=== PATIENT | female | born 1985 | race Caucasian/White ===

== ENCOUNTER 2016-12-09 14:26 | Emergency (ER) | payer MEDICARE, MEDICAID ==
[2016-12-09 15:40] VITALS: BP 129/82
--- NOTE | 2016-12-09 15:49 | UC ---
Throat Pain/Nasal Minesh HPI - HPI Summary HPI Summary: FOUR WEEKS OF SINUS CONGESTION COUGH. TOOK Z PACK ONE MONTH AGO, NO IMPROVEMENT. LAST FOUR DAYS HAS DEVELOPED SORE THROAT. NO FEVER. NO RASHES. NO SHORTNESS OF BREATH. - History of Current Complaint Chief Complaint: UCGeneralIllness Stated Complaint: SORE THROAT Time Seen by Provider: 12/09/16 15:27 Hx Obtained From: Patient Hx Last Menstrual Period: 12/04/16 Onset/Duration: Gradual Onset, Lasting Weeks, Still Present Severity: Moderate Cough: Nonproductive Associated Signs & Symptoms: Positive: Dysphagia, Hoarseness, Sinus Discomfort, Nasal Discharge. Negative: Fever - Epiglottits Risk Factors Epiglottis Risk Factors: Negative - Allergies/Home Medications Allergies/Adverse Reactions: Allergies Allergy/AdvReac Type Severity Reaction Status Date / Time Penicillins AdvReac Intermediate GI Upset Verified 12/09/16 15:21 Amoxicillin AdvReac Vomiting Verified 12/09/16 15:21 mushrooms Allergy Hives Uncoded 12/09/16 15:21 Home Medications: Home Medications Albuterol HFA INHALER* [Ventolin HFA Inhaler*] 2 puff INH Q6H PRN 12/09/16 [ History Confirmed 12/09/16] PMH/Surg Hx/FS Hx/Imm Hx Previously Healthy: Yes Endocrine History Of: Denies: Diabetes, Thyroid Disease, Hyperthyroidism, Hypothyroidism, Dyslipidemia Cardiovascular History Of: Reports: Cardiac Disorders - Hx of rapid heart rate Denies: Hypertension, Pacemaker/ICD, Myocardial Infarction, Congestive Heart Failure, Atrial Fibrillation, Deep Vein Thrombosis, Bleeding Disorders Respiratory History Of: Reports: Asthma, Bronchitis Denies: COPD - RAPID HEART RATE, Pneumonia, Pulmonary Embolism GI/ History Of: Denies: Gastroesophageal Reflux, Ulcer, Gastrointestinal Bleed, Gall Bladder Disease, Kidney Stones, Diverticulitis, Renal Disease, Urosepsis Neurological History Of: Denies: TIA, CVA, Dementia, Seizures, Migraine Psychological History Of: Denies: Anxiety, Depression, Bipolar Disorder, Schizophrenia, Post Traumatic Stress Disorder Cancer History Of: Denies: Lung Cancer, Colorectal Cancer, Breast Cancer, Prostate Cancer, Cervical Cancer Other History Of: Negative For: HIV, Hepatitis B, Hepatitis C - Surgical History Surgical History: Yes Surgery Procedure, Year, and Place: Sinus Surgery, 2013, [facility], esure. Cholecystectomy - Family History Known Family History: Positive: Cardiac Disease, Hypertension - Social History Occupation: Unemployed Lives: With Family Alcohol Use: Occasionally Substance Use Type: None Smoking Status (MU): Never Smoked Tobacco When Did the Patient Quit Smoking/Using Tobacco: 5 years ago Household Exposure Type: Cigarettes - Immunization History Most Recent Influenza Vaccination: Current for Season Review of Systems Constitutional: Negative Skin: Negative Eyes: Negative ENT: Sore Throat, Ear Ache, Nasal Discharge Respiratory: Cough Cardiovascular: Negative Gastrointestinal: Negative Genitourinary: Negative Motor: Negative Neurovascular: Negative Musculoskeletal: Negative Neurological: Negative Psychological: Negative All Other Systems Reviewed And Are Negative: Yes Physical Exam Triage Information Reviewed: Yes Appearance: Well-Appearing, No Pain Distress, Well-Nourished Vital Signs: Initial Vital Signs Temp 98.6 F 12/09/16 15:13 Pulse 112 12/09/16 15:13 Resp 16 12/09/16 15:13 BP 129/82 12/09/16 15:13 Pulse Ox 100 12/09/16 15:13 Vital Signs Reviewed: Yes Eye Exam: Normal Eyes: Positive: Conjunctiva Clear ENT: Positive: Pharynx normal, Nasal congestion, TM bulging, TM dull Dental: Positive: Gross Decay/Caries @ Neck: Positive: Supple, Tenderness @ - RIGHT ANTERIOR CERVICAL LN. Negative: Nuchal Rigidity Respiratory Exam: Normal Respiratory: Positive: Chest non-tender, Lungs clear, Normal breath sounds, No respiratory distress, No accessory muscle use, Respiratory distress Cardiovascular Exam: Normal Cardiovascular: Positive: RRR, No Murmur, Pulses Normal, Brisk Capillary Refill Abdominal Exam: Normal Abdomen Description: Positive: Nontender, No Organomegaly Musculoskeletal Exam: Normal Musculoskeletal: Positive: Strength Intact, ROM Intact Neurological Exam: Normal Neurological: Positive: Alert, Muscle Tone Normal Psychological Exam: Normal Skin Exam: Normal Throat Pain/Nasal Course/Dx - Differential Dx/Diagnosis Differential Diagnosis/HQI/PQRI: Peritonsillar Abscess, Pharyngitis, Sinusitis, Tonsillitis, URI Provider Diagnoses: SINUSITIS. PHARYNGITIS Discharge - Discharge Plan Condition: Stable Disposition: HOME Prescriptions: DOXYcycline CAP(*) [DOXYcycline 100MG CAP(*)] 100 mg PO BID #20 cap Patient Education Materials: Sinusitis (ED) Referrals: Nikki Ross PA [Primary Care Provider] -
== END 2016-12-09 15:48 | disposition home or self-care (01) ==
LOC: UCCORT 14:26
DX: J32.9 Chronic sinusitis, unspecified (principal); J02.9 Acute pharyngitis, unspecified; Z87.891 Personal history of nicotine dependence; Z88.0 Allergy status to penicillin; Z88.1 Allergy status to other antibiotic agents; Z91.018 Allergy to other foods
CPT/HCPCS: 99212; G0463

== ENCOUNTER 2017-02-04 18:20 | Emergency (ER) | payer MEDICARE, MEDICAID ==
[2017-02-04 18:34] VITALS: BP 132/91
--- NOTE | 2017-02-04 19:57 | UC ---
Throat Pain/Nasal Minesh HPI - HPI Summary HPI Summary: ONE DAY OF SINUS CONGESTION AND PRESSURE. NO FEVER. NO N/V. NO COUGH NO SORE THROAT - History of Current Complaint Chief Complaint: UCRespiratory Stated Complaint: SINUS Time Seen by Provider: 02/04/17 18:30 Hx Obtained From: Patient Hx Last Menstrual Period: last week Onset/Duration: Sudden Onset, Lasting Hours, Still Present Severity: Moderate Pain Intensity: 9 Pain Scale Used: 0-10 Numeric Cough: None Associated Signs & Symptoms: Positive: Sinus Discomfort, Nasal Discharge - Epiglottits Risk Factors Epiglottis Risk Factors: Negative - Allergies/Home Medications Allergies/Adverse Reactions: Allergies Allergy/AdvReac Type Severity Reaction Status Date / Time Penicillins AdvReac Intermediate GI Upset Verified 02/04/17 18:30 Amoxicillin AdvReac Vomiting Verified 02/04/17 18:30 mushrooms Allergy Hives Uncoded 02/04/17 18:30 PMH/Surg Hx/FS Hx/Imm Hx Previously Healthy: Yes Endocrine History Of: Denies: Diabetes, Thyroid Disease, Hyperthyroidism, Hypothyroidism, Dyslipidemia Cardiovascular History Of: Reports: Cardiac Disorders - Hx of rapid heart rate Denies: Hypertension, Pacemaker/ICD, Myocardial Infarction, Congestive Heart Failure, Atrial Fibrillation, Deep Vein Thrombosis, Bleeding Disorders Respiratory History Of: Reports: Asthma, Bronchitis Denies: COPD, Pneumonia, Pulmonary Embolism GI/ History Of: Denies: Gastroesophageal Reflux, Ulcer, Gastrointestinal Bleed, Gall Bladder Disease, Kidney Stones, Diverticulitis, Renal Disease, Urosepsis Neurological History Of: Denies: TIA, CVA, Dementia, Seizures, Migraine Psychological History Of: Denies: Anxiety, Depression, Bipolar Disorder, Schizophrenia, Post Traumatic Stress Disorder Cancer History Of: Denies: Lung Cancer, Colorectal Cancer, Breast Cancer, Prostate Cancer, Cervical Cancer Other History Of: Negative For: HIV, Hepatitis B, Hepatitis C - Surgical History Surgical History: Yes Surgery Procedure, Year, and Place: Sinus Surgery, 2013, [facility],. [place]. Cholecystectomy. Removal of lymph node right neck Dr Mcrae - Family History Known Family History: Positive: Cardiac Disease, Hypertension - Social History Occupation: Unemployed Lives: With Family Alcohol Use: Occasionally Substance Use Type: None Smoking Status (MU): Never Smoked Tobacco When Did the Patient Quit Smoking/Using Tobacco: 5 years ago Household Exposure Type: Cigarettes - Immunization History Most Recent Influenza Vaccination: Current for Season Review of Systems Constitutional: Negative Skin: Negative Eyes: Negative ENT: Nasal Discharge Respiratory: Negative Cardiovascular: Negative Gastrointestinal: Negative Genitourinary: Negative Motor: Negative Neurovascular: Negative Musculoskeletal: Negative Neurological: Negative Psychological: Negative All Other Systems Reviewed And Are Negative: Yes Physical Exam Triage Information Reviewed: Yes Appearance: Well-Appearing, No Pain Distress, Well-Nourished Vital Signs: Initial Vital Signs Temp 98.4 F 02/04/17 18:25 Pulse 96 02/04/17 18:25 Resp 14 02/04/17 18:25 BP 132/91 02/04/17 18:25 Pulse Ox 100 02/04/17 18:25 Vital Signs Reviewed: Yes Eye Exam: Normal ENT: Positive: Normal ENT inspection, Hearing grossly normal, Pharynx normal, Nasal congestion, TMs normal Dental Exam: Normal Neck exam: Normal Neck: Positive: Supple, Nontender, No Lymphadenopathy Respiratory Exam: Normal Respiratory: Positive: Chest non-tender, Lungs clear, Normal breath sounds, No respiratory distress, No accessory muscle use Cardiovascular Exam: Normal Cardiovascular: Positive: RRR, No Murmur, Pulses Normal Abdominal Exam: Normal Abdomen Description: Positive: Nontender, No Organomegaly Musculoskeletal Exam: Normal Neurological Exam: Normal Psychological Exam: Normal Psychological: Positive: Normal Response To Family Skin Exam: Normal Throat Pain/Nasal Course/Dx - Differential Dx/Diagnosis Differential Diagnosis/HQI/PQRI: Influenza, Otitis Media, Pharyngitis, Sinusitis , URI Provider Diagnoses: UPPER RESPIRATORY INFECTION Discharge - Discharge Plan Condition: Stable Disposition: HOME Patient Education Materials: Upper Respiratory Infection (ED), Viral Syndrome ( ED) Referrals: Gifty Herron PA [Primary Care Provider] -
== END 2017-02-04 19:19 | disposition home or self-care (01) ==
LOC: UCCORT 18:20
DX: J06.9 Acute upper respiratory infection, unspecified (principal); R03.0 Elevated blood-pressure reading, without diagnosis of hypertension; Z88.1 Allergy status to other antibiotic agents; Z88.0 Allergy status to penicillin; Z90.49 Acquired absence of other specified parts of digestive tract; Z77.22 Contact with and (suspected) exposure to environmental tobacco smoke (acute) (chronic)
CPT/HCPCS: 87502; 99211; G0463

== ENCOUNTER 2017-03-07 11:40 | Emergency (ER) | payer MEDICARE, MEDICAID ==
[2017-03-07 11:49] VITALS: BP 117/80
--- NOTE | 2017-03-07 12:15 | UC ---
Throat Pain/Nasal Minesh HPI - HPI Summary HPI Summary: nasal congestion , cough x 2 days + runny nose, sore throat, no fever, no chills - History of Current Complaint Chief Complaint: UCRespiratory Stated Complaint: UPPER RESPIRATORY Time Seen by Provider: 03/07/17 12:09 Hx Obtained From: Patient Hx Last Menstrual Period: 02/21/17 ?: Yes Onset/Duration: Sudden Onset, Lasting Days - 2, Still Present Severity: Moderate Cough: Nonproductive Associated Signs & Symptoms: Positive: Wheezing, Nasal Discharge. Negative: Sinus Discomfort, Fever, Vomiting - Allergies/Home Medications Allergies/Adverse Reactions: Allergies Allergy/AdvReac Type Severity Reaction Status Date / Time Penicillins AdvReac Intermediate GI Upset Verified 03/07/17 11:49 Amoxicillin AdvReac Vomiting Verified 03/07/17 11:49 mushrooms Allergy Hives Uncoded 03/07/17 11:49 Home Medications: Home Medications Cholecalciferol TAB* [Vitamin D TAB*] 1,000 unit PO DAILY 03/07/17 [History Confirmed 03/07/17] PMH/Surg Hx/FS Hx/Imm Hx Endocrine History Of: Denies: Diabetes, Thyroid Disease, Hyperthyroidism, Hypothyroidism, Dyslipidemia Cardiovascular History Of: Reports: Cardiac Disorders - Hx of rapid heart rate Denies: Hypertension, Pacemaker/ICD, Myocardial Infarction, Congestive Heart Failure, Atrial Fibrillation, Deep Vein Thrombosis, Bleeding Disorders Respiratory History Of: Reports: Asthma, Bronchitis Denies: COPD, Pneumonia, Pulmonary Embolism GI/ History Of: Denies: Gastroesophageal Reflux, Ulcer, Gastrointestinal Bleed, Gall Bladder Disease, Kidney Stones, Diverticulitis, Renal Disease, Urosepsis Neurological History Of: Denies: TIA, CVA, Dementia, Seizures, Migraine Psychological History Of: Denies: Anxiety, Depression, Bipolar Disorder, Schizophrenia, Post Traumatic Stress Disorder Cancer History Of: Denies: Lung Cancer, Colorectal Cancer, Breast Cancer, Prostate Cancer, Cervical Cancer Other History Of: Negative For: HIV, Hepatitis B, Hepatitis C - Surgical History Surgical History: Yes Surgery Procedure, Year, and Place: Sinus Surgery, 2013, [facility], [facility]. Cholecystectomy - Family History Known Family History: Positive: Cardiac Disease, Hypertension - Social History Alcohol Use: Occasionally Substance Use Type: None Smoking Status (MU): Never Smoked Tobacco When Did the Patient Quit Smoking/Using Tobacco: 5 years ago Household Exposure Type: Cigarettes - Immunization History Most Recent Influenza Vaccination: Current for Season Review of Systems Constitutional: Fatigue Skin: Negative Eyes: Negative ENT: Sore Throat, Nasal Discharge Respiratory: Cough Cardiovascular: Negative Gastrointestinal: Negative All Other Systems Reviewed And Are Negative: Yes Physical Exam Triage Information Reviewed: Yes Appearance: Well-Appearing, No Pain Distress, Well-Nourished Vital Signs: Initial Vital Signs Temp 97.4 F 03/07/17 11:43 Pulse 100 03/07/17 11:43 Resp 16 03/07/17 11:43 BP 117/80 03/07/17 11:43 Pulse Ox 100 03/07/17 11:43 Vital Signs Reviewed: Yes Eye Exam: Normal Eyes: Positive: Conjunctiva Clear ENT: Positive: Pharyngeal erythema, Nasal congestion, Nasal drainage, TMs normal Neck exam: Normal Neck: Positive: Supple, Nontender, No Lymphadenopathy Respiratory: Positive: Chest non-tender, Lungs clear, Normal breath sounds, No respiratory distress Cardiovascular: Positive: RRR, No Murmur, Pulses Normal Skin Exam: Normal Throat Pain/Nasal Course/Dx - Differential Dx/Diagnosis Provider Diagnoses: uri Discharge - Discharge Plan Condition: Stable Disposition: HOME Prescriptions: Albuterol HFA INHALER* [Ventolin HFA Inhaler*] 1 - 2 puff INH Q6H PRN #1 mdi PRN Reason: Wheezing Patient Education Materials: Upper Respiratory Infection (ED) Referrals: Gifty Herron PA [Primary Care Provider] - If Needed
== END 2017-03-07 12:24 | disposition home or self-care (01) ==
LOC: UCCORT 11:40
DX: J06.9 Acute upper respiratory infection, unspecified (principal); Z88.0 Allergy status to penicillin; J45.909 Unspecified asthma, uncomplicated; Z90.49 Acquired absence of other specified parts of digestive tract
CPT/HCPCS: 99212; G0463

== ENCOUNTER 2017-05-15 18:39 | Emergency (ER) | payer MEDICARE, MEDICAID ==
[2017-05-15 18:59] VITALS: BP 121/78
[2017-05-15] MEDS ORDERED: Nitrofurantoin Macrocrystals* 50 MG CAP PO ONE (19:25)
[2017-05-15] MEDS ORDERED: Phenazopyridine TAB* 100 MG PO ONE (19:26)
--- NOTE | 2017-05-15 19:32 | UC ---
Complaint Female HPI - HPI Summary HPI Summary: 31 yo female with dysuria/urgency and frequency since this am no f/c no n/v/d no abd or flank pain - History Of Current Complaint Chief Complaint: UCGU Stated Complaint: UTI SYMPTOMS Time Seen by Provider: 05/15/17 19:15 Hx Obtained From: Patient Hx Last Menstrual Period: 04/26/17 Onset/Duration: Gradual Onset, Lasting Hours Timing: Intermittent, Lasting Minutes Severity Initially: Moderate Severity Currently: None Pain Intensity: 0 - 7-8 whne voiding Pain Scale Used: 0-10 Numeric Character: Burning Aggravating Factor(s): Urination Associated Signs And Symptoms: Positive: Negative Related Hx: Similar Episode/Dx as: - uti - Allergies/Home Medications Allergies/Adverse Reactions: Allergies Allergy/AdvReac Type Severity Reaction Status Date / Time Penicillins AdvReac Intermediate GI Upset Verified 05/15/17 18:59 Amoxicillin AdvReac Vomiting Verified 05/15/17 18:59 adhesive Allergy Rash Uncoded 05/15/17 18:59 mushrooms Allergy Hives Uncoded 05/15/17 18:59 PMH/Surg Hx/FS Hx/Imm Hx Previously Healthy: Yes Other History Of: Negative For: HIV, Hepatitis B, Hepatitis C - Surgical History Surgical History: Yes Surgery Procedure, Year, and Place: Sinus Surgery, 2012, [facility], [place]. Cholecystectomy; right sided neck node 12/2016 - Family History Known Family History: Positive: Cardiac Disease, Hypertension - Social History Alcohol Use: Occasionally Substance Use Type: None Smoking Status (MU): Never Smoked Tobacco When Did the Patient Quit Smoking/Using Tobacco: 5 years ago Household Exposure Type: Cigarettes - Immunization History Most Recent Influenza Vaccination: Current for Season Review of Systems Constitutional: Negative Skin: Negative Eyes: Negative ENT: Negative Respiratory: Negative Cardiovascular: Negative Gastrointestinal: Negative Genitourinary: Dysuria, Frequency, Urgency Motor: Negative Neurovascular: Negative Musculoskeletal: Negative Neurological: Negative Psychological: Negative All Other Systems Reviewed And Are Negative: Yes Physical Exam Triage Information Reviewed: Yes Appearance: Well-Appearing, No Pain Distress, Well-Nourished Vital Signs: Initial Vital Signs Temp 98.3 F 05/15/17 18:50 Pulse 78 05/15/17 18:50 Resp 16 05/15/17 18:50 BP 121/78 05/15/17 18:50 Pulse Ox 100 05/15/17 18:50 Vital Signs Reviewed: Yes Eyes: Positive: Conjunctiva Clear ENT: Negative: Hearing grossly normal, Nasal congestion, Nasal drainage, Tonsillar exudate, Trismus, Muffled/hoarse voice Neck: Positive: Supple, Nontender, No Lymphadenopathy Respiratory: Positive: Lungs clear, Normal breath sounds, No respiratory distress Cardiovascular: Positive: RRR, No Murmur Abdomen Description: Positive: Nontender, No Organomegaly, Soft. Negative: CVA Tenderness (R), CVA Tenderness (L) Musculoskeletal: Positive: ROM Intact, No Edema Neurological Exam: Normal Neurological: Positive: Alert Psychological Exam: Normal Skin Exam: Normal Complaint Female Dx - Differential Dx/Diagnosis Provider Diagnoses: cystitis Discharge - Discharge Plan Condition: Stable Disposition: HOME Prescriptions: Nitrofurantoin Monohyd Macro [Macrobid] 100 mg PO BID #14 cap Phenazopyridine TAB* [Pyridium 100 mg TAB*] 100 mg PO TID #6 tab Patient Education Materials: Urinary Tract Infection in Women (ED) Referrals: Gifty Herron PA [Primary Care Provider] - 3 Days (if not better) Additional Instructions: urine culture pending
== END 2017-05-15 19:35 | disposition home or self-care (01) ==
LOC: UCCORT 18:39
DX: N30.90 Cystitis, unspecified without hematuria (principal); Z87.891 Personal history of nicotine dependence
CPT/HCPCS: 81003; 87086; 99212; A9270-GY; G0463

== ENCOUNTER 2017-07-01 19:22 | Emergency (ER) | payer MEDICARE, MEDICAID ==
[2017-07-01 19:38] VITALS: BP 124/79
--- NOTE | 2017-07-01 19:55 | UC ---
Complaint Female HPI - History Of Current Complaint Chief Complaint: UCGU Stated Complaint: PERSONAL Time Seen by Provider: 07/01/17 19:47 Hx Obtained From: Patient Hx Last Menstrual Period: 06/26/17 ?: No Onset/Duration: Sudden Onset - noticed swollen tender area light a white pimple on the right labia., Worse Since - during the day. Timing: Constant Severity Initially: Mild Severity Currently: Moderate Character: Sharp Aggravating Factor(s): Movement Alleviating Factor(s): Position Associated Signs And Symptoms: Positive: Genital Swelling. Negative: Fever, Vaginal Bleeding/Discharge, Genital Blisters Related Hx: - 1, Para - 1 - Risk Factors Ectopic Risk Factor: Maternal Age ^ 30 Ovarian Torsion Risk Factor: Reproductive Age - Allergies/Home Medications Allergies/Adverse Reactions: Allergies Allergy/AdvReac Type Severity Reaction Status Date / Time Penicillins AdvReac Intermediate GI Upset Verified 07/01/17 19:33 Amoxicillin AdvReac Vomiting Verified 07/01/17 19:33 adhesive Allergy Rash Uncoded 07/01/17 19:33 mushrooms Allergy Hives Uncoded 07/01/17 19:33 PMH/Surg Hx/FS Hx/Imm Hx Respiratory History: Asthma Other History Of: Negative For: HIV, Hepatitis B, Hepatitis C - Surgical History Surgical History: Yes Surgery Procedure, Year, and Place: Sinus Surgery, 2012, [facility], [place]. Cholecystectomy; right sided neck node 12/2016. LEFT CARPAL TUNNEL--05/2017 - Family History Known Family History: Positive: Cardiac Disease, Hypertension, Diabetes - Social History Occupation: Unemployed Lives: With Family Alcohol Use: Occasionally Substance Use Type: None Smoking Status (MU): Never Smoked Tobacco When Did the Patient Quit Smoking/Using Tobacco: 5 years ago Household Exposure Type: Cigarettes - Immunization History Most Recent Influenza Vaccination: Current for Season Review of Systems Skin: Other - swelling on vagina. All Other Systems Reviewed And Are Negative: Yes Physical Exam Triage Information Reviewed: Yes Appearance: Well-Appearing, No Pain Distress, Well-Nourished Vital Signs: Initial Vital Signs Temp 98.2 F 07/01/17 19:28 Pulse 85 07/01/17 19:28 Resp 14 07/01/17 19:28 BP 124/79 07/01/17 19:28 Pulse Ox 100 07/01/17 19:28 Vital Signs Reviewed: Yes Eyes: Positive: Conjunctiva Clear ENT: Positive: Pharynx normal, TMs normal Neck exam: Normal Respiratory Exam: Normal Cardiovascular Exam: Normal Abdominal Exam: Normal Bowel Sounds: Positive: Present Musculoskeletal Exam: Normal Neurological Exam: Normal Psychological Exam: Normal Skin: Positive: Other - Erythema on right labia majora with tenderness and small pimple Complaint Female Dx - Differential Dx/Diagnosis Differential Diagnosis/HQI/PQRI: Ovarian Cyst, Tubo-ovarian Abscess, Urinary Tract Infection Provider Diagnoses: Abscess/ cellulitis vulva Discharge - Discharge Plan Condition: Stable Disposition: HOME Prescriptions: Sulfamethox/Trimethoprim DS* [Bactrim DS 800/160 TAB*] 1 tab PO BID #14 tab Patient Education Materials: Cellulitis (ED), Abscess (ED), Sulfamethoxazole/ Trimethoprim (By mouth) Additional Instructions: Do warm packs every 2-3 hours
[2017-07-01] MEDS ORDERED: Sulfamethox/Trimethoprim DS 800/160* TAB PO ONE (20:06)
== END 2017-07-01 20:12 | disposition home or self-care (01) ==
LOC: UCCORT 19:22
DX: N76.4 Abscess of vulva (principal); N76.2 Acute vulvitis; J45.909 Unspecified asthma, uncomplicated; Z90.49 Acquired absence of other specified parts of digestive tract; Z88.0 Allergy status to penicillin; Z87.891 Personal history of nicotine dependence
CPT/HCPCS: 99212; A9270-GY; G0463

== ENCOUNTER 2017-08-08 15:04 | Emergency (ER) | payer MEDICARE, MEDICAID ==
[2017-08-08 15:20] VITALS: BP 129/82
--- NOTE | 2017-08-08 15:29 | UC ---
Lower Extremity/Ankle HPI - HPI Summary HPI Summary: left foot pain x 1 week twisted her left foot one week ago + pain with walking on her left heel had xray done yesterday at [facility] - History of Current Complaint Chief Complaint: UCLowerExtremity Stated Complaint: LEFT FOOT INJURY Time Seen by Provider: 08/08/17 15:11 Hx Obtained From: Patient Hx Last Menstrual Period: 07/22/17 Onset/Duration: Sudden Onset, Lasting Days - 5, Still Present Severity Initially: Moderate Severity Currently: Moderate Aggravating Factor(s): Standing, Ambulation Alleviating Factor(s): Rest, Elevation Able to Bear Weight: Yes - Allergies/Home Medications Allergies/Adverse Reactions: Allergies Allergy/AdvReac Type Severity Reaction Status Date / Time Penicillins AdvReac Intermediate GI Upset Verified 08/08/17 15:11 Amoxicillin AdvReac Vomiting Verified 08/08/17 15:11 adhesive Allergy Rash Uncoded 08/08/17 15:11 mushrooms Allergy Hives Uncoded 08/08/17 15:11 PMH/Surg Hx/FS Hx/Imm Hx Previously Healthy: Yes Other History Of: Negative For: HIV, Hepatitis B, Hepatitis C - Surgical History Surgical History: Yes Surgery Procedure, Year, and Place: Sinus Surgery, 2012, [facility], [place]ure. Cholecystectomy; right sided neck node 12/2016. LEFT CARPAL TUNNEL--05/2017. RIGHT CARPAL AYE 07/13/17 - Family History Known Family History: Positive: Cardiac Disease, Hypertension, Diabetes - Social History Alcohol Use: Occasionally Substance Use Type: None Smoking Status (MU): Never Smoked Tobacco When Did the Patient Quit Smoking/Using Tobacco: 5 years ago Household Exposure Type: Cigarettes - Immunization History Most Recent Influenza Vaccination: 2016 Review of Systems Constitutional: Negative Skin: Negative Eyes: Negative ENT: Negative Respiratory: Negative Is Patient Immunocompromised?: No All Other Systems Reviewed And Are Negative: Yes Physical Exam Triage Information Reviewed: Yes Appearance: Well-Appearing, No Pain Distress, Well-Nourished Vital Signs: Initial Vital Signs Temp 97.7 F 08/08/17 15:12 Pulse 89 08/08/17 15:12 Resp 16 08/08/17 15:12 BP 129/82 08/08/17 15:12 Pulse Ox 100 08/08/17 15:12 Eyes: Positive: Conjunctiva Clear ENT: Positive: Normal ENT inspection, Hearing grossly normal, Pharynx normal Neck: Positive: Supple Respiratory: Positive: Chest non-tender, Lungs clear, Normal breath sounds Cardiovascular: Positive: RRR, No Murmur, Pulses Normal Musculoskeletal: Positive: Other: - left foot : no swelling, no erythema, + tenerness of the heel good ROM , normal ankle exam Lower Extremity Course/Dx - Differential Dx/Diagnosis Provider Diagnoses: contusion left foot Discharge - Discharge Plan Condition: Stable Disposition: HOME Patient Education Materials: Foot Contusion (ED) Referrals: Gifty Herron PA [Primary Care Provider] - If Needed
== END 2017-08-08 15:36 | disposition home or self-care (01) ==
LOC: UCCORT 15:04
DX: S90.32XA Contusion of left foot, initial encounter (principal); X50.1XXA Overexertion from prolonged static or awkward postures, initial encounter; Y93.9 Activity, unspecified; Y92.9 Unspecified place or not applicable; Z90.49 Acquired absence of other specified parts of digestive tract; Z88.0 Allergy status to penicillin; Z91.048 Other nonmedicinal substance allergy status; Z77.22 Contact with and (suspected) exposure to environmental tobacco smoke (acute) (chronic)
CPT/HCPCS: 99213; G0463

== ENCOUNTER 2017-08-15 08:56 | Emergency (ER) | payer MEDICARE, MEDICAID ==
[2017-08-15 09:18] VITALS: BP 120/84
--- NOTE | 2017-08-15 09:28 | UC ---
Respiratory Complaint HPI - HPI Summary HPI Summary: COUGH X 1 WEEK + CHEST CONGESTION , NASAL CONGESTION, SORE THROAT, NO FEVER , + CHILLS NO WHEEZING , NO SOB - History of Current Complaint Chief Complaint: UCRespiratory Stated Complaint: SORE THROAT Time Seen by Provider: 08/15/17 09:06 Hx Obtained From: Patient Hx Last Menstrual Period: 07/23/17 ?: No Onset/Duration: Gradual Onset, Lasting Weeks - 1, Still Present Timing: Constant Severity Initially: Moderate Severity Currently: Moderate Character: Cough: Nonproductive Aggravating Factors: Exertion, Deep Breaths Alleviating Factors: Nothing Associated Signs And Symptoms: Positive: Chills, URI, Nasal Congestion. Negative: Dyspnea, Fever, Pleuritic Chest Pain, Wheezing, Hemoptysis, Dizziness , Calf Pain, Calf Swelling, Edema, Hoarseness, Sinus Discomfort - Allergies/Home Medications Allergies/Adverse Reactions: Allergies Allergy/AdvReac Type Severity Reaction Status Date / Time Penicillins AdvReac Intermediate GI Upset Verified 08/15/17 09:11 Amoxicillin AdvReac Vomiting Verified 08/15/17 09:11 adhesive Allergy Rash Uncoded 08/15/17 09:11 mushrooms Allergy Hives Uncoded 08/15/17 09:11 PMH/Surg Hx/FS Hx/Imm Hx Cardiovascular History: Other - RAPID HEART RATE Other Cardiovascular History: RAPID HEART RAT Respiratory History: Asthma Other History Of: Negative For: HIV, Hepatitis B, Hepatitis C - Surgical History Surgical History: Yes Surgery Procedure, Year, and Place: Sinus Surgery, 2012, [facility], esure. Cholecystectomy; right sided neck node 12/2016. LEFT CARPAL TUNNEL--05/2017. RIGHT CARPAL AYE 07/13/17 - Family History Known Family History: Positive: Cardiac Disease, Hypertension, Diabetes - Social History Alcohol Use: Occasionally Substance Use Type: None Smoking Status (MU): Never Smoked Tobacco When Did the Patient Quit Smoking/Using Tobacco: 5 years ago Household Exposure Type: Cigarettes - Immunization History Most Recent Influenza Vaccination: 2016 Review of Systems Constitutional: Negative Skin: Negative Eyes: Negative ENT: Sore Throat, Nasal Discharge Respiratory: Cough Cardiovascular: Negative Is Patient Immunocompromised?: No All Other Systems Reviewed And Are Negative: Yes Physical Exam Triage Information Reviewed: Yes Appearance: Well-Appearing, No Pain Distress, Well-Nourished Vital Signs: Initial Vital Signs Temp 98.4 F 08/15/17 09:12 Pulse 116 08/15/17 09:12 Resp 16 08/15/17 09:12 BP 120/84 08/15/17 09:12 Pulse Ox 100 08/15/17 09:12 Vital Signs Reviewed: Yes Eyes: Positive: Conjunctiva Clear ENT: Positive: Normal ENT inspection, Hearing grossly normal, Pharynx normal, Nasal congestion, TMs normal. Negative: Pharyngeal erythema Neck exam: Normal Neck: Positive: Supple, Nontender, No Lymphadenopathy Respiratory: Positive: Chest non-tender, Lungs clear, Normal breath sounds Cardiovascular: Positive: RRR, No Murmur, Pulses Normal Skin Exam: Normal UC Diagnostic Evaluation - Laboratory O2 Sat by Pulse Oximetry: 100 Respiratory Course/Dx - Differential Dx/Diagnosis Provider Diagnoses: URI Discharge - Discharge Plan Condition: Stable Disposition: HOME Prescriptions: Benzonatate [TESSALON 200 MG CAP] 200 mg PO Q8H PRN #21 cap PRN Reason: Cough Patient Education Materials: Upper Respiratory Infection (ED) Referrals: Gifty Herron PA [Primary Care Provider] - If Needed
== END 2017-08-15 09:37 | disposition home or self-care (01) ==
LOC: UCCORT 08:56
DX: J06.9 Acute upper respiratory infection, unspecified (principal); R00.0 Tachycardia, unspecified; J45.909 Unspecified asthma, uncomplicated; Z88.0 Allergy status to penicillin; Z91.048 Other nonmedicinal substance allergy status; Z90.49 Acquired absence of other specified parts of digestive tract; Z77.22 Contact with and (suspected) exposure to environmental tobacco smoke (acute) (chronic)
CPT/HCPCS: 99212; G0463

== ENCOUNTER 2017-09-21 11:40 | Emergency (ER) | payer MEDICARE, MEDICAID ==
[2017-09-21 12:01] VITALS: BP 126/81
--- NOTE | 2017-09-21 12:42 | RAD ---
INDICATION: Left heel injury. Pain. COMPARISON: None TECHNIQUE: AP, lateral, and oblique views were obtained. FINDINGS: The bony structures, joint spaces, and soft tissues are normal for age. IMPRESSION: NEGATIVE EXAMINATION.
--- NOTE | 2017-09-21 13:04 | UC ---
Lower Extremity/Ankle HPI - HPI Summary HPI Summary: FALL DOWN STEPS TWO DAYS AGO, LEFT FOOT/HEEL PAIN SINCE TIME OF INJURY. RECENT HISTORY OF INJURY TO THE SAME FOOT IN 08/06/17, DIAGNOSED FOOT CONTUSION. - History of Current Complaint Chief Complaint: UCLowerExtremity Stated Complaint: LEFT FOOT INJ Time Seen by Provider: 09/21/17 11:56 Hx Obtained From: Patient Hx Last Menstrual Period: 07/23/17 Onset/Duration: Sudden Onset, Lasting Days, Still Present Severity Initially: Moderate Severity Currently: Moderate Aggravating Factor(s): Standing, Ambulation Alleviating Factor(s): Rest, Elevation Able to Bear Weight: Yes - Risk Factors Gout Risk Factors: Negative DVT Risk Factors: Negative Septic Arthritis Risk Factor: Negative - Allergies/Home Medications Allergies/Adverse Reactions: Allergies Allergy/AdvReac Type Severity Reaction Status Date / Time Penicillins AdvReac Intermediate GI Upset Verified 09/21/17 12:01 Amoxicillin AdvReac Vomiting Verified 09/21/17 12:01 adhesive Allergy Rash Uncoded 09/21/17 12:01 mushrooms Allergy Hives Uncoded 09/21/17 12:01 PMH/Surg Hx/FS Hx/Imm Hx Previously Healthy: Yes Other History Of: Negative For: HIV, Hepatitis B, Hepatitis C - Surgical History Surgical History: Yes Surgery Procedure, Year, and Place: Sinus Surgery, 2012, [facility], esure. Cholecystectomy; right sided neck node 12/2016. LEFT CARPAL TUNNEL--05/2017. RIGHT CARPAL AYE 07/13/17 - Family History Known Family History: Positive: Cardiac Disease, Hypertension, Diabetes - Social History Occupation: Unemployed Lives: With Family Alcohol Use: Occasionally Substance Use Type: None Smoking Status (MU): Never Smoked Tobacco When Did the Patient Quit Smoking/Using Tobacco: 5 years ago Household Exposure Type: Cigarettes - Immunization History Most Recent Influenza Vaccination: 2016 Review of Systems Constitutional: Negative Skin: Negative Eyes: Negative ENT: Negative Respiratory: Negative Cardiovascular: Negative Gastrointestinal: Negative Genitourinary: Negative Motor: Negative Neurovascular: Negative Musculoskeletal: Arthralgia, Myalgia Neurological: Negative Psychological: Negative Is Patient Immunocompromised?: No All Other Systems Reviewed And Are Negative: Yes Physical Exam Triage Information Reviewed: Yes Appearance: Well-Appearing, No Pain Distress, Well-Nourished Vital Signs: Initial Vital Signs Temp 98.6 F 09/21/17 11:58 Pulse 96 09/21/17 11:58 Resp 14 09/21/17 11:58 BP 126/81 09/21/17 11:58 Vital Signs Reviewed: Yes Eye Exam: Normal ENT Exam: Normal ENT: Positive: Normal ENT inspection Dental Exam: Normal Neck exam: Normal Neck: Positive: Supple, Nontender Respiratory Exam: Normal Respiratory: Positive: Chest non-tender, Lungs clear, Normal breath sounds, No respiratory distress, No accessory muscle use Cardiovascular Exam: Normal Cardiovascular: Positive: RRR, No Murmur, Pulses Normal Abdominal Exam: Normal Musculoskeletal: Positive: Strength Intact, ROM Intact, No Edema, Other: - TENDER LEFT HEEL AND MIDFOOT, TO PALPATION Neurological Exam: Normal Psychological Exam: Normal Skin Exam: Normal Lower Extremity Course/Dx - Differential Dx/Diagnosis Differential Diagnosis/HQI/PQRI: Fracture (Closed), Sprain, Strain Provider Diagnoses: LEFT FOOT SPRAIN/CONTUSION Discharge - Discharge Plan Condition: Stable Disposition: HOME Patient Education Materials: Foot Contusion (ED), Foot Sprain (ED) Referrals: Sourav Ocampo MD [Medical Doctor] - If Needed Gifty Herron PA [Primary Care Provider] -
== END 2017-09-21 13:11 | disposition home or self-care (01) ==
LOC: UCCORT 11:40
DX: S90.32XA Contusion of left foot, initial encounter (principal); S93.602A Unspecified sprain of left foot, initial encounter; W19.XXXA Unspecified fall, initial encounter; Y92.9 Unspecified place or not applicable; Z88.0 Allergy status to penicillin; Z88.1 Allergy status to other antibiotic agents; Z91.018 Allergy to other foods; Z91.048 Other nonmedicinal substance allergy status
CPT/HCPCS: 99213; G0463

== ENCOUNTER 2017-11-27 13:36 | Emergency (ER) | payer MEDICARE, MEDICAID ==
[2017-11-27 14:42] VITALS: BP 138/78
--- NOTE | 2017-11-27 15:07 | UC ---
Throat Pain/Nasal Minesh HPI - HPI Summary HPI Summary: Pt c/o cough, nasal congestion, sinus pressure, ST and generalized malaise X 2- 3 days. Pt was treated last week for sinusitis wit hZ-pc. No imporvement in symptoms. - History of Current Complaint Chief Complaint: UCGeneralIllness Stated Complaint: COUGH,ST Time Seen by Provider: 11/27/17 14:47 Hx Obtained From: Patient Hx Last Menstrual Period: 11/11/17 ?: No Onset/Duration: Gradual Onset, Lasting Days, Still Present Severity: Mild Cough: Nonproductive Associated Signs & Symptoms: Positive: Sinus Discomfort, Other - ST, cough Related History: Other (Noted In Comments) - asthma - Epiglottits Risk Factors Epiglottis Risk Factors: Negative - Allergies/Home Medications Allergies/Adverse Reactions: Allergies Allergy/AdvReac Type Severity Reaction Status Date / Time Penicillins AdvReac Intermediate GI Upset Verified 11/27/17 14:42 Amoxicillin AdvReac Vomiting Verified 11/27/17 14:42 adhesive Allergy Rash Uncoded 11/27/17 14:42 mushrooms Allergy Hives Uncoded 11/27/17 14:42 Home Medications: Home Medications Trazodone HCl 150 mg PO BEDTIME 11/27/17 [History Confirmed 11/27/17] PMH/Surg Hx/FS Hx/Imm Hx Previously Healthy: Yes Other History Of: Negative For: HIV, Hepatitis B, Hepatitis C - Surgical History Surgical History: Yes Surgery Procedure, Year, and Place: Sinus Surgery, 2012, [facility], esure. Cholecystectomy; right sided neck node 12/2016. LEFT CARPAL TUNNEL--05/2017. RIGHT CARPAL AYE 07/13/17 - Family History Known Family History: Positive: Cardiac Disease, Hypertension, Diabetes - Social History Occupation: Employed Full-time Lives: With Family Alcohol Use: Rare Substance Use Type: None Smoking Status (MU): Never Smoked Tobacco When Did the Patient Quit Smoking/Using Tobacco: 5 years ago Household Exposure Type: Cigarettes - Immunization History Most Recent Influenza Vaccination: 2016 Review of Systems Constitutional: Chills, Fatigue Skin: Negative Eyes: Negative ENT: Sore Throat, Sinus Congestion, Sinus Pain/Tenderness Respiratory: Cough Cardiovascular: Negative Gastrointestinal: Nausea Genitourinary: Negative Motor: Negative Neurovascular: Negative Musculoskeletal: Negative Neurological: Negative Psychological: Negative Is Patient Immunocompromised?: No All Other Systems Reviewed And Are Negative: Yes Physical Exam Triage Information Reviewed: Yes Appearance: Well-Appearing Vital Signs: Initial Vital Signs Temp 98.6 F 11/27/17 14:36 Pulse 104 11/27/17 14:36 Resp 14 11/27/17 14:36 BP 138/78 11/27/17 14:36 Pulse Ox 100 11/27/17 14:36 Vital Signs Reviewed: Yes Eye Exam: Normal ENT Exam: Other ENT: Positive: Nasal congestion, Sinus tenderness Dental Exam: Normal Neck exam: Normal Respiratory Exam: Normal Cardiovascular Exam: Normal Musculoskeletal Exam: Normal Neurological Exam: Normal Psychological Exam: Normal Skin Exam: Normal Throat Pain/Nasal Course/Dx - Course Assessment/Plan: negative rapid strep - Differential Dx/Diagnosis Differential Diagnosis/HQI/PQRI: Influenza, Otitis Media, Pharyngitis, URI Provider Diagnoses: viral syndrome. cough Discharge - Discharge Plan Condition: Stable Disposition: HOME Prescriptions: Benzonatate CAP* [Tessalon 100 MG CAP*] 100 mg PO Q8H PRN #15 cap PRN Reason: Cough Pseudoephedrine-Guaifenesin [Mucinex D 60-600 mg] 1 tab PO DAILY #7 tab Patient Education Materials: Viral Syndrome (ED) Referrals: KEON King [Primary Care Provider] -
== END 2017-11-27 15:28 | disposition home or self-care (01) ==
LOC: UCCORT 13:36
DX: B34.9 Viral infection, unspecified (principal); R05 Cough; Z88.0 Allergy status to penicillin; Z90.49 Acquired absence of other specified parts of digestive tract; Z87.891 Personal history of nicotine dependence; Z77.22 Contact with and (suspected) exposure to environmental tobacco smoke (acute) (chronic)
CPT/HCPCS: 87651; 99212; G0463

== ENCOUNTER 2018-01-07 09:51 | Emergency (ER) | payer MEDICARE, MEDICAID ==
[2018-01-07 11:53] VITALS: BP 127/86
--- NOTE | 2018-01-07 12:33 | UC ---
Lower Extremity/Ankle HPI - HPI Summary HPI Summary: 32 YO FEMALE HAS HAD ON AND OFF HEEL PAIN X MOS HAS BEEN CONSTANT X 1 MONTH XR 10/06 WAS NORMAL NO INJURY - History of Current Complaint Chief Complaint: UCLowerExtremity Stated Complaint: LEFT FOOT PAIN Time Seen by Provider: 01/07/18 12:26 Hx Obtained From: Patient Hx Last Menstrual Period: 12/09/17 Onset/Duration: Gradual Onset, Lasting Weeks Severity Initially: Moderate Severity Currently: Moderate Pain Intensity: 7 Pain Scale Used: 0-10 Numeric Alleviating Factor(s): Rest Able to Bear Weight: Yes - Allergies/Home Medications Allergies/Adverse Reactions: Allergies Allergy/AdvReac Type Severity Reaction Status Date / Time Penicillins Allergy Intermediate GI Upset Verified 01/07/18 11:54 amoxicillin Allergy Mild Vomiting Verified 01/07/18 11:54 prednisone Allergy Mild Rash Verified 01/07/18 11:54 adhesive Allergy Rash Uncoded 01/07/18 11:54 mushrooms Allergy Hives Uncoded 01/07/18 11:54 Home Medications: Home Medications traZODone TAB* [Desyrel TAB*] 150 mg PO BEDTIME 01/07/18 [History Confirmed ] PMH/Surg Hx/FS Hx/Imm Hx Previously Healthy: Yes Other History Of: Negative For: HIV, Hepatitis B, Hepatitis C - Surgical History Surgical History: Yes Surgery Procedure, Year, and Place: Sinus Surgery, 2012, [facility], esure. Cholecystectomy; right sided neck node 12/2016. LEFT CARPAL TUNNEL--05/2017. RIGHT CARPAL AYE 07/13/17 - Family History Known Family History: Positive: Cardiac Disease, Hypertension, Diabetes - Social History Alcohol Use: Occasionally Substance Use Type: None Smoking Status (MU): Never Smoked Tobacco When Did the Patient Quit Smoking/Using Tobacco: 5 years ago Household Exposure Type: Cigarettes - Immunization History Most Recent Influenza Vaccination: 2016 Review of Systems Constitutional: Negative Skin: Negative Eyes: Negative ENT: Negative Respiratory: Negative Cardiovascular: Negative Gastrointestinal: Negative Genitourinary: Negative Motor: Negative Neurovascular: Negative Musculoskeletal: Arthralgia Neurological: Negative Psychological: Negative Is Patient Immunocompromised?: No All Other Systems Reviewed And Are Negative: Yes Physical Exam Triage Information Reviewed: Yes Appearance: Well-Appearing, No Pain Distress, Well-Nourished Vital Signs: Initial Vital Signs Temp 97.9 F 01/07/18 11:46 Pulse 103 01/07/18 11:46 BP 127/86 01/07/18 11:46 Pulse Ox 100 01/07/18 11:46 Vital Signs Reviewed: Yes Eyes: Positive: Conjunctiva Clear ENT: Positive: Hearing grossly normal, Uvula midline. Negative: Nasal congestion, Nasal drainage, Tonsillar swelling, Tonsillar exudate, Trismus, Muffled voice, Hoarse voice, Sinus tenderness Respiratory: Positive: Lungs clear, Normal breath sounds, No respiratory distress, No accessory muscle use Cardiovascular: Positive: RRR, No Murmur Musculoskeletal: Positive: ROM Intact, No Edema Neurological: Positive: Alert Psychological Exam: Normal Skin Exam: Normal Diagnostics - Radiology No standard instances Xray Interpretation: Positive (See Comments) - SMALL CALCANEAL SPUR Radiology Interpretation Completed By: Radiologist Lower Extremity Course/Dx - Differential Dx/Diagnosis Provider Diagnoses: PLANTAR FASCIITIS Discharge - Discharge Plan Condition: Stable Disposition: HOME Prescriptions: Naproxen TAB* [Naprosyn 375 mg TAB*] 375 mg PO Q8H PRN #45 tab PRN Reason: Pain Patient Education Materials: Plantar Fasciitis Exercises (GEN), Plantar Fasciitis (ED) Referrals: Sourav Ocampo MD [Medical Doctor] - 5 Days Images Feet (Multiple View): 1 - TENDER
--- NOTE | 2018-01-07 12:58 | RAD ---
INDICATION: Worsening pain left heel. TECHNIQUE: 4 views of the left calcaneus were obtained. FINDINGS: The bones are in normal alignment. No fracture is seen. There is a small spur arising from the inferior calcaneus. IMPRESSION: SMALL CALCANEAL SPUR, NO FRACTURE IS SEEN.
== END 2018-01-07 13:10 | disposition home or self-care (01) ==
LOC: UCCORT 09:51
DX: M72.2 Plantar fascial fibromatosis (principal); Z88.0 Allergy status to penicillin; Z88.8 Allergy status to other drugs, medicaments and biological substances; Z91.048 Other nonmedicinal substance allergy status; Z87.891 Personal history of nicotine dependence
CPT/HCPCS: 99212; G0463

== ENCOUNTER 2018-07-01 14:17 | Emergency (ER) | payer MEDICARE, MEDICAID ==
--- OUTSIDE RECORDS SUMMARY | 2018-07-01 14:30 | XMS REPORT ---
:1985 External Reference #:[id number] Author Organization [employer] Address [address] [place] [address] [place] [address] Phone [phone] Care Team Providers Name Role Phone Darnell Ellington MD Primary Care Physician Unavailable Payers Type Date Identification Numbers Payment Provider Subscriber Medicare Primary Policy Number: [id number] Medicare Sharita Dixon PayID: [id number] [address] [place] [address] [facility] Policy Number: [id number] Medicaid Sharita Dixon Group Name: 1 1 [address] PayID: [id number] [place] [address] Problems Description No Information Family History Date Family Member(s) Problem(s) Comments General Diabetes Social History Type Date Description Comments Marital Status Single Lives With Uncle and brother Occupation Not Currently Working ETOH Use Occasionally consumes alcohol Recreational Drug Use Denies Drug Use Smoking Patient has never smoked Exercise Type/Frequency Exercises regularly walks alot Allergies, Adverse Reactions, Alerts Date Description Reaction Status Severity Comments 01/08/2018 Penicillin active 01/08/2018 Escitalopram active 01/08/2018 Tape active 01/08/2018 Amoxicillin active 01/08/2018 Prednisone active 04/04/2018 Seasonal active Medications Medication Date Status Form Strength Qnty SIG Indications Ordering Provider Ondansetron HCL / Active Tablets 4mg 30tabs 1 by [facility] 0000 mouth o, twice a Gifty, day as M.D. needed Atomoxetine HCL / Active Capsules 60mg 2 po q [facility] 0000 am Gifty caro, Elsa Ventolin HFA / Active Aerosol 108(90Base 2 puffs Unknown 0000 ) mcg/Act as needed Trazodone HCL / Active Tablets 150mg 1 po at [facility] 0000 Gifty mejias M.D. Loratadine / Active Tablets 10mg 1 by Unknown 0000 mouth every day Naproxen / Hx Tablets 375mg Rosa Persaud MD 2017 Dexamethasone / Hx Tablets 4mg Unknown - 2017 Acetaminophen-Co / Hx Tablets 300-60mg Unknown deine #4 - 2017 Vandazole / Hx Gel 0.75% Unknown 2017 Fluticasone / Hx Suspension 50mcg/Act Unknown Propionate - 2017 Nitrofurantoin / Hx Capsules 100mg Unknown Monohydrate/Macr - ocrystals 2017 Vital Signs Date Vital Result Comment 06/20/2018 Height 66 inches 5'6" Weight 155.00 lb Heart Rate 90 /min BP Systolic Sitting 104 mmHg BP Diastolic Sitting 56 mmHg Respiratory Rate 16 /min Pain Level 6 BMI (Body Mass Index) 25.0 kg/m2 04/04/2018 Height 56 inches 4'8" Weight 165.00 lb Heart Rate 92 /min BP Systolic 112 mmHg BP Diastolic 88 mmHg Respiratory Rate 16 /min Pain Level 7 BMI (Body Mass Index) 37.0 kg/m2 01/08/2018 Height 66 inches 5'6" Weight 153.00 lb Heart Rate 96 /min Ra BP Systolic Sitting 106 mmHg BP Diastolic Sitting 64 mmHg Respiratory Rate 16 /min Pain Level 8 BMI (Body Mass Index) 24.7 kg/m2 Results Description No Information Procedures Description No Information Encounters Type Date Location Provider CPT E/M Dx Office Visit 04/04/2018 [facility] M.D[facility] [id number] M72.2 1:00p [facility] Office Visit 01/08/2018 [facility] [place] [id number] M72.2 1:30p [facility] [place] Plan of Care Future Appointment(s):07/25/2018 9:30 am - Huang May M.D. at [facility]17/01/2018 - Huang May M.D.M72.2 Plantar fascial fibromatosisNew Therapy:Physical TherapyFollow up:4-5 weeeks
--- OUTSIDE RECORDS SUMMARY | 2018-07-01 14:31 | XMS REPORT ---
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 Gifty Herron Primary Care Physician Unavailable Payers Type Date Identification Numbers Payment Provider Subscriber Medicare Primary Policy Number: [id number] Medicare Zacarias Julio PayID: [id number] [address] [place] [address] Medicaid Policy Number: [id number] Medicaid Zacarias Julio Group Name: 2 1 [address] PayID: [id number] [place] [address] Problems Date Description Provider Status Onset: 05/25/2012 Dysfunction of eustachian tube Adriana Abel PA Active Family History Date Family Member(s) Problem(s) Comments General Diabetes Social History Type Date Description Comments Marital Status Single ETOH Use Denies alcohol use Recreational Drug Use Never Used Drugs Allergies, Adverse Reactions, Alerts Date Description Reaction Status Severity Comments 05/25/2012 Mushrooms active 02/27/2013 Amoxicillin vomiting active 01/19/2009 NKDA inactive Medications Medication Date Status Form Strength Qnty SIG Indications Ordering Provider Cetirizine HCL 01/31/ Active Tablets 10mg 30tab 1 by mouth Thor, 2017 s every day . Prashanth, take at M.D. night if makes you drowsy. Fexofenadine 10/18/ Active Tablets 180mg 30tab 1 by mouth Thor, HCL 2016 s every day Prashanth d/c MChrisDChris claritin, loratadine Claritin 05/02/ Active Tablets 10mg 60tab 1 by mouth Thor, 2017 s every day Elsa Alford Concerta / Active Tablets ER 54mg 30tab 1 po qd Unknown 0000 s OTC Sleep Aide / Active Benadryl Unknown 0000 OTC Strattera / Active Capsules 120mg once a day Unknown 0000 Azithromycin 04/04/ Hx Tablets 250mg 6tabs 2 by mouth Thor, 2017 - every day Prashanth, , 1 by M.D. 2018 mouth every day 2-5 Dexamethasone 01/01/ Hx Tablets 4mg 3tabs 1 by mouth Thor, 2017 - Prashanth, 01/31/ M.D. 2017 Azithromycin 11/16/ Hx Tablets 250mg 6tabs 2 by mouth Thor, 2016 - every day Prashanth, , 1 by M.D. 2018 mouth every day 2-5 Dermotic 07/10/ Hx Oil 0.01% 1unit apply 5 Thor, 2016 - s drops twice Prashanth, 12/04/ a day to M.D. 2018 affected ear canal(s)for 7-14 days Azithromycin 07/03/ Hx Tablets 250mg 6tabs 2 by mouth Thor, 2016 - every day Prashanth, , 1 by M.DChris 2016 mouth every day 2-5 Fluticasone 05/02/ Hx Suspension 50mcg/Act 32gm 2 sprays Thor, Propionate 2016 - both Prashanth, 01/31/ nostrils M.D. 2017 every day Prednisone 04/03/ Hx Tablets 10mg 5tabs 1 by mouth Thor, 2016 - every Prashanth, 05/01/ morning M.D. 2016 Ipratropium 02/21/ Hx Solution 0.03% QS 2 sprays Thor, [place] 2016 - each side Prashanth, 05/02/ nostril M.D. 2016 everyday 2 months Dexamethasone 12/20/ Hx Tablets 4mg 3tabs one tab Thor, 2016 - daily for 3 Prashanth, 01/08/ days M.D. 2016 Dexamethasone 12/02/ Hx Tablets 4mg 3tabs one tab Thor, 2016 - daily for 3 Prashanth, 12/16/ days M.D. 2016 Cephalexin 11/30/ Hx Capsules 500mg 20cap 1 by mouth Thor, 2016 - s twice a day Prashanth, 12/07/ for 10 days M.D. 2016 Azithromycin 09/30/ Hx Tablets 250mg 6tabs 2 by mouth Thor, 2016 - every day Prashanth, , 1 by MEbenezer 2016 mouth every day 2-5 Azithromycin 02/01/ Hx Tablets 250mg 6tabs 2 by mouth Thor, 2015 - every day Prashanth, , 1 by MChrisDChris 2015 mouth every day 2-5 Montelukast 08/25/ Hx Tablets 10mg 30tab 1 by mouth Sonny Mcrae 2014 - s every day Prashanth, 05/02/ M.DChris 2016 Azithromycin 01/26/ Hx Tablets 250mg 6tabs 2 by mouth Thor, 2014 - every day Prashanth, , 1 by MEbenezer 2015 mouth every day 2-5 Azithromycin 12/04/ Hx Tablets 250mg 7tabs 2 by mouth Thor, 2014 - every day Prashanth, , 1 by MEbenezer 2014 mouth every day 2-5 Percocet 11/06/ Hx Tablets 5-325mg 30tab 2 by mouth Thor, 2013 - s four times [facility], 11/11/ a day as M.Jose Antonio 2013 needed for pain Azithromycin 10/24/ Hx Tablets 250mg 7tabs 2 by mouth Thor, 2013 - every day [facility], , 1 by Elsa 2013 mouth every day 2-5 Dexamethasone 08/29/ Hx Tablets 2mg 7tabs 1 by mouth Thor, 2013 - every day [facility], 09/30/ M.D. 2013 Cephalexin 08/13/ Hx Capsules 500mg 20cap 1 by mouth Thor, 2013 - s twice a day [facility], 09/30/ for 10 days M.D. 2013 Fluticasone 03/24/ Hx Suspension 50mcg/Act 3unit 2 sprays Thor Propionate 2013 - s both [facility], 04/02/ nostrils M.D. 2016 every day Patanase 12/25/ Hx Solution 0.6% 3unit 2 sprays Thor, 2013 - s both [facility], 04/02/ nostrils M.D. 2016 bid rebate rx bin# [id number] manager contact ([phone]) rx pcn: [facility] rx [facility] [id number] id: [id number] Mupirocin 12/04/ Hx Ointment 2% 1unit apply Thor, 2013 - s around the [facility], 12/25/ nose twice M.D. 2013 daily 2 weeks Azithromycin 12/04/ Hx Tablets 500mg 5tabs 1 po qd Thor, 2013 - Prashanth, 12/25/ M.D. 2013 Prednisone 10/22/ Hx Tablets 20mg 5tabs 1 po qd x 5 Thor, 2012 - days Prashanth, 12/25/ M.D. 2013 Cephalexin 10/22/ Hx Tablets 500mg 14tab 1 po bid x Thor, 2012 - s 7 days Prashanth, 12/25/ M.D. 2013 Cetirizine HCL 07/17/ Hx Tablets 10mg 30tab 1 PO qd Thor, 2012 - s prn. Take [facility], 10/22/ at night if M.D. 2012 makes you drowsy. Prednisone 02/27/ Hx Tablets 10mg 5tabs 1 po qam Thor, 2012 - Prashanth, 04/02/ M.D. 2013 Amoxicillin 12/28/ Hx Tablets 500mg 15tab 1 po tid 5 Thor, 2012 - s days Prashanth, 02/14/ M.D. 2013 Cetirizine HCL 07/29/ Hx Tablets 10mg 30tab 1 po qd Thor, 2008 - s Prashanth, 05/25/ M.D. 2011 Fluticasone 07/29/ Hx Suspension 50mcg/Act 1unit 2 sprays Thor, Propionate 2008 - s both [facility], 05/25/ nostrils qd M.D. 2011 Tessalon Perles 01/19/ Hx Capsules 100mg 45cap 1 po q6h Thor, 2008 - s prn cough Prashanth, 07/29/ M.D. 2008 Astelin 01/19/ Hx Solution 137mcg/Sp 1unit 2 sprays Thor, 2008 - ray s both [facility], 07/29/ nostrils M.D. 2008 twice a day. Claritin 01/19/ Hx Tablets 10mg 30tab 1 po qd Thor, 2008 - s Prashanth, 07/29/ M.D. 2008 Concerta / Hx Tablets ER 54mg 1 po qd Unknown 0000 - 2008 Sleeping Pill / Hx Unknown 0000 - 2012 Keflex / Hx Capsules 500mg 21cap 1 po tid Unknown - s 2012 Benadryl / Hx 25mg q4-6h, prn Unknown - 2012 Cymbalta / Hx Unknown - 2012 Naproxen 00/ Hx Tablets 500mg 1 by mouth Unknown 0000 - twice a day with food 2015 Atenolol / Hx Tablets 25mg 1 by mouth Unknown 0000 - every day 2015 Xanax / Hx 0.25mg 1 by mouth Unknown 0000 - twice daily 2015 Percocet / Hx Tablets 5-325mg 1-2 by Unknown 0000 - mouth four 08/01/ times a day 2015 as needed for pain Azithromycin / Hx Tablets 250mg 2 pills x 1 Unknown - day then 1 every day 2016 for 4 days given in ER Vital Signs Date Vital Result Comment 06/07/2018 Weight 163.00 lb Height 66 inches 5'6" BMI (Body Mass Index) 26.3 kg/m2 BP Systolic 122 mmHg BP Diastolic 84 mmHg Heart Rate 117 /min O2 % BldC Oximetry 100 % Body Temperature 98.6 F Pain Level 6 both ears 04/12/2018 Weight 164.00 lb Height 66 inches 5'6" BMI (Body Mass Index) 26.5 kg/m2 BP Systolic 133 mmHg BP Diastolic 100 mmHg Heart Rate 110 /min O2 % BldC Oximetry 100 % Body Temperature 98.2 F Pain Level 0 04/04/2018 Weight 166.00 lb Height 66 inches 5'6" BMI (Body Mass Index) 26.8 kg/m2 BP Systolic 127 mmHg BP Diastolic 90 mmHg Heart Rate 81 /min O2 % BldC Oximetry 100 % Body Temperature 97.8 F Pain Level 7 left ear 01/31/2018 Weight 156.38 lb Height 66 inches 5'6" BMI (Body Mass Index) 25.2 kg/m2 BP Systolic 116 mmHg BP Diastolic 77 mmHg Heart Rate 82 /min O2 % BldC Oximetry 98 % room air Body Temperature 97.6 F Pain Level 0 01/01/2018 Weight 156.38 lb Height 66 inches 5'6" BMI (Body Mass Index) 25.2 kg/m2 BP Systolic 136 mmHg BP Diastolic 83 mmHg Heart Rate 98 /min O2 % BldC Oximetry 100 % Body Temperature 97.6 F Pain Level 0 12/05/2017 Weight 162.00 lb Height 66 inches 5'6" BMI (Body Mass Index) 26.1 kg/m2 BP Systolic 132 mmHg BP Diastolic 95 mmHg Heart Rate 103 /min O2 % BldC Oximetry 99 % Body Temperature 96.5 F Pain Level 0 10/18/2017 Weight 161.50 lb Height 66 inches 5'6" BMI (Body Mass Index) 26.1 kg/m2 BP Systolic 117 mmHg BP Diastolic 83 mmHg Heart Rate 92 /min O2 % BldC Oximetry 99 % Body Temperature 98.1 F Pain Level 8 both ears 07/03/2017 Weight 155.00 lb Height 66 inches 5'6" BMI (Body Mass Index) 25.0 kg/m2 BP Systolic 117 mmHg BP Diastolic 87 mmHg Heart Rate 98 /min O2 % BldC Oximetry 99 % Body Temperature 97.4 F 05/02/2017 Weight 152.00 lb Height 66 inches 5'6" BMI (Body Mass Index) 24.5 kg/m2 Body Temperature 97.3 F 04/03/2017 Weight 150.00 lb Height 66 inches 5'6" BMI (Body Mass Index) 24.2 kg/m2 BP Systolic 141 mmHg BP Diastolic 92 mmHg Heart Rate 93 /min O2 % BldC Oximetry 96 % Body Temperature 97.4 F 02/21/2017 Weight 140.00 lb Height 66 inches 5'6" BMI (Body Mass Index) 22.6 kg/m2 BP Systolic 125 mmHg BP Diastolic 86 mmHg Heart Rate 100 /min O2 % BldC Oximetry 98 % Body Temperature 95.8 F 01/09/2017 Weight 140.50 lb Height 66 inches 5'6" BMI (Body Mass Index) 22.7 kg/m2 BP Systolic 118 mmHg BP Diastolic 64 mmHg Heart Rate 82 /min O2 % BldC Oximetry 99 % Body Temperature 98.6 F 12/15/2016 Weight 139.00 lb Height 66 inches 5'6" BMI (Body Mass Index) 22.4 kg/m2 BP Systolic 118 mmHg BP Diastolic 78 mmHg Heart Rate 90 /min O2 % BldC Oximetry 100 % Body Temperature 97.8 F Pain Level 0 11/30/2016 Weight 141.00 lb Height 66 inches 5'6" BMI (Body Mass Index) 22.8 kg/m2 BP Systolic 126 mmHg BP Diastolic 62 mmHg Heart Rate 133 /min O2 % BldC Oximetry 99 % Body Temperature 99.3 F Pain Level 6 09/30/2016 Weight 140.00 lb Height 66 inches 5'6" BMI (Body Mass Index) 22.6 kg/m2 BP Systolic 112 mmHg BP Diastolic 74 mmHg Heart Rate 73 /min O2 % BldC Oximetry 98 % Body Temperature 98.2 F 08/23/2016 BP Systolic 114 mmHg BP Diastolic 70 mmHg Heart Rate 83 /min O2 % BldC Oximetry 100 % Body Temperature 97.9 F 08/02/2016 Weight 131.00 lb Height 66 inches 5'6" BMI (Body Mass Index) 21.1 kg/m2 BP Systolic 116 mmHg BP Diastolic 76 mmHg Heart Rate 70 /min O2 % BldC Oximetry 98 % Body Temperature 97.7 F 06/30/2016 Weight 133.00 lb Height 66 inches 5'6" BMI (Body Mass Index) 21.5 kg/m2 BP Systolic 112 mmHg BP Diastolic 74 mmHg Heart Rate 101 /min O2 % BldC Oximetry 98 % Body Temperature 97.9 F 02/02/2016 Weight 128.38 lb Height 66 inches 5'6" BMI (Body Mass Index) 20.7 kg/m2 BP Systolic 112 mmHg BP Diastolic 76 mmHg Heart Rate 73 /min O2 % BldC Oximetry 95 % Body Temperature 98.3 F 09/14/2015 Weight 130.00 lb Height 66 inches 5'6" BMI (Body Mass Index) 21.0 kg/m2 Body Temperature 97.9 F 08/25/2015 Weight 134.38 lb Height 66 inches 5'6" BMI (Body Mass Index) 21.7 kg/m2 BP Systolic 120 mmHg BP Diastolic 78 mmHg Heart Rate 74 /min O2 % BldC Oximetry 97 % Body Temperature 99.0 F 01/26/2015 Weight 136.00 lb boots Height 66 inches 5'6" BMI (Body Mass Index) 21.9 kg/m2 BP Systolic 102 mmHg BP Diastolic 60 mmHg Body Temperature 98.7 F Pain Level 3 12/18/2014 Weight 128.00 lb Height 66 inches 5'6" BMI (Body Mass Index) 20.7 kg/m2 BP Systolic 120 mmHg BP Diastolic 76 mmHg Heart Rate 75 /min O2 % BldC Oximetry 97 % Body Temperature 98.0 F 11/12/2014 Weight 130.00 lb Height 66 inches 5'6" BMI (Body Mass Index) 21.0 kg/m2 BP Systolic 108 mmHg BP Diastolic 70 mmHg Heart Rate 72 /min O2 % BldC Oximetry 98 % Body Temperature 99.0 F 10/15/2014 Weight 129.00 lb Body Temperature 97.4 F 08/27/2014 Weight 129.38 lb Height 66 inches 5'6" BMI (Body Mass Index) 20.9 kg/m2 BP Systolic 120 mmHg BP Diastolic 74 mmHg Heart Rate 64 /min O2 % BldC Oximetry 98 % Body Temperature 98.4 F 08/13/2014 Weight 134.38 lb Height 66 inches 5'6" BMI (Body Mass Index) 21.7 kg/m2 BP Systolic 118 mmHg BP Diastolic 80 mmHg Heart Rate 65 /min O2 % BldC Oximetry 96 % Body Temperature 99.0 F 03/24/2014 Pain Level 0 03/24/2014 Weight 132.12 lb Height 66 inches 5'6" BMI (Body Mass Index) 21.3 kg/m2 Body Temperature 98.2 F 12/25/2013 Weight 137.00 lb Height 66 inches 5'6" BMI (Body Mass Index) 22.1 kg/m2 BP Systolic 104 mmHg BP Diastolic 70 mmHg Heart Rate 78 /min O2 % BldC Oximetry 99 % Body Temperature 97.7 F 11/22/2013 Weight 137.38 lb Height 66 inches 5'6" BMI (Body Mass Index) 22.2 kg/m2 Body Temperature 98.7 F 10/22/2013 Weight 134.00 lb Height 66 inches 5'6" BMI (Body Mass Index) 21.6 kg/m2 BP Systolic 116 mmHg BP Diastolic 74 mmHg Heart Rate 76 /min O2 % BldC Oximetry 100 % Body Temperature 97.3 F 07/03/2013 Weight 137.00 lb Height 66 inches 5'6" BMI (Body Mass Index) 22.1 kg/m2 BP Systolic 122 mmHg BP Diastolic 76 mmHg Heart Rate 77 /min O2 % BldC Oximetry 97 % Body Temperature 97.8 F 04/02/2013 Weight 147.00 lb Height 66 inches 5'6" BMI (Body Mass Index) 23.7 kg/m2 BP Systolic 104 mmHg BP Diastolic 80 mmHg Heart Rate 99 /min O2 % BldC Oximetry 98 % Body Temperature 98.7 F 02/27/2013 Weight 143.00 lb Height 66 inches 5'6" BMI (Body Mass Index) 23.1 kg/m2 BP Systolic 110 mmHg BP Diastolic 80 mmHg Body Temperature 98.2 F 12/24/2012 Weight 148.12 lb Height 66 inches 5'6" BMI (Body Mass Index) 23.9 kg/m2 BP Systolic 110 mmHg BP Diastolic 84 mmHg Heart Rate 58 /min O2 % BldC Oximetry 99 % Body Temperature 98.1 F 05/25/2012 Weight 157.00 lb Height 66 inches 5'6" BMI (Body Mass Index) 25.3 kg/m2 BP Systolic 120 mmHg BP Diastolic 80 mmHg Heart Rate 85 /min O2 % BldC Oximetry 99 % Body Temperature 97.9 F 07/29/2009 Weight 124.00 lb Height 65 inches 5'5" BMI (Body Mass Index) 20.6 kg/m2 Body Temperature 98.1 F 01/19/2009 Weight 120.00 lb Height 65 inches 5'5" BMI (Body Mass Index) 20.0 kg/m2 Body Temperature 98.9 F Results Test Date Test Result H/L Range Note Laboratory test 01/02/2017 Surgical Pathology SEE RESULT 1, 2 finding BELOW Leukemia/Lymphoma 01/02/2017 Path Interpretation 2-8 TNP 1 Phenot Marker Path Interpret > 16 Marker TNP 1 Path Interpret 9-15 Marker (SEE NOTE) 1, 3 Allergens,Zone 1 04/04/2016 mRast Class (Text Only) See Note 4 D Pteronyssinus <0.10 Vnpjg6vQ/L D Farinae Mite <0.10 Hxtiq5wV/L Cat Hair/Dander <0.10 Btfyq4mX/L Dog Hair/Dander <0.10 Mfhxe0tD/L Bluegrass,[facility] <0.10 Zsumv5bM/L Berm[place] Grass <0.10 Abuai6eN/L Bahia Grass <0.10 Bmhhh5fJ/L Cockroach,Afghan <0.10 Rtlbn2fN/L Penicillium Not <0.10 Pyfqg1uE/L Cladosporium Herbarum <0.10 Ehwzj0qS/L Apergillis Fumigatus Ige <0.10 Yzatl2wZ/L Mucor Racemosus <0.10 Ctqyi2vX/L Alternaria Tenuis <0.10 Ityvn7uM/L Stemphylium Bot <0.10 Zcnup4qX/L Birch,White <0.10 Khbez9dF/L Carpio,White <0.10 Fykyp5hF/L Elm,Afghan (White) <0.10 Ahwsa2dT/L Lizandro,White <0.10 Rfmba0uA/L Hazelnut Tree <0.10 Hsvkp3sQ/L [place],White <0.10 Apnld7oA/L [place],White <0.10 Wagnz9sX/L [place] <0.10 Yhbbs5vW/L Ragweed,Short/ <0.10 Gbpve2zN/L Mugwort <0.10 Kqlha7lY/L Plantain,Greek <0.10 Jurcw4dB/L Pigweed,Rough <0.10 Pvfis2nI/L Sheep Atalissa (DO <0.10 Jfgwd9xA/L Nettle <0.10 Eyeue5fD/L Maple/[place] Ige T001 <0.10 Tcmld5wM/L 5 Laboratory test 04/04/2016 Immunoglobulin E,Total <1 IU/mL 0-100 6 finding Fna With Cell Block 02/28/2015 Nature of Specimen Right Parotid Ly 7 And DQ Stain <SEE NOTE> Text Diagnosis Blood (non-diagn <SEE NOTE> 8 Gross Pathology Received in [facility] <SEE NOTE> 9 Micro Pathology The Diff Quik an <SEE NOTE> 10 Cytology Report SEE IMAGE Clinical History 1-FNA, Parotid, <SEE NOTE> 11 Comments Comment Laboratory test finding 02/15/2013 HCG Serum, Qualitative NEGATIVE CBC 02/15/2013 White Blood Count 6.9 K/uL 3.1-10.7 Red Blood Count 4.64 M/uL 3.90-5.40 Hemoglobin 13.6 gm/dL 11.6-15.8 Hematocrit 41.3 % 36.0-46.1 Mean Cell Volume 89.0 fl 80.9-99.0 Mean Corpuscular HGB 29.3 pg 25.9-32.7 Mean Corpuscular HGB Conc 32.9 g/dL 30.8-34.3 Platelet Count 367 K/uL High 155-360 Red Cell Distri Width %CV 13.3 % 11.7-14.4 Mean Platelet Volume 11.5 fL 8.9-12.4 Urinalysis With Microscopic 02/15/2013 Urine Color YELLOW Yellow Urine Clarity CLEAR Clear Urine Glucose - Dipstick NEGATIVE mg/dL Negative Urine Bilirubin - Dipstick NEGATIVE Negative Urine Ketone NEGATIVE mg/dL Negative Urine Specific Traver 1.025 1.010-1.030 Urine Blood TRACE Negative Urine PH 5.5 Low 6.5-7.5 Urine Protein - Dipstick NEGATIVE mg/dL Negative Urine Urobilinogen - Dipstick 0.2 E.U./dL 0.2-1.0 Urine Nitrite - Dipstick NEGATIVE Negative Urine Leuk Esterase TRACE High Negative Urine RBC 0-2 rbc/hpf 0-7 Urine WBC 2-5 wbc/hpf 0-7 Urine Epithelial Cells MANY NONESEEN/lpf 12 Urine Bacteria FEW NONESEEN Urine Mucus SMALL NONESEEN Laboratory test finding 02/15/2013 Urine Screen See Note 13 1 [id number] 2 SEE RESULT BELOW Name: NORIZACARIAS Magali : [address]: Prashanth Mcrae MD Acct: [id number] Unit: [id number] AGE: 31 Location: [facility] Re01/02/17 SEX: F Status: REG REF SPEC: [id number] [place]: 01/02/[address] [facility] [address]: Prashanth Mcrae MD REQ: [id number] RECD: 01/02/170 STATUS: SOUT _ ORDERED: LEVEL V COMMENTS: [id number] Flow cytometry has been performed at [facility], [place], [place]. The testing reveals: FINAL DIAGNOSIS: Specimen Source: Lymph node, right parotid ([id number]) Flow cytometry immunophenotypic analysis: No evidence of an immunophenotypically abnormal cell population. Interpretative data: Lymphocytes: 99% of gated events B-cells: 25% of lymphs; kappa:lambda within normal limits T-cells/NK cells: No aberrant population detected. Markers tested: CD3, CD5, CD7, CD10, CD20, CD19, CD23, CD45, kappa surface light chains, lambda surface light chains, 7-AAD. Quality Assessment: Acceptable Viability: Acceptable Viable lymphocytes (7-AAD): 99% Specimen received within validated guidelines. A Jackson-Giemsa stained slide prepared from the flow cytometry specimen was examined for quality purposes. Electronically signed by: Hillary Soto MD 01/04/17 1046 Technical component performed by: [place] [address] Network Security Consultant: Vivek Pérez II, MD, PhD. CONTINUED ON NEXT PAGE * ML=Testing performed at Main Lab DEPARTMENT OF PATHOLOGY, [address] [place] [address] David Christian M.D. Director CLIA # [id number] RUN DATE: 01/05/17 [facility] LAB LIVE PAGE 2 Patient: ZACARIAS JULIO [id number] (Continued) ADDENDUM (Continued) Addendum Signed (signature on file) Hillary Soto MD 1416 FINAL DIAGNOSIS Right parotid lymph node, excisional biopsy: -- Benign reactive lymph node. COMMENT: Flow cytometry is negative for an immunophenotypically abnormal cell population. CLINICAL HISTORY No history given GROSS DESCRIPTION The specimen is received fresh labeled, Right Parotid Lymph Node, and consists of a 1.1 x 0.5 x 0.4 cm crook-pink lymph node. The cut surface is glistening crook-pink. The specimen is trisected and a premium representative section is submitted for flow cytometry. The remaining specimen is entirely submitted in one cassette. Signed (signature on file) Hillary Soto MD 1049 END OF REPORT * ML=Testing performed at Main Lab DEPARTMENT OF PATHOLOGY, [address] [place] [address] David Christian M.D. Director [facility] # [id number] FINAL DIAGNOSIS: Specimen Source: Lymph node, right parotid ([id number]) Flow cytometry immunophenotypic analysis: No evidence of an immunophenotypically abnormal cell population. Interpretative data: Lymphocytes: 99% of gated events B-cells: 25% of lymphs; kappa:lambda within normal limits T-cells/NK cells: No aberrant population detected. Markers tested: CD3, CD5, CD7, CD10, CD20, CD19, CD23, CD45, kappa surface light chains, lambda surface light chains, 7-AAD. Quality Assessment: Acceptable Viability: Acceptable Viable lymphocytes (7-AAD): 99% Specimen received within validated guidelines. A Jackson-Giemsa stained slide prepared from the flow cytometry specimen was examined for quality purposes. Electronically signed by: Hillary Soto MD 01/04/17 1046 Technical component performed by: [address] [address] Network Security Consultant: Vivek Pérez II, MD, PhD. 4 Levels of Specific IgE Class Description of Class ----- < 0.10 0 Negative 0.10 - 0.31 0/I Equivocal/Low 0.32 - 0.55 I Low 0.56 - 1.40 II Moderate 1.41 - 3.90 III High 3.91 - 19.00 IV Very High 19.01 - 100.00 V Very High >100.00 Very High 5 Performed at: [address] [id number] Mobile Lounge Driver: Vivek Medina MD, Phone: [phone] Performed at: [address] [id number] Mobile Lounge Driver: Yoon Madden MD, Phone: [phone] Test(s) [id number] Cockroach, Afghan; [id number]- [id number] Elaine Ferrari were developed and had performance characteristics determined by [facility]. These tests have not been cleared or approved by the U.S. Food and Drug Administration. The FDA has determined that such clearance or approval is not necessary. These tests are used for clinical purposes. These should not be regarded as investigational or for research. 7 Right Parotid Lymph Node 8 Blood (non-diagnostic). 9 Received in ethanol is 1 direct smear for PAP staining. Received Diff-Quik stained are 4 direct smears. Received in ethanol are 12 cc of clear fluid for cell block preparation, designated 1A. maritza 10 The Diff Quik and Papanicolaou-stained direct smears show blood. The histopathologic section of the aspirated material (cell block) is non- contributory. 11 1-FNA, Parotid, right lymph node 12 POSSIBLE UROGENITAL CONTAMINATION. 13 02/15/13 LAB.RAP [facility] Procedures Date CPT Code Description Status 04/12/2018 45098 Ultrasound Head/Neck Completed 12/05/2017 54653 Tympanometry Completed 12/05/2017 92688 Audiometry, Comprehensive Completed 10/18/2017 16388 Tympanometry Completed 05/02/2017 54648 Nasal Endoscopy, Diag. Completed 02/21/2017 40621 Remove Impacted Cerumen Completed 01/02/2017 92020 Exc Of Parotid Gland/Tumor/Lateral Lobe W/O Nerve Completed Dissection 01/02/2017 42583 Anesthesia Salivary Glands Biopsy Completed 11/30/2016 38912 Ultrasound Head/Neck Completed 09/30/2016 95667 Nasal Endoscopy, Diag. Completed 04/04/2016 20592 Nasal Endoscopy, Diag. Completed 09/20/2015 81147 Sleep Staging 4Or More Para Completed 09/14/2015 32315 Ultrasound Head/Neck Completed 08/25/2015 12432 Nasal Endoscopy, Diag. Completed 02/28/2015 66714 Ultrasonic Guide Needle Biopsy Completed 02/28/2015 80383 Fna W/Image Completed 02/11/2015 73926 Ultrasound Head/Neck Completed 01/26/2015 14674 Ultrasound Head/Neck Completed 11/06/2014 53567 Nasal/Sinus Endosc.Surg.W.Ethmoid Completed 11/06/2014 40789 Nasal/Sinus Endosc.W.Max.Antrost. Completed 11/06/2014 14233 Nasal/Sinus Endosc.W.Explor. Completed 11/06/2014 64002 Nasal/Sinus Endoscopy Surg/Sphen. Completed 11/06/2014 77424 Stereotactic Computer-Assisted, Cranial, Extradural Completed 03/24/2014 17111 Nasal Endoscopy, Diag. Completed 12/25/2013 95326 Nasal Endoscopy, Diag. Completed 12/04/2013 87982 Nasal Endoscopy, Diag. Completed 11/22/2013 75136 Nasal Endoscopy, Diag. Completed 02/21/2013 21774 Exc.Turbinate/Partial Or Complete Completed 02/21/2013 73111 Septoplasty Completed 02/21/2013 24981 Nasal/Sinus Endosc.Surg.W.Ethmoid Completed 02/21/2013 28045 Nasal/Sinus Endosc.W.Max.Antrost. Completed 02/21/2013 86255 Nasal/Sinus Endosc.W.Explor. Completed 02/21/2013 24248 Nasal/Sinus Endoscopy Surg/Sphen. Completed 02/21/2013 22409 Stereotactic Computer-Assisted, Cranial, Extradural Completed 12/24/2012 41603 Tympanometry Completed 12/24/2012 47213 Audiometry, Comprehensive Completed 12/24/2012 13043 Nasal Endoscopy, Diag. Completed 08/02/2012 61270 Audiometry, Comprehensive Completed 01/19/2009 24666 Acoustic Reflex Testing Completed 01/19/2009 93774 Tympanometry Completed 01/19/2009 46929 Audiometry, Comprehensive Completed 08/21/2008 71760 Acoustic Reflex Testing Completed 08/21/2008 66587 Tympanometry Completed 08/21/2008 76387 Audiometry, Comprehensive Completed 01/10/2007 27115 Tonsillectomy;Age 12 Or Over Completed Encounters Type Date Location Provider CPT E/M Dx Office Visit 04/12/2018 8:30a Main Office Prashanth Mcrae M.D. 47938 J31.0 H69.93 R59.0 Office Visit 04/04/2018 11:00a Main Office Prashanth Mcrae M.D. 07423 H65.22 J31.0 Office Visit 01/31/2018 1:30p [place] [address] H69.93 J30.9 Office Visit 01/01/2018 9:45a [place] [address] J30.9 Office Visit 12/05/2017 9:15a [place] [address] H69.93 Office Visit 10/18/2017 1:00p [place] [address] H69.93 Office Visit 07/03/2017 8:00a Main Office Prashanth Mcrae M.D. 83219 J01.90 J31.0 Office Visit 05/02/2017 8:00a Main Office Prashanth Mcrae M.D. 02393 J30.9 H61.23 Office Visit 04/03/2017 8:15a Main Office Prashanth Mcrae M.D. 98484 K21.9 R05 J31.0 Office Visit 12/15/2016 9:00a Main Office Prashanth Mcrae M.D. 19913 R59.0 J31.0 Office Visit 11/30/2016 8:30a Main Office Prashanth Mcrae M.D. 92783 R59.0 J01.90 Office Visit 09/30/2016 10:00a Main Office Prashanth Mcrae M.D. 38475 J01.90 J31.0 J34.89 Office Visit 08/23/2016 8:15a [place] [address] J06.9 Office Visit 08/02/2016 3:15p Main Office Prashanth Mcrae M.D. 49277 J31.0 R06.83 Office Visit 06/30/2016 9:15a Main Office Prashanth Mcrae M.D. 33793 J31.0 T78.40xD Office Visit 04/04/2016 8:00a Main Office Prashanth Mcrae M.D. 20994 T78.40xD J31.0 R06.83 Office Visit 02/02/2016 5:15p Main Office Prashanth Mcrae M.D. 67662 J01.80 T78.40xD Office Visit 09/14/2015 9:15a Main Office Prashanth Mcrae M.D. 79133 G47.9 R06.83 R59.0 Office Visit 08/25/2015 3:45p Main Office Prashanth Mcrae M.D. 70787 J31.0 T78.40xD R59.0 Office Visit 02/11/2015 6:00p Main Office Prashanth Mcrae M.D. 32657 785.6 784.2 473.8 Office Visit 01/26/2015 4:45p Main Office Prashanth Mcrae M.D. 62813 785.6 784.2 Office Visit 12/18/2014 3:15p [place] [address] 473.8 Office Visit 11/12/2014 10:15a [place] [address] 473.9 Office Visit 10/15/2014 8:45a Main Office Prashanth Mcrae M.D. 15892 473.9 472.0 Office Visit 09/10/2014 5:00p Main Office Prashanth Mcrae M.D. 23285 473.9 472.0 Office Visit 08/27/2014 5:45p Main Office Prashanth Mcrae M.D. 63765 461.8 472.0 Office Visit 08/13/2014 3:15p [place] [address] 461.8 Office Visit 03/24/2014 3:45p Main Office Prashanth Mcrae M.D. 95462 478.0 477.2 473.9 478.19 Office Visit 12/25/2013 4:30p Main Office Prashanth Mcrae M.D. 71741 478.0 477.2 478.19 Office Visit 12/04/2013 3:45p Main Office Prashanth Mcrae M.D. 34659 470 478.11 462 465.8 784.7 478.19 Office Visit 11/22/2013 2:45p [place] [address] 470 738.0 Office Visit 10/22/2013 3:00p [place] [address] 465.8 Office Visit 07/17/2013 1:45p [place] [address] 462 477.2 477.9 Office Visit 07/03/2013 4:00p [place] [address] 462 Office Visit 04/02/2013 10:00a [place] [address] 462 Office Visit 12/28/2012 3:15p Main Office Prashanth Mcrae M.D. 35810 473.9 461.8 995.3 470 478.0 Office Visit 12/24/2012 8:15a Main Office Prashanth Mcrae M.D. 50203 473.9 381.81 995.3 Office Visit 05/25/2012 3:30p [place] [address] 381.81 Office Visit 07/29/2009 9:30a [place] [address] 381.81 995.3 Office Visit 01/19/2009 1:30p [place] [address] 381.81 786.2 Office Visit 12/15/2006 11:00a Main Office Prashanth Mcrae M.D. 50633 474.00 Plan of Care No Information Available
[2018-07-01 15:04] VITALS: BP 125/76
--- NOTE | 2018-07-01 15:19 | UC ---
Lower Extremity/Ankle HPI - HPI Summary HPI Summary: The patient is a 32-year-old female with a history of left heel pain. The pain has been present for months. She denies any history of injury. Last x-ray showed a tiny calcaneal heel spur. She states it feels like there is a lump in her heel. She has not been taking anything for pain. The pain is not at its worse in the morning when she wakes up. He worsens during the course of the day. - History of Current Complaint Chief Complaint: UCLowerExtremity Stated Complaint: LEFT FOOT PAIN Time Seen by Provider: 07/01/18 15:04 Hx Obtained From: Patient Hx Last Menstrual Period: 12/09/17 Onset/Duration: Gradual Onset, Lasting Weeks Severity Initially: Moderate Pain Intensity: 6 Pain Scale Used: 0-10 Numeric Aggravating Factor(s): Standing, Ambulation Alleviating Factor(s): Rest Able to Bear Weight: Yes Feet (Multiple View): 1 - tender - Allergies/Home Medications Allergies/Adverse Reactions: Allergies Allergy/AdvReac Type Severity Reaction Status Date / Time Penicillins Allergy Intermediate GI Upset Verified 07/01/18 15:04 amoxicillin Allergy Mild Vomiting Verified 07/01/18 15:04 prednisone Allergy Mild Rash Verified 07/01/18 15:04 adhesive Allergy Rash Uncoded 07/01/18 15:04 mushrooms Allergy Hives Uncoded 07/01/18 15:04 PMH/Surg Hx/FS Hx/Imm Hx Previously Healthy: Yes Psychological History: Anxiety Other History Of: Negative For: HIV, Hepatitis B, Hepatitis C - Surgical History Surgical History: Yes Surgery Procedure, Year, and Place: Sinus Surgery, 2012, [facility], esure. Cholecystectomy; right sided neck node 12/2016. LEFT CARPAL TUNNEL--05/2017. RIGHT CARPAL AEY 07/13/17 - Family History Known Family History: Positive: Cardiac Disease, Hypertension, Diabetes - Social History Alcohol Use: Occasionally Substance Use Type: None Smoking Status (MU): Never Smoked Tobacco When Did the Patient Quit Smoking/Using Tobacco: 5 years ago Household Exposure Type: Cigarettes - Immunization History Most Recent Influenza Vaccination: 2016 Review of Systems Constitutional: Negative Skin: Negative Eyes: Negative ENT: Negative Respiratory: Negative Cardiovascular: Negative Gastrointestinal: Negative Genitourinary: Negative Motor: Negative Neurovascular: Negative Musculoskeletal: Negative Neurological: Negative Psychological: Negative Is Patient Immunocompromised?: No All Other Systems Reviewed And Are Negative: Yes Physical Exam Triage Information Reviewed: Yes Appearance: Well-Appearing, No Pain Distress, Well-Nourished Vital Signs: Initial Vital Signs Temp 98.1 F 07/01/18 15:00 Pulse 90 07/01/18 15:00 Resp 18 07/01/18 15:00 BP 125/76 07/01/18 15:00 Pulse Ox 100 07/01/18 15:00 Vital Signs Reviewed: Yes Eyes: Positive: Conjunctiva Clear ENT: Positive: Hearing grossly normal. Negative: Nasal congestion, Nasal drainage, Trismus, Muffled voice, Hoarse voice Neck: Positive: Supple, Nontender, No Lymphadenopathy Respiratory: Positive: Lungs clear, Normal breath sounds, No respiratory distress Cardiovascular: Positive: RRR, No Murmur Musculoskeletal: Positive: ROM Intact, No Edema, Other: - normal gait Neurological: Positive: Alert Psychological Exam: Normal Skin Exam: Normal Lower Extremity Course/Dx - Differential Dx/Diagnosis Provider Diagnoses: left heel pain of uncertain cause Discharge - Sign-Out/Discharge Documenting (check all that apply): Patient Departure - Discharge Plan Condition: Stable Disposition: HOME Prescriptions: Meloxicam [Mobic] 15 mg PO DAILY #14 tablet Patient Education Materials: Plantar Fasciitis (ED) Referrals: No Primary Care Phys,NOPCP [Primary Care Provider] - Additional Instructions: Post op shoe I suggest you follow up with [facility] first available appt your last xr showed a small spur You may have plantar fasciitis but your history and exam are not completely consistent with that You may need further imaging - Billing Disposition and Condition Condition: STABLE Disposition: Home
== END 2018-07-01 15:33 | disposition home or self-care (01) ==
LOC: UCCORT 14:17
DX: M79.672 Pain in left foot (principal); Z88.0 Allergy status to penicillin; Z88.8 Allergy status to other drugs, medicaments and biological substances; Z87.891 Personal history of nicotine dependence
CPT/HCPCS: 99213; G0463

== ENCOUNTER 2019-02-26 15:58 | Emergency (ER) | payer MEDICARE, MEDICAID ==
[2019-02-26 16:10] VITALS: BP 139/97
--- NOTE | 2019-02-26 16:23 | UC ---
UC General HPI - HPI Summary HPI Summary: PT C/O HAVING PAIN IN HER R LOWER ABDOMEN X 1 WEEK. SHE REPORTS HAVING BEEN TO HERE PCP. SHE WAS SEEN BY GI FOR N/V YESTERDAY AND REPORTS THEY DON'T WHY SHE HAS RLQ PAIN. SHE HAS NO F/C OR DIARRHEA AND NO HX IBD. GI HAS SCHEDULED AN ENDOSCOPY FOR THE RECURRENT N/V'ING. SHE HAD APARTIAL HYSTERECTOMY 04/2018 AND HER GB HAS BEEN REMOVED. SHE DENIES ANY URINARY S/S'S. - History of Current Complaint Chief Complaint: UCAbdominalPain Stated Complaint: RIGHT LOWER ABDOMEN PAIN Time Seen by Provider: 02/26/19 16:13 Hx Obtained From: Patient Hx Last Menstrual Period: 12/09/17 Timing: Constant Pain Intensity: 9 Aggravating: NOTHING Alleviating: NOTHING Associated Signs & Symptoms: Positive: Abdominal Pain - Allergy/Home Medications Allergies/Adverse Reactions: Allergies Allergy/AdvReac Type Severity Reaction Status Date / Time Penicillins Allergy Intermediate GI Upset Verified 02/26/19 16:05 amoxicillin Allergy Mild Vomiting Verified 02/26/19 16:05 prednisone Allergy Mild Rash Verified 02/26/19 16:05 adhesive Allergy Rash Uncoded 02/26/19 16:05 mushrooms Allergy Hives Uncoded 02/26/19 16:05 PMH/Surg Hx/FS Hx/Imm Hx - Additional Past Medical History Additional PMH: ADHD Other History Of: Negative For: HIV, Hepatitis B, Hepatitis C - Surgical History Surgical History: Yes Surgery Procedure, Year, and Place: Sinus Surgery, 2012, [facility], esure. Cholecystectomy; right sided neck node 12/2016. LEFT CARPAL TUNNEL--05/2017. RIGHT CARPAL AYE 07/13/17. Hysterectomy April 2018 - Family History Known Family History: Positive: Cardiac Disease, Hypertension, Diabetes - Social History Alcohol Use: Occasionally Substance Use Type: None Smoking Status (MU): Never Smoked Tobacco When Did the Patient Quit Smoking/Using Tobacco: 5 years ago Household Exposure Type: Cigarettes - Immunization History Most Recent Influenza Vaccination: 2016 Review of Systems All Other Systems Reviewed And Are Negative: Yes Gastrointestinal: Positive: Abdominal Pain Physical Exam Triage Information Reviewed: Yes Appearance: Well-Appearing Vital Signs: Initial Vital Signs Temp 98.2 F 02/26/19 16:06 Pulse 106 02/26/19 16:06 Resp 14 02/26/19 16:06 BP 139/97 04/09/19 16:06 Pulse Ox 100 02/26/19 16:06 Vital Signs Reviewed: Yes Eyes: Positive: Conjunctiva Clear ENT: Positive: Normal ENT inspection Neck: Positive: Supple Respiratory: Positive: Lungs clear, Normal breath sounds Cardiovascular: Positive: RRR, No Murmur Abdomen Description: Positive: Other: - SCARS C/W CHOLEYCYSTECTOMY. + BS. SOFT. TENDER RLQ BUT NO GUARDING OR REBOUND TENDERNSS. AREA FEELS FIRM BUT NO HERNIA OR MASS APPRECIATED. NO HSM OR CVA TENDERNESS. Bowel Sounds: Positive: Present Musculoskeletal: Positive: ROM Intact Neurological: Positive: Alert Psychological: Positive: Age Appropriate Behavior Skin Exam: Normal Course/Dx - Course Course Of Treatment: PT AGREES TO ER TRANSFER. [facility] CALLED. REPORT GIVEN TO PITO VELEZ NP. ADVISED OF NON RESOLVING RLQ PAIN X 1 WEEK. - Differential Dx - Multi-Symptom Differential Diagnoses: Other - HYSTERECTOMY THUS ECTOPIC EXCLUDED. NO URINARY S /S'S. PT STATES STILL HAS AN OVARY THUS OVARIAN PATHOLOGY POSSIBLE IS APPENDICITIS BUT IT WOULD BE VERY ATYPICAL. LESS LIKELY IBD AND MECKLES DIVERTICULAR DISEASE. NO HERNIA APPRECIATED. - Diagnoses Provider Diagnosis: RLQ abdominal pain Discharge - Sign-Out/Discharge Documenting (check all that apply): Patient Departure All imaging exams completed and their final reports reviewed: No - Discharge Plan Condition: Stable Disposition: TRANS HIGHER LVL OF CARE FAC Referrals: Sade Oh [Primary Care Provider] - Additional Instructions: LEAVE HERE AND GO DIRECTLY TO THE ER DISCUSSED. - Billing Disposition and Condition Condition: STABLE Disposition: Trans Higher Lvl of Care Fac - Attestation Statements Provider Attestation: Per institutional requirements, I have reviewed the chart, however, I was not consulted specifically or made aware of this patient by the midlevel provider. I did not personally evaluate, interact with , or disposition this patient.
== END 2019-02-26 16:31 | disposition short-term general hospital (02) ==
LOC: UCCORT 15:58
DX: R10.31 Right lower quadrant pain (principal); Z90.711 Acquired absence of uterus with remaining cervical stump; Z90.49 Acquired absence of other specified parts of digestive tract; Z88.0 Allergy status to penicillin; Z88.8 Allergy status to other drugs, medicaments and biological substances; Z91.018 Allergy to other foods; Z91.048 Other nonmedicinal substance allergy status; Z87.891 Personal history of nicotine dependence
CPT/HCPCS: 99212; G0463

== ENCOUNTER 2019-05-24 14:04 | Emergency (ER) | payer MEDICARE, MEDICAID ==
--- OUTSIDE RECORDS SUMMARY | 2019-05-24 14:18 | XMS REPORT | Continuity of Care Document ---
:1985 External Reference #:[id number] Author Name Hector Ramon M.D. 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 Onset: 02/21/2019 Allergic rhinitis due to animals AlisIAN Pham Onset: 04/06/2017 Mild persistent asthma Alis ZOFIA HodgesP-C Onset: 04/06/2017 Body mass index (BMI) 22.0-22.9, adult ALEXEI Jaime Onset: 2015 Ingestion dermatitis due to food ALEXEI Jaime Onset: 06/16/2016 Urticaria ALEXEI Jaime Onset: 06/16/2016 Acute upper respiratory infection of ALEXEI Jaime Onset: 07/01/2014 multiple sites Allergic rhinitis ALEXEI Jaime Onset: 04/10/2014 Allergic rhinitis due to pollen ALEXEI Jaime Onset: 10/29/2013 Allergic asthma without status asthmaticus So Lopez [employer] Onset: 08/2013 Family History Date Family Member(s) Observation Comments General Diabetes grandmother paternal General Food Intolerance multiple with mushroom allergy per patient Social History Type Date Description Comments Sex Unknown Marital Status Legal Status: Never Lives With Grandmother Lives With Brother twin Lives With Uncle 3 Home Environment Does not use 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 Home Environment Has central air Home Environment The basement is dry Home Environment Mattress is 2 years old Home Environment The floors are wood area rug Home Environment Does not use a dehumidifier Tobacco Use Start: Unknown Home is not smoke-free uncle - outside Smoke-Free Work is smoke-free Pets 1 cat Occupation [employer] ETOH Use Rarely consumes alcohol Tobacco Use Start: Unknown Patient has never smoked Recreational Drug Use Denies Drug Use Allergies, Adverse Reactions, Alerts Active Allergies Reaction Severity Comments Date Prednisone Hives 12/25/2018 Inactive Allergies NKDA 12/16/2008 Medications Active Medications SIG Qnty Indications Ordering Date Provider Qvar Redihaler 2 puff every 12 3units J45.998 Hector Ramon, 02/21/2019 80mcg/Act hour M.D. Aerosol Ipratropium [place] use with nebulizer 75ml J45.31 Sobeida 12/25/2018 0.02% am&pm BEATRICE Cerna-Wing Solution Cetirizine HCL 10 milliliters by 120ml J45.30 Alis 04/06/2017 1mg/ml mouth once daily IAN Hodges Syrup Strattera Take One Capsule Unknown 80mg Capsules By Mouth Every Day Ondansetron Unknown 4mg Tablets Dispers Cyclobenzaprine HCL Take One Tablet By Unknown 10mg Mouth Three Times Tablets A Day as Needed Venlafaxine HCL ER Take One Capsule Unknown 37.5mg By Mouth Every Day Caps ER 24HR Ibuprofen Take One Tablet By Unknown 600mg Tablets Mouth Three Times A Day as Needed For Pain Ventolin HFA 2 every 4 hours as Unknown 108(90Base) needed mcg/Act Aerosol Medications Administered in Office Medication SIG Qnty Indications Ordering Provider Date Injection Doron Noel M.D. 09/04/2014 Injection Injection Allergy Injection 09/04/2014 Injection Injection Doron Noel M.D. 07/31/2014 Injection Injection Allergy Injection 07/31/2014 Injection Injection Doron Noel M.D. 07/15/2014 Injection Injection Allergy Injection 07/15/2014 Injection Injection So Lopez [facility] 07/08/2014 Injection Injection Allergy Injection 07/08/2014 Injection Injection Doron Noel M.D. 06/24/2014 Injection Injection Allergy Injection 06/24/2014 Injection Injection Doron Noel M.D. 06/19/2014 Injection Injection Allergy Injection 06/19/2014 Injection Injection Doron Noel M.D. 06/12/2014 Injection Injection Allergy Injection 06/12/2014 Injection Injection Doron Noel M.D. 06/05/2014 Injection Injection Allergy Injection 06/05/2014 Injection Injection Doron Noel M.D. 05/29/2014 Injection Injection Allergy Injection 05/29/2014 Injection Injection Doron Noel M.D. 05/22/2014 Injection Injection Allergy Injection 05/22/2014 Injection Injection Doron Noel M.D. 05/15/2014 Injection Injection Allergy Injection 05/15/2014 Injection Injection Doron Noel M.D. 05/08/2014 Injection Injection Allergy Injection 05/08/2014 Injection Injection Allergy Injection 05/01/2014 Injection Injection Doron Noel M.D. 04/24/2014 Injection Injection Allergy Injection 04/24/2014 Injection Injection Doron Noel M.D. 04/17/2014 Injection Injection Allergy Injection 04/17/2014 Injection Injection Doron Noel M.D. 04/10/2014 Injection Injection Allergy Injection 04/10/2014 Injection Injection Doron Noel M.D. 11/14/2013 Injection Injection Allergy Injection 11/14/2013 Injection Injection Doron Noel M.D. 11/07/2013 Injection Injection Allergy Injection 11/07/2013 Injection Immunizations CPT Code Status Date Vaccine Lot # 47940 Given 11/20/2012 Influenza Vaccine 59222 Given Unknown Influenza Vaccine 78109 Given Unknown Influenza Vaccine 95531 Given Unknown Influenza Vaccine Vital Signs Date Vital Result Comment 04/25/2019 11:21am Height 65.5 inches 5'5.50" Weight 178.00 lb Weight 80.741 kg Respiratory Rate 12 /min Heart Rate 92 /min O2 % BldC Oximetry 98 % BP Systolic 125 mmHg BP Diastolic 86 mmHg Asthma Control Test 22 Fractional Exhaled Nitric Oxide 11 BMI (Body Mass Index) 29.2 kg/m2 02/21/2019 3:19pm Height 65.5 inches 5'5.50" Weight 179.00 lb Weight 81.194 kg Respiratory Rate 20 /min Heart Rate 88 /min O2 % BldC Oximetry 98 % BP Systolic 124 mmHg BP Diastolic 82 mmHg Asthma Control Test 16 Fractional Exhaled Nitric Oxide 12 BMI (Body Mass Index) 29.3 kg/m2 12/25/2018 11:37am Height 65.5 inches 5'5.50" Weight 150.00 lb Weight 68.040 kg Respiratory Rate 16 /min Heart Rate 97 /min O2 % BldC Oximetry 98 % BP Systolic 138 mmHg BP Diastolic 92 mmHg Fractional Exhaled Nitric Oxide 5 BMI (Body Mass Index) 24.6 kg/m2 04/06/2017 1:53pm Height 65.5 inches 5'5.50" Weight 150.00 lb Weight 68.040 kg Respiratory Rate 20 /min Heart Rate 94 /min O2 % BldC Oximetry 97 % BP Systolic 105 mmHg BP Diastolic 72 mmHg Asthma Control Test 10 BMI (Body Mass Index) 24.6 kg/m2 06/16/2016 11:10am Height 65.5 inches 5'5.50" Weight 135.00 lb Weight 61.236 kg Respiratory Rate 16 /min Heart Rate 87 /min O2 % BldC Oximetry 99 % BP Systolic 113 mmHg BP Diastolic 74 mmHg Asthma Control Test 25 BMI (Body Mass Index) 22.1 kg/m2 08/26/2014 1:52pm Height 65.5 inches 5'5.50" Weight 132.00 lb Weight 59.875 kg Respiratory Rate 16 /min Heart Rate 92 /min O2 % BldC Oximetry 98 % BP Systolic 120 mmHg BP Diastolic 80 mmHg Asthma Control Test 25 BMI (Body Mass Index) 21.6 kg/m2 08/19/2014 2:39pm Height 64 inches 5'4" Weight 131.00 lb Weight 59.422 kg Respiratory Rate 16 /min Heart Rate 80 /min O2 % BldC Oximetry 98 % BP Systolic 100 mmHg BP Diastolic 78 mmHg Asthma Control Test 17 BMI (Body Mass Index) 22.5 kg/m2 07/08/2014 3:32pm Height 66 inches 139 Weight 139.00 lb Weight 63.050 kg Respiratory Rate 18 /min Heart Rate 83 /min O2 % BldC Oximetry 98 % BP Systolic 110 mmHg BP Diastolic 70 mmHg BMI (Body Mass Index) 22.4 kg/m2 07/01/2014 1:17pm Height 66 inches 5'6" Weight 139.00 lb Weight 63.050 kg Respiratory Rate 17 /min Heart Rate 72 /min Body Temperature 98.6 F O2 % BldC Oximetry 98 % BP Systolic 110 mmHg BP Diastolic 70 mmHg Asthma Control Test 24 BMI (Body Mass Index) 22.4 kg/m2 05/22/2014 2:20pm Height 66 inches 5'6" Weight 129.00 lb Weight 58.514 kg Respiratory Rate 18 /min Heart Rate 69 /min O2 % BldC Oximetry 98 % BP Systolic 116 mmHg BP Diastolic 74 mmHg BMI (Body Mass Index) 20.8 kg/m2 04/10/2014 1:26pm Height 66 inches 5'6" Weight 129.00 lb Weight 58.514 kg Heart Rate 98 /min O2 % BldC Oximetry 98 % BP Systolic 104 mmHg BP Diastolic 80 mmHg Asthma Control Test 11 BMI (Body Mass Index) 20.8 kg/m2 10/29/2013 4:49pm Height 65 inches 5'5" Weight 135.00 lb Stated per patient Weight 61.236 kg Respiratory Rate 16 /min Heart Rate 76 /min O2 % BldC Oximetry 98 % BP Systolic 102 mmHg BP Diastolic 62 mmHg Asthma Control Test 8 BMI (Body Mass Index) 22.5 kg/m2 07/04/2013 10:51am Height 65 inches 5'5" Weight 135.00 lb Weight 61.236 kg Respiratory Rate 18 /min Heart Rate 103 /min O2 % BldC Oximetry 97 % BP Systolic 118 mmHg BP Diastolic 60 mmHg BMI (Body Mass Index) 22.5 kg/m2 04/25/2013 2:34pm Height 66 inches 5'6" Weight 140.00 lb Weight 63.504 kg Heart Rate 77 /min O2 % BldC Oximetry 98 % BMI (Body Mass Index) 22.6 kg/m2 03/05/2013 12:45pm Height 65 inches 5'5" Weight 143.00 lb Weight 64.865 kg Respiratory Rate 18 /min Heart Rate 87 /min O2 % BldC Oximetry 97 % BMI (Body Mass Index) 23.8 kg/m2 Results Test Date Facility Test Result H/L Range Note Laboratory test 06/16/2016 [facility] Milk (Cow) < 0.[address] Ovqct0dM/[place] [address] [phone] Tryptase 3.9 ug/L 2.2-13.2 Immunoglobulin E,Total <1 IU/mL 0-100 Beef <0.10 Ytqdp4yX/L Wheat <0.10 Yyhlr7aD/L F087 Melon,Honeydew <0.10 Thqip5oT/L Grapes <0.10 Jctod8oJ/L Green Beans <0.10 Pudlm3fQ/L T891-AtJ Broccoli <0.10 Zncxf4mJ/L 1 mRast Class (Text Only) See Note 2 1 Test(s) 923572-G228-RfG Green Rosario were developed and had performance characteristics determined by [facility]. These tests have not been cleared or approved by the U.S. Food and Drug Administration. The FDA has determined that such clearance or approval is not necessary. These tests are used for clinical purposes. These should not be regarded as investigational or for research. Performed at: - [address] [id number] Artillery Meteorological Man: Yoon Madden MD, Phone: [phone] Performed at: - [facility] [id number] Artillery Meteorological Man: Vivek Medina MD, Phone: [phone] 2 Levels of Specific IgE Class Description of Class ----- < 0.10 0 Negative 0.10 - 0.31 0/I Equivocal/Low 0.32 - 0.55 I Low 0.56 - 1.40 II Moderate 1.41 - 3.90 III High 3.91 - 19.00 IV Very High 19.01 - 100.00 V Very High >100.00 Very High Procedures Date Code Description Status 04/25/2019 07254 Nitric Oxide Gas Determination Completed 04/25/2019 16356 Pre PFT Completed 02/21/2019 33384 Nitric Oxide Gas Determination Completed 02/21/2019 66946 Pre PFT Completed 12/25/2018 72258 Nitric Oxide Gas Determination Completed 12/25/2018 89552 Ippb Completed 12/25/2018 62642 Pre PFT Completed 04/06/2017 15423 Ippb Completed 04/06/2017 60094 Pre PFT Completed 09/04/2014 97552 Injection Completed 09/04/2014 09431 Injection Completed 08/19/2014 28691 Pre PFT Completed 08/19/2014 95819 Pre PFT Completed 07/31/2014 32044 Injection Completed 07/31/2014 48861 Injection Completed 07/15/2014 55605 Injection Completed 07/15/2014 43492 Injection Completed 07/08/2014 64462 Injection Completed 07/08/2014 02278 Injection Completed 06/24/2014 32533 Injection Completed 06/24/2014 31999 Injection Completed 06/19/2014 78002 Injection Completed 06/19/2014 50784 Injection Completed 06/12/2014 35397 Injection Completed 06/12/2014 27575 Injection Completed 06/05/2014 21426 Injection Completed 06/05/2014 34537 Injection Completed 05/29/2014 60285 Injection Completed 05/29/2014 30444 Injection Completed 05/22/2014 76555 Injection Completed 05/22/2014 19631 Injection Completed 05/22/2014 32475 Pre PFT Completed 05/15/2014 09796 Injection Completed 05/15/2014 84065 Injection Completed 05/08/2014 23256 Injection Completed 05/08/2014 99327 Injection Completed 05/01/2014 52777 Injection Completed 04/24/2014 26356 Injection Completed 04/24/2014 40638 Injection Completed 04/17/2014 73211 Injection Completed 04/17/2014 94862 Injection Completed 04/10/2014 47033 Pre PFT Completed 04/10/2014 64691 Injection Completed 04/10/2014 40887 Injection Completed 11/14/2013 36498 Injection Completed 11/14/2013 88659 Injection Completed 11/07/2013 72058 Injection Completed 11/07/2013 09687 Injection Completed 11/04/2013 15451 Extract 1-10 Completed 10/29/2013 99406 Oxygen Level - Pulse Oximiter Completed 03/12/2013 20969 Skin Test Scratch # Of Units ____ Completed 03/05/2013 68534 Pulmonary Function Test Completed 12/23/2008 98485 Skin Tests Id Completed 12/23/2008 79999 Pre PFT Completed 12/16/2008 89834 Skin Test Scratch # Of Units ____ Completed Encounters Type Date Location Provider Dx Diagnosis Office Visit 04/25/2019 [facility] Lynsey Parry J45.30 Mild persistent 11:20a [employer]NA[employer] asthma, uncomplicated J30.81 Allergic rhinitis due to animal (cat) (dog) hair and dander J30.1 Allergic rhinitis due to pollen Office Visit 02/21/2019 3:40p [facility] Hector Ramon M.D. J45.998 Other asthma J45.998 Other asthma Office Visit 12/25/2018 11:40a [facility] Sobeida J45.31 Mild persistent Uldrich, [employer] asthma with (acute) exacerbation J30.81 Allergic rhinitis due to animal (cat) (dog) hair and dander J30.1 Allergic rhinitis due to pollen J30.89 Other allergic rhinitis J30.2 Other seasonal allergic rhinitis Office Visit 04/06/2017 2:00p [place] [facility] Alis J45.31 Mild persistent Carroll, [employer] asthma with (acute) exacerbation J30.81 Allergic rhinitis due to animal (cat) (dog) hair and dander J30.1 Allergic rhinitis due to pollen J30.89 Other allergic rhinitis J30.2 Other seasonal allergic rhinitis L50.9 Urticaria, unspecified Z68.24 Body mass index (BMI) 24.0-24.9, adult Office Visit 06/16/2016 11:40a [place] [facility] So L50.9 Urticaria, Jessica, [employer] unspecified L27.2 Dermatitis due to ingested food Z68.22 Body mass index (BMI) 22.0-22.9, adult Office Visit 08/26/2014 2:00p [place] [facility] So 493.00 Asthma Extrinsic Jessica, [employer] Unspecified Office Visit 08/19/2014 3:00p [place] [facility] So 477.0 Rhinitis Allergic Jessica, [employer] Due To Pollen 477.8 Rhinitis Allergic Due To Other Allergen 493.00 Asthma Extrinsic Unspecified Office Visit 07/08/2014 3:40p [place] [facility] So Lopez, 477.8 Rhinitis [employer] Allergic Due To Other Allergen 477.0 Rhinitis Allergic Due To Pollen 477.0 Rhinitis Allergic Due To Pollen 477.8 Rhinitis Allergic Due To Other Allergen 493.00 Asthma Extrinsic Unspecified Office Visit 07/01/2014 1:20p [place] [facility] So Lopez, 477.0 Rhinitis [employer] Allergic Due To Pollen 477.8 Rhinitis Allergic Due To Other Allergen 493.00 Asthma Extrinsic Unspecified 465.8 Upper Respiratory Infections Acute Other Multiple Sites Office Visit 05/22/2014 3:00p [facility] So Lopez, 477.8 Rhinitis [employer] Allergic Due To Other Allergen 477.0 Rhinitis Allergic Due To Pollen 493.00 Asthma Extrinsic Unspecified Office Visit 04/10/2014 2:40p [place] [facility] So Lopez, 477.0 Rhinitis [employer] Allergic Due To Pollen 477.8 Rhinitis Allergic Due To Other Allergen 493.00 Asthma Extrinsic Unspecified Office Visit 10/29/2013 5:20p [place] [facility] So 493.00 Asthma Extrinsic Jessica, [employer] Unspecified 477.0 Rhinitis Allergic Due To Pollen Office Visit 07/04/2013 11:00a [facility] Sharita L. 493.00 Asthma Extrinsic Stefan, [employer]NAGER [employer] Unspecified 477.0 Rhinitis Allergic Due To Pollen Office Visit 04/25/2013 2:20p [facility] Sharita L. 493.00 Asthma Extrinsic Stefan, [employer] Unspecified [address] 477.0 Rhinitis Allergic Due To Pollen Office Visit 03/12/2013 2:20p [facility] Sharita L. 493.00 Asthma Extrinsic Stefan, [employer] Unspecified 472.0 Rhinitis Chronic 477.0 Rhinitis Allergic Due To Pollen Office Visit 03/05/2013 1:20p [facility] Florecita Oswald 472.0 Rhinitis Elsa Vitale Chronic 493.00 Asthma Extrinsic Unspecified Office Visit 01/06/2009 3:15p [facility] Maikel 477.0 Rhinitis Elsa Nicholas Allergic Due To Pollen 493.90 Asthma Unspec W/O Status Asthmaticus Office Visit 12/16/2008 9:15a [place] [facility] Maikel 477.0 Rhinitis Elsa Nicholas Allergic Due To Pollen 493.90 Asthma Unspec W/O Status Asthmaticus Plan of Treatment Future Appointment(s):10/31/2019 11:40 am - IAN Merino at [facility]
--- OUTSIDE RECORDS SUMMARY | 2019-05-24 14:18 | XMS REPORT | Continuity of Care Document ---
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 Gifty Herron Primary Care Physician Unavailable Payers Date Identification Numbers Payment Provider Subscriber Policy Number: [id number] Medicare Zacarias Dixon PayID: [id number] [address] [place] [address] Policy Number: [id number] Medicaid Zacarias Dixon Group Name: 2 1 [address] PayID: [id number] [place] [address] Problems Active Problems Provider Date Dysfunction of eustachian tube Adriana Abel PA Onset: 05/25/2012 Family History Date Family Member(s) Observation Comments General Diabetes Social History Type Date Description Comments Sex Female Marital Status Single ETOH Use Denies alcohol use Recreational Drug Use Never Used Drugs Allergies, Adverse Reactions, Alerts Active Allergies Reaction Severity Comments Date Mushrooms 05/25/2012 Amoxicillin vomiting 02/27/2013 Inactive Allergies NKDA 01/19/2009 Medications Active Medications SIG Qnty Indications Ordering Provider Date Dermotic apply 5 drops 1units Prashanth Mcrae, 07/10/2017 0.01% Oil twice a day to M.D. affected ear canal(s)for 7-14 days OTC Sleep Aide Benadryl OTC Unknown Strattera once a day Unknown 120mg Capsules History Medications Azithromycin 2 by mouth every 6tabs Prashanth Mcrae, 04/04/2019 - 250mg day 1, 1 by mouth M.D. 05/09/2019 Tablets every day 2-5 Prednisone 1 by mouth every 5tabs Prashanth Mcrae, 12/24/2018 - 10mg Tablets morning M.D. 05/09/2019 Azithromycin 2 by mouth every 6tabs Prashanth Mcrae, 10/14/2018 - 250mg day 1, 1 by mouth M.D. 10/22/2018 Tablets every day 2-5 Azithromycin 2 by mouth every 6tabs Prashanth Mcrae, 04/04/2018 - 250mg day 1, 1 by mouth M.D. 04/11/2018 Tablets every day 2-5 Cetirizine HCL 1 by mouth every 30tabs Prashanth Mcrae, 01/31/2018 - 10mg day . take at night M.D. 07/18/2018 Tablets if makes you drowsy. Dexamethasone 1 by mouth 3tabs Prashanth Mcrae, 01/01/2018 - 4mg Tablets M.D. 01/31/2018 Azithromycin 2 by mouth every 6tabs Prashanth Mcrae, 11/16/2017 - 250mg day 1, 1 by mouth M.D. 12/04/2017 Tablets every day 2-5 Fexofenadine HCL 1 by mouth every 30tabs Prashanth Mcrae, 10/18/2017 - 180mg day d/c claritin, M.D. 07/18/2018 Tablets loratadine Azithromycin 2 by mouth every 6tabs Prashanth Mcrae, 07/03/2017 - 250mg day 1, 1 by mouth M.D. 10/18/2017 Tablets every day 2-5 Fluticasone Propionate 2 sprays both 32gm Prashanth Mcrae, 05/02/2017 - nostrils every day M.D. 01/31/2018 50mcg/Act Suspension Claritin 1 by mouth every 60tabs Prashanth Mcrae, 05/02/2017 - 10mg Tablets day M.D. 07/26/2018 Prednisone 1 by mouth every 5tabs Prashanth Mcrae, 04/03/2017 - 10mg Tablets morning M.D. 05/01/2017 Ipratropium Ferney 2 sprays each side QS Prashanth Mcrae, 02/21/2017 - 0.03% nostril everyday 2 M.D. 05/02/2017 Solution months Dexamethasone one tab daily for 3 3tabs Prashanth Mcrae, 12/20/2016 - 4mg Tablets days M.D. 01/08/2017 Dexamethasone one tab daily for 3 3tabs Prashanth Mcrae, 12/02/2016 - 4mg Tablets days M.D. 12/16/2016 Cephalexin 1 by mouth twice a 20caps Prashanth Mcrae, 11/30/2016 - 500mg Capsules day for 10 days M.D. 12/07/2016 Azithromycin 2 by mouth every 6tabs Prashanth Mcrae, 09/30/2016 - 250mg day 1, 1 by mouth M.D. 07/03/2017 Tablets every day 2-5 Azithromycin 2 by mouth every 6tabs Prashanth Mcrae, 02/02/2016 - 250mg day 1, 1 by mouth M.D. 06/29/2016 Tablets every day 2-5 Montelukast Sodium 1 by mouth every 30tabs Prashanth Mcrae, 08/25/2015 - 10mg day M.D. 05/02/2017 Tablets Azithromycin 2 by mouth every 6tabs Prashanth Mcrae, 01/26/2015 - 250mg day 1, 1 by mouth M.D. 01/19/2016 Tablets every day 2-5 Azithromycin 2 by mouth every 7tabs Prashanth Mcrae, 12/04/2014 - 250mg day 1, 1 by mouth M.D. 12/18/2014 Tablets every day 2-5 Percocet 2 by mouth four 30tabs Parshanth Mcrae, 11/06/2014 - 5-325mg Tablets times a day as M.D. 11/11/2014 needed for pain Azithromycin 2 by mouth every 7tabs Prashanth Mcrae, 10/24/2014 - 250mg day 1, 1 by mouth M.D. 11/11/2014 Tablets every day 2-5 Dexamethasone 1 by mouth every 7tabs Prashanth Mcrae, 08/29/2014 - 2mg Tablets day M.D. 09/30/2014 Cephalexin 1 by mouth twice a 20caps Prashanth Mcrae, 08/13/2014 - 500mg Capsules day for 10 days M.D. 09/30/2014 Fluticasone Propionate 2 sprays both 3Prashanth Epps, 03/24/2014 - nostrils every day M.D. 04/02/2017 50mcg/Act Suspension Patanase 2 sprays both 3Prashanth Epps, 12/25/2013 - 0.6% Solution nostrils bid rebate M.D. 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 12/25/2013 weeks Azithromycin 1 po qd 5tabs Prashanth Mcrae, 12/04/2013 - 500mg M.D. 12/25/2013 Tablets Prednisone 1 po qd x 5 days 5tabs Prashanth Mcrae, 10/22/2013 - 20mg Tablets M.D. 12/25/2013 Cephalexin 1 po bid x 7 days 14tabs Prashanth Mcrae, 10/22/2013 - 500mg Tablets M.D. 12/25/2013 Cetirizine HCL 1 PO qd prn. Take 30tabs Prashanth Mcrae, 07/17/2013 - 10mg at night if makes M.D. 10/22/2013 Tablets you drowsy. Prednisone 1 po qam 5tabs Prashanth Mcrae, 02/27/2013 - 10mg Tablets M.D. 04/02/2013 Amoxicillin 1 po tid 5 days 15tabs Prashanth Mcrae, 12/28/2012 - 500mg Tablets M.D. 02/14/2013 Cetirizine HCL 1 po qd 30tabs Prashanth Mcrae, 07/29/2009 - 10mg M.D. 05/25/2012 Tablets Fluticasone Propionate 2 sprays both Prashanth Armas, 07/29/2009 - nostrils qd M.D. 05/25/2012 50mcg/Act Suspension Claritin 1 po qd 30tabs Prashanth Mcrae, 01/19/2009 - 10mg Tablets M.D. 07/29/2009 Astelin 2 sprays both Prashanth Armas, 01/19/2009 - 137mcg/[place] nostrils twice a M.D. 07/29/2009 Solution day. Tessalon Perles 1 po q6h prn cough 45caps Prashanth Mcrae, 01/19/2009 - 100mg M.D. 07/29/2009 Capsules Concerta 1 po qd Unknown - 54mg Tablets ER 07/29/2009 Concerta 1 po qd 30tabs Unknown - 54mg Tablets ER 07/18/2018 Sleeping Pill Unknown - 10/22/2013 Keflex 1 po tid 21caps Unknown - 500mg Capsules 07/03/2013 Benadryl q4-6h, prn Unknown - 25mg 07/03/2013 Cymbalta Unknown - 10/22/2013 Naproxen 1 by mouth twice a Unknown - 500mg Tablets day with food 01/19/2016 Atenolol 1 by mouth every Unknown - 25mg Tablets day 01/19/2016 Xanax 1 by mouth twice Unknown - 0.25mg daily 01/19/2016 Percocet 1-2 by mouth four Unknown - 5-325mg Tablets times a day as 08/01/2016 needed for pain Azithromycin 2 pills x 1 day Unknown - 250mg then 1 every day 01/08/2017 Tablets for 4 days given in ER Vital Signs Date Vital Result Comment 05/09/2019 8:59am Weight 183.00 lb Height 66 inches 5'6" BMI (Body Mass Index) 29.5 kg/m2 BP Systolic 137 mmHg BP Diastolic 91 mmHg Heart Rate 89 /min O2 % BldC Oximetry 99 % Body Temperature 97.5 F Pain Level 8 12/24/2018 1:46pm Weight 177.00 lb Height 66 inches 5'6" BMI (Body Mass Index) 28.6 kg/m2 BP Systolic 151 mmHg BP Diastolic 112 mmHg Heart Rate 98 /min O2 % BldC Oximetry 98 % Body Temperature 97.5 F Pain Level 6 10/22/2018 1:24pm Weight 174.00 lb Height 66 inches 5'6" BMI (Body Mass Index) 28.1 kg/m2 BP Systolic 132 mmHg BP Diastolic 88 mmHg Heart Rate 100 /min O2 % BldC Oximetry 100 % Body Temperature 97.2 F Pain Level 6 09/06/2018 10:19am Weight 171.00 lb Height 66 inches 5'6" BMI (Body Mass Index) 27.6 kg/m2 BP Systolic 131 mmHg BP Diastolic 90 mmHg Heart Rate 91 /min O2 % BldC Oximetry 100 % Body Temperature 97.1 F Pain Level 0 06/07/2018 2:48pm Weight 163.00 lb Height 66 inches 5'6" BMI (Body Mass Index) 26.3 kg/m2 BP Systolic 122 mmHg BP Diastolic 84 mmHg Heart Rate 117 /min O2 % BldC Oximetry 100 % Body Temperature 98.6 F Pain Level 6 both ears 04/12/2018 7:49am Weight 164.00 lb Height 66 inches 5'6" BMI (Body Mass Index) 26.5 kg/m2 BP Systolic 133 mmHg BP Diastolic 100 mmHg Heart Rate 110 /min O2 % BldC Oximetry 100 % Body Temperature 98.2 F Pain Level 0 04/04/2018 10:32am Weight 166.00 lb Height 66 inches 5'6" BMI (Body Mass Index) 26.8 kg/m2 BP Systolic 127 mmHg BP Diastolic 90 mmHg Heart Rate 81 /min O2 % BldC Oximetry 100 % Body Temperature 97.8 F Pain Level 7 left ear 01/31/2018 1:13pm Weight 156.38 lb Height 66 inches 5'6" BMI (Body Mass Index) 25.2 kg/m2 BP Systolic 116 mmHg BP Diastolic 77 mmHg Heart Rate 82 /min O2 % BldC Oximetry 98 % room air Body Temperature 97.6 F Pain Level 0 01/01/2018 10:01am Weight 156.38 lb Height 66 inches 5'6" BMI (Body Mass Index) 25.2 kg/m2 BP Systolic 136 mmHg BP Diastolic 83 mmHg Heart Rate 98 /min O2 % BldC Oximetry 100 % Body Temperature 97.6 F Pain Level 0 12/05/2017 8:51am Weight 162.00 lb Height 66 inches 5'6" BMI (Body Mass Index) 26.1 kg/m2 BP Systolic 132 mmHg BP Diastolic 95 mmHg Heart Rate 103 /min O2 % BldC Oximetry 99 % Body Temperature 96.5 F Pain Level 0 10/18/2017 1:08pm Weight 161.50 lb Height 66 inches 5'6" BMI (Body Mass Index) 26.1 kg/m2 BP Systolic 117 mmHg BP Diastolic 83 mmHg Heart Rate 92 /min O2 % BldC Oximetry 99 % Body Temperature 98.1 F Pain Level 8 both ears 07/03/2017 8:02am Weight 155.00 lb Height 66 inches 5'6" BMI (Body Mass Index) 25.0 kg/m2 BP Systolic 117 mmHg BP Diastolic 87 mmHg Heart Rate 98 /min O2 % BldC Oximetry 99 % Body Temperature 97.4 F 05/02/2017 7:52am Weight 152.00 lb Height 66 inches 5'6" BMI (Body Mass Index) 24.5 kg/m2 Body Temperature 97.3 F 04/03/2017 7:56am Weight 150.00 lb Height 66 inches 5'6" BMI (Body Mass Index) 24.2 kg/m2 BP Systolic 141 mmHg BP Diastolic 92 mmHg Heart Rate 93 /min O2 % BldC Oximetry 96 % Body Temperature 97.4 F 02/21/2017 8:54am Weight 140.00 lb Height 66 inches 5'6" BMI (Body Mass Index) 22.6 kg/m2 BP Systolic 125 mmHg BP Diastolic 86 mmHg Heart Rate 100 /min O2 % BldC Oximetry 98 % Body Temperature 95.8 F 01/09/2017 8:21am Weight 140.50 lb Height 66 inches 5'6" BMI (Body Mass Index) 22.7 kg/m2 BP Systolic 118 mmHg BP Diastolic 64 mmHg Heart Rate 82 /min O2 % BldC Oximetry 99 % Body Temperature 98.6 F 12/15/2016 9:01am Weight 139.00 lb Height 66 inches 5'6" BMI (Body Mass Index) 22.4 kg/m2 BP Systolic 118 mmHg BP Diastolic 78 mmHg Heart Rate 90 /min O2 % BldC Oximetry 100 % Body Temperature 97.8 F Pain Level 0 11/30/2016 8:48am Weight 141.00 lb Height 66 inches 5'6" BMI (Body Mass Index) 22.8 kg/m2 BP Systolic 126 mmHg BP Diastolic 62 mmHg Heart Rate 133 /min O2 % BldC Oximetry 99 % Body Temperature 99.3 F Pain Level 6 09/30/2016 8:40am Weight 140.00 lb Height 66 inches 5'6" BMI (Body Mass Index) 22.6 kg/m2 BP Systolic 112 mmHg BP Diastolic 74 mmHg Heart Rate 73 /min O2 % BldC Oximetry 98 % Body Temperature 98.2 F 08/23/2016 7:35am BP Systolic 114 mmHg BP Diastolic 70 mmHg Heart Rate 83 /min O2 % BldC Oximetry 100 % Body Temperature 97.9 F 08/02/2016 3:06pm Weight 131.00 lb Height 66 inches 5'6" BMI (Body Mass Index) 21.1 kg/m2 BP Systolic 116 mmHg BP Diastolic 76 mmHg Heart Rate 70 /min O2 % BldC Oximetry 98 % Body Temperature 97.7 F 06/30/2016 9:19am Weight 133.00 lb Height 66 inches 5'6" BMI (Body Mass Index) 21.5 kg/m2 BP Systolic 112 mmHg BP Diastolic 74 mmHg Heart Rate 101 /min O2 % BldC Oximetry 98 % Body Temperature 97.9 F 02/02/2016 4:58pm Weight 128.38 lb Height 66 inches 5'6" BMI (Body Mass Index) 20.7 kg/m2 BP Systolic 112 mmHg BP Diastolic 76 mmHg Heart Rate 73 /min O2 % BldC Oximetry 95 % Body Temperature 98.3 F 09/14/2015 8:38am Weight 130.00 lb Height 66 inches 5'6" BMI (Body Mass Index) 21.0 kg/m2 Body Temperature 97.9 F 08/25/2015 3:54pm Weight 134.38 lb Height 66 inches 5'6" BMI (Body Mass Index) 21.7 kg/m2 BP Systolic 120 mmHg BP Diastolic 78 mmHg Heart Rate 74 /min O2 % BldC Oximetry 97 % Body Temperature 99.0 F 01/26/2015 4:31pm Weight 136.00 lb boots Height 66 inches 5'6" BMI (Body Mass Index) 21.9 kg/m2 BP Systolic 102 mmHg BP Diastolic 60 mmHg Body Temperature 98.7 F Pain Level 3 12/18/2014 3:01pm Weight 128.00 lb Height 66 inches 5'6" BMI (Body Mass Index) 20.7 kg/m2 BP Systolic 120 mmHg BP Diastolic 76 mmHg Heart Rate 75 /min O2 % BldC Oximetry 97 % Body Temperature 98.0 F 11/12/2014 9:36am Weight 130.00 lb Height 66 inches 5'6" BMI (Body Mass Index) 21.0 kg/m2 BP Systolic 108 mmHg BP Diastolic 70 mmHg Heart Rate 72 /min O2 % BldC Oximetry 98 % Body Temperature 99.0 F 10/15/2014 8:20am Weight 129.00 lb Body Temperature 97.4 F 08/27/2014 5:33pm Weight 129.38 lb Height 66 inches 5'6" BMI (Body Mass Index) 20.9 kg/m2 BP Systolic 120 mmHg BP Diastolic 74 mmHg Heart Rate 64 /min O2 % BldC Oximetry 98 % Body Temperature 98.4 F 08/13/2014 2:57pm Weight 134.38 lb Height 66 inches 5'6" BMI (Body Mass Index) 21.7 kg/m2 BP Systolic 118 mmHg BP Diastolic 80 mmHg Heart Rate 65 /min O2 % BldC Oximetry 96 % Body Temperature 99.0 F 03/24/2014 8:02am Pain Level 0 03/24/2014 3:41pm Weight 132.12 lb Height 66 inches 5'6" BMI (Body Mass Index) 21.3 kg/m2 Body Temperature 98.2 F 12/25/2013 4:08pm Weight 137.00 lb Height 66 inches 5'6" BMI (Body Mass Index) 22.1 kg/m2 BP Systolic 104 mmHg BP Diastolic 70 mmHg Heart Rate 78 /min O2 % BldC Oximetry 99 % Body Temperature 97.7 F 11/22/2013 2:35pm Weight 137.38 lb Height 66 inches 5'6" BMI (Body Mass Index) 22.2 kg/m2 Body Temperature 98.7 F 10/22/2013 2:48pm Weight 134.00 lb Height 66 inches 5'6" BMI (Body Mass Index) 21.6 kg/m2 BP Systolic 116 mmHg BP Diastolic 74 mmHg Heart Rate 76 /min O2 % BldC Oximetry 100 % Body Temperature 97.3 F 07/03/2013 3:25pm Weight 137.00 lb Height 66 inches 5'6" BMI (Body Mass Index) 22.1 kg/m2 BP Systolic 122 mmHg BP Diastolic 76 mmHg Heart Rate 77 /min O2 % BldC Oximetry 97 % Body Temperature 97.8 F 04/02/2013 9:03am Weight 147.00 lb Height 66 inches 5'6" BMI (Body Mass Index) 23.7 kg/m2 BP Systolic 104 mmHg BP Diastolic 80 mmHg Heart Rate 99 /min O2 % BldC Oximetry 98 % Body Temperature 98.7 F 02/27/2013 9:57am Weight 143.00 lb Height 66 inches 5'6" BMI (Body Mass Index) 23.1 kg/m2 BP Systolic 110 mmHg BP Diastolic 80 mmHg Body Temperature 98.2 F 12/24/2012 8:05am Weight 148.12 lb Height 66 inches 5'6" BMI (Body Mass Index) 23.9 kg/m2 BP Systolic 110 mmHg BP Diastolic 84 mmHg Heart Rate 58 /min O2 % BldC Oximetry 99 % Body Temperature 98.1 F 05/25/2012 3:09pm Weight 157.00 lb Height 66 inches 5'6" BMI (Body Mass Index) 25.3 kg/m2 BP Systolic 120 mmHg BP Diastolic 80 mmHg Heart Rate 85 /min O2 % BldC Oximetry 99 % Body Temperature 97.9 F 07/29/2009 9:21am Weight 124.00 lb Height 65 inches 5'5" BMI (Body Mass Index) 20.6 kg/m2 Body Temperature 98.1 F 01/19/2009 1:28pm Weight 120.00 lb Height 65 inches 5'5" BMI (Body Mass Index) 20.0 kg/m2 Body Temperature 98.9 F Results Test Date Facility Test Result H/L Range Note Laboratory test 01/02/2017 [facility] Surgical Pathology SEE RESULT 1, [address] [place] [address] [phone] Leukemia/Lymphom 01/02/2017 [facility] Path Interpretation TNP N a Phenot [address] 2-8 [place] [address] [phone] Path Interpret > 16 Marker TNP N Path Interpret 9-15 Marker (SEE NOTE) N 3 Allergens,Zone 1 04/04/2016 [facility] mRast Class (Text See Note [address] Only) [place] [address] [phone] D Pteronyssinus <0.10 Behjf5nU/L D Farinae Mite <0.10 Tuekg7zH/L Cat Hair/Dander <0.10 Hrvzf5gV/L Dog Hair/Dander <0.10 Yrctl7fO/L [place] <0.10 Kyxes0iW/L Berm[place] Grass <0.10 Rqfbt5nW/L Bahia Grass <0.10 Culko4xX/L Cockroach,Romanian <0.10 Mvlck5cN/L Penicillium Not <0.10 Ttqmp4sI/L Cladosporium Herbarum <0.10 Qfrnl9zX/L Apergillis Fumigatus Ige <0.10 Wfbgt4oI/L Mucor Racemosus <0.10 Cephk0nB/L Alternaria Tenuis <0.10 Taqva7wA/L Stemphylium Bot <0.10 Fwpuc8jT/L Birch,White <0.10 Rhuwt7zC/L [place],White <0.10 Rrnol3jZ/L Elm,Romanian (White) <0.10 Sbokq6eM/L Lizandro,White <0.10 Uofrr0gO/L Hazelnut Tree <0.10 Rvydq0vL/L Gilmer,White <0.10 Wdorh1eT/L Willis,White <0.10 Znrxz6dP/L [place] <0.10 Yhgyr6qE/L Ragweed,Short/ <0.10 Vhxqi7hJ/L Mugwort <0.10 Prfgz2iT/L Plantain,Tunisian <0.10 Xiini0sD/L Pigweed,Rough <0.10 Wcqzr4yO/L Sheep [place] (DO <0.10 Idwiv6tB/L Nettle <0.10 Hwcsj6dY/L Maple/Radnor Ige T001 <0.10 Whzgl7zR/L 5 Laboratory 04/04/2016 [facility] Immunoglobulin <1 IU/mL 0- 100 6 test finding [address],[place] [address] [phone] Fna With Cell 02/28/2015 [facility] Nature of Right Abnormal 7 Block And DQ (207)- - Specimen Parotid Ly Stain <SEE NOTE> Text Diagnosis Blood (non-diagn <SEE NOTE> Abnormal 8 Gross Pathology Received in [facility] <SEE NOTE> Abnormal 9 Micro Pathology The Diff Quik an <SEE NOTE> Abnormal 10 Cytology Report SEE IMAGE Clinical History 1-FNA, Parotid, <SEE NOTE> Abnormal 11 Comments Comment Abnormal Laboratory test 02/15/2013 [facility] HCG Serum, NEGATIVE finding [address] Qualitative [place], [place] [id number] [phone] CBC 02/15/2013 [facility] White Blood Count 6.9 K/uL 3.1-[address] [place] [address] [phone] Red Blood Count 4.64 M/uL 3.90-5.40 Hemoglobin 13.6 gm/dL 11.6-15.8 Hematocrit 41.3 % 36.0-46.1 Mean Cell Volume 89.0 fl 80.9-99.0 Mean Corpuscular HGB 29.3 pg 25.9-32.7 Mean Corpuscular HGB Conc 32.9 g/dL 30.8-34.3 Platelet Count 367 K/uL High 155-360 Red Cell Distri Width %CV 13.3 % 11.7-14.4 Mean Platelet Volume 11.5 fL 8.9-12.4 Urinalysis With 02/15/2013 [facility] Urine Color YELLOW Yellow Microscopic [address] [place] [address] [phone] Urine Clarity CLEAR Clear Urine Glucose - Dipstick NEGATIVE mg/dL Negative Urine Bilirubin - Dipstick NEGATIVE Negative Urine Ketone NEGATIVE mg/dL Negative Urine Specific [place] 1.025 1.010-1.030 Urine Blood TRACE Negative Urine PH 5.5 Low 6.5-7.5 Urine Protein - Dipstick NEGATIVE mg/dL Negative Urine Urobilinogen - Dipstick 0.2 E.U./dL 0.2-1.0 Urine Nitrite - Dipstick NEGATIVE Negative Urine Leuk Esterase TRACE High Negative Urine RBC 0-2 rbc/hpf 0-7 Urine WBC 2-5 wbc/hpf 0-7 Urine Epithelial Cells MANY NONESEEN/lpf 12 Urine Bacteria FEW NONESEEN Urine Mucus SMALL NONESEEN Laboratory test 02/15/2013 [facility] Urine Screen See Note 13 finding [address] [place] [address] [phone] 1 [id number] 2 SEE RESULT BELOW Name: ZACARIAS DIXON : [address]: Prashanth Mcrae MD Acct: [id number] Unit: [id number] AGE: 31 Location: [facility] Re01/02/17 SEX: F Status: REG REF SPEC: [id number] [place]: 01/02/17-0830 [facility] DR: Prashanth Mcrae MD REQ: [id number] RECD: 01/02/17 STATUS: SOUT _ ORDERED: LEVEL V COMMENTS: [id number] Flow cytometry has been performed at [place], [place]. The testing reveals: FINAL DIAGNOSIS: Specimen Source: Lymph node, right parotid ([id number]) Flow cytometry immunophenotypic analysis: No evidence of [...] MD 01/04/17 1046 Technical component performed by: [place] [address] Director Of Web Marketing: Vivek Pérez II, MD, PhD. CONTINUED ON NEXT PAGE * ML=Testing performed at Main Lab DEPARTMENT OF PATHOLOGY, [address] [place] [address] David Christian M.D. Director [facility] # [id number] RUN DATE: 01/05/17 [facility] LAB LIVE PAGE 2 Patient: ZACARIAS DIXON [id number] (Continued) ADDENDUM (Continued) Addendum Signed (signature on [...] crook-pink. The specimen is trisected and a guest experience representative section is submitted for flow cytometry. The remaining specimen is entirely submitted in one cassette. Signed (signature on file) Estrada_ Hillary Soto MD 1049 END OF REPORT * ML=Testing performed at Main Lab DEPARTMENT OF PATHOLOGY, [address] [place] [address] David Christian M.D. Director [facility] # [id number] 3 FINAL DIAGNOSIS: Specimen Source: Lymph node, right parotid ([id number]) Flow cytometry immunophenotypic analysis: No evidence of [...] MD 01/04/17 1046 Technical component performed by: [place] [address] Director Of Web Marketing: Vivek Pérez II, MD, PhD. 4 Levels of Specific IgE Class Description of Class ----- < 0.10 0 Negative 0.10 - 0.31 0/I Equivocal/Low 0.32 - 0.55 I Low 0.56 - 1.40 II Moderate 1.41 - 3.90 III High 3.91 - 19.00 IV Very High 19.01 - 100.00 V Very High >100.00 Very High 5 Performed at: [facility] [id number] [employer] Consultant: Vivek Medina MD, Phone: [phone] Performed at: RN - [facility] [id number] [employer] Consultant: Yoon Madden MD, Phone: [phone] 6 Test(s) 342368-Q113-WgY Cockroach, Romanian; 984046- M913-WqN Elaine Ferrari were developed and had performance characteristics determined by [facility]. These tests have not been cleared or [...] 13 02/15/13 LAB.RAP Deleted by Reflex Group [facility] Procedures Date Code Description Status 12/24/2018 56867 Ultrasound Head/Neck Completed 09/06/2018 39125 Tympanometry Completed 09/06/2018 28589 Audiometry, Comprehensive Completed 07/26/2018 21326 Tympanostomy, Gen. Anesth. Completed 07/26/2018 25996 Anesthesia, Tympanotomy Completed 06/07/2018 14324 Tympanometry Completed 06/07/2018 73436 Audiometry, Comprehensive Completed 04/12/2018 19359 Ultrasound Head/Neck Completed 12/05/2017 24336 Tympanometry Completed 12/05/2017 07449 Audiometry, Comprehensive Completed 10/18/2017 63101 Tympanometry Completed 05/02/2017 05049 Nasal Endoscopy, Diag. Completed 02/21/2017 80719 Remove Impacted Cerumen Completed 01/02/2017 62199 Anesthesia Salivary Glands Biopsy Completed 01/02/2017 93710 Exc Of Parotid Gland/Tumor/Lateral Lobe W/O Nerve Completed Dissection 11/30/2016 21124 Ultrasound Head/Neck Completed 09/30/2016 40180 Nasal Endoscopy, Diag. Completed 04/04/2016 44424 Nasal Endoscopy, Diag. Completed 09/20/2015 19000 Sleep Staging 4Or More Para Completed 09/14/2015 21913 Ultrasound Head/Neck Completed 08/25/2015 26204 Nasal Endoscopy, Diag. Completed 02/28/2015 13800 Ultrasonic Guide Needle Biopsy Completed 02/28/2015 68878 Fna W/Image Completed 02/11/2015 48948 Ultrasound Head/Neck Completed 01/26/2015 54355 Ultrasound Head/Neck Completed 11/06/2014 83944 Nasal/Sinus Endosc.Surg.W.Ethmoid Completed 11/06/2014 13122 Nasal/Sinus Endosc.W.Max.Antrost. Completed 11/06/2014 39497 Nasal/Sinus Endosc.W.Explor. Completed 11/06/2014 07838 Nasal/Sinus Endoscopy Surg/Sphen. Completed 11/06/2014 98632 Stereotactic Computer-Assisted, Cranial, Extradural Completed 03/24/2014 15562 Nasal Endoscopy, Diag. Completed 12/25/2013 88697 Nasal Endoscopy, Diag. Completed 12/04/2013 56832 Nasal Endoscopy, Diag. Completed 11/22/2013 76044 Nasal Endoscopy, Diag. Completed 02/21/2013 11859 Exc.Turbinate/Partial Or Complete Completed 02/21/2013 01228 Septoplasty Completed 02/21/2013 17932 Nasal/Sinus Endosc.Surg.W.Ethmoid Completed 02/21/2013 68924 Nasal/Sinus Endosc.W.Max.Antrost. Completed 02/21/2013 07764 Nasal/Sinus Endosc.W.Explor. Completed 02/21/2013 56321 Nasal/Sinus Endoscopy Surg/Sphen. Completed 02/21/2013 10453 Stereotactic Computer-Assisted, Cranial, Extradural Completed 12/24/2012 58284 Tympanometry Completed 12/24/2012 47342 Audiometry, Comprehensive Completed 12/24/2012 27937 Nasal Endoscopy, Diag. Completed 08/02/2012 72497 Audiometry, Comprehensive Completed 01/19/2009 99471 Acoustic Reflex Testing Completed 01/19/2009 14395 Tympanometry Completed 01/19/2009 02038 Audiometry, Comprehensive Completed 08/21/2008 39864 Acoustic Reflex Testing Completed 08/21/2008 24180 Tympanometry Completed 08/21/2008 22247 Audiometry, Comprehensive Completed 01/10/2007 73285 Tonsillectomy;Age 12 Or Over Completed Encounters Type Date Location Provider Dx Diagnosis Office Visit 12/24/2018 Main Office Prashanth Mcrae M.D. R59.0 Localized enlarged 1:45p lymph nodes Office Visit 10/22/2018 Main Office Prashanth Mcrae M.D. 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 J31.0 Chronic rhinitis H69.93 Unspecified Eustachian tube disorder, bilateral R59.0 Localized enlarged lymph nodes Office Visit 04/04/2018 11:00a Main Office Prashanth Mcrae H65.22 Chronic serous M.D. 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 unspecified J31.0 Chronic rhinitis Office Visit 05/02/2017 8:00a Main Office Prashanth Mcrae J30.9 Allergic rhinitis, M.D. unspecified H61.23 Impacted cerumen, bilateral Office Visit 04/03/2017 8:15a Main Office Prashanth Mcrae, K21.9 Gastro- esophageal reflux M.D. disease without esophagitis R05 Cough J31.0 Chronic rhinitis Office Visit 12/15/2016 9:00a Main Office Prashanth Mcrae, R59.0 Localized enlarged M.D. lymph nodes J31.0 Chronic rhinitis Office Visit 11/30/2016 8:30a Main Office Prashanth Mcrae, R59.0 Localized enlarged M.D. lymph nodes J01.90 Acute sinusitis, unspecified Office Visit 09/30/2016 10:00a Main Office Prashanth Mcrae, J01.90 Acute sinusitis, M.D. unspecified J31.0 Chronic rhinitis J34.89 Other specified disorders of nose and nasal sinuses Office Visit 08/23/2016 8:15a Main Office Neha A J06.9 Acute upper Vines, STREET OPENINGS INSPECTOR respiratory infection, unspecified Office Visit 08/02/2016 3:15p Main Office Prashanth Mcrae, J31.0 Chronic rhinitis M.D. R06.83 Snoring Office Visit 06/30/2016 9:15a Main Office Prashanth Mcrae M.D. J31.0 Chronic rhinitis T78.40xD Allergy, unspecified, subsequent encounter Office Visit 04/04/2016 8:00a Main Office Prashanth Mcrae, T78.40xD Allergy, M.D. unspecified, subsequent encounter J31.0 Chronic rhinitis R06.83 Snoring Office Visit 02/02/2016 5:15p Main Office Prashanth Mcrae, J01.80 Other acute M.D. sinusitis T78.40xD Allergy, unspecified, subsequent encounter Office Visit 09/14/2015 9:15a Main Office Prashanth Mcrae, G47.9 Sleep disorder, M.D. unspecified R06.83 Snoring R59.0 Localized enlarged lymph nodes Office Visit 08/25/2015 3:45p Main Office Prashanth Mcrae M.D. J31.0 Chronic rhinitis T78.40xD Allergy, unspecified, subsequent encounter R59.0 Localized enlarged lymph nodes Office Visit 02/11/2015 6:00p Main Office Prashanth Mcrae, 785.6 Lymph Nodes M.D. Enlargement 784.2 Mass/Swelling, Neck Or Head 473.8 Sinusitis Chronic Other Office Visit 01/26/2015 4:45p Main Office Prashanth Mcrae, 785.6 Lymph Nodes M.D. Enlargement 784.2 Mass/Swelling, Neck Or Head Office Visit 12/18/2014 3:15p Main Office Neha Vines, 473.[address]RE[address] OPENINGS INSPECTOR Other Office Visit 11/12/2014 10:15a Main Office Neha Vines, 473.[address] OPENINGS INSPECTOR Unspec Office Visit 10/15/2014 8:45a Main Office Prashanth Mcrae, 473.9 Sinusitis Chronic M.D. Unspec 472.0 Rhinitis Chronic Office Visit 09/10/2014 5:00p Main Office Prashanth Mcrae, 473.9 Sinusitis Chronic M.D. Unspec 472.0 Rhinitis Chronic Office Visit 08/27/2014 5:45p Main Office Prashanth Mcrae, 461.8 Sinusitis Acute M.D. Other 472.0 Rhinitis Chronic Office Visit 08/13/2014 3:15p Main Office Neha De Los Santos 461.8 Sinusitis Acute Vines, STREET OPENINGS INSPECTOR Other Office Visit 03/24/2014 3:45p Main Office Prashanth Mcrae, 478.0 Hypertrophy Nasal M.D. Turbinates 477.2 Allergic Rhinitis Cat/Dog 473.9 Sinusitis Chronic Unspec 478.19 Other Diseases Of Nasal Cavity And Sinuses Office Visit 12/25/2013 4:30p Main Office Prashanth Mcrae, 478.0 Hypertrophy Nasal M.D. Turbinates 477.2 Allergic Rhinitis Cat/Dog 478.19 Other Diseases Of Nasal Cavity And Sinuses Office Visit 12/04/2013 3:45p Main Office Prashanth Mcrae M.D. 470 Deviated Nasal Septum 478.11 Nasal Mucositis (Ulcerative) 462 Pharyngitis Acute 465.8 Upper Respiratory Infections Acute Other Multiple Sites 784.7 Epistaxis 478.19 Other Diseases Of Nasal Cavity And Sinuses Office Visit 11/22/2013 2:45p Main Office Adriana Abel, 470 Deviated Nasal PA Septum 738.0 Deformity Nose Acquired Office Visit 10/22/2013 3:00p Main Office Page 465.8 Upper Respiratory Adriana, PA Infections Acute Other Multiple Sites Office Visit 07/17/2013 1:45p Main Office Neha A Vines, [address] OPENINGS INSPECTOR 477.2 Allergic Rhinitis Cat/Dog 477.9 Rhinitis Allergic Cause Unspec Office Visit 07/03/2013 4:00p Main Office Neha A 462 Pharyngitis Acute Vines, STREET OPENINGS INSPECTOR Office Visit 04/02/2013 10:00a Main Office Neha A 462 Pharyngitis Acute Vines, STREET OPENINGS INSPECTOR Office Visit 12/28/2012 3:15p Main Office Prashanth Mcrae, 473.9 Sinusitis Chronic M.D. Unspec 461.8 Sinusitis Acute Other 995.3 Allergy Unspec 470 Deviated Nasal Septum 478.0 Hypertrophy Nasal Turbinates Office Visit 12/24/2012 8:15a Main Office Prashanth Mcrae, 473.9 Sinusitis Chronic M.D. Unspec 381.81 Eustachian Tube Dysfunction 995.3 Allergy Unspec Office Visit 05/25/2012 3:30p Main Office Page 381.81 Eustachian Tube CESAR Wright Dysfunction Office Visit 07/29/2009 9:30a Main Office Olga Ibarra PA 381.81 Eustachian Tube Dysfunction 995.3 Allergy Unspec Office Visit 01/19/2009 1:30p Main Office Olga Ibarra 381.81 Eustachian Tube PA Dysfunction 786.2 Cough Office Visit 12/15/2006 11:00a Main Office Prashanth Mcrae, 474.00 Tonsillitis Chronic M.D.
--- OUTSIDE RECORDS SUMMARY | 2019-05-24 14:18 | XMS REPORT | Continuity of Care Document ---
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 0.3% twice a day for 1 Solution weeks Dermotic apply 5 drops 1units Prashanth Mcrae, [...] - 10mg Tablets morning M.D. 05/01/2017 Ipratropium [place] 2 sprays each side QS Prashanth Mcrae, [...] 2-5 Percocet 2 by mouth four 30tabs Prashanth Mcrae, 11/06/2014 - 5-325mg Tablets times a [...] M.D. 09/30/2014 Fluticasone Propionate 2 sprays both 3units Prashanth Mcrae, 03/24/2014 - nostrils every day M.D. 04/02/2017 50mcg/Act Suspension Patanase 2 sprays both 3 Mcrae Prashanth, 12/25/2013 - 0.6% Solution nostrils bid rebate M.D. 04/02/2017 rx bin# [id number] blemish remover ([id number]) rx pcn: eligio rx grp [id number] id: [id number] Mupirocin apply around the Mcrae Prashanth, 12/04/2013 - 2% Ointment nose [...] 2 sprays both Prashanth Armas, 01/19/2009 - 137mcg/Jelm nostrils twice a M.D. 07/29/2009 Solution day. [...] Result H/L Range Note Laboratory test 01/02/2017 [facility] Surgical Pathology SEE RESULT 1, [address] [place] [address] [phone] Leukemia/Lymphom 01/02/2017 [facility] Path Interpretation TNP N a Phenot [address] 2-[address] [place] [address] [phone] Path Interpret > 16 Marker TNP N Path Interpret 9-15 Marker (SEE NOTE) N 3 Allergens,Zone 1 04/04/2016 [facility] mRast Class (Text See Note [address] Only) [place] [address] [phone] D Pteronyssinus <0.10 Igohg4kM/L D Farinae Mite <0.10 Lvwgv6dU/L Cat Hair/Dander <0.10 Yynwp9kR/L Dog Hair/Dander <0.10 Zuhhk3mK/L Blue[place] <0.10 Biqht6dD/L Bermuda Grass <0.10 Wfqgb9xJ/L Bahia Grass <0.10 Oywmw0fK/L Cockroach,Thai <0.10 Fpszo2kC/L Penicillium Not <0.10 Bxadb6zH/L Cladosporium Herbarum <0.10 Nebsc9aF/L Apergillis Fumigatus Ige <0.10 Tkdmx1yQ/L Mucor Racemosus <0.10 Gbsan4sZ/L Alternaria Tenuis <0.10 Lnxkf6iT/L Stemphylium Bot <0.10 Pvdnz1fK/L Birch,White <0.10 Jrvot5sA/L [place],White <0.10 Rcffx9nN/L Elm,Thai (White) <0.10 Pddlt8yO/L Lizandro,White <0.10 Etfqu6wC/L Hazelnut Tree <0.10 Oijhc4yQ/L Rusk,White <0.10 Esaqc4wT/L Pratt,White <0.10 Vkgka3vP/L [place] <0.10 Mauay9rM/L Ragweed,Short/ <0.10 Lzwoc7sJ/L Mugwort <0.10 Okkfr1cN/L Plantain,Mozambican <0.10 Gmvha4hN/L Pigweed,Rough <0.10 Kvulc2qA/L Sheep [place] (DO <0.10 Glrgj4gD/L Nettle <0.10 Eifdp7jB/L Maple/Bland Ige T001 <0.10 Aqihk5vK/L 5 Laboratory 04/04/2016 [facility] Immunoglobulin <1 IU/mL 0- 100 6 test finding [address],[place] [address] [phone] Fna With Cell 02/28/2015 [facility] Nature of Right Abnormal 7 Block And DQ (7)- - Specimen Parotid Ly Stain <SEE NOTE> Text Diagnosis Blood (non-diagn <SEE NOTE> Abnormal 8 Gross Pathology Received in etha <SEE NOTE> Abnormal 9 Micro Pathology The Diff Quik an <SEE NOTE> Abnormal 10 Cytology Report SEE IMAGE Clinical History 1-FNA, Parotid, <SEE NOTE> Abnormal 11 Comments Comment Abnormal Laboratory test 02/15/2013 [facility] HCG Serum, NEGATIVE finding [address] Qualitative [place], [place] [id number] [phone] CBC 02/15/2013 [facility] White Blood Count 6.9 K/uL 3.1-[address] [place] [address] [phone] Red Blood Count 4.64 M/uL 3.90-5.40 Hemoglobin 13.6 gm/dL 11.6-15.8 Hematocrit 41.3 % 36.0-46.1 Mean Cell Volume 89.0 fl 80.9-99.0 Mean Corpuscular HGB 29.3 pg 25.9-32.7 Mean Corpuscular HGB Conc 32.9 g/dL 30.8-34.3 Platelet Count 367 K/uL High 155-360 Red Cell Distri Width %CV 13.3 % 11.7-14.4 Mean Platelet Volume 11.5 fL 8.9-12.4 Urinalysis With 02/15/2013 [facility] Urine Color YELLOW Yellow Microscopic [address] [place] [address] [phone] Urine Clarity CLEAR Clear Urine Glucose - Dipstick NEGATIVE mg/dL Negative Urine Bilirubin - Dipstick NEGATIVE Negative Urine Ketone NEGATIVE mg/dL Negative Urine Specific Peterman 1.025 1.010-1.030 Urine Blood TRACE Negative Urine [...] Urine Mucus SMALL NONESEEN Laboratory test 02/15/2013 [facility] Urine Screen See Note 13 finding [address] [place] [address] [phone] 1 [id number] 2 SEE RESULT BELOW Name: ZACARIAS DIXON : [address]: Prashanth Mcrae MD Acct: [id number] Unit: [id number] AGE: 31 Location: [facility] Re01/02/17 SEX: F Status: REG REF SPEC: [id number] [place]: 01/02/17-30 [facility] DR: Prashanth Mcrae MD REQ: [id number] RECD: 01/02/17 STATUS: SOUT _ ORDERED: LEVEL V COMMENTS: [id number] Flow cytometry has been performed at [facility], [place], [place]. The testing reveals: FINAL DIAGNOSIS: Specimen Source: Lymph node, right parotid ([id number]) Flow cytometry immunophenotypic analysis: No evidence of [...] MD 01/04/17 1046 Technical component performed by: [place] [address] Landscaper Helper: Vivek Pérez II, MD, PhD. CONTINUED ON NEXT PAGE * ML=Testing performed at Main Lab DEPARTMENT OF PATHOLOGY, [address] [place] [address] David Christian M.D. Director [facility] # [id number] RUN DATE: 01/05/17 [facility] LAB LIVE PAGE 2 Patient: ZACARIAS DIXON [id number] (Continued) ADDENDUM (Continued) Addendum Signed (signature on [...] crook-pink. The specimen is trisected and a apparel trimmings sales representative section is submitted for flow cytometry. The remaining specimen is entirely submitted in one cassette. Signed (signature on file) Hillary Soto MD 1049 END OF REPORT * ML=Testing performed at Main Lab DEPARTMENT OF PATHOLOGY, [address] [place] [address] David Christian M.D. Director [facility] # [id number] 3 FINAL DIAGNOSIS: Specimen Source: Lymph node, right parotid ([id number]) Flow cytometry immunophenotypic analysis: No evidence of [...] MD 01/04/17 1046 Technical component performed by: [place] [address] Landscaper Helper: Vivek Pérez II, MD, PhD. 4 Levels of Specific IgE Class Description of Class ----- < 0.10 0 Negative 0.10 - 0.31 0/I Equivocal/Low 0.32 - 0.55 I Low 0.56 - 1.40 II Moderate 1.41 - 3.90 III High 3.91 - 19.00 IV Very High 19.01 - 100.00 V Very High >100.00 Very High 5 Performed at: - [facility] [id number] Hod Carrier: Vivek Medina MD, Phone: [phone] Performed at: [facility] [id number] Hod Carrier: Yoon Madden MD, Phone: [phone] Test(s) 663076-[id number]-FvF Cockroach, Thai; 640285- S942-UuS Rusk White were developed and had performance characteristics determined [...] 13 02/15/13 LAB.RAP Deleted by Reflex Group [facility] Procedures Date Code Description Status 12/24/2018 92023 Ultrasound Head/Neck Completed 09/06/2018 87082 Tympanometry Completed 09/06/2018 80492 Audiometry, Comprehensive Completed 07/26/2018 15853 Tympanostomy, Gen. Anesth. Completed 07/26/2018 63134 Anesthesia, Tympanotomy Completed 06/07/2018 25170 Tympanometry Completed 06/07/2018 44550 Audiometry, Comprehensive Completed 04/12/2018 38021 Ultrasound Head/Neck Completed 12/05/2017 71273 Tympanometry Completed 12/05/2017 28418 Audiometry, Comprehensive Completed 10/18/2017 87705 Tympanometry Completed 05/02/2017 15333 Nasal Endoscopy, Diag. Completed 02/21/2017 23927 Remove Impacted Cerumen Completed 01/02/2017 75492 Anesthesia Salivary Glands Biopsy Completed 01/02/2017 50603 Exc Of Parotid Gland/Tumor/Lateral Lobe W/O Nerve Completed Dissection 11/30/2016 25538 Ultrasound Head/Neck Completed 09/30/2016 23481 Nasal Endoscopy, Diag. Completed 04/04/2016 94631 Nasal Endoscopy, Diag. Completed 09/20/2015 07694 Sleep Staging 4Or More Para Completed 09/14/2015 44821 Ultrasound Head/Neck Completed 08/25/2015 89905 Nasal Endoscopy, Diag. Completed 02/28/2015 57891 Ultrasonic Guide Needle Biopsy Completed 02/28/2015 51105 Fna W/Image Completed 02/11/2015 23535 Ultrasound Head/Neck Completed 01/26/2015 11825 Ultrasound Head/Neck Completed 11/06/2014 97664 Nasal/Sinus Endosc.Surg.W.Ethmoid Completed 11/06/2014 84993 Nasal/Sinus Endosc.W.Max.Antrost. Completed 11/06/2014 20252 Nasal/Sinus Endosc.W.Explor. Completed 11/06/2014 03640 Nasal/Sinus Endoscopy Surg/Sphen. Completed 11/06/2014 16007 Stereotactic Computer-Assisted, Cranial, Extradural Completed 03/24/2014 57168 Nasal Endoscopy, Diag. Completed 12/25/2013 84621 Nasal Endoscopy, Diag. Completed 12/04/2013 34618 Nasal Endoscopy, Diag. Completed 11/22/2013 50891 Nasal Endoscopy, Diag. Completed 02/21/2013 36389 Exc.Turbinate/Partial Or Complete Completed 02/21/2013 77698 Septoplasty Completed 02/21/2013 20097 Nasal/Sinus Endosc.Surg.W.Ethmoid Completed 02/21/2013 73240 Nasal/Sinus Endosc.W.Max.Antrost. Completed 02/21/2013 11193 Nasal/Sinus Endosc.W.Explor. Completed 02/21/2013 57495 Nasal/Sinus Endoscopy Surg/Sphen. Completed 02/21/2013 75793 Stereotactic Computer-Assisted, Cranial, Extradural Completed 12/24/2012 53301 Tympanometry Completed 12/24/2012 10822 Audiometry, Comprehensive Completed 12/24/2012 82552 Nasal Endoscopy, Diag. Completed 08/02/2012 50734 Audiometry, Comprehensive Completed 01/19/2009 33777 Acoustic Reflex Testing Completed 01/19/2009 73487 Tympanometry Completed 01/19/2009 43149 Audiometry, Comprehensive Completed 08/21/2008 93790 Acoustic Reflex Testing Completed 08/21/2008 55051 Tympanometry Completed 08/21/2008 84362 Audiometry, Comprehensive Completed 01/10/2007 78558 Tonsillectomy;Age 12 Or Over Completed Encounters Type Date Location Provider Dx Diagnosis Office Visit 05/09/2019 Main Office Neha Vines, H92.02 Otalgia, left ear 9:00a PAY PER CLICK STRATEGIST Office Visit 12/24/2018 Main Office Prashanth Mcrae M.D. R59.0 Localized enlarged 1:45p lymph nodes Office Visit 10/22/2018 Main Office Prashanth Mcrae M.D. 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, PAY PER CLICK STRATEGIST uni, right ear, w unrestr hear cntra [...] Neha De Los Santos H69.93 Unspecified Vines, PAY PER CLICK STRATEGIST Eustachian tube disorder, bilateral J30.9 Allergic rhinitis, unspecified Office Visit 01/01/2018 9:45a Main Office Neha De Los Santos J30.9 Allergic rhinitis, Vines, PAY PER CLICK STRATEGIST unspecified Office Visit 12/05/2017 9:15a Main Office Neha De Los Santos H69.93 Unspecified Vines, PAY PER CLICK STRATEGIST Eustachian tube disorder, bilateral Office Visit 10/18/2017 1:00p Main Office Neha De Los Santos H69.93 Unspecified Vines, PAY PER CLICK STRATEGIST Eustachian tube disorder, bilateral Office Visit 07/03/2017 8:00a Main Office Prashanth Mcrae, J01.90 Acute sinusitis, M.D. unspecified J31.0 Chronic rhinitis Office Visit 05/02/2017 8:00a Main Office Prashanth Mcrae, J30.9 Allergic rhinitis, M.D. unspecified H61.23 Impacted [...] Visit 09/30/2016 10:00a Main Office Prashanth Mcrae J01.90 Acute sinusitis, M.D. unspecified J31.0 Chronic rhinitis J34.89 Other specified disorders of nose and nasal sinuses Office Visit 08/23/2016 8:15a Main Office Neha A J06.9 Acute upper Vines, PAY PER CLICK STRATEGIST respiratory infection, unspecified Office Visit 08/02/2016 3:15p [...] Main Office Neha Vines, 473.8 Sinusitis Chronic PAY PER CLICK STRATEGIST Other Office Visit 11/12/2014 10:15a Main Office Neha Vines, 473.9 Sinusitis Chronic PAY PER CLICK STRATEGIST Unspec Office Visit 10/15/2014 8:45a Main Office Prashanth Mcrae, 473.9 Sinusitis Chronic M.D. Unspec 472.0 Rhinitis Chronic Office Visit 09/10/2014 5:00p Main Office Prashanth Mcrae, 473.9 Sinusitis Chronic M.D. Unspec 472.0 Rhinitis Chronic Office Visit 08/27/2014 5:45p Main Office Prashanth Mcrae, 461.8 Sinusitis Acute M.D. Other 472.0 Rhinitis Chronic Office Visit 08/13/2014 3:15p Main Office Neha De Los Santos 461.8 Sinusitis Acute Vines, PAY PER CLICK STRATEGIST Other Office Visit 03/24/2014 3:45p Main Office [...] Sinuses Office Visit 11/22/2013 2:45p Main Office Celestino Abelca, 470 Deviated Nasal PA Septum 738.0 Deformity Nose Acquired Office Visit 10/22/2013 3:00p Main Office Page, 465.8 Upper Respiratory Adriana, PA Infections Acute Other Multiple Sites Office Visit 07/17/2013 1:45p Main Office Neha A Vines, 462 Pharyngitis Acute PAY PER CLICK STRATEGIST 477.2 Allergic Rhinitis Cat/Dog 477.9 Rhinitis Allergic Cause Unspec Office Visit 07/03/2013 4:00p Main Office Neha A 462 Pharyngitis Acute Vines, PAY PER CLICK STRATEGIST Office Visit 04/02/2013 10:00a Main Office Neha A 462 Pharyngitis Acute Vines, PAY PER CLICK STRATEGIST Office Visit 12/28/2012 3:15p Main Office Prashanth Mcrae, 473.9 Sinusitis Chronic M.D. Unspec 461.8 Sinusitis Acute Other 995.3 Allergy Unspec 470 Deviated Nasal Septum 478.0 Hypertrophy Nasal Turbinates Office Visit 12/24/2012 8:15a Main Office Prashanth Mcrae, 473.9 Sinusitis Chronic M.D. Unspec 381.81 Eustachian Tube Dysfunction 995.3 Allergy Unspec Office Visit 05/25/2012 3:30p Main Office Page, 381.81 Eustachian Tube Adriana, PA Dysfunction Office Visit 07/29/2009 9:30a Main Office Olga Ibarra PA 381.81 Eustachian Tube Dysfunction 995.3 Allergy Unspec Office Visit 01/19/2009 1:30p Main Office Olga Ibarra, 381.81 Eustachian Tube PA Dysfunction 786.2 Cough Office Visit 12/15/2006 11:00a Main Office Prashanth Mcrae, 474.00 Tonsillitis Chronic M.D.
[2019-05-24 14:57] VITALS: BP 126/89
--- NOTE | 2019-05-24 15:49 | UC ---
Hand/Wrist HPI - HPI Summary HPI Summary: 33-year-old woman comes in with a chief complaint of right hand pain. Patient woke up this morning with pain in the right hand at the distal third and fourth metacarpals and the proximal third and fourth fingers. Pain is worse with palpation and movement. There is swelling in the area. Denies any numbness. No known injuries. Denies any wrist pain. - History Of Current Complaint Chief Complaint: UCUpperExtremity Stated Complaint: RIGHT HAND CONCERN Time Seen by Provider: 05/24/19 15:34 Hx Last Menstrual Period: 12/09/17 Pain Intensity: 8 - Allergies/Home Medications Allergies/Adverse Reactions: Allergies Allergy/AdvReac Type Severity Reaction Status Date / Time Penicillins Allergy Intermediate GI Upset Verified 05/24/19 14:53 amoxicillin Allergy Mild Vomiting Verified 05/24/19 14:53 prednisone Allergy Mild Rash Verified 05/24/19 14:53 adhesive Allergy Rash Uncoded 05/24/19 14:53 mushrooms Allergy Hives Uncoded 05/24/19 14:53 PMH/Surg Hx/FS Hx/Imm Hx Previously Healthy: Yes Other History Of: Negative For: HIV, Hepatitis B, Hepatitis C - Surgical History Surgical History: Yes Surgery Procedure, Year, and Place: Sinus Surgery, 2012, [facility], esure. Cholecystectomy; right sided neck node 12/2016. LEFT CARPAL TUNNEL--05/2017. RIGHT CARPAL AYE 07/13/17. Hysterectomy April 2018 - Family History Known Family History: Positive: Cardiac Disease, Hypertension, Diabetes - Social History Alcohol Use: Occasionally Substance Use Type: None Smoking Status (MU): Former Smoker When Did the Patient Quit Smoking/Using Tobacco: 5 years ago Household Exposure Type: Cigarettes - Immunization History Most Recent Influenza Vaccination: 2016 Review of Systems All Other Systems Reviewed And Are Negative: Yes Constitutional: Positive: Negative Skin: Positive: Negative Eyes: Positive: Negative ENT: Positive: Negative Respiratory: Positive: Negative Cardiovascular: Positive: Negative Gastrointestinal: Positive: Negative Motor: Positive: Other - SEE HPI Neurovascular: Positive: Negative Musculoskeletal: Positive: Other: - SEE HPI Neurological: Positive: Negative Psychological: Positive: Negative Is Patient Immunocompromised?: No Physical Exam Triage Information Reviewed: Yes Appearance: Well-Appearing, No Pain Distress, Well-Nourished Vital Signs: Initial Vital Signs Temp 97.7 F 05/24/19 14:54 Pulse 88 05/24/19 14:54 Resp 16 05/24/19 14:54 BP 126/89 05/24/19 14:54 Pulse Ox 100 05/24/19 14:54 Vital Signs Reviewed: Yes Eye Exam: Normal Eyes: Positive: Conjunctiva Clear Neck: Positive: Supple Respiratory: Positive: No respiratory distress Musculoskeletal: Positive: Other: - Right hand is swollen and tender to palpation at the distal right third and fourth metacarpals and into the proximal third fourth fingers. It is not hot to palpation there is no skin break. This is full range of motion full-strength. Normal capillary refill no sensation deficit. Neurological: Positive: Alert Psychological Exam: Normal Psychological: Positive: Age Appropriate Behavior Skin Exam: Normal Hand/Wrist Course/Dx - Course Course Of Treatment: Patient Name: ZACARIAS JULIO Medical Record#: [id number] Ordering Physician: Vivek Oliveira MD Acct.#: [id number] : 1985 Age: 33 Sex: F [facility] Exam Date: 05/24/191523 ADM Status: REG ER Order Information: HAND - RIGHT MINIMUM 3 VIEWS Accession Number: [id number] CPT: 83142 Indication: Third and fourth digits swelling. 4 views of the right hand demonstrates no fracture. No other bone or joint abnormality is identified. IMPRESSION: No fracture of the right hand <Electronically signed by Vidhi Haney MD in OV> 05/24/19 1600 I discussed the x-ray results with the patient. I suspect tendinitis. In clinic patient was splinted by nursing and patient neurovascular intact after splinting. Overall the plan is ice immobilization anti-inflammatories and the follow-up with sports medicine or orthopedics if not completely improved. - Differential Dx/Diagnosis Provider Diagnosis: Sprain of right hand Discharge - Sign-Out/Discharge Documenting (check all that apply): Patient Departure All imaging exams completed and their final reports reviewed: Yes - Discharge Plan Condition: Stable Disposition: HOME Prescriptions: Ibuprofen TAB* [Motrin TAB* 600 MG] 600 mg PO Q6H PRN #30 tab PRN Reason: Pain Patient Education Materials: Hand Sprain (ED) Referrals: Sade Oh [Primary Care Provider] - [facility] [Provider Group] Sourav Ocampo MD [Medical Doctor] - Additional Instructions: FOLLOW UP WITH ORTHOPEDICS OR SPORTS MEDICINE IF NOT COMPLETELY IMPROVED. GET REEVALUATED SOONER IF WORSE OR ANY QUESTIONS OR CONCERNS. - Billing Disposition and Condition Condition: STABLE Disposition: Home
== END 2019-05-24 16:02 | disposition home or self-care (01) ==
LOC: UCCORT 14:04
DX: S63.91XA Sprain of unspecified part of right wrist and hand, initial encounter (principal); X58.XXXA Exposure to other specified factors, initial encounter; Y92.003 Bedroom of unspecified non-institutional (private) residence as the place of occurrence of the external cause; Z87.891 Personal history of nicotine dependence
CPT/HCPCS: 99213; G0463

== ENCOUNTER 2019-06-29 11:32 | Emergency (ER) | payer MEDICARE, MEDICAID ==
[2019-06-29 12:14] VITALS: BP 124/78
--- NOTE | 2019-06-29 13:01 | UC ---
Abdominal Pain Female HPI - HPI Summary HPI Summary: c/o hiatal hernia that was diagnosed by [facility] in February. Pt states still having abd pain since diagnosis. States vomits when she eats. Denies any radiation. Skin warm and dry. - History of Current Complaint Chief Complaint: UCGeneralIllness Stated Complaint: STOMACH PAIN FROM A HERNIA Time Seen by Provider: 06/29/19 12:32 Hx Obtained From: Patient Hx Last Menstrual Period: 12/09/17 ?: No Onset/Duration: Sudden Onset, Lasting Weeks Severity Initially: Moderate Severity Currently: Moderate Pain Intensity: 5 Location: Epigastric Aggravating Factor(s): Food Associated Signs and Symptoms: Positive: Vomiting Allergies/Adverse Reactions: Allergies Allergy/AdvReac Type Severity Reaction Status Date / Time Penicillins Allergy Intermediate GI Upset Verified 06/29/19 12:08 amoxicillin Allergy Mild Vomiting Verified 06/29/19 12:08 prednisone Allergy Mild Rash Verified 06/29/19 12:08 adhesive Allergy Rash Uncoded 06/29/19 12:08 mushrooms Allergy Hives Uncoded 06/29/19 12:08 PMH/Surg Hx/FS Hx/Imm Hx Previously Healthy: Yes Other History Of: Negative For: HIV, Hepatitis B, Hepatitis C - Surgical History Surgical History: Yes Surgery Procedure, Year, and Place: Sinus Surgery, 2012, [facility], esure. Cholecystectomy; right sided neck node 12/2016. LEFT CARPAL TUNNEL--05/2017. RIGHT CARPAL AYE 07/13/17. Hysterectomy April 2018 - Family History Known Family History: Positive: Cardiac Disease, Hypertension, Diabetes - Social History Alcohol Use: Occasionally Substance Use Type: None Smoking Status (MU): Never Smoked Tobacco When Did the Patient Quit Smoking/Using Tobacco: 5 years ago- denies use Household Exposure Type: Cigarettes - Immunization History Most Recent Influenza Vaccination: 2016 Review of Systems All Other Systems Reviewed And Are Negative: Yes Gastrointestinal: Positive: Abdominal Pain, Vomiting Physical Exam Triage Information Reviewed: Yes Appearance: Well-Appearing, Well-Nourished, Pain Distress Vital Signs: Initial Vital Signs Temp 98.6 F 06/29/19 12:09 Pulse 93 06/29/19 12:09 Resp 16 06/29/19 12:09 BP 124/78 06/29/19 12:09 Pulse Ox 100 06/29/19 12:09 Vital Signs Reviewed: Yes Eye Exam: Normal ENT Exam: Normal Dental Exam: Normal Neck exam: Normal Respiratory Exam: Normal Cardiovascular Exam: Normal Abdomen Description: Positive: No Organomegaly, Soft, Other: - epigastric tenderness on palpation, no masses or guarding noted Bowel Sounds: Positive: Present Musculoskeletal Exam: Normal Neurological Exam: Normal Psychological Exam: Normal Skin Exam: Normal Abd Pain Female Course/Dx - Course Course Of Treatment: hx obtained, exam performed ,meds reviewed, patient is not in distress, she was able to eat breakfast of scrambled eggs this morning,. normal BM's, states she has had vomiting with occasional meals. has appointment with the general surgeon on 07/19/19. she states motrin does not help with pain, does not complain of pain with movement, only eating. - Differential Dx/Diagnosis Differential Diagnosis: Bowel Obstruction, Constipation, Irritable Bowel Syndrome, Other Provider Diagnosis: Hiatal hernia Discharge - Sign-Out/Discharge Documenting (check all that apply): Patient Departure All imaging exams completed and their final reports reviewed: No Studies - Discharge Plan Condition: Stable Disposition: HOME Patient Education Materials: Hiatal Hernia (ED) Referrals: Sade Oh [Primary Care Provider] - Additional Instructions: 1. I recommend small frequent meals to get your food to stay down. 2. Ibuprofen or tylenol for pain. 3. Follow up with the surgeon at your upcoming appointment. call sooner if the pain increases or you have more trouble eating. - Billing Disposition and Condition Condition: STABLE Disposition: Home
--- OUTSIDE RECORDS SUMMARY | 2019-06-29 15:01 | XMS REPORT | Continuity of Care Document ---
:1985 External Reference #:[id number] Author Name Wilbert Garcia, Address [address] [place] [id number] Care Team Providers Name Role Phone Sade Oh FNP Care Team Information Agronomy Research Manager [phone] Problems Active Problems Provider Date Migraine Shivam Frederick MD Onset: 12/01/2009 Note: takes diclofenac - hard to determine Adult attention deficit hyperactivity disorder Shivam Frederick MD Onset: Tachyarrhythmia Shivam Frederick MD Onset: 11/08/2014 Note: says started after her Bday; put on atenolol by Enma Mendez cardiology at [facility] Abdominal pain Shivam Frederick MD Onset: 09/23/2013 Note: Atypical CP; told me that had been on omeprazole 20 mg all of 2013 with dose raised prgressively after Dec 2014; had extensive w/u 11/17/14 as inpt at [facility] for CP and palpitations after her Bday; Insomnia Shivam Frederick MD Onset: 03/23/2013 Note: Trazodone fall 2013 Social History Type Date Description Comments Sex Unknown Tobacco Use Start: Unknown Patient has never smoked Smoking Status Reviewed: 06/03/19 Patient has never smoked Allergies, Adverse Reactions, Alerts Active Allergies Reaction Severity Comments Date Amoxicillin 01/29/2015 Penicillin 01/29/2015 Prednisone 02/25/2019 Medications Active Medications SIG Qnty Indications Ordering Provider Date Ranitidine HCL 1 tablet after Wilbert Garcia, DO 05/01/2019 150mg dinner Capsules Dexilant 1 by mouth every 30caps Wilbert Garcia, DO 03/13/[address] Hydroxyzine HCL 1 Tablet tid 180tabs Wilbert Garcia DO 02/25/2019 10mg Tablets Diclofenac Sodium Unknown 10/01/2015 75mg Tablets Ondansetron HCL Lindsey Plascencia,CLOTH LAYER 8mg Tablets Qvar Redihaler 2 puff twice a Unknown day 80mcg/Act Aerosol Atomoxetine HCL 2 Daily Unknown 60mg Capsules Ventolin HFA Unknown 108(90Base) mcg/Act Aerosol Venlafaxine HCL ER 1 tabLET bid Unknown 37.5mg Caps ER 24HR Colace 1 by mouth bid Unknown 100mg Capsules History Medications Ranitidine HCL 1 tablet bid 30caps Wilbert Garcia DO 02/25/2019 - 2018 150mg Capsules Immunizations Description No Information Available Vital Signs Date Vital Result Comment 06/03/2019 12:58pm Height 66 inches 5'6" Weight 183.00 lb BMI (Body Mass Index) 29.5 kg/m2 02/25/2019 10:42am Height 66 inches 5'6" Weight 178.00 lb BP Systolic 129 mmHg BP Diastolic 93 mmHg Heart Rate 109 /min BMI (Body Mass Index) 28.7 kg/m2 Results Test Date Facility Test Result H/L Range Note Laboratory test 03/13/2019 [facility] SEE RESULT 1, 2 finding Interface Order BELOW [place]/13/2019 [facility] [place] RESULT 3, 4 finding BELOW 1 [id number] SEE RESULT BELOW Name: SHARITA DIXON : [address]: Wilbert Garcia DO Acct: [id number] Unit: [id number] AGE: 33 Location: [facility] Re03/13/19 SEX: F Status: DEP REF SPEC: [id number] LISSETTE: 03/13/19- SUBM DR: Wilbert Garcia DO REQ: [id number] RECD: 03/13/19 STATUS: GENNY PECK DR: Sade Oh CLOTH LAYER _ ORDERED: LEVEL 4/2 COMMENTS: [id number] FINAL DIAGNOSIS 1. Small bowel, duodenum, biopsy: -- Small bowel mucosa with normal villous architecture and no significant pathologic abnormality. 2. Gastroesophageal Junction, biopsies: -- Gastroesophageal junction zone mucosa with no significant pathologic abnormalities. -- No goblet cell/intestinal metaplasia or dysplasia identified. -- No specific features of reflux esophagitis identified. 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 Director [facility] # [id number] RUN DATE: 03/14/19 [facility] LAB LIVE PAGE 2 Patient: SHARITA DIXON [id number] (Continued) GROSS DESCRIPTION (Continued) GROSS DESCRIPTION 1. The specimen is received in formalin labeled, Biopsy Duodenum, and consists of a 0.7 x 0.4 x 0.2 cm aggregate of crook-pink irregular soft tissue fragments which is submitted entirely in one cassette. 2. The specimen is received in formalin labeled, Biopsy EG Junction, and consists of two crook-pink irregular soft tissue fragments aggregating 0.4 x 0.3 x 0.1 cm which are submitted entirely in one cassette. Signed by and Reported on: David Christian MD [id number] END OF REPORT DEPARTMENT OF PATHOLOGY, [address] [place] [address] David Christian M.D. Director [facility] # [id number] 3 [id number] 4 SEE RESULT BELOW Name: SHARITA DIXON : [address]: Wilbert Garcia DO Acct: [id number] Unit: [id number] AGE: 33 Location: [facility] Re03/13/19 SEX: F Status: DEP REF SPEC: [id number] LISSETTE: 03/13/19-[address] [facility] [address]: Wilbert Garcia DO REQ: [id number] RECD: 03/13/19 STATUS: COMP CARLOSHR DR: Sade Oh CLOTH LAYER _ SOURCE: GAS ANTRUM SPDESC: ORDERED: Clotest COMMENTS: [id number] Procedure Result Reported Site Clotest Final 03/14/19- 733 ML Clotest Negative * ML - Main Lab . END OF REPORT DEPARTMENT OF PATHOLOGY, [address] [place] [address] David Christian M.D. Director [facility] # [id number] Procedures Date Code Description Status 03/13/2019 04595 EGD+Biopsy Single Or Multiple Completed Medical Devices Description No Information Available Encounters Type Date Location Provider Dx Diagnosis Office Visit 02/25/2019 Gastroenterology Wilbert Garcia, R10.13 Epigastric pain 11:15a [facility] DO R10.11 Right upper quadrant pain R11.2 Nausea with vomiting, unspecified R13.10 Dysphagia, unspecified R13.14 Dysphagia, pharyngoesophageal phase Assessments Date Code Description Provider 06/03/2019 R14.2 Eructation Wilbert Radha, DO 06/03/2019 R10.13 Epigastric pain Wilbert Radha, DO 06/03/2019 K58.1 Irritable bowel syndrome with constipation Wilbert Radha, DO 03/13/2019 K21.9 Gastro-esophageal reflux disease without Wilbert Radha, DO esophagitis 03/13/2019 K44.9 Diaphragmatic hernia without obstruction or Wilbert Radha, DO gangrene 02/25/2019 R10.13 Epigastric pain Wilbert Radha, DO 02/25/2019 R10.11 Right upper quadrant pain Wilbert Radha, DO 02/25/2019 R11.2 Nausea with vomiting, unspecified Wilbert Radha, DO 02/25/2019 R13.10 Dysphagia, unspecified Wilbert Radha, DO 02/25/2019 R13.14 Dysphagia, pharyngoesophageal phase Wilbert Radha, DO Plan of Treatment No Information Available Functional Status Description No Information Available Mental Status Description No Information Available Referrals Description No Information Available
--- OUTSIDE RECORDS SUMMARY | 2019-06-29 15:01 | XMS REPORT | Continuity of Care Document ---
:1985 External Reference #:[id number] Author Name Theodora Odonnell PA Address [address] [facility] [address] Care Team Providers Name Role Phone Sade Oh, JANICE Care Team Information Business Operations Director Unavailable Sade Oh, STEWARD/STEWARDESS BATH Primary Care Physician Unavailable Payers Date Identification Numbers Payment Provider Subscriber Policy Number: [id number] Medicare Zacarias Dixon PayID: [id number] [address] [place] [address] Effective: 2005 Policy Number: [id number] Medicare Zacarias Dixon Expires: 2018 PayID: [id number] [address] [place] [address] Policy Number: [id number] Medicaid Zacarias Dixon Group Name: [address] PayID: [id number] [place] [address] Problems Active Problems Provider Date Attention deficit hyperactivity disorder Timothy Gerard MD Onset: 05/27/2016 Kidney stone Timothy Gerard MD Onset: 05/27/2016 Adult health examination Timothy Gerard MD Onset: 06/17/2016 Note: upper to D3 2016 Pain in limb Huang Dias M.D. Onset: 11/30/2016 Bilateral carpal tunnel syndrome Huang Dias M.D. Onset: 11/30/2016 Carpal tunnel syndrome of left wrist Huang Dias M.D. Onset: 05/10/2017 Carpal tunnel syndrome of right wrist Theodora Odonnell PA Onset: 07/06/2017 Plantar fascial fibromatosis Rolly Turcios M.D. Onset: 08/08/2017 Skin sensation disturbance Huang Dias M.D. Onset: 10/25/2017 Dysfunctional uterine bleeding Martine Key CNM Onset: 04/09/2018 Cyst of right ovary Martine Key CNM Onset: 04/26/2018 Female climacteric state Martine Key CNM Onset: 05/17/2018 Contusion of finger Theodora Odonnell PA Onset: 08/20/2018 Strain of finger tendon Theodora Odonnell PA Onset: 06/19/2019 Epigastric pain Lenard Saucedo MD,FACS Onset: 06/12/2019 Family History Date Family Member(s) Observation Comments General Non Contributory Father Unknown Mother Unknown Children 1 healthy Siblings 3 First Brother Twin Brother Had Epilepsy And Cerebral Palsy Grandmother Diabetes Grandmother CAD Grandmother Hypertension Uncle Gallstones had surgery Social History Type Date Description Comments Sex Unknown Marital Status Single Lives With Uncle Lives With Brother Home Environment Lives With grandmother Diet Patient follows no dietary restrictions Work Status Disabled Hand Dominance Right-handed ADL's/IADL's Independent with all ADL's Tobacco Use Start: Unknown Never Smoked Cigarettes ETOH Use Currently consumes alcohol socially Tobacco Use Start: Unknown Patient has never smoked Recreational Drug Use Denies Drug Use Smoking Status Reviewed: 06/19/19 Patient has never smoked Age [address] 23 Years Old # Partners in a Lifetime 1 STD's No STD History Allergies, Adverse Reactions, Alerts Active Allergies Reaction Severity Comments Date Penicillins vomit 11/26/2014 Amoxicillin vomit 09/01/2016 Prednisone Urticaria Moderate 02/14/2018 Medications Active Medications SIG Qnty Indications Ordering Provider Date Ondansetron 1 tablet twice Sade Oh, 4mg Tablets daily STEWARD/STEWARDESS BATH Dispers Atomoxetine HCL 2 tablet by mouth Nurys George 60mg daily STEWARD/STEWARDESS BATH Capsules History Medications Medroxyprogesterone Take 1 tablet by 14tabs N92.1 Martine Key, 04/09/2018 - Acetate mouth daily for CNM 08/17/2018 5mg Tablets 10 days with food for abnormal bleeding from the uterus Medrol 6 tablets day 21tabs Huang Dias, 09/06/2017 - 4mg Tablets one, 5 tablets M.D. Unknown day 2, 4 tablets day 3, 3 tablets day 4, 2 tablets day 5, 1 tablet day 6 Hydrocodone-Acetaminophe 1 by mouth every 30tabs Huang Dias, 2016 - n 6 hours as needed M.D. 08/14/2017 5-325mg Tablets pain Percocet 1 by mouth every 40tabs LarissaHuang kelley, 07/18/2017 - 5-325mg Tablets 4-6 hour as M.D. 07/31/2017 needed pain Oxycodone HCL 1 every 4-6 hour 20tabs G56.01 LarissaHuang kelley, 07/06/2017 - 5mg Tablets as needed pain M.D. 07/31/2017 Oxycodone HCL 1 every 4-6 hour 30tabs Huang Dias, 05/18/2017 - 5mg Tablets as needed pain M.D. 07/06/2017 Diclofenac Sodium ER 1 by mouth every 30tabs Sincere Mendes, 02/16/2017 - 100mg day with food M.D. 05/10/2017 Tablets ER 24HR Citroma drink 1 bottle at 296ml Z80.0 Katie, 12/20/2016 - 1.745GM/30ML Solution 12pm (noon)the MD Wilbert 02/16/2017 day before the procedure Dulcolax 4 tablets taken a 4tabs Z80.0 Katie, 12/20/2016 - 5mg Tablets DR 8pm the day MD Wilbert 02/15/2017 before the procedure Nulytely With Flavor 1 dose mixed with 4000ml Z80.0 Katie, 12/20/2016 - Packs water MD Wilbert 02/15/2017 420gm Solution Rec Nulytely With Flavor 1 dose mixed with 4000ml Z80.0 Katie, 11/10/2016 - Packs water MD Wilbert 11/30/2016 420gm Solution Rec Dulcolax 4 tablets taken a 4tabs Z80.0 Katie, 11/10/2016 - 5mg Tablets DR 8pm the day MD Wilbert 11/30/2016 before the procedure Citroma drink 1 bottle at 296ml Z80.0 Katie, 11/10/2016 - 1.745GM/30ML Solution 12pm (noon)the MD Wilbert 11/30/2016 day before the procedure Lactulose one tablespoon 30units K59.00 Katie, 09/01/2016 - 20GM/30ML Solution bid ; titrate as MD Wilbert 11/30/2016 needed Nystatin-Triamcinolone 1 application 30gm B37.2 Katie, 09/01/2016 - apply to affected MD Wilbert Unknown 861467-0.1Unit/GM-% area twice a day Cream Ondansetron by mouth every 8 90tabs Timothy Gerard, 05/27/2016 - 8mg Tablets h s.l. as needed 11/30/2016 Dispers nausea Ondansetron Take every 4 to 6 30tabs Margarito, 04/28/2016 - 4mg Tablets hours as needed Tye Patino, 05/27/2016 Dispers for nausea M.D. No Active Medications Unknown 03/31/2016 - 03/31/2016 Diclofenac Sodium ER 1 by mouth every 30tabs Sincere Mendes, 03/31/2016 - 100mg day with food M.D. Unknown Tablets ER 24HR Diclofenac Sodium take 1 tablet by 60tabs Sincere Mendes, 01/13/2015 - 75mg mouth twice daily M.D. Unknown Tablets DR with food Albuterol Sulfate 786.05 Wade Mendez MD 11/26/2014 - 11/26/2014 Proventil 1-2 puffs as 1units 786.05 Wade Mendez MD 11/26/2014 - 0.083% Mdi needed up to q6 11/26/2014 hrs for dyspnea/wheezing Ventolin HFA 1-2 puffs up to 1units 786.05 Wade Mendez MD 11/26/2014 - 108(90Base) q6 hrs as needed 03/31/2016 mcg/Act Aerosol for dyspnea / wheezing Vitamin D Take 1 Capsule By Unknown - (Ergocalciferol) Mouth Once Weekly 05/16/2017 [id number] Capsules Doxycycline Hyclate Gopal Gifty, - 100mg PA 05/16/2017 Capsules Methylprednisolone Gopal, Gifty, - 4mg TBPK PA 05/16/2017 Ventolin HFA Gifty Herron, - 108(90Base) PA 05/16/2017 mcg/Act Aerosol Benzonatate Take One Capsule Unknown - 100mg Capsules By Mouth Every 6 05/16/2017 Hours as Needed For Cough Ondansetron HCL Take One Tablet Unknown - 4mg Tablets By Mouth Every 8 05/16/2017 Hours as Needed For Nausea Mapap Take 1 2 Tablets Unknown - 325mg Tablets By Mouth Every 4 05/16/2017 To 6 Hours Ibuprofen Take One Tablet Unknown - 600mg Tablets By Mouth Three 05/16/2017 Times A Day as Needed For Pain Low-Ogestrel Daniella, - 0.3-30mg-mcg JANICE Jones, 05/16/2017 Tablets CNM Vitamin D3 Take One Capsule Unknown - 26584Thtk Capsules By Mouth Every 08/17/2018 Week Diclofenac Sodium ER Take One Tablet Unknown - 100mg By Mouth Every 05/16/2017 Tablets ER 24HR Day With Food Hydroxyzine HCL GopalErrol goveale, - 10mg Tablets PA 05/16/2017 Pseudoephedrine HCL Take One Tablet Unknown - 30mg By Mouth Every 6 05/16/2017 Tablets Hours as Needed For Congestion Zolpidem Tartrate Kyrie Morley, - 5mg Tablets 05/16/2017 Nitrofurantoin Andrez John, - Macrocrystal 05/16/2017 100mg Capsules Bisacodyl Ec Take 4 Tablets By Unknown - 5mg Tablets DR Mouth AT 8PM The 05/16/2017 Day Before The Procedure Dexamethasone Take One Tablet Unknown - 4mg Tablets By Mouth Every 05/16/2017 Day For 3 Days Gavilyte-N With Flavor Mix With Water Unknown - Pack And Use as 05/16/2017 420gm Solution Rec Directed Naproxen John Chaudhry PA - 500mg Tablets 05/10/2017 Prochlorperazine Maleate Take One Tablet Unknown - 10mg By Mouth Three 05/10/2017 Tablets Times A Day as Needed For Vomiting Or H Nitrofurantoin Mumtaz Persaud - Monohydrate/Macrocrystal MD Alf 05/16/2017 s 100mg Capsules Ibuprofen Unknown - 400mg Tablets 05/16/2017 Metoclopramide HCL Unknown - 10mg 05/16/2017 Tablets Trazodone HCL Gifty Herron, - 50mg Tablets MA 05/16/2017 Loratadine Take One Tablet Unknown - 10mg Tablets By Mouth Every 05/16/2017 Day Fluticasone Propionate [place] 2 Sprays In Unknown - Each Nostril Once 05/16/2017 50mcg/Act Suspension Daily Banophen Take One Capsule Unknown - 25mg Capsules By Mouth Every 4 05/16/2017 Hours Cefuroxime Axetil Take One Tablet Unknown - 500mg By Mouth Twice A 05/16/2017 Tablets Day Ranitidine HCL Gifty Herron, - 150mg Tablets MA 05/16/2017 Clindamycin HCL Gilberto, - 300mg MD Cecilio 05/16/2017 Capsules Ibuprofen Gilberto, - 800mg Tablets MD Cecilio 05/16/2017 Prednisone Take 8 Tablets By Unknown - 5mg Tablets Mouth For 5 Days 05/16/2017 Advair Diskus Inhale One puff Unknown - 250-50mcg/Dose By Mouth Twice A 05/16/2017 Aerosol Day Albuterol Sulfate Use 1 Vial Via Unknown - (2.5mg/3ML) Nebulizer Every 4 05/16/2017 0.083% Nebulizer To 6 Hours as Needed Azithromycin Take Two Tablets Unknown - 250mg Tablets By Mouth AT Once 05/16/2017 On The First Day Then Take One Daily Prednisone Take One Tablet Unknown - 10mg Tablets By Mouth Every 05/16/2017 Morning Sumatriptan Succinate Shantelleradonnie, - 100mg CESAR Jordan 05/16/2017 Tablets Acetaminophen-Codeine #3 Take One Tablet Unknown - By Mouth Every 6 05/16/2017 300-30mg Tablets Hours as Needed F Levocetirizine So Lopez - Dihydrochloride BEATRICE Morelos 05/16/2017 5mg Tablets Naproxen John Chaudhry PA - 500mg Tablets 05/16/2017 Ibuprofen 1-2 tab by mouth Unknown - 200mg Tablets as needed Unknown Nitrofurantoin Take One Capsule Unknown - Monohydrate/Macrocrystal By Mouth Twice A 06/05/2017 s Day For 7 Days 100mg Capsules Loratadine Take One Tablet Unknown - 10mg Tablets By Mouth Every 08/17/2018 Day Ranitidine HCL 1 tab bid Gifty Herron, - 150mg Tablets CESAR Unknown Albuterol Sulfate as needed Unknown - (2.5mg/3ML) 06/12/2019 0.083% Nebulizer Azithromycin Take Two Tablets Unknown - 250mg Tablets By Mouth AT Once Unknown On The First Day Then Take One Daily Atomoxetine HCL Take Two Capsules Unknown - 60mg Capsules By Mouth Every 06/12/2019 Day Sulfamethoxazole/Trimeth Adolph Cline MD - oprim DS 07/06/2017 800-160mg Tablets Ondansetron 1 tab by mouth 90tabs Gagen, - 4mg Tablets every day JANICE Jones, 08/17/2018 Dispers CNM Sucralfate Vickie Macias, - 1gm Tablets CESAR-C Unknown Dicyclomine HCL Take One Tablet Unknown - 20mg Tablets By Mouth Four Unknown Times A Day Hydroxyzine HCL Sade Oh - 10mg Tablets JANICE Ford 06/12/2019 Venlafaxine HCL ER Take Two Capsules Unknown - 37.5mg By Mouth Every 06/12/2019 Caps ER 24HR Day Dexilant 1 tab PO daily Unknown - 60mg Capsules DR 06/12/2019 SM Magnesium Citrate Drink 1 Bottle AT Unknown - Noon The Day 05/16/2017 1.745GM/30ML Solution Before Procedure Cyclobenzaprine HCL Take One Tablet Unknown - 10mg By Mouth AT 05/16/2017 Tablets Bedtime as Needed Cephalexin Take One Capsule Unknown - 500mg Capsules By Mouth Twice A 05/16/2017 Day For 10 Days Guaifenesin-Codeine Take 5 To 10 ML Unknown - By Mouth Every 4 05/16/2017 100-10mg/5ML Solution Hours Maximum Daily Dose 50ML as NE Benzonatate Take One Capsule Unknown - 200mg Capsules By Mouth Every 8 05/16/2017 Hours as Needed For Cough Emoquette Gagen, - 0.15-30mg-mcg Karen, STEWARD/STEWARDESS BATH, 05/16/2017 Tablets CNM Ciprofloxacin HCL GilbertoSawyer garcesika, - 250mg PA-Wing 05/16/2017 Tablets Nystatin Apply On Affected Unknown - 265063Nweq/GM Cream Area Two Times A 05/16/2017 Day Lactulose Take 1 Unknown - 10GM/15ML Solution Tablespoonful 05/16/2017 15MLS By Mouth Two Times A Day Titrate as Need Tramadol HCL Take One Tablet Unknown - 50mg Tablets By Mouth Every 4 05/16/2017 To 6 Hours Maximum Daily Dose 4 Famotidine Lucian, - 40mg Tablets MD Jessika 05/16/2017 Prednisone Lucian, - 20mg Tablets MD Jessika 05/16/2017 Propranolol HCL ER Take 1 Capsule By Unknown - 80mg Caps Mouth Nightly AT 05/16/2017 ER 24HR Bedtime Polyethylene Glycol 3350 Mix With 1 Glass Unknown - Of Fluid And 05/16/2017 3350NF Packet Drink Once Daily as Needed Ondansetron Place One Tablet Unknown - 8mg Tablets Under The Tongue 05/16/2017 Dispers Every 8 Hours as Needed For Nausea Hydrocortisone-Aloe Apply Three Times Unknown - 1% Cream A Day 05/16/2017 Flulaval Quadrivalent Use as Directed Unknown - 2037-1063 05/16/2017 2016-17 Suspension Ciprodex Gallerani, - 0.3-0.1% Suspension CESAR Jordan 05/16/2017 Ibuprofen Unknown - 400mg Tablets 05/10/2017 Metoclopramide HCL Unknown - 10mg 05/10/2017 Tablets Trazodone HCL Gifty Herron, - 50mg Tablets CESAR 05/10/2017 Banophen Take One Capsule Unknown - 25mg Capsules By Mouth Every 4 05/10/2017 Hours Fluticasone Propionate [place] 2 Sprays In Unknown - Each Nostril Once 05/10/2017 50mcg/Act Suspension Daily Loratadine Take One Tablet Unknown - 10mg Tablets By Mouth Every 05/10/2017 Day Ranitidine HCL Take One Tablet Unknown - 150mg Tablets By Mouth Twice A 05/16/2017 Day Cefuroxime Axetil Take One Tablet Unknown - 500mg By Mouth Twice A 05/10/2017 Tablets Day Clindamycin HCL Gilberto, - 300mg MD Cecilio 05/10/2017 Capsules Ibuprofen Gilberto, - 800mg Tablets MD Cecilio 05/10/2017 Cetirizine HCL Childrens Take 2 Unknown - Allergy Teaspoonfuls 05/10/2017 1mg/ml Syrup 10MLS By Mouth Once Daily Prednisone Unknown - 5mg Tablets 05/10/2017 Prednisone Take One Tablet Unknown - 10mg Tablets By Mouth Every 05/10/2017 Morning Azithromycin Olivia Spivey NP - 250mg Tablets 05/10/2017 Albuterol Sulfate Use 1 Vial Via Unknown - (2.5mg/3ML) Nebulizer Every 4 05/10/2017 0.083% Nebulizer To 6 Hours as Needed Advair Diskus Olivia Spivey STEWARD/STEWARDESS BATH - 250-50mcg/Dose 05/10/2017 Aerosol Vitamin D Take 1 Capsule By Unknown - (Ergocalciferol) Mouth Once Weekly 05/10/2017 42660Tsjx Capsules Methylprednisolone Take as Directed Unknown - 4mg TBPK 05/10/2017 Adderall 1 po qd Unknown - 15mg Tablets 06/14/2012 Depo-Provera 1 dose im x once 1units Unknown - Contraceptive q 3 month Unknown 150mg/ml Suspension Fluoxetine 1 po qd Unknown - 20mg Capsules Unknown Vitamin D 1 po a week Unknown - 1.25mg Capsules Unknown Buspirone HCL po qd Unknown - 10mg Tablets Unknown Methylphenidate HCL ER 1 po in am and 1 Unknown - 36mg po in pm Unknown Tablets ER Methylphenidate HCL 1 po bid Unknown - 20mg 03/31/2016 Tablets Omeprazole 1 po qd 30caps Unknown - 20mg Capsules DR 07/03/2014 Loratadine 1 po qd Unknown - Tablets 07/03/2014 Tylenol prn Unknown - 500mg Tablets 07/03/2014 Ibuprofen prn Unknown - Tablets 07/03/2014 Oxycodone-Acetaminophen 1-2 by mouth 56tabs Unknown - every 4 hours as Unknown 5-325mg Tablets needed for pain Atenolol 1 tab by mouth 30tabs Wade Mendez MD - 25mg Tablets daily at bedtime 03/31/2016 Esomeprazole Sodium 2 Atbs Am 2 PM Unknown - Tab Unknown Strattera 1 by mouth every Unknown - 120mg Capsules day 07/31/2017 Tylenol With Codeine #3 1 by mouth q6hr Unknown - as needed severe 08/24/2016 300-30mg Tablets pain, us if ibuprofen not effective Keflex by mouth four Unknown - 250mg Capsules times a day 08/24/2016 Tylenol 2 by mouth every Unknown - 325mg Tablets 4 hours as needed 05/10/2017 Guaifenesin-Codeine Take 5 To 10 ML Unknown - By Mouth Every 4 05/10/2017 100-10mg/5ML Solution Hours Maximum Daily Dose 50ML as NE Benzonatate Take One Capsule Unknown - 200mg Capsules By Mouth Every 8 05/10/2017 Hours as Needed For Cough Emoquette Gagen, - 0.15-30mg-mcg JANICE Jones, 05/10/2017 Tablets CNM Ciprofloxacin HCL Take One Tablet Unknown - 250mg By Mouth Every 12 05/10/2017 Tablets Hours Lactulose Take 1 Unknown - 10GM/15ML Solution Tablespoonful 05/10/2017 15MLS By Mouth Two Times A Day Titrate as Need Nystatin Apply On Affected Unknown - [id number]/GM Cream Area Two Times A 05/10/2017 Day Tramadol HCL Take One Tablet Unknown - 50mg Tablets By Mouth Every 4 05/10/2017 To 6 Hours Maximum Daily Dose 4 Prednisone Take Two Tablets Unknown - 20mg Tablets By Mouth Every 05/10/2017 Day For 4 Days Famotidine Take One Tablet Unknown - 40mg Tablets By Mouth Every 05/10/2017 Day Polyethylene Glycol 3350 Gagen, - JANICE Jones, 05/10/2017 3350NF Packet CNM Propranolol HCL ER Galleradonnie, - 80mg Caps CESAR Jordan 05/10/[address] One Tablet Unknown - 8mg Tablets Under The Tongue 05/10/2017 Dispers Every 8 Hours as Needed For Nausea Hydrocortisone-Aloe Apply Three Times Unknown - 1% Cream A Day 05/10/2017 Flulaval Quadrivalent Use as Directed Unknown - [id number] 05/10/20172015-17 Suspension Ciprodex Gallerani, - 0.3-0.1% Suspension CESAR Jordan 05/10/2017 Sumatriptan Succinate Shantelleradonnie, - 100mg CESAR Jordan 05/10/2017 Tablets Acetaminophen-Codeine #3 Take One Tablet Unknown - By Mouth Every 6 05/10/2017 300-30mg Tablets Hours as Needed F Levocetirizine So Lopez - Dihydrochloride BEATRICE Morelos 05/10/2017 5mg Tablets Doxycycline Hyclate Take One Capsule Unknown - 100mg By Mouth Twice A 05/10/2017 Capsules Day Ventolin Gifty [place], - 108(90Base) PA 05/10/2017 mcg/Act Aerosol Benzonatate Take One Capsule Unknown - 100mg Capsules By Mouth Every 6 05/10/2017 Hours as Needed For Cough Ondansetron HCL Unknown - 4mg Tablets 05/10/2017 Ibuprofen Take One Tablet Unknown - 600mg Tablets By Mouth Three 05/10/2017 Times A Day as Needed For Pain Low-Ogestrel Gagen, - 0.3-30mg-mcg JANICE Jones, 05/10/2017 Tablets CNM Vitamin D3 Take One Capsule Unknown - 36702Uudn Capsules By Mouth Every 05/10/2017 Week Hydroxyzine HCL Gifty Herron, - 10mg Tablets PA 05/10/2017 Pseudoephedrine HCL Take One Tablet Unknown - 30mg By Mouth Every 6 05/16/2017 Tablets Hours as Needed For Congestion Zolpidem Tartrate Take One Tablet Unknown - 5mg Tablets By Mouth Every 05/10/2017 Day as Needed Maximum Daily Dose 1 Nitrofurantoin Andrez John, - Macrocrystal 05/10/2017 100mg Capsules SM Magnesium Citrate Drink 1 Bottle AT Unknown - Noon The Day 05/10/2017 1.745GM/30ML Solution Before Procedure Gavilyte-N With Flavor Mix With Water Unknown - Pack And Use as 05/10/2017 420gm Solution Rec Directed Dexamethasone Take One Tablet Unknown - 4mg Tablets By Mouth Every 05/10/2017 Day For 3 Days Bisacodyl Ec Take 4 Tablets By Unknown - 5mg Tablets DR Mouth AT 8PM The 05/10/2017 Day Before The Procedure Cyclobenzaprine HCL Gifty Herron, - 10mg PA 05/10/2017 Tablets Cetirizine HCL Take One Tablet Unknown - 10mg Tablets By Mouth Every 05/16/2017 Day Cephalexin Take One Capsule Unknown - 500mg Capsules By Mouth Twice A 05/10/2017 Day For 10 Days Vital Signs Date Vital Result Comment 06/19/2019 9:14am BP Systolic Sitting Left Arm 121 mmHg BP Diastolic Sitting Left Arm 88 mmHg Body Temperature 97.3 F Heart Rate 105 /min Height 66 inches 5'6" Weight 180.00 lb BMI (Body Mass Index) 29.0 kg/m2 BSA (Body Surface Area) 1.91 m2 [place] body weight in kilograms 59 kg O2 % BldC Oximetry 100 % 06/18/2019 9:01am BP Systolic Sitting Left Arm 118 mmHg BP Diastolic Sitting Left Arm 58 mmHg Heart Rate 88 /min Respiratory Rate 18 /min Height 66 inches 5'6" Weight 179.00 lb BMI (Body Mass Index) 28.9 kg/m2 BSA (Body Surface Area) 1.91 m2 [place] body weight in kilograms 59 kg O2 % BldC Oximetry 99 % Ejection Fraction 60% 06/12/2019 10:10am BP Systolic 129 mmHg BP Diastolic 93 mmHg Heart Rate 91 /min Height 66 inches 5'6" Weight 182.00 lb BMI (Body Mass Index) 29.4 kg/m2 BSA (Body Surface Area) 1.92 m2 [place] body weight in kilograms 59 kg O2 % BldC Oximetry 100 % 03/22/2019 8:59am BP Systolic Sitting Left Arm 124 mmHg BP Diastolic Sitting Left Arm 82 mmHg Heart Rate 89 /min Respiratory Rate 18 /min Height 66 inches 5'6" Weight 183.00 lb BMI (Body Mass Index) 29.5 kg/m2 BSA (Body Surface Area) 1.93 m2 [place] body weight in kilograms 59 kg O2 % BldC Oximetry 98 % Ora 08/20/2018 10:18am BP Systolic Sitting Left Arm 139 mmHg BP Diastolic Sitting Left Arm 94 mmHg Body Temperature 96.6 F Heart Rate 118 /min Respiratory Rate 18 /min Height 66 inches 5'6" Weight 166.38 lb BMI (Body Mass Index) 26.9 kg/m2 BSA (Body Surface Area) 1.85 m2 [place] body weight in kilograms 59 kg O2 % BldC Oximetry 100 % 08/17/2018 1:43pm BP Systolic Sitting Left Arm 127 mmHg Pt walked here BP Diastolic Sitting Left Arm 92 mmHg Pt walked here Body Temperature 97.8 F Heart Rate 109 /min Respiratory Rate 17 /min Height 66 inches 5'6" Weight 165.00 lb BMI (Body Mass Index) 26.6 kg/m2 BSA (Body Surface Area) 1.84 m2 [place] body weight in kilograms 59 kg O2 % BldC Oximetry 100 % 05/17/2018 11:15am BP Systolic 122 mmHg BP Diastolic 80 mmHg Body Temperature 96.9 F Heart Rate 99 /min Respiratory Rate 16 /min Height 66 inches 5'6" Weight 164.00 lb BMI (Body Mass Index) 26.5 kg/m2 BSA (Body Surface Area) 1.84 m2 [place] body weight in kilograms 59 kg O2 % BldC Oximetry 99 % 04/26/2018 10:15am BP Systolic 127 mmHg BP Diastolic 90 mmHg Heart Rate 110 /min Respiratory Rate 18 /min Height 66 inches 5'6" Weight 166.00 lb BMI (Body Mass Index) 26.8 kg/m2 BSA (Body Surface Area) 1.85 m2 [place] body weight in kilograms 59 kg O2 % BldC Oximetry 97 % 04/09/2018 10:14am BP Systolic 132 mmHg BP Diastolic 86 mmHg Body Temperature 96.3 F Heart Rate 69 /min Respiratory Rate 16 /min Height 66 inches 5'6" Weight 164.00 lb BMI (Body Mass Index) 26.5 kg/m2 BSA (Body Surface Area) 1.84 m2 [place] body weight in kilograms 59 kg 03/30/2018 1:58pm BP Systolic 125 mmHg BP Diastolic 80 mmHg Heart Rate 103 /min Height 66 inches 5'6" Weight 165.00 lb BMI (Body Mass Index) 26.6 kg/m2 BSA (Body Surface Area) 1.84 m2 [place] body weight in kilograms 59 kg 03/19/2018 11:13am BP Systolic 131 mmHg BP Diastolic 90 mmHg Body Temperature 98.1 F Height 66 inches 5'6" Weight 161.00 lb BMI (Body Mass Index) 26.0 kg/m2 BSA (Body Surface Area) 1.82 m2 [place] body weight in kilograms 59 kg 02/14/2018 9:07am BP Systolic Sitting Right Arm 125 mmHg BP Diastolic Sitting Right Arm 89 mmHg Body Temperature 97.1 F Heart Rate 98 /min Respiratory Rate 18 /min Height 66 inches 5'6" Weight 156.00 lb BMI (Body Mass Index) 25.2 kg/m2 BSA (Body Surface Area) 1.80 m2 [place] body weight in kilograms 59 kg 01/22/2018 10:55am BP Systolic Sitting Left Arm 125 mmHg BP Diastolic Sitting Left Arm 86 mmHg Body Temperature 97.6 F Heart Rate 96 /min Respiratory Rate 19 /min Height 66 inches 5'6" Weight 154.00 lb BMI (Body Mass Index) 24.9 kg/m2 BSA (Body Surface Area) 1.79 m2 [place] body weight in kilograms 59 kg 11/27/2017 1:05pm BP Systolic 126 mmHg BP Diastolic 88 mmHg Body Temperature 96.0 F Heart Rate 94 /min Respiratory Rate 15 /min Height 66 inches 5'6" Weight 150.00 lb BMI (Body Mass Index) 24.2 kg/m2 BSA (Body Surface Area) 1.77 m2 [place] body weight in kilograms 59 kg 10/25/2017 2:27pm BP Systolic 134 mmHg BP Diastolic 94 mmHg Body Temperature 96.6 F Heart Rate 89 /min Respiratory Rate 15 /min Height 66 inches 5'6" Weight 159.00 lb BMI (Body Mass Index) 25.7 kg/m2 BSA (Body Surface Area) 1.81 m2 [place] body weight in kilograms 59 kg 07/25/2017 2:05pm BP Systolic Sitting Left Arm 118 mmHg BP Diastolic Sitting Left Arm 81 mmHg Body Temperature 97.7 F Heart Rate 76 /min Height 65 inches 5'5" Weight 154.00 lb BMI (Body Mass Index) 25.6 kg/m2 BSA (Body Surface Area) 1.77 m2 [place] body weight in kilograms 57 kg 07/13/2017 11:24am BP Systolic 119 mmHg BP Diastolic 83 mmHg Body Temperature 97.0 F Heart Rate 94 /min Height 65 inches 5'5" Weight 154.12 lb BMI (Body Mass Index) 25.6 kg/m2 BSA (Body Surface Area) 1.77 m2 [place] body weight in kilograms 57 kg 07/06/2017 1:28pm BP Systolic Sitting Right Arm 119 mmHg BP Diastolic Sitting Right Arm 80 mmHg Body Temperature 97.2 F Heart Rate 91 /min Height 65 inches 5'5" Weight 150.00 lb BMI (Body Mass Index) 25.0 kg/m2 BSA (Body Surface Area) 1.75 m2 [place] body weight in kilograms 57 kg 06/14/2017 11:54am BP Systolic Sitting Right Arm 115 mmHg BP Diastolic Sitting Right Arm 81 mmHg Heart Rate 103 /min Height 65 inches 5'5" Weight 145.00 lb BMI (Body Mass Index) 24.1 kg/m2 BSA (Body Surface Area) 1.73 m2 [place] body weight in kilograms 57 kg 06/05/2017 10:35am BP Systolic 134 mmHg BP Diastolic 94 mmHg Heart Rate 99 /min Height 65 inches 5'5" Weight 149.25 lb BMI (Body Mass Index) 24.8 kg/m2 BSA (Body Surface Area) 1.75 m2 [place] body weight in kilograms 57 kg 05/18/2017 1:18pm BP Systolic Sitting Left Arm 131 mmHg BP Diastolic Sitting Left Arm 85 mmHg Body Temperature 97.8 F Heart Rate 92 /min Height 65 inches 5'5" Weight 152.00 lb BMI (Body Mass Index) 25.3 kg/m2 BSA (Body Surface Area) 1.76 m2 [place] body weight in kilograms 57 kg 03/14/2017 1:22pm BP Systolic 127 mmHg BP Diastolic 92 mmHg Heart Rate 123 /min Height 65 inches 5'5" Weight 145.00 lb BMI (Body Mass Index) 24.1 kg/m2 BSA (Body Surface Area) 1.73 m2 02/16/2017 8:20am BP Systolic Sitting Left Arm 120 mmHg BP Diastolic Sitting Left Arm 85 mmHg Heart Rate 88 /min Height 65 inches 5'5" Weight 145.25 lb BMI (Body Mass Index) 24.2 kg/m2 BSA (Body Surface Area) 1.73 m2 [place] body weight in kilograms 57 kg 12/20/2016 3:35pm BP Systolic Sitting Left Arm 122 mmHg BP Diastolic Sitting Left Arm 88 mmHg Heart Rate 113 /min Respiratory Rate 16 /min Height 65.5 inches 5'5.50" Weight 144.00 lb BMI (Body Mass Index) 23.6 kg/m2 BSA (Body Surface Area) 1.73 m2 11/10/2016 11:16am BP Systolic Sitting Left Arm 104 mmHg BP Diastolic Sitting Left Arm 80 mmHg Heart Rate 98 /min Respiratory Rate 16 /min Height 65.5 inches 5'5.50" Weight 144.00 lb BMI (Body Mass Index) 23.6 kg/m2 BSA (Body Surface Area) 1.73 m2 09/01/2016 1:29pm BP Systolic Sitting Left Arm 116 mmHg BP Diastolic Sitting Left Arm 76 mmHg Heart Rate 84 /min Respiratory Rate 16 /min Height 65.5 inches 5'5.50" Weight 144.00 lb BMI (Body Mass Index) 23.6 kg/m2 BSA (Body Surface Area) 1.73 m2 06/24/2016 3:17pm BP Systolic 128 mmHg BP Diastolic 85 mmHg Heart Rate 101 /min Height 65.5 inches 5'5.50" Weight 136.00 lb BMI (Body Mass Index) 22.3 kg/m2 BSA (Body Surface Area) 1.69 m2 05/27/2016 3:03pm BP Systolic 116 mmHg BP Diastolic 68 mmHg Heart Rate 101 /min Respiratory Rate 18 /min Height 65.5 inches 5'5.50" Weight 133.00 lb BMI (Body Mass Index) 21.8 kg/m2 BSA (Body Surface Area) 1.67 m2 O2 % BldC Oximetry 98 % 05/13/2016 1:12pm BP Systolic 116 mmHg BP Diastolic 68 mmHg Heart Rate 79 /min Respiratory Rate 18 /min Height 65.5 inches 5'5.50" Weight 133.00 lb BMI (Body Mass Index) 21.8 kg/m2 BSA (Body Surface Area) 1.67 m2 O2 % BldC Oximetry 98 % Ra 03/31/2016 9:35am BP Systolic 120 mmHg BP Diastolic 79 mmHg Heart Rate 71 /min Height 65.5 inches 5'5.50" Weight 130.00 lb BMI (Body Mass Index) 21.3 kg/m2 BSA (Body Surface Area) 1.66 m2 05/13/2015 9:51am BP Systolic Sitting Left Arm 111 mmHg BP Diastolic Sitting Left Arm 76 mmHg Heart Rate 68 /min Respiratory Rate 18 /min Height 65 inches 5'5" Weight 137.00 lb BMI (Body Mass Index) 22.8 kg/m2 BSA (Body Surface Area) 1.68 m2 01/13/2015 9:43am BP Systolic Sitting Right Arm 108 mmHg BP Diastolic Sitting Right Arm 70 mmHg Heart Rate 108 /min Respiratory Rate 18 /min Height 65.5 inches 5'5.50" Weight 133.00 lb BMI (Body Mass Index) 21.8 kg/m2 BSA (Body Surface Area) 1.67 m2 11/26/2014 2:09pm BP Systolic Sitting Right Arm 110 mmHg BP Diastolic Sitting Right Arm 84 mmHg Heart Rate 64 /min Respiratory Rate 16 /min Height 65.5 inches 5'5.50" Weight 132.00 lb BMI (Body Mass Index) 21.6 kg/m2 BSA (Body Surface Area) 1.67 m2 07/03/2014 9:28am BP Systolic Sitting Left Arm 122 mmHg BP Diastolic Sitting Left Arm 84 mmHg Height 65.5 inches 5'5.50" Weight 136.00 lb BMI (Body Mass Index) 22.3 kg/m2 BSA (Body Surface Area) 1.69 m2 04/04/2013 1:31pm BP Systolic Sitting Right Arm 128 mmHg BP Diastolic Sitting Right Arm 64 mmHg Height 66 inches 5'6" Weight 147.00 lb BMI (Body Mass Index) 23.7 kg/m2 BSA (Body Surface Area) 1.75 m2 06/20/2012 2:23pm BP Systolic Sitting Left Arm 118 mmHg BP Diastolic Sitting Left Arm 78 mmHg Heart Rate 80 /min Height 66.25 inches 5'6.25" Weight 160.00 lb BMI (Body Mass Index) 25.6 kg/m2 07/19/2010 8:40am Heart Rate 92 /min Respiratory Rate 18 /min Height 65 inches 5'5" Weight 135.00 lb BMI (Body Mass Index) 22.5 kg/m2 Last Menstrual Period [id number] Results Test Date Facility Test Result H/L Range Note Laboratory test finding 05/17/2018 [facility] FSH 6.2 mIU/mL 1, [address] [place] [address] [phone] Thyroid Stim Hormone 0.43 uIU/mL Normal 0.30-4.20 CBS W/Automated 04/09/2018 [facility] White Blood 7.5 K/uL Normal 3.1-10.[address] [place] [address] [phone] Red Blood Count 4.84 M/uL Normal 3.90-5.40 Hemoglobin 13.8 gm/dL Normal 11.6-15.8 Hematocrit 43.1 % Normal 36.0-46.1 Mean Cell Volume 89.0 fl Normal 80.9-99.0 Mean Corpuscular HGB 28.5 pg Normal 25.9-32.7 Mean Corpuscular HGB Conc 32.0 g/dL Normal 30.8-34.3 Platelet Count 394 K/uL High 155-360 Red Cell Distri Width SD 44.2 fl Normal 3-47 Red Cell Distri Width %CV 13.7 % Normal 11.7-14.4 Mean Platelet Volume 11.5 fL Normal 8.9-12.4 Neut% 51.2 % Normal 40.4-72.8 Lymph % 41.5 % Normal 20.0-42.0 [place] % 4.9 % Normal 4.3-13.2 Eo% 2.3 % Normal 0.0-6.6 Bas% 0.1 % Normal 0.0-1.1 Neut# 3.83 K/uL Normal 1.8-7.0 Lymph # 3.11 K/uL Normal 1.0-4.0 [place] # 0.37 K/uL Normal 0.3-0.9 Eos # 0.17 K/uL Normal 0.0-0.5 Baso # 0.01 K/uL Normal 0.0-0.1 Laboratory test 04/09/2018 [facility] Thyroid Stim 1.01 uIU/mL Normal 0.30- 4.[address] [place] [address] [phone] Laboratory test 07/13/2017 [facility] Urine HCG NEGATIVE Negative 4, finding [address] (Qualitative) [address] [place] [address] [phone] Neutrophils/leuk 06/16/2017 N2N/CCD Import Neutrophils/l 70.7 40.4-72.8 NFr Bld Auto euk NFr Bld Auto PMV Bld Auto 06/16/2017 N2N/CCD Import PMV Bld Auto 11.7 8.9-12.4 Platelets 06/16/2017 N2N/CCD Import Platelets 314 150-400 [#/volume] in [#/volume] in Blood by Blood by Automated count Automated count Potassium 06/16/2017 N2N/CCD Import Potassium 3.9 3.5-5.1 SerPl-sCnc SerPl-sCnc Prot SerPl-mCnc 06/16/2017 N2N/CCD Import Prot 7.5 6.4-8.2 SerPl-mCnc RDW RBC Auto 06/16/2017 N2N/CCD Import RDW RBC Auto 41.4 3-47 RDW RBC Auto-Rto 06/16/2017 N2N/CCD Import RDW RBC 13.2 11.7-14.4 Auto-Rto Serum or plasma 06/16/2017 N2N/CCD Import Serum or 0.4 0.2-1.0 total bilirubin plasma total measurement bilirubin (mass/ measurement (mass/volume) Sodium 06/16/2017 N2N/CCD Import Sodium 143 136-145 SerPl-sCnc SerPl-sCnc WBC # Bld Auto 06/16/2017 N2N/CCD Import WBC # Bld 9.6 3.1-10.7 Auto Automated 06/16/2017 N2N/CCD Import Automated 29.0 25.9-32.7 erythrocyte mean erythrocyte corpuscular mean hemoglobin corpuscular hemoglobin (mass per erythrocyte) Aspartate 06/16/2017 N2N/CCD Import Aspartate 11 Low 15-37 aminotransferase aminotransfer [Enzymatic ase activity/vol [Enzymatic activity/volu me] in Serum or Plasma Anion Gap 06/16/2017 N2N/CCD Import Anion Gap 8 8-16 SerPl-sCnc SerPl-sCnc Albumin/Glob 06/16/2017 N2N/CCD Import Albumin/Glob 1.2 SerPl SerPl Albumin 06/16/2017 N2N/CCD Import Albumin 4.1 3.4-5.0 SerPl-mCnc SerPl-mCnc Alt SerPl-cCnc 06/16/2017 N2N/CCD Import Alt 22 12-78 SerPl-cCnc Alp SerPl-cCnc 06/16/2017 N2N/CCD Import Alp 91 45-117 SerPl-cCnc Automated 06/16/2017 N2N/CCD Import Automated 33.0 30.8-34.3 erythrocyte mean erythrocyte corpuscular mean hemoglobin corpuscular hemoglobin concentration measurement (mass/volume) BUN SerPl-mCnc 06/16/2017 N2N/CCD Import BUN 7 7-18 SerPl-mCnc BUN/Creat SerPl 06/16/2017 N2N/CCD Import BUN/Creat 10.0 SerPl Basophils 06/16/2017 N2N/CCD Import Basophils 0.01 0.0-0.1 [#/volume] in [#/volume] in Blood by Blood by Automated count Automated count Basophils/leuk 06/16/2017 N2N/CCD Import Basophils/alberto 0.1 0.0-1.1 NFr Bld Auto k NFr Bld Auto Blood 06/16/2017 N2N/CCD Import Blood 4.69 3.90-5.40 erythrocytes erythrocytes automated count automated (number/volume) count (number/volum e) Blood hemoglobin 06/16/2017 N2N/CCD Import Blood 13.6 11.6-15.8 measurement hemoglobin (mass/volume) measurement (mass/volume) Blood monocytes 06/16/2017 N2N/CCD Import Blood 0.43 0.3-0.9 automated count monocytes (number/volume) automated count (number/volum e) Co2 SerPl-sCnc 06/16/2017 N2N/CCD Import Co2 25 21-32 SerPl-sCnc Calcium 06/16/2017 N2N/CCD Import Calcium 9.0 8.5-10.1 SerPl-mCnc SerPl-mCnc Chloride 06/16/2017 N2N/CCD Import Chloride 110 High 98-107 SerPl-sCnc SerPl-sCnc Creat SerPl-mCnc 06/16/2017 N2N/CCD Import Creat 0.7 0.6-1.3 SerPl-mCnc Neutrophils # 06/16/2017 N2N/CCD Import Neutrophils # 6.80 1.8-7.0 Bld Auto Bld Auto Monocytes/leuk 06/16/2017 N2N/CCD Import Monocytes/alberto 4.5 4.3-13.2 NFr Bld Auto k NFr Bld Auto MCV RBC Auto 06/16/2017 N2N/CCD Import MCV RBC Auto 87.8 80.9-99.0 Lymphocytes/leuk 06/16/2017 N2N/CCD Import Lymphocytes/l 23.9 20.0-42.0 NFr Bld Auto euk NFr Bld Auto Lymphocytes 06/16/2017 N2N/CCD Import Lymphocytes 2.30 1.0-4.0 [#/volume] in [#/volume] in Blood by Blood by Automated count Automated count Hct VFr Bld Auto 06/16/2017 N2N/CCD Import Hct VFr Bld 41.2 36.0-46.1 Auto Glucose 06/16/2017 N2N/CCD Import Glucose 98 74-106 [Mass/volume] in [Mass/volume] Serum or Plasma in Serum or Plasma Globulin Ser 06/16/2017 N2N/CCD Import Globulin Ser 3.4 1.9-4.3 Calc-mCnc Calc-mCnc Eosinophil # Bld 06/16/2017 N2N/CCD Import Eosinophil # 0.08 0.0-0.5 Auto Bld Auto Eosinophil/leuk 06/16/2017 N2N/CCD Import Eosinophil/le 0.8 0.0-6.6 NFr Bld Auto uk NFr Bld Auto Serum or plasma 02/22/2017 N2N/CCD Import Serum or 16.6 Low 30.0-100.0 25-hydroxyvitami plasma n D measurement 25-hydroxyvit (m grimes D measurement (mass/volume) Glucose 02/06/2017 N2N/CCD Import Glucose 94 74-106 [Mass/volume] in [Mass/volume] Serum or Plasma in Serum or Plasma WBC # Bld Auto 02/06/2017 N2N/CCD Import WBC # Bld 5.8 3.1-10.7 Auto TSH SerPl-aCnc 02/06/2017 N2N/CCD Import TSH 0.76 0.30-4.20 SerPl-aCnc Serum or plasma 02/06/2017 N2N/CCD Import Serum or 0.96 0.76-1.46 thyroxine (T4) plasma free measurement thyroxine (m (T4) free measurement (mass/volume) RDW RBC Auto-Rto 02/06/2017 N2N/CCD Import RDW RBC 13.7 11.7-14.4 Auto-Rto RBC # Bld Auto 02/06/2017 N2N/CCD Import RBC # Bld 4.68 3.90-5.40 Auto Platelets 02/06/2017 N2N/CCD Import Platelets 381 150-400 [#/volume] in [#/volume] in Blood by Blood by Automated count Automated count PMV Bld Auto 02/06/2017 N2N/CCD Import PMV Bld Auto 11.1 8.9-12.4 MCV RBC Auto 02/06/2017 N2N/CCD Import MCV RBC Auto 88.0 80.9-99.0 MCHC RBC 02/06/2017 N2N/CCD Import MCHC RBC 32.3 30.8-34.3 Auto-mCnc Auto-mCnc MCH RBC Qn Auto 02/06/2017 N2N/CCD Import MCH RBC Qn 28.4 25.9-32.7 Auto Hgb Bld-mCnc 02/06/2017 N2N/CCD Import Hgb Bld-mCnc 13.3 11.6-15.8 Hct VFr Bld Auto 02/06/2017 N2N/CCD Import Hct VFr Bld 41.2 36.0-46.1 Auto Throat Culture 02/04/2017 [facility] Throat NORMAL 6, Complete [address] Culture THROAT [address] [place] [address] Complete <SEE NOTE> [phone] Bacterial throat 02/04/2017 N2N/CCD Import Bacterial Normal culture throat Throat culture Maritza Bacteria 12/27/2016 N2N/CCD Import Bacteria Few None Seen [presence] in [presence] in urine sediment urine by light martir sediment by light microscopy Bilirub Ur Ql 12/27/2016 N2N/CCD Import Bilirub Ur Ql Negative Negative Strip.auto Strip.auto Color Ur 12/27/2016 N2N/CCD Import Color Ur Yellow Yellow Epithelial cells 12/27/2016 N2N/CCD Import Epithelial Moderate None Seen [presence] in cells urine sediment [presence] in by l urine sediment by light microscopy Ketones Ur 12/27/2016 N2N/CCD Import Ketones Ur Negative Negative Strip.auto-mCnc Strip.auto-mC nc Leukocyte 12/27/2016 N2N/CCD Import Leukocyte Large High Negative esterase Ur Ql esterase Ur Strip.auto Ql Strip.auto Nitrite Ur Ql 12/27/2016 N2N/CCD Import Nitrite Ur Ql Negative Negative Strip.auto Strip.auto Prot Ur 12/27/2016 N2N/CCD Import Prot Ur Negative Negative Strip.auto-mCnc Strip.auto-mC nc Specific gravity 12/27/2016 N2N/CCD Import Specific 1.010 1.010-1.03 of urine by gravity of 0 automated test urine by strip automated test strip Urine appearance 12/27/2016 N2N/CCD Import Urine Clear Clear determination appearance determination Urine glucose 12/27/2016 N2N/CCD Import Urine glucose Negative Negative measurement by measurement automated test by automated strip test strip (mass/volume) Urine hemoglobin 12/27/2016 N2N/CCD Import Urine Negative Negative detection by hemoglobin automated test detection by strip automated test strip Urine human 12/27/2016 N2N/CCD Import Urine human Negative Negative chorionic chorionic gonadotropin gonadotropin (hCG) detection (hCG) detection Urobilinogen Ur 12/27/2016 N2N/CCD Import Urobilinogen 0.2 0.2-1.0 Strip-aCnc Ur Strip-aCnc pH Ur Strip.auto 12/27/2016 N2N/CCD Import pH Ur 6.0 Low 6.5-7.5 Strip.auto Monocytes/leuk 12/14/2016 N2N/CCD Import Monocytes/alberto 4.5 4.3-13.2 NFr Bld Auto k NFr Bld Auto Monocytes # Bld 12/14/2016 N2N/CCD Import Monocytes # 0.40 0.3-0.9 Auto Bld Auto MCV RBC Auto 12/14/2016 N2N/CCD Import MCV RBC Auto 87.2 80.9-99.0 MCHC RBC 12/14/2016 N2N/CCD Import MCHC RBC 32.6 30.8-34.3 Auto-mCnc Auto-mCnc MCH RBC Qn Auto 12/14/2016 N2N/CCD Import MCH RBC Qn 28.5 25.9-32.7 Auto Lymphocytes/leuk 12/14/2016 N2N/CCD Import Lymphocytes/l 34.4 20.0-42.0 NFr Bld Auto euk NFr Bld Auto Lymphocytes # 12/14/2016 N2N/CCD Import Lymphocytes # 3.09 1.0-4.0 Bld Auto Bld Auto Hgb Bld-mCnc 12/14/2016 N2N/CCD Import Hgb Bld-mCnc 14.2 11.6-15.8 Hct VFr Bld Auto 12/14/2016 N2N/CCD Import Hct VFr Bld 43.5 36.0-46.1 Auto Eosinophil/leuk 12/14/2016 N2N/CCD Import Eosinophil/le 3.5 0.0-6.6 NFr Bld Auto uk NFr Bld Auto Eosinophil # Bld 12/14/2016 N2N/CCD Import Eosinophil # 0.31 0.0-0.5 Auto Bld Auto Basophils/leuk 12/14/2016 N2N/CCD Import Basophils/alberto 0.3 0.0-1.1 NFr Bld Auto k NFr Bld Auto Basophils # Bld 12/14/2016 N2N/CCD Import Basophils # 0.03 0.0-0.1 Auto Bld Auto Neutrophils # 12/14/2016 N2N/CCD Import Neutrophils # 5.14 1.8-7.0 Bld Auto Bld Auto Neutrophils/leuk 12/14/2016 N2N/CCD Import Neutrophils/l 57.3 40.4-72.8 NFr Bld Auto euk NFr Bld Auto PMV Bld Auto 12/14/2016 N2N/CCD Import PMV Bld Auto 11.4 8.9-12.4 Platelet # Bld 12/14/2016 N2N/CCD Import Platelet # 388 High 155-360 Auto Bld Auto RBC # Bld Auto 12/14/2016 N2N/CCD Import RBC # Bld 4.99 3.90-5.40 Auto RDW RBC Auto 12/14/2016 N2N/CCD Import RDW RBC Auto 41.9 3-47 RDW RBC Auto-Rto 12/14/2016 N2N/CCD Import RDW RBC 13.6 11.7-14.4 Auto-Rto WBC # Bld Auto 12/14/2016 N2N/CCD Import WBC # Bld 9.0 3.1-10.7 Auto Throat culture 12/06/2016 N2N/CCD Import Throat No Beta for group A culture for Streptococc beta-hemolytic group A i Isolated streptoc beta-hemolyti c streptococcus Bacteria Ur Cult 11/11/2016 N2N/CCD Import Bacteria Ur Organism: Cult Urethral Maritza Laboratory test 06/28/2016 [facility] Pathology See Note chronic 8, finding [address] Specimen cholecys 9 [place] [address] [phone] Pathology Specimen (SEE NOTE) Normal 10 Laboratory test 06/16/2016 N2N/CCD Import Allergen Reference See Note 11 finding Ranges Tryptase 3.9 2.2-13.2 Laboratory test 06/15/2016 [facility] Pathology See Note [address] [place] [address] [phone] Laboratory test 06/15/2016 N2N/CCD Import Pathology See Note 13 finding Specimen Result Laboratory test 06/15/2016 [facility] Laboratory Surgical SEE RESULT 14 finding [phone] Interface BELOW Order Laboratory test 06/15/2016 [facility] Urine HCG NEGATIVE Negative [address] (Qualitative) [place] [address] [phone] Laboratory test 06/09/2016 N2N/CCD Import Anion Gap 5 Low 8-16 finding BUN/Creatinine Ratio 11.1 Blood Urea Nitrogen 10 7-18 Calcium Level 9.1 8.5-10.1 Carbon Dioxide Level 28 21-32 Chloride Level 107 98-107 Creatinine 0.9 0.6-1.3 Glucose Screen 86 74-106 Hematocrit 42.8 36.0-46.1 Hemoglobin 13.9 11.6-15.8 Mean Corpuscular Hemoglobin 29.0 25.9-32.7 Mean Corpuscular Hemoglobin Concent 32.5 30.8-34.3 Mean Corpuscular Volume 89.4 80.9-99.0 Mean Platelet Volume 11.9 8.9-12.4 Platelet Count 349 155-360 Potassium Level 4.8 3.5-5.1 RDW Coefficient of Variation 13.3 11.7-14.4 Red Blood Count 4.79 3.90-5.40 Sodium Level 140 136-145 White Blood Count 7.6 3.1-10.7 Xray 05/21/2016 [facility] - Radiology Ultrasound, bilat kid [address] [facility] [place] [address] [phone] Laboratory test 05/20/2016 N2N/CCD Import Urine Bilirubin Negative Negative finding Urine Blood Large High Negative Urine Clarity Cloudy Clear Urine Color Straw Yellow Urine Epithelial Cells Few None Seen Urine Glucose (Ua) Negative Negative Urine Ketones Trace High Negative Urine Leukocyte Esterase Trace High Negative Urine Nitrite Negative Negative Urine Protein 100 High Negative Urine RBC TNTC High 0-2 Urine Urobilinogen 0.2 0.2-1.0 Urine pH 5.0 Low 6.5-7.5 Xray 04/26/2016 [facility] - Radiology Gallbladder 7 [address] [facility] (Disida) [place] [address] [phone] Laboratory test 04/18/2016 N2N/CCD Import Urine Bacteria Very Few None Seen finding Urine Bilirubin Negative Negative Urine Blood Large High Negative Urine Clarity SL Cloudy Clear Urine Color Yellow Yellow Urine Epithelial Cells Few None Seen Urine Glucose (Ua) Negative Negative Urine HCG, Qualitative Negative Negative Urine Ketones Negative Negative Urine Leukocyte Esterase Small High Negative Urine Nitrite Negative Negative Urine Protein Negative Negative Urine Specific [place] 1.015 1.010-1.030 Urine Urobilinogen 0.2 0.2-1.0 Urine WBC None Seen 0-7 Urine pH 6.0 Low 6.5-7.5 Laboratory test 04/14/2016 N2N/CCD Import Alanine Aminotransferase 17 12 -78 finding (Alt/SGPT) Albumin 4.2 3.4-5.0 Albumin/Globulin Ratio 1.2 Alkaline Phosphatase 69 45-117 Anion Gap 7 Low 8-16 Aspartate Amino Transf (Ast/Sgot) 10 Low 15-37 BUN/Creatinine Ratio 18.7 Basophils # (Auto) 0.04 0.0-0.1 Basophils (%) (Auto) 0.5 0.0-1.1 Blood Urea Nitrogen 15 7-18 Calcium Level 8.7 8.5-10.1 Carbon Dioxide Level 24 21-32 Chloride Level 106 98-107 Creatinine 0.8 0.6-1.3 Eosinophils # (Auto) 0.58 High 0.0-0.5 Eosinophils (%) (Auto) 7.0 High 0.0-6.6 Globulin 3.5 1.9-4.3 Glucose Screen 81 74-106 Hematocrit 41.3 36.0-46.1 Hemoglobin 13.5 11.6-15.8 Lipase 171 73-393 Lymphocytes # (Auto) 2.62 1.8-7.0 Lymphocytes (%) (Auto) 31.8 17.0-46.1 Mean Corpuscular Hemoglobin 29.0 25.9-32.7 Mean Corpuscular Hemoglobin Concent 32.7 30.8-34.3 Mean Corpuscular Volume 88.6 80.9-99.0 Mean Platelet Volume 11.5 8.9-12.4 Monocytes # (Auto) 0.44 0.3-0.9 Monocytes (%) (Auto) 5.3 4.3-13.2 Neutrophils # (Auto) 4.55 1.8-7.0 Neutrophils (%) (Auto) 55.4 40.4-72.8 Platelet Count 312 155-360 Potassium Level 4.1 3.5-5.1 RDW Coefficient of Variation 13.2 11.7-14.4 Red Blood Count 4.66 3.90-5.40 Red Cell Distribution Width 42.4 3-47 Sodium Level 137 136-145 Total Bilirubin 0.6 0.2-1.0 Total Protein 7.7 6.4-8.2 White Blood Count 8.2 3.1-10.7 Laboratory test 04/14/2016 N2N/CCD Import Urine Bacteria Very Few None Seen finding Urine Bilirubin Negative Negative Urine Blood Trace Negative Urine Clarity Clear Clear Urine Color Yellow Yellow Urine Epithelial Cells Very Few None Seen Urine Glucose (Ua) Negative Negative Urine Ketones Negative Negative Urine Leukocyte Esterase Trace High Negative Urine Nitrite Negative Negative Urine Protein Negative Negative Urine RBC None Seen 0-2 Urine Urobilinogen 0.2 0.2-1.0 Urine pH 5.0 Low 6.5-7.5 Laboratory test finding 04/10/2016 N2N/CCD Import Urine Bacteria Few None Seen Urine Bilirubin Negative Negative Urine Blood Trace Negative Urine Clarity Clear Clear Urine Color Yellow Yellow Urine Culture Organism: Urethral Maritza Urine Epithelial Cells Many None Seen Urine Glucose (Ua) Negative Negative Urine HCG, Qualitative Negative Negative Urine Ketones Negative Negative Urine Leukocyte Esterase Small High Negative Urine Mucus Small None Seen Urine Nitrite Negative Negative Urine Protein Negative Negative Urine Specific [place] 1.020 1.010-1.030 Urine Urobilinogen 0.2 0.2-1.0 Urine pH 6.0 Low 6.5-7.5 Laboratory test 04/06/2016 N2N/CCD Import Urine Culture Organism: finding Urethral Maritza Laboratory test 04/04/2016 N2N/CCD Import Allergen Reference See Note 16 finding Ranges Arthritis 07/03/2014 [facility] Sedimentation Rate 4 mm/hr 0-20 Panel([place]) [address] [place], [place] [id number] [phone] Rheumatoid Factor Screen NEGATIVE Negative Uric Acid 2.8 mg/dL 2.1-7.4 Antinuclear Antibodies, Ifa Negative . 17 CBC W/Automated 07/03/2014 [facility] White Blood 11.8 K/uL High 3.1-10.[address] Count [place], [place] [id number] [phone] Red Blood Count 4.37 M/uL 3.90-5.40 Hemoglobin 13.3 gm/dL 11.6-15.8 Hematocrit 40.0 % 36.0-46.1 Mean Cell Volume 91.5 fl 80.9-99.0 Mean Corpuscular HGB 30.4 pg 25.9-32.7 Mean Corpuscular HGB Conc 33.3 g/dL 30.8-34.3 Platelet Count 335 K/uL 155-360 Red Cell Distri Width SD 43.8 fl 3-47 Red Cell Distri Width %CV 13.3 % 11.7-14.4 Mean Platelet Volume 11.9 fL 8.9-12.4 Neut% 64.7 % 40.4-72.8 Lymph % 30.0 % 17.0-46.1 [place] % 4.8 % 4.3-13.2 Eo% 0.3 % 0.0-6.6 Bas% 0.2 % 0.0-1.1 Neut# 7.62 K/uL High 1.0-7.0 Lymph # 3.52 K/uL High 0.8-3.4 [place] # 0.56 K/uL 0.3-0.9 Eos # 0.03 K/uL 0.0-0.5 Baso # 0.02 K/uL 0.0-0.1 1 N95.1 2 NORMALLY MENSTRUATING FEMALES: Follicular Phase:............... 2.3-12.6 mIU/mL Mid-Cycle Peak:................. 5.2-17.5 mIU/mL Luteal Phase:................... 1.7-9.5 mIU/mL POSTMENOPAUSAL FEMALES: On menopausal hormone therapy (MHT)... 5.9-72.8 mIU/mL Not on MHT ........................... 12.7-132.2 mIU/mL 3 N92.1 4 CONSULT 07/10 45484 5 FIRST MORNING SPECIMENS GENERALLY CONTAIN THE HIGHEST CONCENTRATION OF HCG AND ARE RECOMMENDED FOR EARLY DETECTION OF . Method: Quidel QuickVue One-Step Immunoassay 6 sore throat x 7 days 7 NORMAL THROAT MARITZA 8 CONSULT 06/22 25431 K81.1 9 GALLBLADDER AND CONTENTS Hard copy of report to be sent by mail Report may be viewed in Clinical Review, or in PCI under Medical Record Forms 10 GALLBLADDER AND CONTENTS Hard copy of report to be sent by mail Report may be viewed in Clinical Review, or in PCI under Medical Record Forms 11 Levels of Specific IgE Class Description of Class ----- < 0.10 0 Negative 0.10 - 0.31 0/I Equivocal/Low 0.32 - 0.55 I Low 0.56 - 1.40 II Moderate 1.41 - 3.90 III High 3.91 - 19.00 IV Very High 19.01 - >100.00 Very High 12 ESOPHAGEAL BX Hard copy of report to be sent by mail. Scanned report may be viewed in PCI 13 Esophageal BX Hard copy of report to be sent by mail. Scanned report may be viewed in Pci 14 SEE RESULT BELOW Name: ZACARIAS DIXON Magali : [address]: Timothy Gerard MD Acct: [id number] Unit: [id number] AGE: 30 Location: [facility] Re06/15/16 SEX: F Status: REG REF SPEC: [id number] [place]: 06/15/16-1018 [facility] DR: Timothy Gerard MD REQ: [id number] RECD: 06/15/165292 STATUS: GENNY PECK DR: [facility], Lab _ ORDERED: LEVEL IV FINAL DIAGNOSIS Gastroesophageal junction, biopsy: -- Gastroesophageal junction mucosa with mild reflux esophagitis. -- No goblet cell/intestinal metaplasia or dysplasia identified. PRE-OPERATIVE DIAGNOSIS Abdominal pain, right upper quadrant pain GROSS DESCRIPTION The specimen is received in formalin labeled, Esophageal Biopsies, and consists of a 0.4 x 0.3 x 0.2 cm aggregate of crook-mariano irregular soft tissue fragments, which is submitted entirely in one cassette. Signed (signature on file) David Christian MD 1152 END OF REPORT * ML=Testing performed at Main Lab DEPARTMENT OF PATHOLOGY, [address] [place] [address] David Christian M.D. Director [facility] # [id number] 15 FIRST MORNING SPECIMENS GENERALLY CONTAIN THE HIGHEST CONCENTRATION OF HCG AND ARE RECOMMENDED FOR EARLY DETECTION OF . 16 Levels of Specific IgE Class Description of Class ----- < 0.10 0 Negative 0.10 - 0.31 0/I Equivocal/Low 0.32 - 0.55 I Low 0.56 - 1.40 II Moderate 1.41 - 3.90 III High 3.91 - 19.00 IV Very High 19.01 - >100.00 Very High 17 Negative <1:80 Borderline 1:80 Positive >1:80 Performed at: RN - [facility] [address] [id number] [employer] Maker: Yoon Madden MD, Phone: [phone] Procedures Date Code Description Status 05/08/2019 25982 Stress Test Interpre And Report Only Completed 05/08/2019 96045 Stress Test Physician Super Only Completed 04/02/2019 73927 Echocardiogram Complete Completed 03/22/2019 86864 EKG-Tracing And Report Completed 04/09/2018 05736 Endometrial Biopsy Completed 03/30/2018 52439 Radiology, Foot, Complete-3 Views Completed 10/10/2017 81133 Nerve Conduction 7-8 Studies Completed 10/10/2017 23341 Needle Electromyography Complete, Five Or More Muscles Completed Studied 07/13/2017 77489 Neuroplasty median nerve at carpal tunnel Completed 06/05/2017 87703 Application short arm splint forearm to wrist static Completed 05/30/2017 32657 Neuroplasty median nerve at carpal tunnel Completed 05/16/2017 39091 Radiology, Foot, Complete-3 Views Completed 05/16/2017 55127 Radiology, Foot, Complete-3 Views Completed 01/10/2017 84079 Nerve Conduction 7-8 Studies Completed 01/10/2017 49722 Needle Electromyography Complete, Five Or More Muscles Completed Studied 11/28/2016 26905785 Colonoscopy Completed 11/28/2016 80380 Sigmoidoscopy Flexible Completed 06/28/2016 68296 Laparoscopy; cholecystectomy Completed 06/15/2016 51255 Endoscopy Small Intestine W/Biopsy Completed 03/31/2016 86748 Radiology, Knee 3 Views Completed 11/06/2015 37442 Event Monitor Inter/Review Only Completed 11/27/2014 55243 Event Monitor Inter/Review Only Completed 11/26/2014 38920 EKG-Tracing And Report Completed 11/17/2014 04976 Echocardiogram Complete Completed 11/17/2014 96861 EKG Interpretation And Report Only Completed 11/06/2014 40460 Anesthesia, Nose & Accessory Sinus Surgery Not Completed Otherwise Spec 07/03/2014 06318 Radiology, Knee 3 Views Completed 04/04/2013 38481 Radiology, Wrist Complete Completed 02/21/2013 77023 Anesthesia, Nose & Accessory Sinus Surgery Not Completed Otherwise Spec 04/09/2012 44142 Anesthesia, Hysteroscopy, Hystersalpingography Completed 01/10/2007 39786 Tonsillectomy;Age 12 Or Over Completed Encounters Type Date Location Provider Dx Diagnosis Office Visit 06/19/2019 Orthopaedic Office Theodora Odonnell, S63.612A Unspecified sprain 10:00a PA of right middle finger, initial encounter Office Visit 06/18/2019 Cardiology Office Gregg Lo R07.9 Chest pain , 9:20a B., PA unspecified R06.02 Shortness of breath Office Visit 06/12/2019 10:00a Surgical Office Sheryl, R10.13 Epigastric pain MD Lenard,FACS Office Visit 03/22/2019 9:00a Cardiology Office Teresita R07.9 Chest pain, Marlyss B., PA unspecified R07.9 Chest pain, unspecified R06.02 Shortness of breath R06.02 Shortness of breath R53.83 Other fatigue R53.83 Other fatigue Office Visit 08/20/2018 Orthopaedic Theodora Odonnell, S60.051A Contusion of 10:45a Office PA right little finger w/o damage to nail, init W23.0xxA Caught, crush, jammed, or pinched betw moving objects, init Y92.[address] or not applicable Office Visit 08/17/2018 Orthopaedic BlasSawyerin, R20.9 Unspecified 2:00p Office PA disturbances of skin sensation S60.051A Contusion of right little finger w/o damage to nail, init G56.01 Carpal tunnel syndrome, right upper limb W23.0xxA Caught, crush, jammed, or pinched betw moving objects, init Office Visit 05/17/2018 11:30a [facility] Martine Key, N95.1 Menopausal and [facility] CNM female climacteric states Office Visit 04/26/2018 10:30a [facility] [place], N83.201 Unspecified [facility] CN ovarian cyst, right side Office Visit 04/09/2018 10:30a [facility] [place], N92.1 Excessive and [facility] CNM frequent menstruation with irregular cycle Office Visit 03/30/2018 2:15p Orthopaedic Mukesh Pettit.2 Plantar fascial Office MD Judy fibromatosis Office Visit 03/19/2018 11:00a Mikael Dunlap6.01 Carpal tunnel Office MD Judy syndrome, right upper limb Office Visit 02/14/2018 9:30a Vijaya Odonnell G56.01 Carpal tunnel Office CESAR Yip syndrome, right upper limb Office Visit 01/22/2018 11:15a Mukesh Gonsales.2 Plantar fascial Office CESAR Yip fibromatosis Office Visit 11/27/2017 1:45p Orthopaedic Larissa G56.01 Carpal tunnel Office loly Encinas, right M.D. upper limb R20.0 Anesthesia of skin Office Visit 10/25/2017 Orthopaedic Gomez Dias0.0 Anesthesia of skin 2:00p Office Elsa Encinas Office Visit 08/08/2017 Mukesh Hassan.2 Plantar fascial 2:30p Office Elsa Lofton fibromatosis Office Visit 06/28/2017 Mikael Gonsales6.02 Carpal tunnel 1:30p Office Theodora, PA syndrome, left upper limb G56.01 Carpal tunnel syndrome, right upper limb Office Visit 05/16/2017 1:15p Orthopaedic Office Olga Soriano M25.571 Pain in right S., RPAC ankle and joints of right foot Office Visit 05/10/2017 2:30p Orthopaedic Office Huang Dias M79.641 Pain in right M.D. hand G56.02 Carpal tunnel syndrome, left upper limb Office Visit 03/23/2017 1:30p Orthopaedic Office Olga Soriano M25.571 Pain in right S., RPAC ankle and joints of right foot M25.572 Pain in left ankle and joints of left foot Office Visit 03/14/2017 1:30p Orthopaedic Office Olga Soriano M25.571 Pain in right S., RPAC ankle and joints of right foot M72.2 Plantar fascial fibromatosis Office Visit 02/16/2017 8:30a Orthopaedic Office Olga Soriano M25.571 Pain in right S., RPAC ankle and joints of right foot M72.2 Plantar fascial fibromatosis Office Visit 12/20/2016 3:30p Wilbert Farrell MD K59.00 Constipation, unspecified Z80.0 Family history of malignant neoplasm of digestive organs Office Visit 11/30/2016 11:15a Orthopaedic Office Huang Dias M79.641 Pain in M.D. right hand G56.03 Carpal tunnel syndrome, bilateral upper limbs Office Visit 11/10/2016 11:30a Wilbert Farrell MD K59.00 Constipation, unspecified Z80.0 Family history of malignant neoplasm of digestive organs Office Visit 09/01/2016 2:00p Wilbert Farrell MD K59.00 Constipation, unspecified B37.2 Candidiasis of skin and nail Office Visit 08/24/2016 8:45a Orthopaedic Office Olga Soriano M79.641 Pain in S., RPAC right hand W22.09xA Striking against other stationary object, initial encounter Office Visit 06/24/2016 4:00p Timothy Gonzalez MD R10.9 Unspecified abdominal pain Z12.11 Encounter for screening for malignant neoplasm of colon Office Visit 05/27/2016 4:00p Timothy Gonzalez MD R10.9 Unspecified abdominal pain Z12.11 Encounter for screening for malignant neoplasm of colon Office Visit 05/25/2016 Orthopaedic Christie, S93.622A Sprain of 9:30a Office Olga Evans tarsometatarsal RPAC ligament of left foot, init encntr M25.572 Pain in left ankle and joints of left foot Office Visit 04/28/2016 Surgical Office Gladys K81.1 Chronic 2:00p CESAR Solano cholecystitis Office Visit 03/31/2016 Vijaya Soriano M25.562 Pain in left knee 10:00a Office Olga Evans [facility] M22.42 Chondromalacia patellae, left knee Office Visit 05/20/2015 1:45p Surgical Office Kavon 789.01 Pain Abdominal MD Mike Right Upper Quadrant Office Visit 05/13/2015 10:15a Surgical Office Kavon 789.01 Pain Abdominal MD Mike Right Upper Quadrant Office Visit 01/13/2015 2:45p Orthopaedic Office Olga Soriano 719.47 Pain Joint S., RPAC Ankle & Foot 845.11 Sprains & Strains Foot Tarsometatarsal (Joint) (Ligament) Office Visit 01/13/2015 10:00a Cardiology Office Wade Mendez, 786.05 Shortness Of MD Breath 786.50 Pain Chest Unspec 785.1 Palpitations 780.4 Dizziness & Giddiness Office Visit 11/26/2014 2:05p Cardiology Office Wade Mendez MD 786.50 Pain Chest Unspec 786.05 Shortness Of Breath 785.1 Palpitations Office Visit 11/17/2014 2:33p Cardiology Office Wade Mendez 786.50 Pain Chest MD Unspec Office Visit 07/03/2014 9:00a Orthopaedic Office Mumtaz Bellamy 719.46 Pain Joint F.MD, FACS Lower Leg 717.7 Chondromalacia Of Patella Office Visit 05/16/2013 3:30p Orthopaedic Office Mumtaz Bellamy 842.00 Sprains & F.MD, FACS Strains Wrist & Hand Unspec Site Office Visit 05/02/2013 2:15p Orthopaedic Office Mumtaz Bellamy 924.20 Contusion Foot F.MD, FACS 735.4 Hammer Toe Other Acquired 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 Office Visit 04/04/2013 2:15p Orthopaedic Office Mumtaz Bellamy 719.43 Pain Joint MD Kathryn, FACS Forearm 841.9 Sprains & Strains Elbow & Forearm Unspec Office Visit 06/20/2012 2:00p Surgical Office Chas Stuart, 789.01 Pain Abdominal MD Right Upper Quadrant Office Visit 07/19/2010 9:00a Surgical Office Chas Stuart, 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 Patient will return to our office on an as-needed basis.AllFollow up:prn
--- OUTSIDE RECORDS SUMMARY | 2019-06-29 15:02 | XMS REPORT | Continuity of Care Document ---
:1985 External Reference #:[id number] Author Name Lenard Saucedo MD,FACS Address [address] [place] [address] Care Team Providers Name Role Phone Sade Oh, JANICE Care Team Information Lithographers Printer Unavailable Sade Oh, SENIOR DESIGNER Primary Care Physician Unavailable Payers Date Identification Numbers Payment Provider Subscriber Policy Number: [id number] Medicare Zacarias Dixon PayID: [id number] [address] [place] [address] Effective: 2005 Policy Number: [id number] Medicare Zacarias Dixon Expires: 2018 PayID: [id number] [address] [place] [address] Policy Number: [id number] Medicaid Zacarias Dixon Group Name: [address] PayID: [id number] [place] [address] Problems Active Problems Provider Date Attention deficit hyperactivity disorder Timothy Gerard MD Onset: 05/27/2016 Kidney stone Timothy Gerard MD Onset: 05/27/2016 Adult health examination Timothy Gerard MD Onset: 06/17/2016 Note: upper to D3 2016 Pain in limb Huang Dias M.D. Onset: 11/30/2016 Bilateral carpal tunnel syndrome Huang iDas M.D. Onset: 11/30/2016 Carpal tunnel syndrome of [...] of finger Theodora Odonnell PA Onset: 08/20/2018 Epigastric pain Lenard Saucedo MD,FACS Onset: 06/12/2019 Family History Date Family Member(s) Observation Comments General Non Contributory Father Unknown Mother Unknown Children 1 healthy Siblings 3 First Brother Twin Brother Had Epilepsy And Cerebral Palsy Grandmother Diabetes Grandmother CAD Grandmother Hypertension Uncle Gallstones had surgery Social History Type Date Description Comments Sex Unknown Marital Status Single Lives With Grandmother Lives With Uncle Lives With Daughter Home Environment Lives With grandmother Diet Patient follows no dietary restrictions Occupation Negative For Currently Working Work Status Disabled ADL's/IADL's Independent with all ADL's Tobacco Use Start: Unknown Never Smoked Cigarettes ETOH Use Currently consumes alcohol socially Tobacco Use Start: Unknown Patient has never smoked Recreational Drug Use Denies Drug Use Smoking Status Reviewed: 06/12/19 Patient has never smoked Age [address] [place] 23 Years Old # Partners in a Lifetime 1 STD's No STD History Allergies, Adverse Reactions, Alerts Active Allergies Reaction Severity Comments Date Penicillins vomit 11/26/2014 Amoxicillin vomit 09/01/2016 Prednisone Urticaria Moderate 02/14/2018 Medications Active Medications SIG Qnty Indications Ordering Provider Date Ondansetron Sade Oh NP 4mg Tablets Dispers Atomoxetine HCL Nurys George NP 60mg Capsules History Medications Medroxyprogesterone Take 1 tablet [...] 6 Hydrocodone-Acetaminophe 1 by mouth every 30tabs LarissaHuang aguirre, 2016 - n 6 hours as needed M.D. 08/14/2017 5-325mg Tablets pain Percocet 1 by mouth every 40tabs LarissaHuang aguirre, 07/18/2017 - 5-325mg Tablets 4-6 hour as M.D. 07/31/2017 needed pain Oxycodone HCL 1 every 4-6 hour 20tabs G56.01 LarissaHuang aguirre, 07/06/2017 - 5mg Tablets as needed pain M.D. 07/31/2017 Oxycodone HCL 1 every 4-6 hour 30tabs LarissaHuang aguirre, 05/18/2017 - 5mg Tablets as needed pain [...] - apply to affected MD Wilbert Unknown 577483-3.1Unit/GM-% area twice a day Cream Ondansetron by mouth every 8 90tabs Timothy Gerard, 05/27/2016 - 8mg Tablets h s.l. as needed 11/30/2016 Dispers nausea Ondansetron Take every 4 to 6 30tabs Margarito, 04/28/2016 - 4mg Tablets hours as needed Tye Patino 05/27/2016 Dispers for nausea M.D. No Active [...] Unknown - (Ergocalciferol) Mouth Once Weekly 05/16/2017 26222Pvvf Capsules Doxycycline Hyclate Gopal, Gifty, - 100mg PA 05/16/2017 Capsules Methylprednisolone Gopal, Gifty, - 4mg TBPK PA 05/16/2017 Ventolin HFA Gopal, Gifty, - 108(90Base) CESAR 05/16/2017 mcg/Act Aerosol Benzonatate Take One Capsule [...] Pain Low-Ogestrel Gagen, - 0.3-30mg-mcg JANICE Jones, 05/16/2017 Tablets CNM Vitamin D3 Take One Capsule Unknown - [id number] Capsules By Mouth Every 08/17/2018 Week Diclofenac Sodium ER Take One Tablet Unknown - 100mg By Mouth Every 05/16/2017 Tablets ER 24HR Day With Food Hydroxyzine HCL Gifty Herron, - 10mg Tablets CESAR 05/16/2017 Pseudoephedrine HCL Take One Tablet Unknown - 30mg By Mouth Every 6 05/16/2017 Tablets Hours as Needed For Congestion Zolpidem Tartrate Kyrie Morley, - 5mg Tablets 05/16/2017 Nitrofurantoin Andrez John - Macrocrystal 05/16/2017 100mg Capsules Bisacodyl Ec Take 4 Tablets By Unknown - 5mg Tablets DR Mouth AT 8PM The 05/16/2017 Day Before The Procedure Dexamethasone Take One Tablet Unknown - 4mg Tablets By Mouth Every 05/16/2017 Day For 3 Days Gavilyte-N With Flavor Mix With Water Unknown - Pack And Use as 05/16/2017 420gm Solution Rec Directed NaproxJohn Salas PA - 500mg Tablets 05/10/2017 Prochlorperazine Maleate Take One Tablet Unknown - 10mg By Mouth Three 05/10/2017 Tablets Times A Day as Needed For Vomiting Or H Nitrofurantoin Mumtaz Persaud - Monohydrate/Macrocrystal MD Alf 05/16/2017 s 100mg Capsules Ibuprofen Unknown - 400mg Tablets 05/16/2017 Metoclopramide HCL Unknown - 10mg 05/16/2017 Tablets Trazodone HCL Gifty Herron, - 50mg Tablets PA 05/16/2017 Loratadine Take One Tablet Unknown - 10mg Tablets By Mouth Every 05/16/2017 Day Fluticasone Propionate [place] 2 Sprays In Unknown - Each Nostril Once 05/16/2017 50mcg/Act Suspension Daily Banophen Take One Capsule Unknown - 25mg Capsules By Mouth Every 4 05/16/2017 Hours Cefuroxime Axetil Take One Tablet Unknown - 500mg By Mouth Twice A 05/16/2017 Tablets Day Ranitidine HCL Gifty Herron, - 150mg Tablets CESAR 05/16/2017 Clindamycin HCL Gilberto, - 300mg MD [...] 08/17/2018 Day Ranitidine HCL 1 tab bid GopalGifty govea, - 150mg Tablets PA Unknown Albuterol Sulfate as needed Unknown - [...] CNM Sucralfate Vickie Macias, - 1gm Tablets PA-C Unknown Dicyclomine HCL Take One Tablet Unknown - 20mg Tablets By Mouth Four Unknown Times A Day Hydroxyzine HCL Sade Oh - 10mg Tablets JANICE Ford 06/12/2019 Venlafaxine HCL ER Take Two Capsules Unknown - 37.5mg By Mouth Every 06/12/2019 Caps ER 24HR Day Dexilant 1 tab PO daily Unknown - 60mg Capsules 06/12/2019 SM Magnesium Citrate Drink 1 Bottle [...] Cough Emoquette Gagen, - 0.15-30mg-mcg JANICE Jones, 05/16/2017 Tablets CNM Ciprofloxacin HCL GilbertoSawyerVickie, - 250mg SAUL 05/16/2017 Tablets Nystatin Apply On Affected Unknown - 508001Ktvs/GM Cream Area Two Times A 05/16/2017 Day Lactulose Take 1 Unknown - 10GM/15ML Solution Tablespoonful 05/16/2017 15MLS By Mouth Two Times A Day Titrate as Need Tramadol HCL Take One Tablet Unknown - 50mg Tablets By Mouth Every 4 05/16/2017 To 6 Hours Maximum Daily Dose 4 Famotidine Epstein, - 40mg Tablets MD Jessika 05/16/2017 Prednisone [...] Flulaval Quadrivalent Use as Directed Unknown - 2590-8073 05/16/20172015-17 Suspension Ciprodex Gallerani, - 0.3-0.1% Suspension CESAR Jordan 05/16/2017 Ibuprofen Unknown - 400mg Tablets 05/10/2017 Metoclopramide HCL Unknown - 10mg 05/10/2017 Tablets Trazodone HCL Gifty Herron, - 50mg Tablets PA 05/10/2017 Banophen Take One Capsule Unknown - 25mg Capsules By Mouth Every 4 05/10/2017 Hours Fluticasone Propionate [place] 2 Sprays In Unknown - Each Nostril [...] Mouth Every 05/10/2017 Morning Azithromycin Olivia Spivey SENIOR DESIGNER - 250mg Tablets 05/10/2017 Albuterol Sulfate Use 1 Vial Via Unknown - (2.5mg/3ML) Nebulizer Every 4 05/10/2017 0.083% Nebulizer To 6 Hours as Needed Advair Diskus Olivia Spivey SENIOR DESIGNER - 250-50mcg/Dose 05/10/2017 Aerosol Vitamin D Take 1 Capsule By Unknown - (Ergocalciferol) Mouth Once Weekly 05/10/2017 88540Kukx Capsules Methylprednisolone Take as Directed Unknown - [...] 8 05/10/2017 Hours as Needed For Cough Bruce Brewer, - 0.15-30mg-mcg JANICE Jones, 05/10/2017 Tablets CNM Ciprofloxacin HCL Take One Tablet Unknown - 250mg By Mouth Every 12 05/10/2017 Tablets Hours Lactulose Take 1 Unknown - 10GM/15ML Solution Tablespoonful 05/10/2017 15MLS By Mouth Two Times A Day Titrate as Need Nystatin Apply On Affected Unknown - 377510Mwbs/GM Cream Area Two Times A 05/10/2017 Day [...] 05/10/2017 3350NF Packet CNM Propranolol HCL ER Gallerani, - 80mg Caps CESAR Jordan 05/10/[address] One Tablet Unknown - 8mg Tablets Under The Tongue 05/10/2017 Dispers Every 8 Hours as Needed For Nausea Hydrocortisone-Aloe Apply Three Times Unknown - 1% Cream A Day 05/10/2017 Flulaval Quadrivalent Use as Directed Unknown - 3090-5495 05/10/20172015-17 Suspension Ciprodex Gallerani, - 0.3-0.1% Suspension CESAR Jordan 05/10/2017 Sumatriptan Succinate Gallerani, - 100mg CESAR Jordan 05/10/2017 Tablets Acetaminophen-Codeine #3 Take One Tablet Unknown - By Mouth Every 6 05/10/2017 300-30mg Tablets Hours as Needed F Levocetirizine So Lopez - Dihydrochloride BEATRICE Morelos 05/10/2017 5mg Tablets Doxycycline Hyclate Take One Capsule Unknown - 100mg By Mouth Twice A 05/10/2017 Capsules Day Ventolin HFA Gifty Herron, - 108(90Base) CESAR 05/10/2017 mcg/Act Aerosol Benzonatate Take One Capsule Unknown - 100mg Capsules By Mouth Every 6 05/10/2017 Hours as Needed For Cough Ondansetron HCL Unknown - 4mg Tablets 05/10/2017 Ibuprofen Take One Tablet Unknown - 600mg Tablets By Mouth Three 05/10/2017 Times A Day as Needed For Pain Low-Ogestrel Gagen, - 0.3-30mg-mcg JANICE Jones, 05/10/2017 Tablets CNM Vitamin D3 Take One Capsule Unknown - 42511Qqbw Capsules By Mouth Every 05/10/2017 Week Hydroxyzine [...] Days Vital Signs Date Vital Result Comment 06/12/2019 10:10am BP Systolic 129 mmHg BP Diastolic 93 mmHg Heart Rate 91 /min Height 66 inches 5'6" Weight 182.00 lb BMI (Body Mass Index) 29.4 kg/m2 BSA (Body Surface Area) 1.92 m2 [place] body weight in kilograms 59 kg O2 % BldC Oximetry 100 % 03/22/2019 8:59am BP Systolic Sitting Left Arm 124 mmHg BP Diastolic Sitting Left Arm 82 mmHg Heart Rate 89 /min Respiratory Rate 18 /min Height 66 inches 5'6" Weight 183.00 lb BMI (Body Mass Index) 29.5 kg/m2 BSA (Body Surface Area) 1.93 m2 [place] body weight in kilograms 59 kg O2 % BldC Oximetry 98 % Ora 08/20/2018 10:18am BP Systolic Sitting Left Arm 139 mmHg BP Diastolic Sitting Left Arm 94 mmHg Body Temperature 96.6 F Heart Rate 118 /min Respiratory Rate 18 /min Height 66 inches 5'6" Weight 166.38 lb BMI (Body Mass Index) 26.9 kg/m2 BSA (Body Surface Area) 1.85 m2 [place] body weight in kilograms 59 kg O2 [...] kg/m2 BSA (Body Surface Area) 1.84 m2 [place] body weight in kilograms 59 kg O2 % BldC Oximetry 100 % 05/17/2018 11:15am BP Systolic 122 mmHg BP Diastolic 80 mmHg Body Temperature 96.9 F Heart Rate 99 /min Respiratory Rate 16 /min Height 66 inches 5'6" Weight 164.00 lb BMI (Body Mass Index) 26.5 kg/m2 BSA (Body Surface Area) 1.84 m2 [place] body weight in kilograms 59 kg O2 % BldC Oximetry 99 % 04/26/2018 10:15am BP Systolic 127 mmHg BP Diastolic 90 mmHg Heart Rate 110 /min Respiratory Rate 18 /min Height 66 inches 5'6" Weight 166.00 lb BMI (Body Mass Index) 26.8 kg/m2 BSA (Body Surface Area) 1.85 m2 [place] body weight in kilograms 59 kg O2 % BldC Oximetry 97 % 04/09/2018 10:14am BP Systolic 132 mmHg BP Diastolic 86 mmHg Body Temperature 96.3 F Heart Rate 69 /min Respiratory Rate 16 /min Height 66 inches 5'6" Weight 164.00 lb BMI (Body Mass Index) 26.5 kg/m2 BSA (Body Surface Area) 1.84 m2 [place] body weight in kilograms 59 kg 03/30/2018 1:58pm BP Systolic 125 mmHg BP Diastolic 80 mmHg Heart Rate 103 /min Height 66 inches 5'6" Weight 165.00 lb BMI (Body Mass Index) 26.6 kg/m2 BSA (Body Surface Area) 1.84 m2 [place] body weight in kilograms 59 kg 03/19/2018 11:13am BP Systolic 131 mmHg BP Diastolic 90 mmHg Body Temperature 98.1 F Height 66 inches 5'6" Weight 161.00 lb BMI (Body Mass Index) 26.0 kg/m2 BSA (Body Surface Area) 1.82 m2 [place] body weight in kilograms 59 kg 02/14/2018 9:07am BP Systolic Sitting Right Arm 125 mmHg BP Diastolic Sitting Right Arm 89 mmHg Body Temperature 97.1 F Heart Rate 98 /min Respiratory Rate 18 /min Height 66 inches 5'6" Weight 156.00 lb BMI (Body Mass Index) 25.2 kg/m2 BSA (Body Surface Area) 1.80 m2 [place] body weight in kilograms 59 kg 01/22/2018 10:55am BP Systolic Sitting Left Arm 125 mmHg BP Diastolic Sitting Left Arm 86 mmHg Body Temperature 97.6 F Heart Rate 96 /min Respiratory Rate 19 /min Height 66 inches 5'6" Weight 154.00 lb BMI (Body Mass Index) 24.9 kg/m2 BSA (Body Surface Area) 1.79 m2 [place] body weight in kilograms 59 kg 11/27/2017 1:05pm BP Systolic 126 mmHg BP Diastolic 88 mmHg Body Temperature 96.0 F Heart Rate 94 /min Respiratory Rate 15 /min Height 66 inches 5'6" Weight 150.00 lb BMI (Body Mass Index) 24.2 kg/m2 BSA (Body Surface Area) 1.77 m2 [place] body weight in kilograms 59 kg 10/25/2017 2:27pm BP Systolic 134 mmHg BP Diastolic 94 mmHg Body Temperature 96.6 F Heart Rate 89 /min Respiratory Rate 15 /min Height 66 inches 5'6" Weight 159.00 lb BMI (Body Mass Index) 25.7 kg/m2 BSA (Body Surface Area) 1.81 m2 [place] body weight in kilograms 59 kg 07/25/2017 2:05pm BP Systolic Sitting Left Arm 118 mmHg BP Diastolic Sitting Left Arm 81 mmHg Body Temperature 97.7 F Heart Rate 76 /min Height 65 inches 5'5" Weight 154.00 lb BMI (Body Mass Index) 25.6 kg/m2 BSA (Body Surface Area) 1.77 m2 [place] body weight in kilograms 57 kg 07/13/2017 11:24am BP Systolic 119 mmHg BP Diastolic 83 mmHg Body Temperature 97.0 F Heart Rate 94 /min Height 65 inches 5'5" Weight 154.12 lb BMI (Body Mass Index) 25.6 kg/m2 BSA (Body Surface Area) 1.77 m2 [place] body weight in kilograms 57 kg 07/06/2017 1:28pm BP Systolic Sitting Right Arm 119 mmHg BP Diastolic Sitting Right Arm 80 mmHg Body Temperature 97.2 F Heart Rate 91 /min Height 65 inches 5'5" Weight 150.00 lb BMI (Body Mass Index) 25.0 kg/m2 BSA (Body Surface Area) 1.75 m2 [place] body weight in kilograms 57 kg 06/14/2017 11:54am BP Systolic Sitting Right Arm 115 mmHg BP Diastolic Sitting Right Arm 81 mmHg Heart Rate 103 /min Height 65 inches 5'5" Weight 145.00 lb BMI (Body Mass Index) 24.1 kg/m2 BSA (Body Surface Area) 1.73 m2 [place] body weight in kilograms 57 kg 06/05/2017 10:35am BP Systolic 134 mmHg BP Diastolic 94 mmHg Heart Rate 99 /min Height 65 inches 5'5" Weight 149.25 lb BMI (Body Mass Index) 24.8 kg/m2 BSA (Body Surface Area) 1.75 m2 [place] body weight in kilograms 57 kg 05/18/2017 1:18pm BP Systolic Sitting Left Arm 131 mmHg BP Diastolic Sitting Left Arm 85 mmHg Body Temperature 97.8 F Heart Rate 92 /min Height 65 inches 5'5" Weight 152.00 lb BMI (Body Mass Index) 25.3 kg/m2 BSA (Body Surface Area) 1.76 m2 [place] body weight in kilograms 57 kg 03/14/2017 [...] kg/m2 BSA (Body Surface Area) 1.73 m2 [place] body weight in kilograms 57 kg 12/20/2016 [...] Mass Index) 22.5 kg/m2 Last Menstrual Period [id number] Results Test Date Facility Test Result H/L Range Note Laboratory test finding 05/17/2018 [facility] FSH 6.2 mIU/mL 1, [address] [place] [address] [phone] Thyroid Stim Hormone 0.43 uIU/mL Normal 0.30-4.20 CBS W/Automated 04/09/2018 [facility] White Blood 7.5 K/uL Normal 3.1-10.[address] [place] [address] [phone] Red Blood Count 4.84 M/uL Normal 3.90-5.40 [...] 40.4-72.8 Lymph % 41.5 % Normal 20.0-42.0 [place] % 4.9 % Normal 4.3-13.2 Eo% 2.3 % Normal 0.0-6.6 Bas% 0.1 % Normal 0.0-1.1 Neut# 3.83 K/uL Normal 1.8-7.0 Lymph # 3.11 K/uL Normal 1.0-4.0 [place] # 0.37 K/uL Normal 0.3-0.9 Eos # 0.17 K/uL Normal 0.0-0.5 Baso # 0.01 K/uL Normal 0.0-0.1 Laboratory test 04/09/2018 [facility] Thyroid Stim 1.01 uIU/mL Normal 0.30- 4.[address] [place] [address] [phone] Laboratory test 07/13/2017 [facility] Urine HCG NEGATIVE Negative 4, finding [address] (Qualitative) 5 [place] [address] [phone] Neutrophils # 06/16/2017 N2N/CCD Import Neutrophils # 6.80 1.8-7.0 Bld Auto Bld Auto Neutrophils/leuk 06/16/2017 N2N/CCD Import Neutrophils/l 70.7 40.4-72.8 [...] Import WBC # Bld 9.6 3.1-10.7 Auto Aspartate 06/16/2017 N2N/CCD Import Aspartate 11 Low [...] 45-117 SerPl-cCnc Automated 06/16/2017 N2N/CCD Import Automated 29.0 25.9-32.7 erythrocyte mean erythrocyte corpuscular mean hemoglobin corpuscular hemoglobin (mass per erythrocyte) Automated 06/16/2017 N2N/CCD Import Automated 33.0 30.8-34.3 [...] N2N/CCD Import Calcium 9.0 8.5-10.1 SerPl-mCnc SerPl-mCnc Monocytes/leuk 06/16/2017 N2N/CCD Import Monocytes/alberto 4.5 4.3-13.2 [...] Import Globulin Ser 3.4 1.9-4.3 Calc-mCnc Calc-mCnc Eosinophil/leuk 06/16/2017 N2N/CCD Import Eosinophil/le 0.8 0.0-6.6 NFr Bld Auto uk NFr Bld Auto Eosinophil # Bld 06/16/2017 N2N/CCD Import Eosinophil # 0.08 0.0-0.5 Auto Bld Auto Creat SerPl-mCnc 06/16/2017 N2N/CCD Import Creat 0.7 0.6-1.3 SerPl-mCnc Chloride 06/16/2017 N2N/CCD Import Chloride 110 High 98-107 SerPl-sCnc SerPl-sCnc Serum or plasma 02/22/2017 N2N/CCD Import Serum or 16.6 Low 30.0-100.0 25-hydroxyvitami plasma n D measurement 25-hydroxyvit (m grimes D measurement (mass/volume) MCH RBC Qn Auto 02/06/2017 N2N/CCD Import MCH RBC Qn 28.4 25.9-32.7 Auto MCHC RBC 02/06/2017 N2N/CCD Import MCHC RBC 32.3 30.8-34.3 Auto-mCnc Auto-mCnc MCV RBC Auto 02/06/2017 N2N/CCD Import MCV RBC Auto 88.0 80.9-99.0 PMV Bld Auto 02/06/2017 N2N/CCD Import PMV Bld Auto 11.1 8.9-12.4 Hgb Bld-mCnc 02/06/2017 N2N/CCD Import Hgb Bld-mCnc 13.3 11.6-15.8 Hct VFr Bld Auto 02/06/2017 N2N/CCD Import Hct VFr Bld 41.2 36.0-46.1 Auto Glucose 02/06/2017 N2N/CCD Import Glucose 94 74-106 [Mass/volume] in [Mass/volume] Serum or Plasma in Serum or Plasma Platelets 02/06/2017 N2N/CCD Import Platelets 381 150-400 [#/volume] in [#/volume] in Blood by Blood by Automated count Automated count RBC # Bld Auto 02/06/2017 N2N/CCD Import RBC # Bld 4.68 3.90-5.40 Auto RDW RBC Auto-Rto 02/06/2017 N2N/CCD Import RDW RBC 13.7 11.7-14.4 Auto-Rto Serum or plasma 02/06/2017 N2N/CCD Import Serum or 0.96 0.76-1.46 thyroxine (T4) plasma free measurement thyroxine (m (T4) free measurement (mass/volume) TSH SerPl-aCnc 02/06/2017 N2N/CCD Import TSH 0.76 0.30-4.20 SerPl-aCnc WBC # Bld Auto 02/06/2017 N2N/CCD Import WBC # Bld 5.8 3.1-10.7 Auto Throat Culture 02/04/2017 [facility] Throat NORMAL 6, Complete [address] Culture THROAT [address] [place] [address] Complete <SEE NOTE> [phone] Bacterial throat 02/04/2017 N2N/CCD Import Bacterial Normal culture throat Throat culture Maritza pH Ur Strip.auto 12/27/2016 N2N/CCD Import pH Ur 6.0 Low 6.5-7.5 Strip.auto Urobilinogen Ur 12/27/2016 N2N/CCD Import Urobilinogen 0.2 0.2-1.0 Strip-aCnc Ur Strip-aCnc Urine human 12/27/2016 N2N/CCD Import Urine human Negative Negative chorionic chorionic gonadotropin gonadotropin (hCG) detection (hCG) detection Urine hemoglobin 12/27/2016 N2N/CCD Import Urine Negative Negative detection by hemoglobin automated test detection by strip automated test strip Urine glucose 12/27/2016 N2N/CCD Import Urine glucose Negative Negative measurement by measurement automated test by automated strip test strip (mass/volume) Urine appearance 12/27/2016 N2N/CCD Import Urine Clear Clear determination appearance determination Specific gravity 12/27/2016 N2N/CCD Import Specific 1.010 1.010-1.03 of urine by gravity of 0 automated test urine by strip automated test strip Prot Ur 12/27/2016 N2N/CCD Import Prot Ur Negative Negative Strip.auto-mCnc Strip.auto-mC nc Nitrite Ur Ql 12/27/2016 N2N/CCD Import Nitrite Ur Ql Negative Negative Strip.auto Strip.auto Leukocyte 12/27/2016 N2N/CCD Import Leukocyte Large High Negative esterase Ur Ql esterase Ur Strip.auto Ql Strip.auto Ketones Ur 12/27/2016 N2N/CCD Import Ketones Ur Negative Negative Strip.auto-mCnc Strip.auto-mC nc Epithelial cells 12/27/2016 N2N/CCD Import Epithelial Moderate None Seen [presence] in cells urine sediment [presence] in by l urine sediment by light microscopy Color Ur 12/27/2016 N2N/CCD Import Color Ur Yellow Yellow Bilirub Ur Ql 12/27/2016 N2N/CCD Import Bilirub Ur Ql Negative Negative Strip.auto Strip.auto Bacteria 12/27/2016 N2N/CCD Import Bacteria Few None Seen [presence] in [presence] in urine sediment urine by light martir sediment by light microscopy Basophils # Bld 12/14/2016 N2N/CCD Import Basophils # 0.03 0.0-0.1 Auto Bld Auto Basophils/leuk 12/14/2016 N2N/CCD Import Basophils/alberto 0.3 0.0-1.1 NFr Bld Auto k NFr Bld Auto Eosinophil # Bld 12/14/2016 N2N/CCD Import Eosinophil # 0.31 0.0-0.5 Auto Bld Auto Eosinophil/leuk 12/14/2016 N2N/CCD Import Eosinophil/le 3.5 0.0-6.6 NFr Bld Auto uk NFr Bld Auto RDW RBC Auto-Rto 12/14/2016 N2N/CCD Import RDW RBC 13.6 11.7-14.4 Auto-Rto WBC # Bld Auto 12/14/2016 N2N/CCD Import WBC # Bld 9.0 3.1-10.7 Auto RDW RBC Auto 12/14/2016 N2N/CCD Import RDW RBC Auto 41.9 3-47 RBC # Bld Auto 12/14/2016 N2N/CCD Import RBC # Bld 4.99 3.90-5.40 Auto Platelet # Bld 12/14/2016 N2N/CCD Import Platelet # 388 High 155-360 Auto Bld Auto PMV Bld Auto 12/14/2016 N2N/CCD Import PMV Bld Auto 11.4 8.9-12.4 Neutrophils/leuk 12/14/2016 N2N/CCD Import Neutrophils/l 57.3 40.4-72.8 NFr Bld Auto euk NFr Bld Auto Neutrophils # 12/14/2016 N2N/CCD Import Neutrophils # 5.14 1.8-7.0 Bld Auto Bld Auto Monocytes/leuk 12/14/2016 N2N/CCD Import Monocytes/alberto 4.5 4.3-13.2 [...] Import Hct VFr Bld 43.5 36.0-46.1 Auto Throat culture 12/06/2016 N2N/CCD Import Throat No Beta for group A culture for Streptococc beta-hemolytic group A i Isolated streptoc beta-hemolyti c streptococcus Bacteria Ur Cult 11/11/2016 N2N/CCD Import Bacteria Ur Organism: Cult Urethral Maritza Laboratory test 06/28/2016 [facility] Pathology See Note chronic 8, finding [address] Specimen cholecys [address] [place] [id number] [phone] Pathology Specimen (SEE NOTE) Normal 10 Laboratory test 06/16/2016 N2N/CCD Import Allergen Reference See Note 11 finding Ranges Tryptase 3.9 2.2-13.2 Laboratory test 06/15/2016 [facility] Pathology See Note [address] [place] [address] [phone] Laboratory test 06/15/2016 N2N/CCD Import Pathology See Note 13 finding Specimen Result Laboratory test 06/15/2016 [facility] Laboratory Surgical SEE RESULT 14 finding [phone] Interface BELOW Order Laboratory test 06/15/2016 [facility] Urine HCG NEGATIVE Negative [address] (Qualitative) [place] [address] [phone] Laboratory test 06/09/2016 N2N/CCD Import Anion Gap [...] White Blood Count 7.6 3.1-10.7 Xray 05/21/2016 [facility] - Radiology Ultrasound, bilat kid [address] [place] [address] [phone] Laboratory test 05/20/2016 N2N/CCD Import Urine Bilirubin [...] Urine pH 5.0 Low 6.5-7.5 Xray 04/26/2016 [facility] Radiology Gallbladder 7 [address] [facility] W/[place] [address] [phone] Laboratory test 04/18/2016 N2N/[employer] Import Urine Bacteria Very Few None Seen finding Urine Bilirubin Negative Negative Urine Blood Large High Negative Urine Clarity SL Cloudy Clear Urine Color Yellow Yellow Urine Epithelial Cells Few None Seen Urine Glucose (Ua) Negative Negative Urine HCG, Qualitative Negative Negative Urine Ketones Negative Negative Urine Leukocyte Esterase Small High Negative Urine Nitrite Negative Negative Urine Protein Negative Negative Urine Specific [place] 1.015 1.010-1.030 Urine Urobilinogen 0.2 0.2-1.0 Urine WBC None Seen 0-7 Urine pH 6.0 Low 6.5-7.5 Laboratory test 04/14/2016 N2N[facility] Import Urine Bacteria Very Few None Seen [...] Urine pH 5.0 Low 6.5-7.5 Laboratory test 04/14/2016 N2N[facility] Import Alanine Aminotransferase 17 12 -78 finding [...] White Blood Count 8.2 3.1-10.7 Laboratory test finding 04/10/2016 N2N/[employer] Import Urine Bacteria Few None Seen Urine [...] Negative Urine Protein Negative Negative Urine Specific [place] 1.020 1.010-1.030 Urine Urobilinogen 0.2 0.2-1.0 Urine pH 6.0 Low 6.5-7.5 Laboratory test 04/06/2016 N2N/[employer] Import Urine Culture Organism: finding Urethral Maritza Laboratory test 04/04/2016 N2N/CCD Import Allergen Reference See Note 16 finding Ranges Arthritis 07/03/2014 [facility] Sedimentation Rate 4 mm/hr 0-20 Panel([place]) [address] [place] [address] [phone] Rheumatoid Factor Screen NEGATIVE Negative Uric Acid 2.8 mg/dL 2.1-7.4 Antinuclear Antibodies, Ifa Negative . 17 CBC W/Automated 07/03/2014 [facility] White Blood 11.8 K/uL High 3.1-10.[address] Count [place], [place] [id number] [phone] Red Blood Count 4.37 M/uL 3.90-5.40 Hemoglobin [...] % 40.4-72.8 Lymph % 30.0 % 17.0-46.1 [place] % 4.8 % 4.3-13.2 Eo% 0.3 % 0.0-6.6 Bas% 0.2 % 0.0-1.1 Neut# 7.62 K/uL High 1.0-7.0 Lymph # 3.52 K/uL High 0.8-3.4 [place] # 0.56 K/uL 0.3-0.9 Eos # 0.03 K/uL 0.0-0.5 Baso # 0.02 K/uL 0.0-0.1 1 N95.1 2 NORMALLY MENSTRUATING FEMALES: Follicular Phase:............... 2.3-12.6 mIU/mL Mid-Cycle Peak:................. 5.2-17.5 mIU/mL Luteal Phase:................... 1.7-9.5 mIU/mL POSTMENOPAUSAL FEMALES: On menopausal hormone therapy (MHT)... 5.9-72.8 mIU/mL Not on MHT ........................... 12.7-132.2 mIU/mL 3 N92.1 4 CONSULT 07/10 93264 5 FIRST MORNING SPECIMENS GENERALLY CONTAIN THE HIGHEST CONCENTRATION OF HCG AND ARE RECOMMENDED FOR EARLY DETECTION OF . Method: Quidel QuickVue One-Step Immunoassay 6 sore throat x 7 days 7 NORMAL THROAT MARITZA 8 CONSULT 06/22 53266 K81.1 9 GALLBLADDER AND CONTENTS Hard copy [...] 14 SEE RESULT BELOW Name: ZACARIAS DIXON : [address]: Timothy Gerard MD Acct: [id number] Unit: [id number] AGE: 30 Location: [facility] Re06/15/16 SEX: F Status: REG REF SPEC: [id number] [place]: 06/15/16-[address] [facility] [address]: Timothy Gerard MD REQ: [id number] RECD: 06/15/16 STATUS: GENNY PECK DR: [facility], Lab _ ORDERED: LEVEL IV [...] performed at Main Lab DEPARTMENT OF PATHOLOGY, [address] [place] [address] David Christian M.D. Director [facility] # [id number] 15 FIRST MORNING SPECIMENS GENERALLY CONTAIN THE [...] Positive >1:80 Performed at: RN - [facility] [address] [id number] Business Development Consultant: Yoon Madden MD, Phone: [phone] Procedures Date Code Description Status 05/08/2019 36922 Stress Test Interpre And Report Only Completed 05/08/2019 30251 Stress Test Physician Super Only Completed 04/02/2019 94844 Echocardiogram Complete Completed 03/22/2019 82076 EKG-Tracing And Report Completed 04/09/2018 70757 Endometrial Biopsy Completed 03/30/2018 72462 Radiology, Foot, Complete-3 Views Completed 10/10/2017 37846 Nerve Conduction 7-8 Studies Completed 10/10/2017 08089 Needle Electromyography Complete, Five Or More Muscles Completed Studied 07/13/2017 83164 Neuroplasty median nerve at carpal tunnel Completed 06/05/2017 55192 Application short arm splint forearm to wrist static Completed 05/30/2017 70311 Neuroplasty median nerve at carpal tunnel Completed 05/16/2017 26305 Radiology, Foot, Complete-3 Views Completed 05/16/2017 34046 Radiology, Foot, Complete-3 Views Completed 01/10/2017 90627 Nerve Conduction 7-8 Studies Completed 01/10/2017 35789 Needle Electromyography Complete, Five Or More Muscles Completed Studied 11/28/2016 95733656 Colonoscopy Completed 11/28/2016 97679 Sigmoidoscopy Flexible Completed 06/28/2016 28788 Laparoscopy; cholecystectomy Completed 06/15/2016 73486 Endoscopy Small Intestine W/Biopsy Completed 03/31/2016 29461 Radiology, Knee 3 Views Completed 11/06/2015 91058 Event Monitor Inter/Review Only Completed 11/27/2014 07749 Event Monitor Inter/Review Only Completed 11/26/2014 60290 EKG-Tracing And Report Completed 11/17/2014 96497 Echocardiogram Complete Completed 11/17/2014 52409 EKG Interpretation And Report Only Completed 11/06/2014 79897 Anesthesia, Nose & Accessory Sinus Surgery Not Completed Otherwise Spec 07/03/2014 90830 Radiology, Knee 3 Views Completed 04/04/2013 32003 Radiology, Wrist Complete Completed 02/21/2013 61864 Anesthesia, Nose & Accessory Sinus Surgery Not Completed Otherwise Spec 04/09/2012 15372 Anesthesia, Hysteroscopy, Hystersalpingography Completed 01/10/2007 36677 Tonsillectomy;Age 12 Or Over Completed Encounters Type Date Location Provider Dx Diagnosis Office Visit 03/22/2019 Cardiology Office Gregg Lo R07.9 Chest pain , 9:00a B., PA unspecified R07.9 Chest pain, unspecified R06.02 Shortness of breath R06.02 Shortness of breath R53.83 Other fatigue R53.83 Other fatigue Office Visit 08/20/2018 Orthopaedic Theodora Odonnell, S60.051A Contusion of 10:45a Office PA right little finger w/o damage to nail, init W23.0xxA Caught, crush, jammed, or pinched betw moving objects, init Y92.[address] or not applicable Office Visit 08/17/2018 Orthopaedic Theodora Odonnell, R20.9 Unspecified 2:00p Office PA disturbances of skin sensation S60.051A Contusion of right little finger w/o damage to nail, init G56.01 Carpal tunnel syndrome, right upper limb W23.0xxA Caught, crush, jammed, or pinched betw moving objects, init Office Visit 05/17/2018 11:30a [facility] Martine Ceron, N95.1 Menopausal and [facility] CNM female climacteric states Office Visit 04/26/2018 10:30a [facility] Martine Ceron, N83.201 Unspecified [facility] CNM ovarian cyst, right side Office Visit 04/09/2018 10:30a [facility] Martine Ceron, N92.1 Excessive and [facility] CNM frequent menstruation with irregular cycle Office Visit 03/30/2018 2:15p Vijaya Pettit M72.2 Plantar fascial Office MD Judy fibromatosis Office Visit 03/19/2018 11:00a Vijaya Pettit G56.01 Carpal tunnel Office MD Judy syndrome, right upper limb Office Visit 02/14/2018 9:30a Orthopaedic Blas G56.01 Carpal tunnel Office CESAR Yip syndrome, right upper limb Office Visit 01/22/2018 11:15a Orthopaedic Blas M72.2 Plantar fascial Office CESAR Yip fibromatosis Office Visit 11/27/2017 1:45p Orthopaedic Larissa G56.01 Carpal tunnel Office Huang, syndrome, right M.D. upper limb R20.0 Anesthesia of skin Office Visit 10/25/2017 Orthopaedic Larissa R20.0 Anesthesia of skin 2:00p Office Elsa Encinas Office Visit 08/08/2017 Orthopaedic Mukesh Turcios.2 Plantar fascial 2:30p Office Elsa Lofton fibromatosis Office Visit 06/28/2017 Orthopaedic Blas G56.02 Carpal tunnel 1:30p Office CESAR Yip syndrome, left upper limb G56.01 Carpal tunnel [...] of digestive organs Office Visit 09/01/2016 2:00p GI Wilbert Wilson MD K59.00 Constipation, unspecified B37.2 Candidiasis of [...] neoplasm of colon Office Visit 05/25/2016 Orthopaedic Christie S93.622A Sprain of 9:30a Office Olga Evans tarsometatarsal RPAC ligament of left foot, init encntr M25.572 Pain in left ankle and joints of left foot Office Visit 04/28/2016 Surgical Office Gladys K81.1 Chronic 2:00p CESAR Solano cholecystitis Office Visit 03/31/2016 Orthopaedic Christie M25.562 Pain in left knee 10:00a Office Olga Evans [facility] M22.42 Chondromalacia patellae, left knee Office Visit 05/20/2015 1:45p Surgical Office Kavon 789.01 Pain Abdominal MD Mike Right Upper Quadrant Office Visit 05/13/2015 10:15a Surgical Office Kavon 789.01 Pain Abdominal MD Mike Right Upper Quadrant Office Visit 01/13/2015 10:00a Cardiology Office Wade Mendez MD 786.05 Shortness Of Breath 786.50 Pain Chest Unspec 785.1 Palpitations 780.4 Dizziness & Giddiness Office Visit 01/13/2015 2:45p Orthopaedic Office Olga Soriano 719.47 Pain Joint S., RPAC Ankle & Foot 845.11 Sprains & Strains Foot Tarsometatarsal (Joint) (Ligament) Office Visit 11/26/2014 2:05p Cardiology Office Wade Mendez MD 786.50 Pain Chest Unspec 786.05 Shortness Of Breath 785.1 Palpitations Office Visit 11/17/2014 2:33p Cardiology Office Wade Mendez, 786.50 Pain Chest MD Unspec Office Visit 07/03/2014 9:00a Orthopaedic Office Mumtaz Bellamy 719.46 Pain Joint MD Kathryn, FACS Lower Leg 717.7 Chondromalacia Of Patella Office Visit 05/16/2013 3:30p Orthopaedic Office Mumtaz Bellamy 842.00 Sprains & F.MD, FACS Strains Wrist & Hand Unspec Site Office Visit 05/02/2013 2:15p Orthopaedic Office Mumtaz Bellamy 924.20 Contusion Foot MD Kathryn, FACS 735.4 Hammer Toe Other Acquired 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 Chronic Plan of Treatment 06/12/2019 - Lenard Saucedo MD,FACSR10.13 Epigastric painComments:has small hiatal hernia, EGD at another institution in February with 2 cm hiatal hernia. no heartburn, has elements of distended stomach on CT scan. will obtain biopsy results of the GE junction, will also try to find the gastric emptying study that the patient said was done recently at [facility]. if not will schedule her for gastric emptying study and possibly esophageal mannometry. i suspect elements of delayed gastric emptying clinically/peristaltic abnormalities. i recommended small frequent meals and try to loose weight as well as over the counter omeprazole. will see her in 4-5 weeks.
--- OUTSIDE RECORDS SUMMARY | 2019-06-29 15:02 | XMS REPORT | Continuity of Care Document ---
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 Utility Unavailable Sade Oh, [employer] Primary Care Physician Unavailable Payers Date Identification Numbers Payment Provider Subscriber Policy Number: [id number] Medicare Zacarias Dixon PayID: [id number] [address] [place] [address] Effective: 2005 Policy Number: [id number] Medicare Zacarias Dixon Expires: 2018 PayID: [id number] [address] [place] [address] Policy Number: [id number] Medicaid Zacarias Dixon Group Name: [address] PayID: [id number] [place] [address] Problems Active Problems Provider Date Attention deficit [...] 06/12/19 Patient has never smoked Age 1st [place] 23 Years Old # Partners in a Lifetime 1 STD's No STD History Allergies, Adverse Reactions, Alerts Active Allergies Reaction Severity Comments Date Penicillins vomit 11/26/2014 Amoxicillin vomit 09/01/2016 Prednisone Urticaria Moderate 02/14/2018 Medications Active Medications SIG Qnty Indications Ordering Provider Date Ondansetron 1 tablet twice Sade Oh, 4mg Tablets daily [employer] Dispers Atomoxetine HCL 1 tablet by mouth Nurys George 60mg daily [employer] Capsules History Medications Medroxyprogesterone Take 1 tablet [...] pain Percocet 1 by mouth every 40tabs LarissaHuang, 07/18/2017 - 5-325mg Tablets 4-6 hour as M.D. 07/31/2017 needed pain Oxycodone HCL 1 every 4-6 hour 20tabs G56.01 LarissaHuang, 07/06/2017 - 5mg Tablets as needed pain [...] - apply to affected MD Wilbert Unknown 189131-6.1Unit/GM-% area twice a day Cream Ondansetron by [...] Unknown - (Ergocalciferol) Mouth Once Weekly 05/16/2017 43619Pckl Capsules Doxycycline Hyclate Gopal, Gifty, - 100mg PA 05/16/2017 Capsules Methylprednisolone Gopal, Gifty, - 4mg TBPK PA 05/16/2017 Ventolin HFA Gopal, Gifty, - 108(90Base) PA 05/16/2017 mcg/Act Aerosol Benzonatate [...] Vitamin D3 Take One Capsule Unknown - 82842Nzkn Capsules By Mouth Every 08/17/2018 Week Diclofenac Sodium ER Take One Tablet Unknown - 100mg By Mouth Every 05/16/2017 Tablets ER 24HR Day With Food Hydroxyzine HCL GopalGifty govea, - 10mg Tablets PA 05/16/2017 Pseudoephedrine HCL [...] 05/16/2017 420gm Solution Rec Directed Naproxen John Chaudhry, CESAR - 500mg Tablets 05/10/2017 Prochlorperazine Maleate Take [...] By Mouth Every 05/16/2017 Day Fluticasone Propionate [place] 2 Sprays In Unknown - Each Nostril Once 05/16/2017 50mcg/Act Suspension Daily Banophen Take One Capsule Unknown - 25mg Capsules By Mouth Every 4 05/16/2017 Hours Cefuroxime Axetil Take One Tablet Unknown - 500mg By Mouth Twice A 05/16/2017 Tablets Day Ranitidine HCL Gifty Herron, - 150mg Tablets PA 05/16/2017 Clindamycin HCL Macias, - 300mg MD Cecilio 05/16/2017 Capsules Ibuprofen [...] By Mouth Every 05/16/2017 Morning Sumatriptan Succinate Galleradonnie, - 100mg Nikki, CESAR 05/16/2017 Tablets Acetaminophen-Codeine #3 Take One Tablet [...] tab bid Gifty Herron, - 150mg Tablets PA Unknown Albuterol Sulfate [...] For Cough Emoquette Gagen, - 0.15-30mg-mcg Karen, [employer], 05/16/2017 Tablets CNM Ciprofloxacin HCL Vickie Macias, - 250mg SAUL 05/16/2017 Tablets Nystatin Apply On Affected Unknown - 668726Jrzu/GM Cream Area Two Times A 05/16/2017 Day Lactulose Take 1 Unknown - 10GM/15ML Solution Tablespoonful 05/16/2017 15MLS By Mouth Two Times A Day Titrate as Need Tramadol HCL Take One Tablet Unknown - 50mg Tablets By Mouth Every 4 05/16/2017 To 6 Hours Maximum Daily Dose 4 Famotidine Lucian, - 40mg Tablets MD Jessika 05/16/2017 Prednisone Epstein, - 20mg Tablets MD Jessika 05/16/2017 Propranolol [...] Flulaval Quadrivalent Use as Directed Unknown - 6657-7316 05/16/2017 2016-17 Suspension Ciprodex Gallerani, - 0.3-0.1% Suspension CESAR Jordan 05/16/2017 Ibuprofen Unknown - 400mg Tablets 05/10/2017 Metoclopramide HCL Unknown - 10mg 05/10/2017 Tablets Trazodone HCL Gifty Herron, - 50mg Tablets CESAR 05/10/2017 Banophen Take One Capsule Unknown - 25mg Capsules By Mouth Every 4 05/10/2017 Hours Fluticasone Propionate [place] 2 Sprays In Unknown - Each Nostril [...] Hours as Needed Advair Diskus Olivia Spivey NP - 250-50mcg/Dose 05/10/2017 Aerosol Vitamin D Take 1 Capsule By Unknown - (Ergocalciferol) Mouth Once Weekly 05/10/2017 36155Umtq Capsules Methylprednisolone Take as Directed Unknown - [...] Need Nystatin Apply On Affected Unknown - 273475Yyqu/GM Cream Area Two Times A 05/10/2017 Day [...] Flulaval Quadrivalent Use as Directed Unknown - 2021-3422 05/10/2017 2016-17 Suspension Ciprodex Gallerani, - 0.3-0.1% Suspension CESAR Jordan 05/10/2017 Sumatriptan Succinate Shantellerani, - 100mg CESAR Jordan 05/10/2017 Tablets Acetaminophen-Codeine #3 Take One Tablet Unknown - By Mouth Every 6 05/10/2017 300-30mg Tablets Hours as Needed F Levocetirizine So Lopez - Dihydrochloride BEATRICE Morelos 05/10/2017 5mg Tablets Doxycycline Hyclate Take One Capsule Unknown - 100mg By Mouth Twice A 05/10/2017 Capsules Day Ventolin HFA Gifty Herron, - 108(90Base) PA 05/10/2017 mcg/Act Aerosol Benzonatate [...] Vitamin D3 Take One Capsule Unknown - 57524Oeyl Capsules By Mouth Every 05/10/2017 Week Hydroxyzine [...] Days Vital Signs Date Vital Result Comment 06/18/2019 9:01am BP Systolic Sitting Left Arm 118 mmHg BP Diastolic Sitting Left Arm 58 mmHg Heart Rate 88 /min Respiratory Rate 18 /min Height 66 inches 5'6" Weight 179.00 lb BMI (Body Mass Index) 28.9 kg/m2 BSA (Body Surface Area) 1.91 m2 [place] body weight in kilograms 59 kg O2 % BldC Oximetry 99 % Ejection Fraction 60% 06/12/2019 10:10am BP Systolic 129 mmHg BP Diastolic 93 mmHg Heart Rate 91 /min Height 66 inches 5'6" Weight 182.00 lb BMI (Body Mass Index) 29.4 kg/m2 BSA (Body Surface Area) 1.92 m2 [place] body weight in kilograms 59 kg O2 % BldC Oximetry 100 % 03/22/2019 8:59am BP Systolic Sitting Left Arm 124 mmHg BP Diastolic Sitting Left Arm 82 mmHg Heart Rate 89 /min Respiratory Rate 18 /min Height 66 inches 5'6" Weight 183.00 lb BMI (Body Mass Index) 29.5 kg/m2 BSA (Body Surface Area) 1.93 m2 [place] body weight in kilograms 59 kg O2 % BldC Oximetry 98 % Ora 08/20/2018 10:18am BP Systolic Sitting Left Arm 139 mmHg BP Diastolic Sitting Left Arm 94 mmHg Body Temperature 96.6 F Heart Rate 118 /min Respiratory Rate 18 /min Height 66 inches 5'6" Weight 166.38 lb BMI (Body Mass Index) 26.9 kg/m2 BSA (Body Surface Area) 1.85 m2 [place] body weight in kilograms 59 kg O2 [...] kg/m2 BSA (Body Surface Area) 1.84 m2 [place] body weight in kilograms 59 kg O2 % BldC Oximetry 100 % 05/17/2018 11:15am BP Systolic 122 mmHg BP Diastolic 80 mmHg Body Temperature 96.9 F Heart Rate 99 /min Respiratory Rate 16 /min Height 66 inches 5'6" Weight 164.00 lb BMI (Body Mass Index) 26.5 kg/m2 BSA (Body Surface Area) 1.84 m2 [place] body weight in kilograms 59 kg O2 % BldC Oximetry 99 % 04/26/2018 10:15am BP Systolic 127 mmHg BP Diastolic 90 mmHg Heart Rate 110 /min Respiratory Rate 18 /min Height 66 inches 5'6" Weight 166.00 lb BMI (Body Mass Index) 26.8 kg/m2 BSA (Body Surface Area) 1.85 m2 [place] body weight in kilograms 59 kg O2 % BldC Oximetry 97 % 04/09/2018 10:14am BP Systolic 132 mmHg BP Diastolic 86 mmHg Body Temperature 96.3 F Heart Rate 69 /min Respiratory Rate 16 /min Height 66 inches 5'6" Weight 164.00 lb BMI (Body Mass Index) 26.5 kg/m2 BSA (Body Surface Area) 1.84 m2 [place] body weight in kilograms 59 kg 03/30/2018 1:58pm BP Systolic 125 mmHg BP Diastolic 80 mmHg Heart Rate 103 /min Height 66 inches 5'6" Weight 165.00 lb BMI (Body Mass Index) 26.6 kg/m2 BSA (Body Surface Area) 1.84 m2 [place] body weight in kilograms 59 kg 03/19/2018 11:13am BP Systolic 131 mmHg BP Diastolic 90 mmHg Body Temperature 98.1 F Height 66 inches 5'6" Weight 161.00 lb BMI (Body Mass Index) 26.0 kg/m2 BSA (Body Surface Area) 1.82 m2 [place] body weight in kilograms 59 kg 02/14/2018 9:07am BP Systolic Sitting Right Arm 125 mmHg BP Diastolic Sitting Right Arm 89 mmHg Body Temperature 97.1 F Heart Rate 98 /min Respiratory Rate 18 /min Height 66 inches 5'6" Weight 156.00 lb BMI (Body Mass Index) 25.2 kg/m2 BSA (Body Surface Area) 1.80 m2 [place] body weight in kilograms 59 kg 01/22/2018 10:55am BP Systolic Sitting Left Arm 125 mmHg BP Diastolic Sitting Left Arm 86 mmHg Body Temperature 97.6 F Heart Rate 96 /min Respiratory Rate 19 /min Height 66 inches 5'6" Weight 154.00 lb BMI (Body Mass Index) 24.9 kg/m2 BSA (Body Surface Area) 1.79 m2 [place] body weight in kilograms 59 kg 11/27/2017 1:05pm BP Systolic 126 mmHg BP Diastolic 88 mmHg Body Temperature 96.0 F Heart Rate 94 /min Respiratory Rate 15 /min Height 66 inches 5'6" Weight 150.00 lb BMI (Body Mass Index) 24.2 kg/m2 BSA (Body Surface Area) 1.77 m2 [place] body weight in kilograms 59 kg 10/25/2017 2:27pm BP Systolic 134 mmHg BP Diastolic 94 mmHg Body Temperature 96.6 F Heart Rate 89 /min Respiratory Rate 15 /min Height 66 inches 5'6" Weight 159.00 lb BMI (Body Mass Index) 25.7 kg/m2 BSA (Body Surface Area) 1.81 m2 [place] body weight in kilograms 59 kg 07/25/2017 2:05pm BP Systolic Sitting Left Arm 118 mmHg BP Diastolic Sitting Left Arm 81 mmHg Body Temperature 97.7 F Heart Rate 76 /min Height 65 inches 5'5" Weight 154.00 lb BMI (Body Mass Index) 25.6 kg/m2 BSA (Body Surface Area) 1.77 m2 [place] body weight in kilograms 57 kg 07/13/2017 11:24am BP Systolic 119 mmHg BP Diastolic 83 mmHg Body Temperature 97.0 F Heart Rate 94 /min Height 65 inches 5'5" Weight 154.12 lb BMI (Body Mass Index) 25.6 kg/m2 BSA (Body Surface Area) 1.77 m2 [place] body weight in kilograms 57 kg 07/06/2017 1:28pm BP Systolic Sitting Right Arm 119 mmHg BP Diastolic Sitting Right Arm 80 mmHg Body Temperature 97.2 F Heart Rate 91 /min Height 65 inches 5'5" Weight 150.00 lb BMI (Body Mass Index) 25.0 kg/m2 BSA (Body Surface Area) 1.75 m2 [place] body weight in kilograms 57 kg 06/14/2017 11:54am BP Systolic Sitting Right Arm 115 mmHg BP Diastolic Sitting Right Arm 81 mmHg Heart Rate 103 /min Height 65 inches 5'5" Weight 145.00 lb BMI (Body Mass Index) 24.1 kg/m2 BSA (Body Surface Area) 1.73 m2 [place] body weight in kilograms 57 kg 06/05/2017 10:35am BP Systolic 134 mmHg BP Diastolic 94 mmHg Heart Rate 99 /min Height 65 inches 5'5" Weight 149.25 lb BMI (Body Mass Index) 24.8 kg/m2 BSA (Body Surface Area) 1.75 m2 [place] body weight in kilograms 57 kg 05/18/2017 1:18pm BP Systolic Sitting Left Arm 131 mmHg BP Diastolic Sitting Left Arm 85 mmHg Body Temperature 97.8 F Heart Rate 92 /min Height 65 inches 5'5" Weight 152.00 lb BMI (Body Mass Index) 25.3 kg/m2 BSA (Body Surface Area) 1.76 m2 [place] body weight in kilograms 57 kg 03/14/2017 [...] kg/m2 BSA (Body Surface Area) 1.73 m2 [place] body weight in kilograms 57 kg 12/20/2016 [...] Mass Index) 22.5 kg/m2 Last Menstrual Period [id number] Results Test Date Facility Test Result H/L Range Note Laboratory test finding 05/17/2018 [facility] FSH 6.2 mIU/mL 1, [address] [place] [address] [phone] Thyroid Stim Hormone 0.43 uIU/mL Normal 0.30-4.20 CBS W/Automated 04/09/2018 [facility] White Blood 7.5 K/uL Normal 3.1-10.[address] [place] [address] [phone] Red Blood Count 4.84 M/uL Normal 3.90-5.40 [...] 40.4-72.8 Lymph % 41.5 % Normal 20.0-42.0 [place] % 4.9 % Normal 4.3-13.2 Eo% 2.3 % Normal 0.0-6.6 Bas% 0.1 % Normal 0.0-1.1 Neut# 3.83 K/uL Normal 1.8-7.0 Lymph # 3.11 K/uL Normal 1.0-4.0 [place] # 0.37 K/uL Normal 0.3-0.9 Eos # 0.17 K/uL Normal 0.0-0.5 Baso # 0.01 K/uL Normal 0.0-0.1 Laboratory test 04/09/2018 [facility] Thyroid Stim 1.01 uIU/mL Normal 0.30- 4.[address] Hormone [place], [place] [id number] [phone] Laboratory test 07/13/2017 [facility] Urine HCG NEGATIVE Negative 4, finding [address] (Qualitative) 5 [place], [place] [address] [phone] Neutrophils # 06/16/2017 N2N/CCD Import Neutrophils # [...] [address] Culture THROAT FL 7 [place] [address] Complete <SEE NOTE> [phone] Bacterial throat 02/04/2017 N2N/CCD Import Bacterial Normal [...] Organism: Cult Urethral Maritza Laboratory test 06/28/2016 [facility] Pathology See Note chronic 8, finding [address] Specimen cholecys 9 [place], [place] [id number] [phone] Pathology Specimen (SEE NOTE) Normal 10 Laboratory test 06/16/2016 N2N/CCD Import Allergen Reference See Note 11 finding [place]anges Tryptase 3.9 2.2-13.2 Laboratory test 06/15/2016 [facility] Pathology See Note [address] [place] [address] [phone] Laboratory test 06/15/2016 N2N/CCD Import Pathology See Note 13 finding Specimen Result Laboratory test 06/15/2016 [facility] Laboratory Surgical SEE RESULT 14 finding [phone] Interface BELOW Order Laboratory test 06/15/2016 [facility] Urine HCG NEGATIVE Negative [address] (Qualitative) [place], [place] [id number] [phone] Laboratory test 06/09/2016 N2N/CCD Import Anion Gap [...] White Blood Count 7.6 3.1-10.7 Xray 05/21/2016 [facility] - Radiology Ultrasound, bilat kid [address] [facility] [place] [address] [phone] Laboratory test 05/20/2016 N2N/CCD Import Urine Bilirubin [...] Urine pH 5.0 Low 6.5-7.5 Xray 04/26/2016 [facility] - Radiology Gallbladder 7 [address] [facility] (Disida) W/[place] [address] [phone] Laboratory test 04/18/2016 N2N/CCD Import Urine Bacteria [...] Negative Urine Protein Negative Negative Urine Specific [place] 1.015 1.010-1.030 Urine Urobilinogen 0.2 0.2-1.0 Urine WBC None Seen 0-7 Urine pH 6.0 Low 6.5-7.5 Laboratory test 04/14/2016 N2N/CCD Import Urine Bacteria [...] pH 5.0 Low 6.5-7.5 Laboratory test 04/14/2016 N2N/CCD Import [...] Count 8.2 3.1-10.7 Laboratory test finding 04/10/2016 N2N/CCD Import Urine [...] Negative Urine Protein Negative Negative Urine Specific [place] 1.020 1.010-1.030 Urine Urobilinogen 0.2 0.2-1.0 Urine pH 6.0 Low 6.5-7.5 Laboratory test 04/06/2016 N2N/[facility] Import Urine Culture Organism: finding Urethral Maritza Laboratory test 04/04/2016 N2N/CCD Import Allergen Reference See Note 16 finding Ranges Arthritis 07/03/2014 [facility] Sedimentation Rate 4 mm/hr 0-20 Panel([place]) [address] [place], [place] [address] [phone] Rheumatoid Factor Screen NEGATIVE Negative Uric Acid 2.8 mg/dL 2.1-7.4 Antinuclear Antibodies, Ifa Negative . 17 CBC W/Automated 07/03/2014 [facility] White Blood 11.8 K/uL High 3.1-10.[address] Count [place], [place] [address] [phone] Red Blood Count 4.37 M/uL 3.90-5.40 Hemoglobin [...] % 40.4-72.8 Lymph % 30.0 % 17.0-46.1 [place] % 4.8 % 4.3-13.2 Eo% 0.3 % 0.0-6.6 Bas% 0.2 % 0.0-1.1 Neut# 7.62 K/uL High 1.0-7.0 Lymph # 3.52 K/uL High 0.8-3.4 [place] # 0.56 K/uL 0.3-0.9 Eos # 0.03 K/uL 0.0-0.5 Baso # 0.02 K/uL 0.0-0.1 1 N95.1 2 NORMALLY MENSTRUATING FEMALES: Follicular Phase:............... 2.3-12.6 mIU/mL Mid-Cycle Peak:................. 5.2-17.5 mIU/mL Luteal Phase:................... 1.7-9.5 mIU/mL POSTMENOPAUSAL FEMALES: On menopausal hormone therapy (MHT)... 5.9-72.8 mIU/mL Not on MHT ........................... 12.7-132.2 mIU/mL 3 N92.1 4 CONSULT 07/10 20851 5 FIRST MORNING SPECIMENS GENERALLY CONTAIN THE HIGHEST CONCENTRATION OF HCG AND ARE RECOMMENDED FOR EARLY DETECTION OF . Method: Quidel QuickVue One-Step Immunoassay 6 sore throat x 7 days 7 NORMAL THROAT MARITZA 8 CONSULT 06/22 39560 K81.1 9 GALLBLADDER AND CONTENTS Hard copy [...] [address]: Timothy Gerard MD Acct: [id number] Unit: [id number] AGE: 30 Location: [facility] Re06/15/16 SEX: F Status: REG REF SPEC: [id number] [place]: 06/15/16-[address] [facility] DR: Timothy Gerard MD REQ: [id number] RECD: 06/15/16 STATUS: GENNY PECK DR: [facility], Lab _ ORDERED: LEVEL IV FINAL DIAGNOSIS [...] performed at Main Lab DEPARTMENT OF PATHOLOGY, [address] [place] [address] David Christian M.D. Director [facility] # [id number] 15 FIRST MORNING SPECIMENS GENERALLY CONTAIN THE [...] Positive >1:80 Performed at: RN - [facility] [address] [id number] Director Field Services: Yoon Madden MD, Phone: [phone] Procedures Date Code Description Status 05/08/2019 71900 Stress Test Interpre And Report Only Completed 05/08/2019 52632 Stress Test Physician Super Only Completed 04/02/2019 82058 Echocardiogram Complete Completed 03/22/2019 22247 EKG-Tracing And Report Completed 04/09/2018 45804 Endometrial Biopsy Completed 03/30/2018 71054 Radiology, Foot, Complete-3 Views Completed 10/10/2017 36990 Nerve Conduction 7-8 Studies Completed 10/10/2017 79904 Needle Electromyography Complete, Five Or More Muscles Completed Studied 07/13/2017 14715 Neuroplasty median nerve at carpal tunnel Completed 06/05/2017 77840 Application short arm splint forearm to wrist static Completed 05/30/2017 47294 Neuroplasty median nerve at carpal tunnel Completed 05/16/2017 44906 Radiology, Foot, Complete-3 Views Completed 05/16/2017 88669 Radiology, Foot, Complete-3 Views Completed 01/10/2017 85593 Nerve Conduction 7-8 Studies Completed 01/10/2017 14408 Needle Electromyography Complete, Five Or More Muscles Completed Studied 11/28/2016 10527123 Colonoscopy Completed 11/28/2016 95859 Sigmoidoscopy Flexible Completed 06/28/2016 40211 Laparoscopy; cholecystectomy Completed 06/15/2016 00485 Endoscopy Small Intestine W/Biopsy Completed 03/31/2016 14653 Radiology, Knee 3 Views Completed 11/06/2015 94693 Event Monitor Inter/Review Only Completed 11/27/2014 27398 Event Monitor Inter/Review Only Completed 11/26/2014 20456 EKG-Tracing And Report Completed 11/17/2014 65276 Echocardiogram Complete Completed 11/17/2014 73906 EKG Interpretation And Report Only Completed 11/06/2014 25712 Anesthesia, Nose & Accessory Sinus Surgery Not Completed Otherwise Spec 07/03/2014 86833 Radiology, Knee 3 Views Completed 04/04/2013 93402 Radiology, Wrist Complete Completed 02/21/2013 19856 Anesthesia, Nose & Accessory Sinus Surgery Not Completed Otherwise Spec 04/09/2012 70272 Anesthesia, Hysteroscopy, Hystersalpingography Completed 01/10/2007 43847 Tonsillectomy;Age 12 Or Over Completed Encounters Type Date Location Provider Dx Diagnosis Office Visit 06/18/2019 Cardiology Office Gregg Lo [...] moving objects, init Office Visit 05/17/2018 11:30a [facility] [place], N95.1 Menopausal and [facility] CNM female climacteric states Office Visit 04/26/2018 10:30a [facility] [place], N83.201 Unspecified [facility] CNM ovarian cyst, right side Office Visit 04/09/2018 10:30a [facility] [place], N92.1 Excessive and [facility] CNM frequent menstruation with irregular cycle Office Visit 03/30/2018 2:15p Orthopaedic Mukesh Pettit.2 Plantar fascial Office MD Judy fibromatosis Office Visit 03/19/2018 11:00a Orthopaedic Mikael Pettit6.01 Carpal tunnel Office MD Judy syndrome, right upper limb Office Visit 02/14/2018 9:30a Orthopaedic Blas G56.01 Carpal tunnel Office CESAR Yip syndrome, right upper limb Office Visit 01/22/2018 11:15a Orthopaedic Mukesh Odonnell.2 Plantar fascial Office CESAR Yip fibromatosis Office [...] foot Office Visit 03/14/2017 1:30p Orthopaedic Office Christie Olga M25.571 Pain in right S., RPAC ankle [...] Christie S93.622A Sprain of 9:30a Office Olga Evans, tarsometatarsal RPAC ligament of left foot, init encntr M25.572 Pain in left ankle and joints of left foot Office Visit 04/28/2016 Surgical Office Luis Graham81.1 Chronic 2:00p CESAR Solano cholecystitis Office Visit 03/31/2016 Vijaya Soriano M25.562 Pain in left knee 10:00a Office Olgagautam Evans [facility] M22.42 Chondromalacia patellae, left knee Office [...] Orthopaedic Office Olga Soriano 719.47 Pain Joint Cristina, [facility] Ankle & Foot 845.11 Sprains & Strains [...] Orthopaedic Office Mumtaz Bellamy 842.00 Sprains & FMD Chris, FACS Strains Wrist & Hand Unspec Site Office Visit 05/02/2013 2:15p Orthopaedic Office Mumtaz Bellamy 924.20 Contusion Foot F.MD, FACS 735.4 Hammer Toe Other Acquired 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
--- OUTSIDE RECORDS SUMMARY | 2019-06-29 15:03 | XMS REPORT | Continuity of Care Document ---
:1985 External Reference #:[id number] Author Name Sindi Elizondo Care Team Providers Name Role Phone Gifty Herron Care Team Information Toll Bridge Attendant Unavailable Gifty Herron Primary Care Physician Unavailable Payers Date Identification Numbers Payment Provider Subscriber Policy Number: [id number] Medicare Zacarias Julio PayID: [id number] [address] [place] [address] Policy Number: [id number] Medicaid Zacarias Julio Group Name: 2 1 [address] PayID: [id number] [place] [address] Problems Active Problems Provider Date Dysfunction of [...] - 10mg Tablets morning M.D. 05/01/2017 Ipratropium Bronte 2 sprays each side QS Prashanth Mcrae, [...] Azithromycin 2 by mouth every 7tabs Prashanth Mrcae, 10/24/2014 - 250mg day 1, 1 by [...] 50mcg/Act Suspension Patanase 2 sprays both 3 Prashanth Mcrae, 12/25/2013 - 0.6% Solution nostrils bid rebate M.D. 04/02/2017 rx bin# [id number] cost consultant ([id number]) rx pcn: eligio rx [facility] [id number] id: [id number] Mupirocin apply around the Mcrae Prashanth, 12/04/2013 - 2% Ointment nose twice daily 2 M.D. 12/25/2013 weeks Azithromycin 1 po qd 5tabs Prashanth Mcrae, 12/04/2013 - 500mg M.D. 12/25/2013 Tablets Prednisone 1 po qd x 5 days 5tabs Prashanth Mcrae, 10/22/2013 - 20mg Tablets M.D. 12/25/2013 Cephalexin 1 po bid x 7 days 14tabs Prashanth cMrae, 10/22/2013 - 500mg Tablets M.D. 12/25/2013 Cetirizine [...] 2 sprays both Prashanth Armas, 01/19/2009 - 137mcg/[place] nostrils twice a M.D. 07/29/2009 Solution day. [...] ER Vital Signs Date Vital Result Comment 06/10/2019 1:15pm Weight 186.00 lb Height 66 inches 5'6" BMI (Body Mass Index) 30.0 kg/m2 BP Systolic 115 mmHg BP Diastolic 82 mmHg Heart Rate 84 /min O2 % BldC Oximetry 98 % Body Temperature 97.2 F Pain Level 6 05/09/2019 8:59am Weight 183.00 lb Height 66 [...] Test Result H/L Range Note Laboratory test [facility] Surgical Pathology SEE RESULT 1, 2 finding [address] [place] [address] [phone] Leukemia/Lympho [facility] Path Interpretation TNP Normal ma Phenot [address] 2-8 [place] [address] [phone] Path Interpret > 16 Marker TNP Normal Path Interpret 9-15 Marker (SEE NOTE) Normal 3 Allergens,Zone 1 04/04/2016 [facility] Lab mRast Class (Text See Note [address] Only) [place] [address] [phone] D Pteronyssinus <0.10 Yudrl4zH/L D Farinae Mite <0.10 Vxcpp0cH/L Cat Hair/Dander <0.10 Rjxfe5pG/L Dog Hair/Dander <0.10 Nvjnx7kF/L Bluegrass,[place] <0.10 Junjr7aA/L Bermuda Grass <0.10 Hsyid3pC/L Bahia Grass <0.10 Awfnt8rD/L Cockroach,Taiwanese <0.10 Enovp7kG/L Penicillium Not <0.10 Yjgbb1jA/L Cladosporium Herbarum <0.10 Cuvix4qZ/L Apergillis Fumigatus Ige <0.10 Rnexs4gR/L Mucor Racemosus <0.10 Pgdmq6gX/L Alternaria Tenuis <0.10 Flhre5iI/L Stemphylium Bot <0.10 Mmori3oY/L Birch,White <0.10 Dsdlw7wK/L Newcomb,White <0.10 Hakne6lM/L Elm,Taiwanese (White) <0.10 Zjuzp4hG/L Lizandro,White <0.10 Xevht7iV/L Hazelnut Tree <0.10 Kexad9kP/L Benton,White <0.10 Pufer2qT/L [place],White <0.10 Skcjp0pI/L [place]ountain <0.10 Elnhr1aX/L Ragweed,Short/ <0.10 Uxjtt1oG/L Mugwort <0.10 Swdyj3dK/L Plantain,Georgian <0.10 Suywr8lD/L Pigweed,Rough <0.10 Tvqst3oS/L Sheep Wolbach (DO <0.10 Duegz0fR/L Nettle <0.10 Vkygz6cP/L Maple/Bonfield Ige T001 <0.10 Plold8kN/L 5 Laboratory 04/04/2016 [facility] Immunoglobulin <1 IU/mL 0- 100 6 test finding [address],[place] [address] [phone] Fna With Cell 02/28/2015 [facility] Path[facility] Nature of Right Abnormal 7 Block And DQ (309)- - Specimen Parotid Ly Stain <SEE NOTE> Text Diagnosis Blood (non-diagn <SEE NOTE> Abnormal 8 [facility] <SEE NOTE> Abnormal 9 Micro Pathology The Diff Quik an <SEE NOTE> Abnormal 10 Cytology Report SEE IMAGE Clinical History 1-FNA, Parotid, <SEE NOTE> Abnormal 11 Comments Comment Abnormal Laboratory test 02/15/2013 [facility] HCG Serum, NEGATIVE finding [address] [place] [address] [phone] CBC 02/15/2013 [facility] White Blood Count 6.9 K/uL 3.1-10 [address] [place] [address] [phone] Red Blood Count 4.64 M/uL 3.90-5.40 Hemoglobin 13.6 gm/dL 11.6-15.8 Hematocrit 41.3 % 36.0-46.1 Mean Cell Volume 89.0 fl 80.9-99.0 Mean Corpuscular HGB 29.3 pg 25.9-32.7 Mean Corpuscular HGB Conc 32.9 g/dL 30.8-34.3 Platelet Count 367 K/uL High 155-360 Red Cell Distri Width %CV 13.3 % 11.7-14.4 Mean Platelet Volume 11.5 fL 8.9-12.4 Urinalysis With 02/15/2013 [facility] Urine Color YELLOW Yellow Microscopic [address] [place] [address] [phone] Urine Clarity CLEAR Clear Urine Glucose - Dipstick NEGATIVE mg/dL Negative Urine Bilirubin - Dipstick NEGATIVE Negative Urine Ketone NEGATIVE mg/dL Negative Urine Specific Keeler 1.025 1.010-1.030 Urine Blood TRACE Negative Urine [...] Urine Mucus SMALL NONESEEN Laboratory test 02/15/2013 [facility] Urine Screen See Note 13 finding [address] [place] [address] [phone] 1 [id number] 2 SEE RESULT BELOW Name: ZACARIAS JULIO : [address]: Prashanth Mcrae MD Acct: [id number] Unit: [id number] AGE: 31 Location: [facility] Re01/02/17 SEX: F Status: REG REF SPEC: [id number] LISSETTE: 01/02/17-[address]: Prashanth Mcrae MD REQ: [id number] RECD: 01/02/17 STATUS: SOUT _ ORDERED: LEVEL V COMMENTS: [id number] Flow cytometry has been performed at [place], [place]. The testing reveals: FINAL DIAGNOSIS: Specimen Source: Lymph node, right parotid ([id number]) Flow cytometry immunophenotypic analysis: No evidence of [...] MD 01/04/17 1046 Technical component performed by: [address] [address] Complaint Clerk: Vivek Pérez II, MD, PhD. CONTINUED ON NEXT PAGE * ML=Testing performed at [facility] DEPARTMENT OF PATHOLOGY, [address] [place] [address] David Christian M.D. Director [facility] # [id number] RUN DATE: 01/05/17 [facility] LAB LIVE PAGE 2 Patient: ZACARIAS JULIO Magali [id number] (Continued) ADDENDUM (Continued) Addendum Signed (signature on [...] crook-pink. The specimen is trisected and a inbound sales representative section is submitted for flow cytometry. The remaining specimen is entirely submitted in one cassette. Signed (signature on file) Hillary Soto MD 1049 END OF REPORT * ML=Testing performed at Main Lab DEPARTMENT OF PATHOLOGY, [address] [place] [address] David Christian M.D. Director [facility] # [id number] 3 FINAL DIAGNOSIS: Specimen Source: Lymph node, right parotid ([id number]) Flow cytometry immunophenotypic analysis: No evidence of [...] MD 01/04/17 1046 Technical component performed by: [place] [address] Complaint Clerk: Vivek Pérez II, MD, PhD. 4 Levels of Specific IgE Class Description of Class ----- < 0.10 0 Negative 0.10 - 0.31 0/I Equivocal/Low 0.32 - 0.55 I Low 0.56 - 1.40 II Moderate 1.41 - 3.90 III High 3.91 - 19.00 IV Very High 19.01 - 100.00 V Very High >100.00 Very High 5 Performed at: - [facility] [id number] [place] Seam Operator: Vivek Medina MD, Phone: [phone] Performed at: [facility] [id number] [place] Seam Operator: Yoon Madden MD, Phone: [phone] Test(s) [id number] Cockroach, Taiwanese; 475582- J946-BsK Elaine Ferrari were developed and had performance [...] 13 02/15/13 LAB.RAP Deleted by Reflex Group [facility] Procedures Date Code Description Status 12/24/2018 65483 Ultrasound Head/Neck Completed 09/06/2018 85111 Tympanometry Completed 09/06/2018 73538 Audiometry, Comprehensive Completed 07/26/2018 73037 Tympanostomy, Gen. Anesth. Completed 07/26/2018 86341 Anesthesia, Tympanotomy Completed 06/07/2018 68214 Tympanometry Completed 06/07/2018 63846 Audiometry, Comprehensive Completed 04/12/2018 69517 Ultrasound Head/Neck Completed 12/05/2017 56837 Tympanometry Completed 12/05/2017 88562 Audiometry, Comprehensive Completed 10/18/2017 61000 Tympanometry Completed 05/02/2017 16772 Nasal Endoscopy, Diag. Completed 02/21/2017 78704 Remove Impacted Cerumen Completed 01/02/2017 38034 Anesthesia Salivary Glands Biopsy Completed 01/02/2017 76532 Exc Of Parotid Gland/Tumor/Lateral Lobe W/O Nerve Completed Dissection 11/30/2016 94938 Ultrasound Head/Neck Completed 09/30/2016 39482 Nasal Endoscopy, Diag. Completed 04/04/2016 84334 Nasal Endoscopy, Diag. Completed 09/20/2015 89896 Sleep Staging 4Or More Para Completed 09/14/2015 68325 Ultrasound Head/Neck Completed 08/25/2015 05246 Nasal Endoscopy, Diag. Completed 02/28/2015 96432 Ultrasonic Guide Needle Biopsy Completed 02/28/2015 88468 Fna W/Image Completed 02/11/2015 80293 Ultrasound Head/Neck Completed 01/26/2015 47774 Ultrasound Head/Neck Completed 11/06/2014 11078 Nasal/Sinus Endosc.Surg.W.Ethmoid Completed 11/06/2014 34483 Nasal/Sinus Endosc.W.Max.Antrost. Completed 11/06/2014 68066 Nasal/Sinus Endosc.W.Explor. Completed 11/06/2014 06493 Nasal/Sinus Endoscopy Surg/Sphen. Completed 11/06/2014 38176 Stereotactic Computer-Assisted, Cranial, Extradural Completed 03/24/2014 68745 Nasal Endoscopy, Diag. Completed 12/25/2013 02889 Nasal Endoscopy, Diag. Completed 12/04/2013 28000 Nasal Endoscopy, Diag. Completed 11/22/2013 43839 Nasal Endoscopy, Diag. Completed 02/21/2013 29137 Exc.Turbinate/Partial Or Complete Completed 02/21/2013 76733 Septoplasty Completed 02/21/2013 86149 Nasal/Sinus Endosc.Surg.W.Ethmoid Completed 02/21/2013 20131 Nasal/Sinus Endosc.W.Max.Antrost. Completed 02/21/2013 89905 Nasal/Sinus Endosc.W.Explor. Completed 02/21/2013 69108 Nasal/Sinus Endoscopy Surg/Sphen. Completed 02/21/2013 49567 Stereotactic Computer-Assisted, Cranial, Extradural Completed 12/24/2012 83414 Tympanometry Completed 12/24/2012 96225 Audiometry, Comprehensive Completed 12/24/2012 11421 Nasal Endoscopy, Diag. Completed 08/02/2012 25606 Audiometry, Comprehensive Completed 01/19/2009 23494 Acoustic Reflex Testing Completed 01/19/2009 61269 Tympanometry Completed 01/19/2009 46822 Audiometry, Comprehensive Completed 08/21/2008 47968 Acoustic Reflex Testing Completed 08/21/2008 06004 Tympanometry Completed 08/21/2008 52632 Audiometry, Comprehensive Completed 01/10/2007 57995 Tonsillectomy;Age 12 Or Over Completed Encounters Type Date Location Provider Dx Diagnosis Office Visit 05/09/2019 Main Office Neha Vines, H92.02 Otalgia, left ear 9:00a [employer] Office Visit 12/24/2018 Main Office Prashanth Mcrae M.D. R59.0 Localized enlarged 1:45p lymph nodes Office Visit 10/22/2018 Main Office Prashanth Mcrae M.D. 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, right ear, w unrestr hear cntra side Office Visit 06/07/2018 3:15p Main Office Prashanth Mcrae J31.0 Chronic rhinitis Margret.DChris H65.20 Chronic serous otitis media, unspecified ear [...] Neha De Los Santos H69.93 Unspecified Vines, [employer] Eustachian tube disorder, bilateral J30.9 Allergic rhinitis, unspecified Office Visit 01/01/2018 9:45a Main Office Neha De Los Santos J30.9 Allergic rhinitis, Vines, [employer] unspecified Office Visit 12/05/2017 9:15a Main Office Neha A H69.93 Unspecified Vines, [employer] Eustachian tube disorder, bilateral Office Visit 10/18/2017 1:00p Main Office Neha A H69.93 Unspecified Vines, [employer] Eustachian tube disorder, bilateral Office Visit 07/03/2017 8:00a Main Office Prashanth Mcrae, J01.90 Acute sinusitis, M.D. unspecified J31.0 Chronic rhinitis Office Visit 05/02/2017 8:00a Main Office Prashanth Mcrae J30.9 Allergic rhinitis, M.D. unspecified H61.23 Impacted cerumen, bilateral Office Visit 04/03/2017 8:15a Main Office Prashanth Mcrae K21.9 Gastro- esophageal reflux M.D. disease without [...] Office Visit 08/23/2016 8:15a Main Office Neha De Los Santos J06.9 Acute upper Vines, [employer] respiratory infection, unspecified Office Visit 08/02/2016 3:15p Main Office Prashanth Mcrae J31.0 Chronic rhinitis M.D. R06.83 Snoring Office Visit 06/30/2016 9:15a Main Office Prashanth Mcrae M.D. J31.0 Chronic rhinitis T78.40xD Allergy, unspecified, subsequent encounter Office Visit 04/04/2016 8:00a Main Office Prashanth Mcrae, T78.40xD Allergy, M.D. unspecified, subsequent encounter J31.0 Chronic rhinitis R06.83 Snoring Office Visit 02/02/2016 5:15p Main Office Prashanth Mcrae J01.80 Other acute M.D. sinusitis T78.40xD Allergy, [...] Main Office Neha Vines, 473.8 Sinusitis Chronic [employer] Other Office Visit 11/12/2014 10:15a Main Office Neha Vines, 473.9 Sinusitis Chronic [employer] Unspec Office Visit 10/15/2014 8:45a Main Office Prashanth Mcrae, 473.9 Sinusitis Chronic M.D. Unspec 472.0 Rhinitis Chronic Office Visit 09/10/2014 5:00p Main Office Prashanth Mcrae, 473.9 Sinusitis Chronic M.D. Unspec 472.0 Rhinitis Chronic Office Visit 08/27/2014 5:45p Main Office Prashanth Mcrae, 461.8 Sinusitis Acute M.D. Other 472.0 Rhinitis Chronic Office Visit 08/13/2014 3:15p Main Office Neha De Los Santos 461.8 Sinusitis Acute Vines, [employer] Other Office Visit 03/24/2014 3:45p Main Office [...] Office Neha A Vines, 462 Pharyngitis Acute [employer] 477.2 Allergic Rhinitis Cat/Dog 477.9 Rhinitis Allergic Cause Unspec Office Visit 07/03/2013 4:00p Main Office Neha A 462 Pharyngitis Acute Vines, [employer] Office Visit 04/02/2013 10:00a Main Office Neha A 462 Pharyngitis Acute Vines, [employer] Office Visit 12/28/2012 3:15p Main Office Prashanth Mcrae, 473.9 Sinusitis Chronic M.D. Unspec 461.8 Sinusitis Acute Other 995.3 Allergy Unspec 470 Deviated Nasal Septum 478.0 Hypertrophy Nasal Turbinates Office Visit 12/24/2012 8:15a Main Office Prashanth Mcrae, 473.9 Sinusitis Chronic M.D. Unspec 381.81 Eustachian Tube Dysfunction 995.3 Allergy Unspec Office Visit 05/25/2012 3:30p Main Office Page 381.81 Eustachian Tube Adriana, PA Dysfunction Office Visit 07/29/2009 9:30a Main Office Olga Ibarra PA 381.81 Eustachian Tube Dysfunction 995.3 Allergy Unspec Office Visit 01/19/2009 1:30p Main Office Olga Ibarra 381.81 Eustachian Tube PA Dysfunction 786.2 Cough Office Visit 12/15/2006 11:00a Main Office Prashanth Mcrae, 474.00 Tonsillitis Chronic M.D.
--- OUTSIDE RECORDS SUMMARY | 2019-06-29 15:03 | XMS REPORT | Continuity of Care Document ---
:1985 External Reference #:[id number] Author Name Florecita Vitale M.D. 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 Onset: 02/21/2019 Allergic rhinitis due to animals BEATRICE Koenig-Wing Onset: 04/06/2017 Mild persistent asthma Alis ZOFIA HodgesP-C Onset: 04/06/2017 Body mass index (BMI) 22.0-22.9, adult ALEXEI Jaime Onset: 2015 Ingestion dermatitis due to food ALEXEI Jaime Onset: 06/16/2016 Urticaria ALEXEI Jaime Onset: 06/16/2016 Acute upper respiratory infection of ALEXEI Jaime Onset: 07/01/2014 multiple sites Allergic rhinitis ALEXEI Jaime Onset: 04/10/2014 Allergic rhinitis due to pollen So ALEXEI Lopez Onset: 10/29/2013 Allergic asthma without status asthmaticus So LopezALEXEI Onset: 08/2013 Family History Date Family Member(s) Observation Comments General Diabetes grandmother paternal General Food Intolerance multiple with mushroom allergy per patient Social History Type Date Description Comments Sex Unknown Marital Status Legal Status: Never Lives With Grandmother Lives With Brother twin Lives With Uncle 3 Home Environment 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 ETOH Use Rarely consumes alcohol Tobacco Use Start: Unknown Patient has never smoked Recreational Drug Use Denies Drug Use Allergies, Adverse Reactions, Alerts Active Allergies Reaction Severity Comments Date Prednisone Hives 12/25/2018 Inactive Allergies NKDA 12/16/2008 Medications Active Medications SIG Qnty Indications Ordering Date Provider Qvar Redihaler 2 puff every 12 3units J45.998 Hector Ramon, 02/21/2019 80mcg/Act hour M.D. Aerosol Ipratropium [place] use with nebulizer 75ml J45.31 Sobeida 12/25/2018 0.02% am&pm IAN Cerna Solution Cetirizine HCL 10 milliliters by 120ml [...] SIG Qnty Indications Ordering Provider Date Injection Allergy Injection 06/05/2019 Injection Injection Allergy Injection 05/30/2019 Injection Injection Allergy Injection 05/21/2019 Injection Injection Allergy Injection 05/16/2019 Injection Injection Allergy Injection 05/09/2019 Injection Injection Allergy Injection 05/02/2019 Injection Injection Doron Noel M.D. 09/04/2014 Injection Injection Allergy Injection 09/04/2014 Injection Injection Doron Noel M.D. 07/31/2014 Injection Injection Allergy Injection 07/31/2014 Injection Injection Doron Elsa Noel 07/15/2014 Injection Injection Allergy Injection 07/15/2014 Injection Injection So Lopez [facility] 07/08/2014 Injection Injection Allergy Injection 07/08/2014 Injection Injection Doron Elsa Noel 06/24/2014 Injection Injection Allergy Injection 06/24/2014 Injection Injection Doron Elsa Noel 06/19/2014 Injection Injection Allergy Injection 06/19/2014 Injection Injection Doron Noel M.D. 06/12/2014 Injection Injection Allergy Injection 06/12/2014 Injection Injection Doron Elsa Noel 06/05/2014 Injection Injection Allergy Injection 06/05/2014 Injection Injection Doron Elsa Noel 05/29/2014 Injection Injection Allergy Injection 05/29/2014 Injection Injection Doron Elsa Noel 05/22/2014 Injection Injection Allergy Injection 05/22/2014 Injection Injection Doron Elsa Noel 05/15/2014 Injection Injection Allergy Injection 05/15/2014 Injection Injection Doron Elsa Noel 05/08/2014 Injection Injection Allergy Injection 05/08/2014 Injection Injection Allergy Injection 05/01/2014 Injection Injection Doron Elsa Noel 04/24/2014 Injection Injection Allergy Injection 04/24/2014 Injection Injection Doron Elsa Noel 04/17/2014 Injection Injection Allergy Injection 04/17/2014 Injection Injection Doron Elsa Noel 04/10/2014 Injection Injection Allergy Injection 04/10/2014 Injection Injection Doron Elsa Noel 11/14/2013 Injection Injection Allergy Injection 11/14/2013 Injection Injection Doron Elsa Noel 11/07/2013 Injection Injection Allergy Injection 11/07/2013 Injection Immunizations CPT Code Status Date Vaccine Lot # [id number] Given 11/20/2012 Influenza Vaccine 06227 Given Unknown Influenza Vaccine 18340 Given Unknown Influenza Vaccine 36838 Given Unknown Influenza Vaccine Vital Signs Date Vital Result Comment 06/05/2019 11:54am Height 65.5 inches 5'5.50" Weight 183.00 lb Weight 83.009 kg Respiratory Rate 16 /min Heart Rate 90 /min O2 % BldC Oximetry 98 % BP Systolic 118 mmHg BP Diastolic 77 mmHg Asthma Control Test 21 BMI (Body Mass Index) 30.0 kg/m2 04/25/2019 11:21am Height 65.5 inches 5'5.50" Weight [...] Result H/L Range Note Laboratory test 06/16/2016 [facility] Milk (Cow) < 0.[address] [id number]/[place] [address] [phone] Tryptase 3.9 ug/L 2.2-13.2 Immunoglobulin E,Total <1 IU/mL 0-100 Beef <0.10 Xwlps4qU/L Wheat <0.10 Ukhcg8tP/L F087 Melon,Honeydew <0.10 Oqgbw7cG/L Grapes <0.10 Mdegt3eS/L Green Beans <0.10 Ddvqf2jE/L C539-AvE Broccoli <0.10 Chfom1cE/L 1 mRast Class (Text Only) See Note 2 1 Test(s) 808850-K818-TvR Green Rosario were developed and had performance characteristics determined by [facility]. These tests have not been cleared or approved by the U.S. Food and Drug Administration. The FDA has determined that such clearance or approval is not necessary. These tests are used for clinical purposes. These should not be regarded as investigational or for research. Performed at: - [facility] [id number] Agricultural Equipment Design Engineer: Yoon Madden MD, Phone: [phone] Performed at: - [facility] [id number] Agricultural Equipment Design Engineer: Vivek Medina MD, Phone: [phone] 2 Levels of Specific IgE Class Description of Class ----- < 0.10 0 Negative 0.10 - 0.31 0/I Equivocal/Low 0.32 - 0.55 I Low 0.56 - 1.40 II Moderate 1.41 - 3.90 III High 3.91 - 19.00 IV Very High 19.01 - 100.00 V Very High >100.00 Very High Procedures Date Code Description Status 06/05/2019 30566 Injection Completed 06/05/2019 36533 Pre PFT Completed 05/30/2019 30129 Injection Completed 05/21/2019 35528 Injection Completed 05/16/2019 73020 Injection Completed 05/09/2019 74171 Injection Completed 05/02/2019 63888 Injection Completed 04/29/2019 65589 Extract 1-10 Completed 04/25/2019 11690 Nitric Oxide Gas Determination Completed 04/25/2019 04275 Pre PFT Completed 02/21/2019 60583 Nitric Oxide Gas Determination Completed 02/21/2019 49133 Pre PFT Completed 12/25/2018 25174 Nitric Oxide Gas Determination Completed 12/25/2018 62304 Ippb Completed 12/25/2018 32121 Pre PFT Completed 04/06/2017 97609 Pre PFT Completed 04/06/2017 25527 Ippb Completed 09/04/2014 10121 Injection Completed 09/04/2014 38737 Injection Completed 08/19/2014 07094 Pre PFT Completed 08/19/2014 94871 Pre PFT Completed 07/31/2014 40897 Injection Completed 07/31/2014 00685 Injection Completed 07/15/2014 48705 Injection Completed 07/15/2014 17991 Injection Completed 07/08/2014 40486 Injection Completed 07/08/2014 39872 Injection Completed 06/24/2014 72493 Injection Completed 06/24/2014 52449 Injection Completed 06/19/2014 87250 Injection Completed 06/19/2014 80251 Injection Completed 06/12/2014 22392 Injection Completed 06/12/2014 11301 Injection Completed 06/05/2014 59778 Injection Completed 06/05/2014 90316 Injection Completed 05/29/2014 63734 Injection Completed 05/29/2014 34995 Injection Completed 05/22/2014 69835 Injection Completed 05/22/2014 97967 Injection Completed 05/22/2014 62414 Pre PFT Completed 05/15/2014 85917 Injection Completed 05/15/2014 25003 Injection Completed 05/08/2014 16420 Injection Completed 05/08/2014 39040 Injection Completed 05/01/2014 15101 Injection Completed 04/24/2014 32626 Injection Completed 04/24/2014 50429 Injection Completed 04/17/2014 06193 Injection Completed 04/17/2014 93126 Injection Completed 04/10/2014 57917 Injection Completed 04/10/2014 53239 Injection Completed 04/10/2014 51904 Pre PFT Completed 11/14/2013 11160 Injection Completed 11/14/2013 48436 Injection Completed 11/07/2013 29560 Injection Completed 11/07/2013 42960 Injection Completed 11/04/2013 78163 Extract 1-10 Completed 10/29/2013 13159 Oxygen Level - Pulse Oximiter Completed 03/12/2013 65417 Skin Test Scratch # Of Units ____ Completed 03/05/2013 91687 Pulmonary Function Test Completed 12/23/2008 31814 Skin Tests Id Completed 12/23/2008 38073 Pre PFT Completed 12/16/2008 18659 Skin Test Scratch # Of Units ____ Completed Encounters Type Date Location Provider Dx Diagnosis Office Visit 06/05/2019 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 Lynsey Parry J45.30 Mild persistent AGRICULTURAL EDUCATION TEACHER-C asthma, uncomplicated J30.81 Allergic rhinitis due to animal (cat) (dog) hair and dander J30.1 Allergic rhinitis due to pollen Office Visit 02/21/2019 3:40p [facility] Hector Ramon M.D. J45.998 Other asthma J45.998 Other asthma Office Visit 12/25/2018 11:40a [facility] Sobeida J45.31 Mild persistent Uldrich, AGRICULTURAL EDUCATION TEACHER-C asthma with (acute) exacerbation J30.81 Allergic rhinitis due to animal (cat) (dog) hair and dander J30.1 Allergic rhinitis due to pollen J30.89 Other allergic rhinitis J30.2 Other seasonal allergic rhinitis Office Visit 04/06/2017 2:00p [place] Alis J45.31 Mild persistent Carroll, AGRICULTURAL EDUCATION TEACHER-C asthma with (acute) exacerbation J30.81 Allergic rhinitis due to animal (cat) (dog) hair and dander J30.1 Allergic rhinitis due to pollen J30.89 Other allergic rhinitis J30.2 Other seasonal allergic rhinitis L50.9 Urticaria, unspecified Z68.24 Body mass index (BMI) 24.0-24.9, adult Office Visit 06/16/2016 11:40a [place] So L50.9 Urticaria, Jessica, AGRICULTURAL EDUCATION TEACHER-BC unspecified L27.2 Dermatitis due to ingested food Z68.22 Body mass index (BMI) 22.0-22.9, adult Office Visit 08/26/2014 2:00p [place] [facility] So 493.00 Asthma Extrinsic Jessica, AGRICULTURAL EDUCATION TEACHER-BC Unspecified Office Visit 08/19/2014 3:00p [place] So 477.0 Rhinitis Allergic Jessica, AGRICULTURAL EDUCATION TEACHER-BC Due To Pollen 477.8 Rhinitis Allergic Due To Other Allergen 493.00 Asthma Extrinsic Unspecified Office Visit 07/08/2014 3:40p [place] [facility] So Lopez, 477.8 Rhinitis AGRICULTURAL EDUCATION TEACHER-BC Allergic Due To Other Allergen 477.0 Rhinitis Allergic Due To Pollen 477.0 Rhinitis Allergic Due To Pollen 477.8 Rhinitis Allergic Due To Other Allergen 493.00 Asthma Extrinsic Unspecified Office Visit 07/01/2014 1:20p [place] [facility] So Lopez, 477.0 Rhinitis AGRICULTURAL EDUCATION TEACHER-BC Allergic Due To Pollen 477.8 Rhinitis Allergic Due To Other Allergen 493.00 Asthma Extrinsic Unspecified 465.8 Upper Respiratory Infections Acute Other Multiple Sites Office Visit 05/22/2014 3:00p [place] [facility] So Lopez, 477.8 Rhinitis AGRICULTURAL EDUCATION TEACHER-BC Allergic Due To Other Allergen 477.0 Rhinitis Allergic Due To Pollen 493.00 Asthma Extrinsic Unspecified Office Visit 04/10/2014 2:40p [place] [facility] So Lopez, 477.0 Rhinitis AGRICULTURAL EDUCATION TEACHER-BC Allergic Due To Pollen 477.8 Rhinitis Allergic Due To Other Allergen 493.00 Asthma Extrinsic Unspecified Office Visit 10/29/2013 5:20p [place] [facility] So 493.00 Asthma Extrinsic Jessica, AGRICULTURAL EDUCATION TEACHER-BC Unspecified 477.0 Rhinitis Allergic Due To Pollen Office Visit 07/04/2013 11:00a [place] [facility] Sharita L. 493.00 Asthma Extrinsic Stefan, AGRICULTURAL EDUCATION TEACHER-C Unspecified 477.0 Rhinitis Allergic Due To Pollen Office Visit 04/25/2013 2:20p [place] [facility] Sharita L. 493.00 Asthma Extrinsic Stefan, AGRICULTURAL EDUCATION TEACHER-C Unspecified 684 [address] 477.0 Rhinitis Allergic Due To Pollen Office Visit 03/12/2013 2:20p [place] [facility] Sharita L. 493.00 Asthma Extrinsic Stefan, AGRICULTURAL EDUCATION TEACHER-C Unspecified 472.0 Rhinitis Chronic 477.0 Rhinitis Allergic Due To Pollen Office Visit 03/05/2013 1:20p [place] [facility] Florecita Oswald 472.0 Rhinitis Elsa Vitale Chronic 493.00 Asthma Extrinsic Unspecified Office Visit 01/06/2009 3:15p [place] Maikel 477.0 Rhinitis Elsa Nicholas Allergic Due To Pollen 493.90 Asthma Unspec W/O Status Asthmaticus Office Visit 12/16/2008 9:15a [place] [facility] Maikel 477.0 Rhinitis Elsa Nicholas Allergic Due To Pollen 493.90 Asthma Unspec W/O Status Asthmaticus Plan of Treatment Future Appointment(s):06/12/2019 2:00 pm - Allergy Injection at [facility]12/11/2019 1:20 pm - IAN Flores at [facility]10/31/2019 11:40 am - IAN Merino at [facility]06/05/2019 - BEATRICE Flores-CJ30.1 Allergic rhinitis due to iexfwiX86.2 Other seasonal allergic xgrrkglrM42.81 Allergic rhinitis due to animal (cat) (dog) hair and djqtvmH10.89 Other allergic bjrqtunyD09.30 Mild persistent asthma, uncomplicatedFollow up:6 months with pre PFTRecommendations:Continue all medications as prescribed.Refrain from wearing perfumes/scented colognes while visitingour office. Start the Spiriva 2 puffs daily Use the nebulizer with albuterol daily Continue the Breo 1 puffs daily Continue the cetirizine 1 daily Continue the levocetirizine 1 daily Continue the Ventolin 2 puffs every 4 hours as needed for cough, shortness of breath, tightness or wheezing. Continue the allergy shots
== END 2019-06-29 13:05 | disposition home or self-care (01) ==
LOC: UCCORT 11:32
DX: K44.9 Diaphragmatic hernia without obstruction or gangrene (principal)
CPT/HCPCS: 99211; G0463

== ENCOUNTER 2019-08-19 16:46 | Emergency (ER) | payer MEDICARE, MEDICAID ==
--- OUTSIDE RECORDS SUMMARY | 2019-08-19 16:57 | XMS REPORT | Continuity of Care Document ---
:1985 External Reference #:[id number] Author Name Neha Vines NP Address [address] [place] [address] Care Team Providers Name Role Phone GopalGifty Care Team Information Building Rigger [phone] Problems Active Problems Provider Date Dysfunction of eustachian tube Adriana Abel PA Onset: 05/25/2012 Lymphadenopathy Neha Vines NP Onset: 07/31/2019 Social History Type Date Description Comments Sex Female ETOH Use Denies alcohol use Recreational Drug Use Never Used Drugs Allergies, Adverse Reactions, Alerts Active Allergies Reaction Severity Comments Date Mushrooms 05/25/2012 Amoxicillin vomiting 02/27/2013 Inactive Allergies NKDA 01/19/2009 Medications Active Medications SIG Qnty Indications Ordering Provider Date Tramadol HCL 1-2. tab q4h. 12tabs Prashanth Mcrae M.D. 07/25/2019 50mg for pain Tablets Strattera once a day Unknown 120mg Capsules Zofran every 6 hours as Unknown 4mg Tablets needed nausea History Medications Ofloxacin (Ophthalmic) 3-4 drops in 15ml Prashanth Mcrae, 05/09/2019 - 0.3% affected ear twice M.D. 07/08/2019 Solution a day for 1 weeks Azithromycin 2 by mouth every 6tabs Prashanth Mcrae, 04/04/2019 - 250mg Tablets day 1, 1 by mouth M.D. 05/09/2019 every day 2-5 Immunizations Description No Information Available Vital Signs Date Vital Result Comment 07/31/2019 10:47am Weight 183.00 lb Height 66 inches 5'6" BMI (Body Mass Index) 29.5 kg/m2 BP Systolic 135 mmHg BP Diastolic 95 mmHg Heart Rate 109 /min O2 % BldC Oximetry 98 % Body Temperature 97.1 F Pain Level 0 06/10/2019 1:15pm Weight 186.00 lb Height 66 inches 5'6" BMI (Body Mass Index) 30.0 kg/m2 BP Systolic 115 mmHg BP Diastolic 82 mmHg Heart Rate 84 /min O2 % BldC Oximetry 98 % Body Temperature 97.2 F Pain Level 6 Results Test Date Facility Test Result H/L Range Note Laboratory test 07/24/2019 [facility] Surgical Pathology SEE RESULT 1, [address] [place] [address] [phone] Leukemia/Lymphom 07/24/2019 [facility] Path Interpretation TNP a Phenot [address] [place] [address] [phone] Path Interpret 9-15 Marker (SEE NOTE) 3 Path Interpret > 16 Marker TNP 1 [id number] 2 SEE RESULT BELOW Name: SHARITA JULIO Magali : [address]: Prashanth Mcrae MD Acct: [id number] Unit: [id number] AGE: 33 Location: [facility] Re07/24/19 SEX: F Status: REG REF SPEC: [id number] [place]: 07/24/19-[address] [facility] [address]: Prashanth Mcrae MD REQ: [id number] RECD: 07/24/19 STATUS: SOUT _ ORDERED: LEVEL 4, TOUCH PREP COMMENTS: [id number] ADDENDUM Flow cytometry has been performed at [facility] [employer], [place], [place]. The testing reveals: FINAL DIAGNOSIS: Specimen Source: Lymph node, left posterior auricular ([id number]) Flow cytometry immunophenotypic analysis: No evidence of an immunophenotypically abnormal cell population. Interpretative data: Lymphocytes: 99% B-cells: 20% of lymphs; kappa:lambda within normal limits T-cells/NK cells: No aberrant population detected. Markers tested: CD3, CD5, CD7, CD10, CD19, CD20, CD23, CD45, kappa surface light chains, lambda surface light chains, 7-AAD. Quality Assessment: Acceptable Viability: Acceptable Viable lymphocytes (7-AAD): 99% Specimen received within validated guidelines. A Jackson-Giemsa stained slide prepared from the flow cytometry specimen was examined for quality purposes. Electronically signed by: Hillary Soto MD 07/26/19 1054 Technical component performed by: [place] [address] Meter Tester: Vivek Pérez II, MD, PhD. Addendum Signed (signature on file) David Christian MD 1457 FINAL DIAGNOSIS CONTINUED ON NEXT PAGE DEPARTMENT OF PATHOLOGY, [address] [place] [address] David Christian M.D. Director [facility] # [id number] Left posterior auricular lymph node, excisional biopsy: -- Benign lymphoid tissue. PATHOLOGY SURGICAL CONSULT Frozen section (FS)/Touch Prep (TP)/Gross Consult (GC) TP) Lymph node, left post auricular, excision: a. Touch prep performed. (EP) b. Lymphoid tissue present. (EP) c. Specimen sent for flow cytometry. (EP) CLINICAL HISTORY No history given GROSS DESCRIPTION The specimen is received fresh labeled, Left Postauricular Lymph Node, and consists of a 0.5 x 0.4 x 0.4 cm crook-pink lymph node with mild adherent yellow fat. The specimen is bisected and a territory account representative section is submitted for flow cytometry. The remaining specimen is submitted in one cassette. Signed by and Reported on: Hillary Soto MD 07/26/19 1055 END OF REPORT DEPARTMENT OF PATHOLOGY, [address] [place] [address] David Christian M.D. Director [facility] # [id number] FINAL DIAGNOSIS: Specimen Source: Lymph node, left posterior auricular ([id number]) Flow cytometry immunophenotypic analysis: No evidence of an immunophenotypically abnormal cell population. Interpretative data: Lymphocytes: 99% B-cells: 20% of lymphs; kappa:lambda within normal limits T-cells/NK cells: No aberrant population detected. Markers tested: CD3, CD5, CD7, CD10, CD19, CD20, CD23, CD45, kappa surface light chains, lambda surface light chains, 7-AAD. Quality Assessment: Acceptable Viability: Acceptable Viable lymphocytes (7-AAD): 99% Specimen received within validated guidelines. A Jackson-Giemsa stained slide prepared from the flow cytometry specimen was examined for quality purposes. Electronically signed by: Hillary Soto MD 07/26/19 1054 Technical component performed by: [place] [address] Meter Tester: Vivek Pérez II, MD, PhD. Procedures Date Code Description Status 06/10/2019 74270 Ultrasound Head/Neck Completed Medical Devices Description No Information Available Encounters Type Date Location Provider Dx Diagnosis Office Visit 06/10/2019 Main Office Prashanth Mcrae M.D. 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 05/09/2019 H92.02 Otalgia, left ear Neha Vines NP Plan of Treatment No Information Available Functional Status Description No Information Available Mental Status Description No Information Available Referrals Description No Information Available
--- OUTSIDE RECORDS SUMMARY | 2019-08-19 16:57 | XMS REPORT | Continuity of Care Document ---
:1985 External Reference #:[id number] Author Name Raisa Mclain MD Address [address], [address] [place] [address] Care Team Providers Name Role Phone Oh, Emery-MD Dhruv - Obstetrics & Care Team Information Elementary Education Tutor Gynecology Sade Oh NP - Family Care Team Information Elementary Education Tutor Problems Active Problems Provider Date Attention deficit [...] Epigastric pain Lenard Saucedo MD,FACS Onset: 06/12/2019 Social History Type Date Description Comments Sex Unknown Tobacco Use Start: Unknown Never Smoked Cigarettes ETOH Use Currently consumes alcohol socially Tobacco Use Start: Unknown Patient has never smoked Recreational Drug Use Denies Drug Use Smoking Status Reviewed: 07/29/19 Patient has never smoked Allergies, Adverse Reactions, Alerts Active Allergies Reaction Severity Comments Date Penicillins vomit 11/26/2014 Amoxicillin vomit 09/01/2016 Prednisone Urticaria Moderate 02/14/2018 Medications Active Medications SIG Qnty Indications Ordering Provider Date Ondansetron 1 tablet twice Sade Oh, 4mg Tablets daily NATURAL GAS TREATING UNIT OPERATOR Dispers Atomoxetine HCL 2 tablet by mouth Nurys George 60mg daily NATURAL GAS TREATING UNIT OPERATOR Capsules Omeprazole 1 by mouth daily Althea Sadeskylar Ford, 40mg Capsules NATURAL GAS TREATING UNIT OPERATOR DR Immunizations Description No Information Available Vital Signs Date Vital Result Comment 07/29/2019 9:59am BP Systolic Sitting Left Arm 122 mmHg BP Diastolic Sitting Left Arm 80 mmHg Heart Rate 100 /min Respiratory Rate 16 /min Height 66 inches 5'6" Weight 183.00 lb BMI (Body Mass Index) 29.5 kg/m2 BSA (Body Surface Area) 1.93 m2 [place] body weight in kilograms 59 kg O2 % BldC Oximetry 99 % Ra 06/19/2019 9:14am BP Systolic Sitting Left Arm 121 mmHg BP Diastolic Sitting Left Arm 88 mmHg Body Temperature 97.3 F Heart Rate 105 /min Height 66 inches 5'6" Weight 180.00 lb BMI (Body Mass Index) 29.0 kg/m2 BSA (Body Surface Area) 1.91 m2 [place] body weight in kilograms 59 kg O2 % BldC Oximetry 100 % Results Description No Information Available Procedures Date Code Description Status 05/08/2019 48406 Stress Test Interpre And Report Only Completed 05/08/2019 40535 Stress Test Physician Super Only Completed 04/02/2019 57911 Echocardiogram Complete Completed 03/22/2019 28388 EKG-Tracing And Report Completed 11/28/2016 65449457 Colonoscopy Completed Medical Devices Description No Information Available Encounters Type Date Location Provider Dx Diagnosis Office Visit 06/19/2019 Orthopaedic Office Theodora Odonnell, S63.612A Unspecified sprain 10:00a PA of right middle finger, initial encounter W19.xxxA Unspecified fall, initial encounter Office Visit 06/18/2019 9:20a Cardiology Office Teresita, R07.9 Chest pain, Marlyss B., PA unspecified R06.02 Shortness of breath Office Visit 06/12/2019 10:00a Surgical Office Sheryl, R10.13 Epigastric pain MD Lenard,FACS Office Visit 03/22/2019 9:00a Cardiology Office Teresita, R07.9 Chest pain, Marlyss B., PA unspecified R07.9 Chest pain, unspecified R06.02 Shortness of breath R06.02 Shortness of breath R53.83 Other fatigue R53.83 Other fatigue Assessments Date Code Description Provider 07/29/2019 R10.13 Epigastric pain Raisa Mclain MD 07/29/2019 R11.2 Nausea with vomiting, unspecified Raisa Mclain MD 06/19/2019 S63.612A Unspecified sprain of right middle Theodora Odonnell PA finger, initial encounter 06/19/2019 W19.xxxA Unspecified fall, initial Theodora Odonnell PA encounter 06/18/2019 R07.9 Chest pain, unspecified Teresita, Marlyss B., PA 06/18/2019 R06.02 Shortness of breath Teresita, Marlyss B., PA 06/12/2019 R10.13 Epigastric pain Lenard Saucedo MD,FACS 05/08/2019 R07.9 Chest pain, unspecified Fantasma Sterling M.D., [facility] 04/02/2019 R06.02 Shortness of breath Wade Mendez MD 04/01/2019 R07.9 Chest pain, unspecified Teresita, Marlyss B., PA 04/01/2019 R06.02 Shortness of breath Teresita, Marlyss B., PA 04/01/2019 R53.83 Other fatigue Teresita, Marlyss B., PA 03/22/2019 R07.9 Chest pain, unspecified Teresita, Marlyss B., PA 03/22/2019 R07.9 Chest pain, unspecified Teresita, Marlyss B., PA 03/22/2019 R06.02 Shortness of breath Teresita, Marlyss B., PA 03/22/2019 R06.02 Shortness of breath Gregg Lo PA 03/22/2019 R53.83 Other fatigue Gregg Lo PA 03/22/2019 R53.83 Other fatigue Gregg Lo PA Plan of Treatment Future Appointment(s):06/17/2020 9:15 am - Wade Mendez MD at Cardiology [id number]/29/2019 - Raisa Mclain, MDR10.13 Epigastric painNew Labs:CBC W/ Automated Diff, Ordered: 07/29/19Comprehensive Metabolic Panel, Ordered: Lipase, Ordered: 07/29/19Comments:Trial of daily PPI, 30 minutes before breakfastAnti-reflux lifestyle modifications discussedFODMAP diet recommendedDiscussed esophageal manometry with patient; Referral provided to Alyssa Jaime;LabsIfno improvement with PPI, consider low dose TCA ( amitriptyline/imipramine) or SNRI (venlafaxine);R11.2 Nausea with vomiting, unspecified Functional Status Functional Condition Comment Date Status Independent with all ADL's Active Mental Status Description No Information Available Referrals Refer to Reason for Referral Status Appt Date Andrew Stuart MD Epigastric Pain, need for Manometry Testing Scheduled 2018 [address] [place] [address] [phone]
--- OUTSIDE RECORDS SUMMARY | 2019-08-19 16:57 | XMS REPORT | Continuity of Care Document ---
:1985 External Reference #:[id number] Author Name Ruth Ann Hartley M.D. Address [address] [place] [address] Care Team Providers Name Role Phone Emery Watkins-MD Dhruv - Obstetrics & Care Team Information Gastroenterology Nurse Gynecology Sade Oh NP - Family Care Team Information Gastroenterology Nurse Problems Active Problems Provider Date Attention deficit [...] Use Denies Drug Use Smoking Status Reviewed: 08/13/19 Patient has never smoked Allergies, Adverse Reactions, Alerts Active Allergies Reaction Severity Comments Date Penicillins vomit 11/26/2014 Amoxicillin vomit 09/01/2016 Prednisone Urticaria Moderate 02/14/2018 Medications Active Medications SIG Qnty Indications Ordering Provider Date Ondansetron 1 tablet twice Sade Oh, 4mg Tablets daily OPHTHALMIC MEDICAL TECHNOLOGIST Dispers Atomoxetine HCL 2 tablet by mouth Nurys George 60mg daily OPHTHALMIC MEDICAL TECHNOLOGIST Capsules Omeprazole 1 by mouth daily Sade Oh, 40mg Capsules OPHTHALMIC MEDICAL TECHNOLOGIST DR Immunizations Description No Information Available Vital Signs Date Vital Result Comment 08/13/2019 8:50am BP Systolic 139 mmHg BP Diastolic 95 mmHg Body Temperature 97.8 F Heart Rate 104 /min Respiratory Rate 16 /min Weight 184.00 lb O2 % BldC Oximetry 100 % 08/06/2019 1:32pm BP Systolic 128 mmHg BP Diastolic 91 mmHg Body Temperature 98.3 F Heart Rate 115 /min Respiratory Rate 16 /min Height 66 inches 5'6" Weight 183.00 lb BMI (Body Mass Index) 29.5 kg/m2 BSA (Body Surface Area) 1.93 m2 [place] body weight in kilograms 59 kg O2 % BldC Oximetry 100 % Pain Level 8 Results Test Date Facility Test Result H/L Range Note Urine Dipstick 08/06/2019 [facility] Ua Color yellow Yellow Ua Clarity clear Clear Ua Leuko neg Negative Ua Nitrite neg Negative Ua Urobilinogen 0.2 0.2 - 1.0 E.U./dL Ua Protein 15 High Negative Ua PH 5.5 Low 6.5-7.5 Ua Blood 200 High Negative Ua Specific [place] 1.030 1.010-1.030 Ua Ketones 5 High Negative Ua Bilirubin 1 High Negative Ua Glucose neg Negative CBC W/Automated 07/29/2019 [facility] White Blood 9.2 K/uL Normal 3.1-10.[address] [place] [address] [phone] Red Blood Count 4.72 M/uL Normal 3.90-5.40 Hemoglobin 13.3 gm/dL Normal 11.6-15.8 Hematocrit 41.3 % Normal 36.0-46.1 Mean Cell Volume 87.5 fl Normal 80.9-99.0 Mean Corpuscular HGB 28.2 pg Normal 25.9-32.7 Mean Corpuscular HGB Conc 32.2 g/dL Normal 30.8-34.3 Platelet Count 426 K/uL High 155-360 Red Cell Distri Width SD 41.9 fl Normal 36-47 Red Cell Distri Width %CV 13.2 % Normal 11.7-14.4 Mean Platelet Volume 10.9 fl Normal 8.9-12.4 Neut% 50.1 % Normal 40.4-72.8 Lymph % 38.6 % Normal 20.0-42.0 [place] % 5.3 % Normal 4.3-13.2 Eo% 5.4 % Normal 0.0-6.6 Bas% 0.4 % Normal 0.0-1.1 Immature Grans 0.2 % Normal 0.0-5.0 NRBC % 0.0 /100WBC < 10/ 100 WBC Neut# 4.59 K/uL Normal 1.8-7.0 Lymph # 3.54 K/uL Normal 1.0-4.0 [place] # 0.49 K/uL Normal 0.3-0.9 Eos # 0.50 K/uL Normal 0.0-0.5 Baso # 0.04 K/uL Normal 0.0-0.1 Immature Grans Absolute 0.02 K/uL NRBC # 0.00 K/uL Comprehensive 07/29/2019 [facility] Glucose 98 mg/dL Normal 74-106 Metabolic Panel [address] [place], [place] [address] [phone] BUN 14 mg/dL Normal 7-18 Creatinine 1.0 mg/dL Normal 0.6-1.3 Glom Filtration Rate, Estimate >60 mL/min >60 If >60 mL/min >60 2 BUN/Creat 14.0 ratio Sodium 138 mmol/L Normal 136-145 Potassium 4.3 mmol/L Normal 3.5-5.1 Chloride 106 mmol/L Normal 98-107 Carbon Dioxide 27 mmol/L Normal 21-32 Anion Gap 5 mEq/L Low 8-16 Calcium 9.1 mg/dL Normal 8.5-10.1 Total Protein 7.8 g/dL Normal 6.4-8.2 Albumin 3.7 g/dL Normal 3.4-5.0 Globulin 4.1 g/dL Normal 1.9-4.3 Alb/Glob 0.9 ratio Bilirubin,Total 0.4 mg/dL Normal 0.2-1.0 Sgot/Ast 29 U/L Normal 15-37 SGPT/Alt 46 U/L Normal 12-78 Alkaline Phosphatase 116 U/L Normal 45-117 Laboratory test finding 07/29/2019 [facility] Lipase 91 U/L Normal 56-289 [address] [place] [address] [phone] 1 R10.13 Normal CBC, CMP; Nonspecific thrombocytosis; 2 Note: Persistent reduction for 3 months or more in an eGFR <60 mL/min/1.73 m2 defines CKD. Patients with eGFR values >/=60 mL/min/1.73 m2 may also have CKD if evidence of persistent proteinuria is present. The original MDRD equation for estimated GFR is not valid for patients less than 18 years of age. Additional information may be found at [email or web address]. Procedures Date Code Description Status 05/08/2019 43496 Stress Test Interpre And Report Only Completed 05/08/2019 51562 Stress Test Physician Super Only Completed 04/02/2019 47987 Echocardiogram Complete Completed 03/22/2019 74048 EKG-Tracing And Report Completed 11/28/2016 [id number] Colonoscopy Completed Medical Devices Description No Information Available Encounters Type Date Location Provider Dx Diagnosis Office Visit 08/06/2019 2:00p Urology Ruth Ann Hartley, N20.0 Calculus of kidney M.D. Office Visit 07/29/2019 9:50a GI Raisa Mclain MD R10.13 Epigastric pain R11.2 Nausea with vomiting, unspecified Office Visit 06/19/2019 Orthopaedic Theodora Odonnell, S63.612A Unspecified 10:00a Office PA sprain of right middle finger, initial encounter W19.xxxA [...] Other fatigue Assessments Date Code Description Provider 08/13/2019 N20.0 Calculus of kidney Ruth Ann Hartley M.D. 08/06/2019 N20.0 Calculus of kidney Ruth Ann Hartley M.D. 07/29/2019 R10.13 Epigastric pain Raisa Mclain MD [...] R07.9 Chest pain, unspecified Fantasma Sterling M.D., [facility] 04/02/2019 R06.02 Shortness of breath Wade [...] am - Wade Mendez MD at Cardiology Lobywf0008/13/2019 - Ruth Ann Hartley M.D.N20.0 Calculus of kidneyComments:Pt was reassured that pain is likely from bladder spasms, recommended she stays on medications, I told her to Give it few days if no improvement we can take stents out. Functional Status Functional Condition Comment Date Status Independent with all ADL's Active Mental Status Description No Information Available Referrals Refer to Reason for Referral Status Appt Date Wilber Hernández MD REFER FOR ESOPHAGEAL MOTILITY STUDY Created [address] [id number] [phone] Andrew Stuart MD Epigastric Pain, need for Manometry Testing Scheduled 2018 [address] [place] [address] [phone]
--- OUTSIDE RECORDS SUMMARY | 2019-08-19 16:57 | XMS REPORT | Continuity of Care Document ---
:1985 External Reference #:[id number] Author Name Ruth Ann Hartley M.D. Address [address] [facility] [address] [place] [address] Care Team Providers Name Role Phone Emery Watkins-MD Dhruv - Obstetrics & Care Team Information Printed Circuit Board Panels Developer Gynecology Sade Oh NP - Family Care Team Information Printed Circuit Board Panels Developer Problems Active Problems Provider Date Attention deficit [...] Use Denies Drug Use Smoking Status Reviewed: 08/19/19 Patient has never smoked Allergies, Adverse Reactions, Alerts Active Allergies Reaction Severity Comments Date Penicillins vomit 11/26/2014 Amoxicillin vomit 09/01/2016 Prednisone Urticaria Moderate 02/14/2018 Medications Active Medications SIG Qnty Indications Ordering Provider Date Sulfamethoxazole/Trim 1 by mouth once 1tabs Ruth Ann Hartley, 08/19/2019 ethoprim DS given in office M.D. 800-160mg for procedure Tablets Atomoxetine HCL 2 tablet by mouth Nurys George 60mg daily BRAKE REPAIR MECHANIC Capsules Omeprazole 1 by mouth daily Sade Oh 40mg Liliana, BRAKE REPAIR MECHANIC Capsules DR [place] Description No Information Available Vital Signs Date Vital Result Comment 08/19/2019 8:33am BP Systolic 146 mmHg BP Diastolic 96 mmHg Body Temperature 97.8 F Heart Rate 80 /min Respiratory Rate 16 /min Weight 184.00 lb O2 % BldC Oximetry 99 % Pain Level 8 08/13/2019 8:50am BP Systolic 139 mmHg BP Diastolic 95 mmHg Body Temperature 97.8 F Heart Rate 104 /min Respiratory Rate 16 /min Weight 184.00 lb O2 % BldC Oximetry 100 % Results Test Date Facility Test Result H/L Range Note Urine Dipstick 08/06/2019 [facility] Ua Color yellow Yellow Ua Clarity clear Clear Ua Leuko neg Negative Ua Nitrite neg Negative Ua Urobilinogen 0.2 0.2 - 1.0 E.U./dL Ua Protein 15 High Negative Ua PH 5.5 Low 6.5-7.5 Ua Blood 200 High Negative Ua Specific [place] 1.030 1.010-1.030 Ua Ketones 5 High Negative Ua Bilirubin 1 High Negative Ua Glucose neg Negative CBC W/Automated 07/29/2019 [facility] White Blood 9.2 K/uL Normal 3.1-10.[address] [place] [address] [phone] Red Blood Count 4.72 M/uL Normal 3.90-5.40 [...] 40.4-72.8 Lymph % 38.6 % Normal 20.0-42.0 [place] % 5.3 % Normal 4.3-13.2 Eo% 5.4 % Normal 0.0-6.6 Bas% 0.4 % Normal 0.0-1.1 Immature Grans 0.2 % Normal 0.0-5.0 NRBC % 0.0 /100WBC < 10/ 100 WBC Neut# 4.59 K/uL Normal 1.8-7.0 Lymph # 3.54 K/uL Normal 1.0-4.0 [place] # 0.49 K/uL Normal 0.3-0.9 Eos # 0.50 K/uL Normal 0.0-0.5 Baso # 0.04 K/uL Normal 0.0-0.1 Immature Grans Absolute 0.02 K/uL NRBC # 0.00 K/uL Comprehensive 07/29/2019 [facility] Glucose 98 mg/dL Normal 74-106 Metabolic Panel [address] [place] [address] [phone] BUN 14 mg/dL Normal 7-18 Creatinine 1.0 [...] [facility] Lipase 91 U/L Normal 56-289 [address] [place] [address] [phone] 1 R10.13 Normal CBC, CMP; Nonspecific thrombocytosis; [...] at [email or web address]. Procedures Date Code Description Status 08/12/2019 31262 Cystourethoscopy W/Ureteroscopy And/Or Pyeloscopy Completed Diagnostic 08/12/2019 46042 Cystourethroscopy W/ Insert Indwelling Ureteral Stent Completed 05/08/2019 23575 Stress Test Interpre And Report Only Completed 05/08/2019 01025 Stress Test Physician Super Only Completed 04/02/2019 05555 Echocardiogram Complete Completed 03/22/2019 34900 EKG-Tracing And Report Completed 11/28/2016 [id number] Colonoscopy Completed Medical Devices Description No Information Available Encounters Type Date Location Provider Dx Diagnosis Office Visit 08/13/2019 8:45a Urology Ruth Ann Hartley, N20.0 Calculus of kidney M.D. Office Visit 08/06/2019 2:00p Urology Ruth Ann [...] Calculus of kidney Ruth Ann Hartley M.D. 08/12/2019 N20.0 Calculus of Ruth Ann Kennedy M.D. 08/06/2019 N20.0 Calculus of kidney Ruth Ann Hartley M.D. 07/29/2019 R10.13 Epigastric pain Raisa Mclain MD 07/29/2019 R11.2 Nausea with vomiting, unspecified Raisa Mclain MD 06/19/2019 S63.612A Unspecified sprain of right middle Blas, [place], PA finger, initial encounter 06/19/2019 W19.xxxA Unspecified fall, initial Theodora Odonnell, PA encounter 06/18/2019 R07.9 Chest pain, unspecified Teresita, Marlyss B., PA 06/18/2019 R06.02 Shortness of breath Teresita, Marlyss B., PA 06/12/2019 R10.13 Epigastric pain Lenard Saucedo MD,FACS 05/08/2019 R07.9 Chest pain, unspecified Fantasma Sterling M.D., [facility] 04/02/2019 R06.02 Shortness of breath Wade [...] of breath Teresita, Marlyss B., PA 03/22/2019 R53.83 Other fatigue Teresita, Marlyss B., PA 03/22/2019 R53.83 Other fatigue Teresita, Marlyss B., PA Plan of Treatment Future Appointment(s):06/17/2020 9:15 am - Wade Mendez MD at Cardiology Office Functional Status Functional Condition Comment Date Status Independent with all ADL's Active Mental Status Description No Information Available Referrals Refer to Dr Reason for Referral Status Appt Date Wilber Hernández MD REFER FOR ESOPHAGEAL MOTILITY STUDY Created [address] [id number] [phone] Andrew Stuart MD Epigastric Pain, need for Manometry Testing Scheduled 2018 [address] [place] [address] [phone]
--- OUTSIDE RECORDS SUMMARY | 2019-08-19 16:57 | XMS REPORT | Continuity of Care Document ---
:1985 External Reference #:[id number] Author Name Ruth nAn Hartley M.D. Address [address] [facility] [facility] [address] [place] [address] Care Team Providers Name Role Phone Emery Watkins-MD Dhruv - Obstetrics & Care Team Information Holder [employer] [phone] Gynecology Sade Oh NP - Family Care Team Information Holder [employer] Problems Active Problems Provider Date Attention deficit [...] Use Denies Drug Use Smoking Status Reviewed: 08/06/19 Patient has never smoked Allergies, Adverse Reactions, Alerts Active Allergies Reaction Severity Comments Date Penicillins vomit 11/26/2014 Amoxicillin vomit 09/01/2016 Prednisone Urticaria Moderate 02/14/2018 Medications Active Medications SIG Qnty Indications Ordering Provider Date Ondansetron 1 tablet twice Sade Oh, 4mg Tablets daily CYBER SECURITY ADMINISTRATOR Dispers Atomoxetine HCL 2 tablet by mouth Nurys George 60mg daily CYBER SECURITY ADMINISTRATOR Capsules Omeprazole 1 by mouth daily Sade Oh, 40mg Capsules CYBER SECURITY ADMINISTRATOR DR Immunizations Description No Information Available Vital Signs Date Vital Result Comment 08/06/2019 1:32pm BP Systolic 128 mmHg BP Diastolic 91 mmHg Body Temperature 98.3 F Heart Rate 115 /min Respiratory Rate 16 /min Height 66 inches 5'6" Weight 183.00 lb BMI (Body Mass Index) 29.5 kg/m2 BSA (Body Surface Area) 1.93 m2 [place] body weight in kilograms 59 kg O2 % BldC Oximetry 100 % Pain Level 8 07/29/2019 9:59am BP Systolic Sitting Left Arm 122 mmHg BP Diastolic Sitting Left Arm 80 mmHg Heart Rate 100 /min Respiratory Rate 16 /min Height 66 inches 5'6" Weight 183.00 lb BMI (Body Mass Index) 29.5 kg/m2 BSA (Body Surface Area) 1.93 m2 [place] body weight in kilograms 59 kg O2 % BldC Oximetry 99 % Ra Results Test Date Facility Test Result H/L Range Note Urine Dipstick 08/06/2019 [facility] Ua Color yellow Yellow Ua Clarity clear Clear Ua Leuko neg Negative Ua Nitrite neg Negative Ua Urobilinogen 0.2 0.2 - 1.0 E.U./dL Ua Protein 15 High Negative Ua PH 5.5 Low 6.5-7.5 Ua Blood 200 High Negative Ua Specific [place] 1.030 1.010-1.030 Ua Ketones 5 High Negative Ua Bilirubin 1 High Negative Ua Glucose neg Negative CBC W/Automated 07/29/2019 [facility] White Blood 9.2 K/uL Normal 3.1-10.7 [address] [place] [address] [phone] Red Blood Count 4.72 M/uL Normal 3.90-5.40 [...] 40.4-72.8 Lymph % 38.6 % Normal 20.0-42.0 [place] % 5.3 % Normal 4.3-13.2 Eo% 5.4 % Normal 0.0-6.6 Bas% 0.4 % Normal 0.0-1.1 Immature Grans 0.2 % Normal 0.0-5.0 NRBC % 0.0 /100WBC < 10/ 100 WBC Neut# 4.59 K/uL Normal 1.8-7.0 Lymph # 3.54 K/uL Normal 1.0-4.0 [place] # 0.49 K/uL Normal 0.3-0.9 Eos # 0.50 K/uL Normal 0.0-0.5 Baso # 0.04 K/uL Normal 0.0-0.1 Immature Grans Absolute 0.02 K/uL NRBC # 0.00 K/uL Comprehensive 07/29/2019 [facility] Glucose 98 mg/dL Normal 74-106 Metabolic Panel [address] [place] [address] [phone] BUN 14 mg/dL Normal 7-18 Creatinine 1.0 [...] [facility] Lipase 91 U/L Normal 56-289 [address] [place] [address] [phone] 1 R10.13 Normal CBC, CMP; Nonspecific thrombocytosis; [...] [email or web address]. Procedures Date Code Description Status 05/08/2019 31329 Stress Test Interpre And Report Only Completed 05/08/2019 02380 Stress Test Physician Super Only Completed 04/02/2019 12371 Echocardiogram Complete Completed 03/22/2019 17254 EKG-Tracing And Report Completed 11/28/2016 52114630 Colonoscopy Completed Medical Devices Description No Information Available Encounters Type Date Location Provider Dx Diagnosis Office Visit 07/29/2019 9:50a Raisa Pacheco MD R10.13 Epigastric pain R11.2 Nausea with vomiting, unspecified Office Visit 06/19/2019 Orthopaedic Theodora Odonnell, S63.612A Unspecified 10:00a Office PA sprain of right middle finger, initial encounter W19.xxxA Unspecified fall, initial encounter Office Visit 06/18/2019 9:20a Cardiology Office Teresita R07.9 Chest pain, Marlyss B., PA unspecified R06.02 Shortness of breath Office Visit 06/12/2019 10:00a Surgical Office Sheryl, R10.13 Epigastric pain MD Lenard,FACS Office Visit 03/22/2019 9:00a Cardiology Office Teresita, R07.9 Chest pain, Marlyss B., PA unspecified R07.9 Chest pain, unspecified R06.02 Shortness of breath R06.02 Shortness of breath R53.83 Other fatigue R53.83 Other fatigue Assessments Date Code Description Provider 08/06/2019 N20.0 Calculus of kidney Ruth Ann [...] R07.9 Chest pain, unspecified Fantasma Sterling M.D., [facility] 04/02/2019 R06.02 Shortness of breath Wade Mendez [...] Marlyss B., PA 03/22/2019 R53.83 Other fatigue Gregg Lo PA 03/22/2019 R53.83 Other fatigue Gregg Lo PA Plan of Treatment Future Appointment(s):06/17/2020 9:15 am - Wade Mendez MD at Cardiology [id number]/06/2019 - Ruth Ann Hartley M.D.N20.0 Calculus of kidneyNew Labs:Ua RFX Micro & Culture II, Ordered: 08/06/19Comments:Patient with bilateral nonobstructing kidney stones. We discussed that the stones are small and currently are not the cause of her pain. Discussed with her imaging surveillance. Patient prefers to have those removed surgically. I did tell her that she does not require surgery at this point given the size of them but she insists that she would like them removed. With discussed the risks and benefits and complications. We did discuss in symptoms. Patient would like to proceed with ureteroscopy and stone extraction. She will be scheduled for that. Functional Status Functional Condition Comment Date Status Independent with all ADL's Active Mental Status Description No Information Available Referrals Refer to Reason for Referral Status Appt Date Wilber Hernández MD REFER FOR ESOPHAGEAL MOTILITY STUDY Created [address] [id number] [phone] Andrew Stuart MD Epigastric Pain, need for Manometry Testing Scheduled 2018 [address] [place] [address] [phone]
--- OUTSIDE RECORDS SUMMARY | 2019-08-19 16:57 | XMS REPORT | Continuity of Care Document ---
:1985 External Reference #:[id number] Author Name Neha Vines NP (transmitted by agent of provider Marianne Cardoza) Address [address] [place] [address] Care Team Providers Name Role Phone Gopal, Gifty BARRON Care Team Information Oracle Agile Plm Consultant [phone] Problems Active Problems Provider Date Dysfunction of eustachian tube Adriana Abel PA Onset: 05/25/2012 Social History Type Date Description Comments Sex [...] Result H/L Range Note Laboratory test 07/24/2019 [facility] Surgical Pathology SEE RESULT 1, [address] [place] [address] [phone] Leukemia/Lymphom 07/24/2019 [facility] Path Interpretation TNP a Phenot [address] [place] [address] [phone] Path Interpret 9-15 Marker (SEE NOTE) 3 Path Interpret > 16 Marker TNP 1 [id number] 2 SEE RESULT BELOW Name: SHARITA DIXON : [address]: Prashanth Mcrae MD Acct: [id number] Unit: [id number] AGE: 33 Location: [facility] Re07/24/19 SEX: F Status: REG REF SPEC: [id number] [place]: 07/24/19-075[address] [facility] DR: Prashanth Mcrae MD REQ: [id number] RECD: 07/24/19-1103 STATUS: SOUT _ ORDERED: LEVEL 4, TOUCH PREP COMMENTS: [id number] ADDENDUM Flow cytometry has been performed at [facility] [employer], [place], [place]. The testing reveals: FINAL DIAGNOSIS: Specimen Source: Lymph node, left posterior auricular ([id number]) Flow cytometry immunophenotypic analysis: No evidence of [...] MD 07/26/19 1054 Technical component performed by: [place] [address] Thermodynamics Teacher: Vivek Pérez II, MD, PhD. Addendum Signed (signature on file) David Christian MD 1459 FINAL DIAGNOSIS CONTINUED ON NEXT PAGE DEPARTMENT OF PATHOLOGY, [address] [place] [address] David Christian M.D. Director [facility] # [id number] Left posterior auricular lymph node, excisional biopsy: [...] fat. The specimen is bisected and a small business sales representative section is submitted for flow cytometry. The remaining specimen is submitted in one cassette. Signed by and Reported on: Hillary Soto MD 07/26/19 1055 END OF REPORT DEPARTMENT OF PATHOLOGY, [address] [place] [address] David Christian M.D. Director [facility] # [id number] 3 FINAL DIAGNOSIS: Specimen Source: Lymph node, left posterior auricular ([id number]) Flow cytometry immunophenotypic analysis: No evidence of [...] MD 07/26/19 1054 Technical component performed by: [address] [address] Thermodynamics Teacher: Vivek Pérez II, MD, PhD. Procedures Date Code Description Status 06/10/2019 92481 Ultrasound Head/Neck Completed Medical Devices Description No Information Available Encounters Type Date Location Provider Dx Diagnosis Office Visit 06/10/2019 Main Office Prashanth Mcrae M.D. R59.0 Localized enlarged 1:15p lymph nodes Office Visit 05/09/2019 Main Office Neha Vines, H92.02 Otalgia, left ear 9:00a LOCATION ANALYST Assessments Date Code Description Provider 06/10/2019 R59.0 Localized enlarged lymph nodes Prashanth Mcrae M.D. 05/09/2019 H92.02 Otalgia, left ear Neha Vines, JANICE Plan of Treatment No Information Available Functional Status Description No Information Available Mental Status Description No Information Available Referrals Description No Information Available
[2019-08-19 18:03] VITALS: BP 118/79
--- NOTE | 2019-08-19 18:06 | UC ---
Back Pain HPI - HPI Summary HPI Summary: 33-year-old woman comes in with a chief complaint of back pain. Patient had 2 ureteral stents removed this morning by her urologist Shelly that were placed due to kidney stones. Since that time she developed 8 out of 10 back pain. No complaint of any fevers or chills. Has not taken any medications. - History of Current Complaint Stated Complaint: BACK PAIN Time Seen by Provider: 08/19/19 17:22 Hx Last Menstrual Period: 12/09/17 - Allergies/Home Medications Allergies/Adverse Reactions: Allergies Allergy/AdvReac Type Severity Reaction Status Date / Time Penicillins Allergy Intermediate GI Upset Verified 08/19/19 17:56 amoxicillin Allergy Mild Vomiting Verified 08/19/19 17:56 prednisone Allergy Mild Rash Verified 08/19/19 17:56 adhesive Allergy Rash Uncoded 08/19/19 17:56 mushrooms Allergy Hives Uncoded 08/19/19 17:56 Home Medications: Home Medications Sulfamethox/Trimethoprim DS* [Bactrim DS 800/160 TAB*] 1 tab BID 08/19/19 [ History Confirmed 08/19/19] PMH/Surg Hx/FS Hx/Imm Hx Previously Healthy: Yes GI/ History: Kidney Stones Other History Of: Negative For: HIV, Hepatitis B, Hepatitis C - Surgical History Surgical History: Yes Surgery Procedure, Year, and Place: Sinus Surgery, 2012, [facility], esure. Cholecystectomy; right sided neck node 12/2016. LEFT CARPAL TUNNEL--05/2017. RIGHT CARPAL AYE 07/13/17. Hysterectomy April 2018 - Family History Known Family History: Positive: Cardiac Disease, Hypertension, Diabetes - Social History Alcohol Use: Occasionally Substance Use Type: None Smoking Status (MU): Never Smoked Tobacco When Did the Patient Quit Smoking/Using Tobacco: 5 years ago- denies use Household Exposure Type: Cigarettes - Immunization History Most Recent Influenza Vaccination: 2016 Review of Systems All Other Systems Reviewed And Are Negative: Yes Constitutional: Positive: Negative Skin: Positive: Negative Eyes: Positive: Negative ENT: Positive: Negative Respiratory: Positive: Negative Gastrointestinal: Positive: Negative Genitourinary: Positive: Other - SEE HPI Motor: Positive: Negative Neurovascular: Positive: Negative Musculoskeletal: Positive: Other: - SEE HPI Neurological: Positive: Negative Psychological: Positive: Negative Is Patient Immunocompromised?: No Physical Exam Triage Information Reviewed: Yes Appearance: Well-Appearing, Well-Nourished, Pain Distress - MILD Vital Signs Reviewed: Yes Eye Exam: Normal Eyes: Positive: Conjunctiva Clear Neck: Positive: Supple Respiratory: Positive: Lungs clear, Normal breath sounds, No respiratory distress Cardiovascular: Positive: RRR Abdomen Description: Positive: Nontender, Soft, CVA Tenderness (R), CVA Tenderness (L) Bowel Sounds: Positive: Present Musculoskeletal: Positive: Strength Intact, ROM Intact Neurological Exam: Normal Psychological: Positive: Age Appropriate Behavior Skin Exam: Normal Back Pain Course/Dx - Course Course Of Treatment: With the patient's recent history of ureteral stents pain removed and now having back pain the possibility of ureteral obstruction and hydronephrosis needs to be evaluated. At this time we do not have ultrasound here in clinic I recommended further evaluation in the emergency department. Patient will provide her own transportation. I spoke with a provider at the [place] emergency department about the case. - Differential Dx/Diagnosis Provider Diagnosis: Low back pain Discharge ED - Sign-Out/Discharge Documenting (check all that apply): Patient Departure All imaging exams completed and their final reports reviewed: No Studies - Discharge Plan Condition: Stable Disposition: HOME-RECOMMEND TO ED Patient Education Materials: Acute Low Back Pain (ED) Referrals: Sade Oh [Primary Care Provider] - Additional Instructions: GO DIRECTLY TO THE EMERGENCY DEPARTMENT FOR FURTHER EVALUATION AND CARE OF YOUR BACK PAIN AFTER URETERAL STENT REMOVAL. - Billing Disposition and Condition Condition: STABLE Disposition: Home-Recommend to ED
== END 2019-08-19 18:12 | disposition home health service (06) ==
LOC: UCCORT 16:46
DX: M54.5 Low back pain (principal); Z87.442 Personal history of urinary calculi; Z88.0 Allergy status to penicillin; Z88.8 Allergy status to other drugs, medicaments and biological substances
CPT/HCPCS: 81003; 87086; 99212; G0463

== ENCOUNTER 2020-03-09 16:50 | Emergency (ER) | payer MEDICARE, MEDICAID ==
--- OUTSIDE RECORDS SUMMARY | 2020-03-09 16:59 | XMS REPORT | Continuity of Care Document ---
:1985 External Reference #:[id number] Author Name Theodora Odonnell PA (transmitted by agent of provider Alison Pettit) Address [address] [place] [address] Care Team Providers Name Role Phone Oh, In-MD Dhruv - Obstetrics & Care Team Information Senior Sales Operations Manager Gynecology Sade Oh NP - Family Care Team Information Senior Sales Operations Manager Problems Active Problems Provider Date Attention deficit [...] Epigastric pain Lenard Saucedo MD,FACS Onset: 06/12/2019 Strain of finger tendon Theodora Odonnell PA Onset: 06/19/2019 Urinary tract infectious disease Ruth Ann Hartley M.D. Onset: 08/27/2019 Other soft tissue disorders related to Theodora Odonnell PA Onset: 01/20/2020 use, overuse and pressure, right hand Social History Type Date Description Comments Sex Unknown Tobacco Use Start: Unknown Never Smoked Cigarettes ETOH Use Currently consumes alcohol socially Tobacco Use Start: Unknown Patient has never smoked Recreational Drug Use Denies Drug Use Smoking Status Reviewed: 02/05/20 Patient has never smoked Allergies, Adverse Reactions, Alerts Active Allergies Reaction Severity Comments Date Penicillins vomit 11/26/2014 Amoxicillin vomit 09/01/2016 Prednisone Urticaria Moderate 02/14/2018 Medications Active Medications SIG Qnty Indications Ordering Provider Date Atomoxetine HCL 2 tablet by mouth Nurys George 60mg daily [employer] Capsules Gabapentin 1 cap by mouth Unknown 300mg Capsules every day at bedtime Keppra 1 tab by mouth Unknown 750mg Tablets twice a day History Medications Sulfamethoxazole/Trimethoprim DS 1 by mouth 1tabs Odilia 08/19/2019 - 800-160mg Tablets once given in Elsa Vallecillo 2018 office for procedure Medications Administered in Office Medication SIG Qnty Indications Ordering Provider Date Betamethasone Acetate & Sodium Theodora Odonnell PA 10/22/2019 Phosphate 3 MG Of Each Injection Immunizations Description No Information Available Vital Signs Date Vital Result Comment 02/05/2020 10:33am BP Systolic Sitting Right Arm 141 mmHg BP Diastolic Sitting Right Arm 102 mmHg 01/20/2020 10:26am BP Systolic Sitting Left Arm 133 mmHg BP Diastolic Sitting Left Arm 91 mmHg Body Temperature 97.0 F Heart Rate 88 /min Respiratory Rate 20 /min Weight 165.00 lb O2 % BldC Oximetry 100 % Results Test Acquired Date Facility Test Result H/L Range Note Ua RFX Micro & 08/27/2019 [facility] Urine Color Light-Yellow Yellow 1 Culture II [address] [place] [address] [phone] Urine Clarity Clear Clear Urine Glucose - Dipstick NEGATIVE mg/dL Negative Urine Bilirubin - Dipstick NEGATIVE Negative Urine Ketone NEGATIVE mg/dL Negative Urine Specific [place] 1.018 Normal 1.010-1.030 Urine Blood SMALL Abnormal 0-2 Urine PH 7.0 Normal 6.5-7.5 Urine Protein - Dipstick NEGATIVE mg/dL Negative Urine Urobilinogen - Dipstick < 2.0 mg/dL < 2.0 Urine Nitrite - Dipstick NEGATIVE Negative Urine Leuk Esterase NEGATIVE Negative Urine RBC 21-30 rbc/hpf 0-2 Urine WBC 0-2 wbc/hpf 0-5 Urine Epithelial Cells MANY /lpf None Seen Urine Mucus SMALL None Seen Source: URINE, CLEAN CAT <SEE NOTE> 2 Urine Dipstick 08/27/2019 [facility] Inhouse Ua Color yellow Yellow Ua Clarity clear Clear Ua Leuko neg Negative Ua Nitrite neg Negative Ua Urobilinogen .2 0.2 - 1.0 E.U./dL Ua Protein neg Negative Ua PH 6.5 6.5-7.5 Ua Blood 80 High Negative Ua Specific [place] 1.015 1.010-1.030 Ua Ketones neg Negative Ua Bilirubin neg Negative Ua Glucose neg Negative 1 N20.0 N39.0 2 URINE, CLEAN CATCH Procedures Date Code Description Status 02/05/2020 10831 Radiology, Hand: Minimum Three Views Completed 10/22/2019 58693 Radiology, Wrist Complete Completed 10/22/2019 53645 Radiology, Wrist Complete Completed 10/22/201995305 Injection, Therapeutic Carpal Tunnel Completed 08/27/2019 82116 Echography Retroperitoneal Limited Completed 08/19/2019 31349 Cystourethroscopy W/Removal FB/Calc/Stent Completed Urethra/Bladder Simple 11/28/2016 47779477 Colonoscopy Completed Medical Devices Description No Information Available Encounters Type Date Location Provider Dx Diagnosis Office Visit 02/05/2020 Orthopaedic Office Theodora Odonnell, M79.641 Pain in right 10:45a PA hand Office Visit 01/20/2020 Orthopaedic Office Theodora Odonnell M70.841 Oth soft tissue 11:00a PA disorders related to use/pressure, r hand W23.0xxA Caught, crush, jammed, or pinched betw moving objects, init Office Visit 08/27/2019 1:45p Urology Ruth Ann Hartley N39.0 Urinary tract Elsa infection, site not specified N20.0 Calculus of kidney Office Visit 08/19/2019 8:30a Urology Ruth Ann Hartley M.D. N20.0 Calculus of kidney Assessments Date Code Description Provider 02/05/2020 M79.641 Pain in right hand Theodora Odonnell PA 01/20/2020 M70.841 Other soft tissue disorders related to use, Theodora Odonnell PA overuse and pressure, right hand 01/20/2020 W23.0xxA Caught, crushed, jammed, or pinched between Theodora Odonnell PA moving objects, initial encounter 10/22/2019 M25.531 Pain in right wrist Theodora Odonnell PA 10/22/2019 G56.01 Carpal tunnel syndrome, right upper limb Theodora Odonnell PA 08/27/2019 N39.0 Urinary tract infection, site not specified Ruth Ann Hartley M.D. 08/27/2019 N20.0 Calculus of kidney Ruth Ann Hartley M.D. 08/19/2019 N20.0 Calculus of kidney Ruth Ann Hartley M.D. Plan of Treatment Future Appointment(s):03/18/2020 10:30 am - Theodora Odonnell PA at [facility] Oqccym9802/05/2020 - Theodora Odonnell, PAM79.641 Pain in right handComments:At this point I would recommend continue conservative treatment with [id number] pain medication, Obie wrap, ice, heat, and rest. An MRI and physical therapy would be helpful, but at this time I would not recommend that these are performed due to the coronavirus in isolation recommendations. Patient will return to the office for recheck in 6 weeks to see how her pain is doing with continued conservative measures. Functional Status Functional Condition Comment Date Status Independent with all ADL's Active Mental Status Description No Information Available Referrals Description No Information Available
--- OUTSIDE RECORDS SUMMARY | 2020-03-09 16:59 | XMS REPORT | Continuity of Care Document ---
:1985 External Reference #:[id number] Author Name Theodora Odonnell PA (transmitted by agent of provider Abigail Locke) Address [address] [facility] [address] Care Team Providers Name Role Phone Roland, MD Tomeka - Obstetrics & Care Team Information Oracle Soa Architect Gynecology Sade Oh NP - Family Care Team Information Oracle Soa Architect Problems Active Problems Provider Date Attention deficit [...] tablet by mouth Nurys George 60mg daily TANBARK PEELER Capsules Gabapentin 1 cap by mouth Unknown [...] Date Facility Test Result H/L Range Note Xray 02/05/2020 [facility] - Orthopedic RMP, Hand, RT, < pending> [address] [facility] [place] ([place] [address] 3 view) [phone] Ua RFX Micro 08/27/2019 [facility] Urine Color Light-Yellow Yellow 1 & Culture II [address] [place] [address] [phone] Urine Clarity Clear Clear Urine Glucose - Dipstick NEGATIVE mg/dL Negative Urine Bilirubin - Dipstick NEGATIVE Negative Urine Ketone NEGATIVE mg/dL Negative Urine Specific [place] 1.018 Normal 1.010-1.030 Urine Blood SMALL Abnormal [...] Ua Blood 80 High Negative Ua Specific [place] 1.015 1.010-1.030 Ua Ketones neg Negative Ua Bilirubin neg Negative Ua Glucose neg Negative 1 N20.0 N39.0 2 URINE, CLEAN CATCH Procedures Date Code Description Status 02/05/2020 41259 Radiology, Hand: Minimum Three Views Completed 10/22/2019 71599 Radiology, Wrist Complete Completed 10/22/2019 46321 Radiology, Wrist Complete Completed 10/22/2019 Injection, Therapeutic Carpal Tunnel Completed 08/27/2019 65202 Echography Retroperitoneal Limited Completed 08/19/2019 51004 Cystourethroscopy W/Removal FB/Calc/Stent Completed Urethra/Bladder Simple 08/12/2019 47728 Cystourethoscopy W/Ureteroscopy And/Or Pyeloscopy Completed Diagnostic 08/12/2019 42155 Cystourethroscopy W/ Insert Indwelling Ureteral Stent Completed 11/28/2016 44285794 Colonoscopy Completed Medical Devices Description No Information Available Encounters Type Date Location Provider Dx Diagnosis Office Visit 01/20/2020 Orthopaedic Office Thedoora Odonnell M70.841 Ot soft tissue 11:00a PA disorders related to use/pressure, r hand W23.0xxA Caught, crush, jammed, or pinched betw moving objects, init Office Visit 08/27/2019 1:45p Urology Ruth Ann Hartley, N39.0 Urinary tract M.DChris infection, site not specified N20.0 Calculus of kidney Office Visit 08/19/2019 8:30a Urology Ruth Ann Hartley M.D. N20.0 Calculus of kidney Office Visit 08/13/2019 8:45a Urology Ruth Ann Hartley M.D. N20.0 Calculus of kidney Assessments Date Code Description Provider 02/05/2020 M79.641 Pain in right hand Theodora Odonnell PA 01/20/2020 M70.841 Other soft tissue disorders related to use, Theodora Odonnell PA overuse and pressure, right hand 01/20/2020 W23.0xxA Caught, crushed, jammed, or pinched between Theodora Odonnell PA moving objects, initial encounter 10/22/2019 M25.531 Pain in right wrist Theoodra Odonnell PA 10/22/2019 G56.01 Carpal tunnel syndrome, right upper limb Theodora Odonnell PA 08/27/2019 N39.0 Urinary tract infection, site not specified Ruth Ann Hartley M.D. 08/27/2019 N20.0 Calculus of kidney Ruth Ann Hartley M.D. 08/19/2019 N20.0 Calculus of kidney Ruth Ann Hartley M.D. 08/13/2019 N20.0 Calculus of kidney Ruth Ann Hartley M.D. 08/12/2019 N20.0 Calculus of kidney Ruth Ann Hartley M.D. Plan of Treatment Future Appointment(s):03/18/2020 10:30 am - Theodora Odonnell PA at [facility] Kcewxb3402/05/2020 - Theodora Odonnell PAM79.641 Pain in right hand Functional Status Functional Condition Comment Date Status Independent with all ADL's Active Mental Status Description No Information Available Referrals Description No Information Available
--- OUTSIDE RECORDS SUMMARY | 2020-03-09 16:59 | XMS REPORT | Continuity of Care Document ---
:1985 External Reference #:[id number] Author Name Theodora Odonnell PA (transmitted by agent of provider Alison Pettit) Address [address] [facility] [address] Care Team Providers Name Role Phone Oh, In-MD Dhruv - Obstetrics & Care Team Information Spinner Tender Gynecology Sade Oh NP - Family Care Team Information Spinner Tender Problems Active Problems Provider Date Attention deficit [...] of finger Theodora Odonnell PA Onset: 08/20/2018 Urinary tract infectious disease Ruth Ann Hartley M.D. Onset: 08/27/2019 Strain of finger tendon Theodora Odonnell PA Onset: 06/19/2019 Epigastric pain Lenard Saucedo MD,FACS Onset: 06/12/2019 Social History Type Date Description Comments Sex Unknown Tobacco Use Start: Unknown Never Smoked Cigarettes ETOH Use Currently consumes alcohol socially Tobacco Use Start: Unknown Patient has never smoked Recreational Drug Use Denies Drug Use Smoking Status Reviewed: 01/20/20 Patient has never smoked Allergies, Adverse Reactions, Alerts Active Allergies Reaction Severity Comments Date Penicillins vomit 11/26/2014 Amoxicillin vomit 09/01/2016 Prednisone Urticaria Moderate 02/14/2018 Medications Active Medications SIG Qnty Indications Ordering Provider Date Atomoxetine HCL 2 tablet by mouth Nurys George 60mg daily 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 Capsules History Medications Sulfamethoxazole/Trimethoprim DS 1 by mouth 1tabs Odilia, 08/19/2019 - 800-160mg Tablets once given in Elsa Vallecillo 2018 office for procedure Medications Administered in Office Medication SIG Qnty Indications Ordering Provider Date Betamethasone Acetate & Sodium Theodora Odonnell PA 10/22/2019 Phosphate 3 MG Of Each Injection Immunizations Description No Information Available Vital Signs Date Vital Result Comment 01/20/2020 10:26am BP Systolic Sitting Left Arm 133 mmHg BP Diastolic Sitting Left Arm 91 mmHg Body Temperature 97.0 F Heart Rate 88 /min Respiratory Rate 20 /min Weight 165.00 lb O2 % BldC Oximetry 100 % 10/22/2019 9:49am BP Systolic 139 mmHg BP Diastolic 94 mmHg Heart Rate 98 /min O2 % BldC Oximetry 97 % Results Test Acquired Date Facility Test Result H/L Range Note Ua RFX Micro & 08/27/2019 [facility] Urine Color Light-Yellow Yellow 1 Culture II [address] [place] [address] [phone] Urine Clarity Clear Clear Urine Glucose - Dipstick NEGATIVE mg/dL Negative Urine Bilirubin - Dipstick NEGATIVE Negative Urine Ketone NEGATIVE mg/dL Negative Urine Specific [place] 1.018 Normal 1.010-1.030 Urine Blood SMALL Abnormal [...] Ua Blood 80 High Negative Ua Specific [place] 1.015 1.010-1.030 Ua Ketones neg Negative Ua Bilirubin neg Negative Ua Glucose neg Negative Urine Dipstick 08/06/2019 [facility] Ua Color yellow Yellow Ua Clarity clear Clear Ua Leuko neg Negative Ua Nitrite neg Negative Ua Urobilinogen 0.2 0.2 - 1.0 E.U./dL Ua Protein 15 High Negative Ua PH 5.5 Low 6.5-7.5 Ua Blood 200 High Negative Ua Specific [place] 1.030 1.010-1.030 Ua Ketones 5 High Negative Ua Bilirubin 1 High Negative Ua Glucose neg Negative 1 N20.0 N39.0 2 URINE, CLEAN CATCH Procedures Date Code Description Status 10/22/2019 95986 Radiology, Wrist Complete Completed 10/22/2019 18444 Radiology, Wrist Complete Completed 10/22/201946934 Injection, Therapeutic Carpal Tunnel Completed 08/27/2019 44631 Echography Retroperitoneal Limited Completed 08/19/2019 22696 Cystourethroscopy W/Removal FB/Calc/Stent Completed Urethra/Bladder Simple 08/12/2019 16148 Cystourethoscopy W/Ureteroscopy And/Or Pyeloscopy Completed Diagnostic 08/12/2019 99059 Cystourethroscopy W/ Insert Indwelling Ureteral Stent Completed 11/28/2016 05275122 Colonoscopy Completed Medical Devices Description No Information Available Encounters Type Date Location Provider Dx Diagnosis Office Visit 08/27/2019 Urology Ruth Ann Hartley N39.0 Urinary tract 1:45p Elsa infection, site not specified N20.0 Calculus of kidney Office Visit 08/19/2019 8:30a Urology Ruth Ann Hartley M.D. N20.0 Calculus of kidney Office Visit 08/13/2019 8:45a Urology Ruth Ann Hartley M.D. N20.0 Calculus of kidney Office Visit 08/06/2019 2:00p Urology Ruth Ann Hartley M.D. N20.0 Calculus of kidney Assessments Date Code Description Provider 10/22/2019 M25.531 Pain in right wrist Theodora [...] Ruth Ann Hartley M.D. Plan of Treatment No Information Available Functional Status Functional Condition Comment Date Status Independent with all ADL's Active Mental Status Description No Information Available Referrals Refer to Dr Reason for Referral Status Appt Date Wilber Hernández MD REFER FOR ESOPHAGEAL MOTILITY STUDY Closed Patient had appt for 09/23 for study, which was cancelled [address] [place] [phone]
--- OUTSIDE RECORDS SUMMARY | 2020-03-09 16:59 | XMS REPORT | Continuity of Care Document ---
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 Onset: 12/17/2018 Social History Type Date Description Comments Sex Unknown Tobacco Use Start: Unknown Never Smoked Cigarettes Tobacco Use Start: Unknown Never Smoked Cigars Tobacco Use Start: Unknown Never Smoked A Pipe Smoking Status Reviewed: 02/05/20 Never Smoked A Pipe Smokeless Tobacco Never Used Smokeless Tobacco ETOH Use Occasionally consumes alcohol Recreational Drug Use Denies Drug Use Tobacco Use Start: Unknown Patient has never smoked Exercise Type/Frequency Exercises regularly walks alot Allergies, Adverse Reactions, Alerts Active Allergies Reaction Severity Comments Date Penicillin 01/08/2018 Escitalopram 01/08/2018 Tape 01/08/2018 Amoxicillin 01/08/2018 Prednisone 01/08/2018 Seasonal 04/04/2018 Medications Active Medications SIG Qnty Indications Ordering Date Provider Ondansetron HCL 1 by mouth twice a 30tabs Vill[place], 4mg day as needed Elsa Durbin Tablets Atomoxetine HCL 2 po q am Vill[place], 60mg Elsa Durbin Capsules Ventolin HFA 2 puffs as needed Unknown 108(90Base) mcg/Act Aerosol Trazodone HCL 1 po at hs [facility], 150mg Elsa Durbin Tablets Loratadine 1 by mouth every Unknown 10mg Tablets day Acetaminophen 2 tab 3 times daily Unknown 500mg as needed Tablets Docusate Sodium 1 tab every 12 Unknown 100mg hours as needed for Capsules constipation Gabapentin 1 by mouth three Unknown 300mg times a day Capsules Levetiracetam 1 by mouth twice a Unknown 750mg day Tablets Qvar Redihaler 2 puff twice a day Unknown 80mcg/Act Aerosol Medications Administered in Office Medication SIG Qnty Indications Ordering Provider Date Depomedrol 40MG ADRIANA StearnsC 02/05/2020 Injection Immunizations CPT Code Status Date Vaccine Lot # [id number] Given 07/28/2011 Influenza Virus 3Yrs & Over 41251 Given 08/16/2010 Influenza Virus 3Yrs & Over 71111 Given 07/29/2009 Influenza Virus 3Yrs & Over Vital Signs Date Vital Result Comment 02/05/2020 2:30pm Height 66 inches 5'6" Weight 158.50 lb Heart Rate 95 /min BP Systolic 110 mmHg BP Diastolic 78 mmHg Respiratory Rate 18 /min Pain Level 8 O2 % BldC Oximetry 99 % BMI (Body Mass Index) 25.6 kg/m2 12/17/2018 2:06pm Height 65.75 inches 5'5.75" Weight 181.00 lb Heart Rate 116 /min BP Systolic Sitting 110 mmHg BP Diastolic Sitting 86 mmHg Respiratory Rate 16 /min Pain Level 5 BMI (Body Mass Index) 29.4 kg/m2 Results Description No Information Available Procedures Description No Information Available Medical Devices Description No Information Available Encounters Description No Information Available Assessments Date Code Description Provider 02/05/2020 M65.331 Trigger finger, right middle finger ADRIANA StearnsC 02/05/2020 M65.341 Trigger finger, right ring finger Edelmira BittingPATRICK-C Plan of Treatment 02/05/2020 - ADRIANA StearnsCM65.331 Trigger finger, right middle fingerFollow up:Follow up: As uabxubB30.341 Trigger finger, right ring finger Functional Status Description No Information Available Mental Status Description No Information Available Referrals Description No Information Available
--- OUTSIDE RECORDS SUMMARY | 2020-03-09 16:59 | XMS REPORT | Continuity of Care Document ---
:1985 External Reference #:[id number] Author Name JESSICA Stearns (transmitted by agent of provider Leola Bishop) Address [address] [place] [address] Care Team Providers Name Role Phone Braxton Ferrer MD - Family Care Team Information Gear Straightener [phone] Medicine Barbie Henry MD - Family Medicine Care Team Information Gear Straightener Problems Active Problems Provider Date Gastroesophageal reflux [...] mcg/Act Aerosol Trazodone HCL 1 po at [facility], 150mg Elsa Durbin Tablets Loratadine 1 by [...] Qnty Indications Ordering Provider Date Depomedrol 40MG JESSICA Stearns 02/05/2020 Injection Immunizations CPT Code Status Date Vaccine Lot # [id number] Given 07/28/2011 Influenza Virus 3Yrs & Over 08001 Given 08/16/2010 Influenza Virus 3Yrs & Over 19492 Given 07/29/2009 Influenza Virus 3Yrs & Over [...] kg/m2 Results Description No Information Available Procedures Date Code Description Status 02/05/202085306 Inject Tendon Sheath Or Ligament Aponeurosis Eg Plantar Completed Fascia Medical Devices Description No Information Available Encounters Type Date Location Provider Dx Diagnosis Office Visit 02/05/2020 [facility] Edelmira Zhu M65.331 Trigger finger, 1:45p at [place] JESSICA right middle finger M65.341 Trigger finger, right ring finger Assessments Date Code Description Provider 02/05/2020 M65.331 Trigger finger, right middle finger JESSICA Stearns 02/05/2020 M65.341 Trigger finger, right ring finger Edelmira Zhu, PATRICK-C Plan of Treatment 02/05/2020 - Edelmira Zhu, PATRICK-CM65.331 Trigger finger, right middle fingerFollow up:Follow up: As rxpyjzW05.341 Trigger finger, right ring finger Functional Status Description No Information Available Mental Status Description No Information Available Referrals Description No Information Available
--- OUTSIDE RECORDS SUMMARY | 2020-03-09 16:59 | XMS REPORT | Continuity of Care Document ---
:1985 External Reference #:[id number] Author Name Raisa Mclain MD (transmitted by agent of provider Neha Byrd) Address [address], [address] [place] [address] Care Team Providers Name Role Phone Roland, Emery-MD Dhruv - Obstetrics & Care Team Information Log Carrier Operator [phone] Gynecology Sade Oh NP - Family Care Team Information Log Carrier Operator [phone] Asad Bravo MD Care Team Information Log Carrier Operator [phone] Problems Active Problems Provider Date Attention deficit [...] tablet by mouth Nurys George 60mg daily [employer] Capsules Gabapentin 1 cap by mouth Unknown 300mg Capsules every day at bedtime Keppra 1 tab by mouth Unknown 750mg Tablets twice a day Medications Administered in Office Medication SIG Qnty [...] Range Note [facility] RFX [facility] Color Light-Yellow Yellow 1 Culture II [address] [place] [address] [phone] Urine Clarity Clear Clear Urine Glucose - Dipstick NEGATIVE mg/dL Negative Urine Bilirubin - Dipstick NEGATIVE Negative Urine Ketone NEGATIVE mg/dL Negative Urine Specific [place] 1.018 Normal 1.010-1.030 Urine Blood SMALL Abnormal [...] Ua Blood 80 High Negative Ua Specific [place] 1.015 1.010-1.030 Ua Ketones neg Negative Ua Bilirubin neg Negative Ua Glucose neg Negative 1 N20.0 N39.0 2 URINE, CLEAN CATCH Procedures Date Code Description Status 02/05/2020 91075 Radiology, Hand: Minimum Three Views Completed 10/22/2019 97017 Radiology, Wrist Complete Completed 10/22/2019 65053 Radiology, Wrist Complete Completed 10/22/2019 57007 Injection, Therapeutic Carpal Tunnel Completed 08/27/2019 11771 Echography Retroperitoneal Limited Completed 11/28/2016 11899008 Colonoscopy Completed Medical Devices Description No Information Available Encounters Type Date Location Provider Dx Diagnosis Office Visit 02/24/2020 9:30a GI Raisa Mclain MD R10.13 Epigastric pain R11.2 Nausea with vomiting, unspecified R14.1 Gas pain K44.9 Diaphragmatic hernia without obstruction or gangrene Office Visit 02/05/2020 10:45a Orthopaedic Theodora Odonnell, M79.641 Pain in right Office PA hand Office Visit 01/20/2020 11:00a Orthopaedic Theodora Odonnell M70.841 Oth soft tissue Office PA disorders related to use/pressure, r hand W23.0xxA Caught, crush, jammed, or pinched betw moving objects, init Office Visit 08/27/2019 1:45p Urology Ruth Ann Hartley, N39.0 Urinary tract M.D. infection, site not specified N20.0 Calculus of kidney Assessments Date Code Description Provider 02/24/2020 R10.13 Epigastric pain Raisa Mclain MD 02/24/2020 R11.2 Nausea with vomiting, unspecified Raisa Mclain MD 02/24/2020 R14.1 Gas pain Raisa Mclain MD 02/24/2020 K44.9 Diaphragmatic hernia without obstruction or Raisa Mclain MD gangrene 02/05/2020 M79.641 Pain in right hand Theodora [...] am - Theodora Odonnell PA at [facility]2/24/2020 - Raisa Mclain, MDR10.13 Epigastric painComments:Advised patient to increase omeprazole dose to 40 mg daily, 30 minutes before breakfastAntireflux lifestyle modifications reiteratedRecommended patient follow -[facility] Surgery referral for hiatal hernia Anti- nausea medications as needed Follow-up with manometry and pH impedance study appointment at [facility] Follow-up with MD in 3 wgignqB12.2 Nausea with vomiting, unspecifiedComments:Continue with Zofran as needed for nausea and lsigupoyH32.1 Gas painComments:Recommended avoiding food items that cause gas and bloating; discussed FODMAP dietK44.9 Diaphragmatic hernia without obstruction or gangreneComments:Surgery referral provided Functional Status Functional Condition Comment Date Status Independent with all ADL's Active Mental Status Description No Information Available Referrals Refer to Reason for Referral Status Appt Date Asad Bravo MD Hiatal Hernia Created [address] [place] [address] [phone]
--- OUTSIDE RECORDS SUMMARY | 2020-03-09 16:59 | XMS REPORT | Continuity of Care Document ---
:1985 External Reference #:[id number] Author Name Theodora Odonnell PA (transmitted by agent of provider Alison Pettit) Address [address] [place] [address] Care Team Providers Name Role Phone Oh, In-MD Dhruv - Obstetrics & Care Team Information Health And Wellness Director Gynecology Sade Oh NP - Family Care Team Information Health And Wellness Director [phone] Problems Active Problems Provider Date Attention deficit [...] tablet by mouth Nurys George 60mg daily HAND PASTER Capsules History Medications Sulfamethoxazole/Trimethoprim DS 1 by [...] Range Note Ua RFX Micro & 08/27/2019 [facility] Urine Color Light-Yellow Yellow 1 Culture II [address] [place] [address] [phone] Urine Clarity Clear Clear Urine Glucose - Dipstick NEGATIVE mg/dL Negative Urine Bilirubin - Dipstick NEGATIVE Negative Urine Ketone NEGATIVE mg/dL Negative Urine Specific [place] 1.018 Normal 1.010-1.030 Urine Blood SMALL Abnormal [...] CAT <SEE NOTE> 2 Urine Dipstick 08/27/2019 [facility] Ua Color yellow Yellow Ua Clarity clear Clear Ua Leuko neg Negative Ua Nitrite neg Negative Ua Urobilinogen .2 0.2 - 1.0 E.U./dL Ua Protein neg Negative Ua PH 6.5 6.5-7.5 Ua Blood 80 High Negative Ua Specific [place] 1.015 1.010-1.030 Ua Ketones neg Negative Ua Bilirubin neg Negative Ua Glucose neg Negative Urine Dipstick 08/06/2019 [facility] Inhouse Ua Color yellow Yellow Ua Clarity clear Clear Ua Leuko neg Negative Ua Nitrite neg Negative Ua Urobilinogen 0.2 0.2 - 1.0 E.U./dL Ua Protein 15 High Negative Ua PH 5.5 Low 6.5-7.5 Ua Blood 200 High Negative Ua Specific [place] 1.030 1.010-1.030 Ua Ketones 5 High Negative Ua Bilirubin 1 High Negative Ua Glucose neg Negative 1 N20.0 N39.0 2 URINE, CLEAN CATCH Procedures Date Code Description Status 10/22/2019 09902 Radiology, Wrist Complete Completed 10/22/2019 30123 Radiology, Wrist Complete Completed 10/22/2019 94025 Injection, Therapeutic Carpal Tunnel Completed 08/27/2019 02647 Echography Retroperitoneal Limited Completed 08/19/2019 18445 Cystourethroscopy W/Removal FB/Calc/Stent Completed Urethra/Bladder Simple 08/12/2019 71038 Cystourethoscopy W/Ureteroscopy And/Or Pyeloscopy Completed Diagnostic 08/12/2019 31789 Cystourethroscopy W/ Insert Indwelling Ureteral Stent Completed 11/28/2016 89082007 Colonoscopy Completed Medical Devices Description No Information Available Encounters Type Date Location Provider Dx Diagnosis Office Visit 01/20/2020 Orthopaedic Office Theodora Odonnell, M70.841 Ot soft tissue 11:00a PA disorders [...] of kidney Assessments Date Code Description Provider 01/20/2020 M70.841 Other soft tissue disorders related [...]
[2020-03-09 17:14] VITALS: BP 112/85
--- NOTE | 2020-03-09 17:27 | UC ---
Throat Pain/Nasal Minesh HPI - HPI Summary HPI Summary: 34-year-old female presents with 1 week history of difficulty swallowing. States when she eats solid foods she occasionally feels like it will get stuck in the back of her throat causing her to gag before she is then able to swallow the food. No difficulty swallowing fluids. Reports her throat is occasionally sore but not at present. Reports a history of hiatal hernia with frequent heartburn. She has been referred to gastroenterology in [place] but has been unable to schedule an appointment due to the current COVID-19 epidemic. Denies fever, chills, nasal congestion, ear pain, cough, shortness of breath, epigastric or substernal pain or fullness, abdominal pain, nausea, or vomiting. - History of Current Complaint Chief Complaint: UCGeneralIllness Stated Complaint: THROAT CONCERN Time Seen by Provider: 03/09/20 16:59 Hx Obtained From: Patient Hx Last Menstrual Period: 12/09/17 Pain Intensity: 6 - Allergies/Home Medications Allergies/Adverse Reactions: Allergies Allergy/AdvReac Type Severity Reaction Status Date / Time Penicillins Allergy Intermediate GI Upset Verified 03/09/20 17:06 amoxicillin Allergy Mild Vomiting Verified 03/09/20 17:06 prednisone Allergy Mild Rash Verified 03/09/20 17:06 adhesive Allergy Rash Verified 03/09/20 17:06 mushrooms Allergy Hives Uncoded 03/09/20 17:06 Home Medications: Home Medications Atomoxetine(NF) [Strattera(NF)] 120 mg PO DAILY 07/19/16 [History Confirmed ] Albuterol HFA INHALER* [Ventolin HFA Inhaler*] 1 - 2 puff INH Q4H PRN 03/07/19 [ History Confirmed 03/09/20] Ondansetron HCl [Zofran] 4 mg PO DAILY PRN 03/07/19 [History Confirmed 03/09/20] Venlafaxine HCl [Venlafaxine HCl ER] 75 mg PO DAILY 03/07/19 [History Confirmed 03/09/20] hydrOXYzine HCL TAB* [Atarax 10 MG TAB*] 10 mg PO TID 03/07/19 [History Confirmed 03/09/20] Gabapentin CAP(*) [Neurontin 300 CAP(*)] 300 mg PO BEDTIME 03/09/20 [History Confirmed 03/09/20] Omeprazole (Nf) [Prilosec (NF)] 40 mg PO DAILY 03/09/20 [History Confirmed 03/09] levETIRAcetam TAB* [Keppra TAB*] 500 mg PO BID 03/09/20 [History Confirmed 03/09] PMH/Surg Hx/FS Hx/Imm Hx Respiratory History: Asthma GI/ History: Gastroesophageal Reflux, Other - Hiatal hernia Neurological History: Seizures Psychological History: Anxiety, Depression, Other - ADHD Other History Of: Negative For: HIV, Hepatitis B, Hepatitis C - Surgical History Surgical History: Yes Surgery Procedure, Year, and Place: Tonsilectomy. Sinus Surgery, 2012, [facility], esure. Cholecystectomy; right sided neck node 12/2016. LEFT CARPAL TUNNEL--2016. RIGHT CARPAL AYE 07/13/17. Hysterectomy April 2018 - Family History Known Family History: Positive: Cardiac Disease, Hypertension, Diabetes - Social History Alcohol Use: Occasionally Substance Use Type: None Smoking Status (MU): Never Smoked Tobacco Type: Cigarettes Amount Used/How Often: ~1/2 cigarette daily Length of Time of Smoking/Using Tobacco: On and Off Since Age 30 When Did the Patient Quit Smoking/Using Tobacco: 5 years ago- denies use Household Exposure Type: Cigarettes - Immunization History Most Recent Influenza Vaccination: 2016 Review of Systems All Other Systems Reviewed And Are Negative: Yes Constitutional: Negative: Fever, Chills Skin: Negative: Rash Eyes: Negative: Drainage, Eye Redness ENT: Positive: Sore Throat, Other - See HPI. Negative: Ear Ache, Nasal Discharge, Sinus Congestion, Sinus Pain/Tenderness Respiratory: Negative: Shortness Of Breath, Cough Cardiovascular: Negative: Chest Pain Gastrointestinal: Negative: Abdominal Pain, Vomiting, Nausea Genitourinary: Positive: Negative Musculoskeletal: Positive: Negative Neurological/Mental Status: Positive: Negative Is Patient Immunocompromised?: No Physical Exam - Summary Physical Exam Summary: GENERAL APPEARANCE: Alert and cooperative adult female who appears to be in no acute distress. EYES: Conjunctiva clear. No drainage. EARS: External auditory canals and tympanic membranes clear, hearing grossly intact. NOSE: No nasal discharge. THROAT: Pharynx normal. Tonsils surgically absent. Uvula midline. Teeth and gingiva in overall poor condition. Airway patent. NECK: Neck supple, non-tender without lymphadenopathy. CARDIAC: Normal S1 and S2. No S3, S4 or murmurs. Rhythm is regular. There is no peripheral edema, cyanosis or pallor. Extremities are warm and well perfused. Capillary refill is less than 2 seconds. Peripheral pulses intact. LUNGS: Clear to auscultation without rales, rhonchi, wheezing or diminished breath sounds. ABDOMEN: Positive bowel sounds. Soft, nondistended, nontender. No guarding or rebound. No masses or hepatosplenomegally. MUSKULOSKELETAL: ROM intact to all extremities. No joint erythema or tenderness. Normal muscular development. Normal gait. SKIN: Skin normal color, texture and turgor with no lesions or eruptions. Triage Information Reviewed: Yes Vital Signs: Initial Vital Signs Temp 97.7 F 03/09/20 17:02 Pulse 96 03/09/20 17:02 Resp 16 03/09/20 17:02 BP 112/85 03/09/20 17:02 Pulse Ox 98 03/09/20 17:02 Vital Signs Reviewed: Yes Diagnostics - Radiology No standard instances Radiology Interpretation Completed By: Radiologist Summary of Radiographic Findings: Order Information: CHEST PA 1 VW. INDICATION : Dysphagia, evaluation for hiatal hernia. COMPARISON: There are no relevant prior studies available for comparison. TECHNIQUE: Dual-energy PA views of the chest were obtained. FINDINGS: The lungs are clear. There is no pleural effusion. The cardiomediastinal silhouette is within normal limits. No large air -containing hiatal hernia is identified. The upper abdominal contents are normal. Osseous structures are unremarkable. IMPRESSION: No large air- containing hiatal hernia is identified. Throat Pain/Nasal Course/Dx - Course Course Of Treatment: 34-year-old female presents with 1 week history of difficulty swallowing. States when she eats solid foods she occasionally feels like it will get stuck in the back of her throat causing her to gag before she is then able to swallow the food. No difficulty swallowing fluids. Reports her throat is occasionally sore but not at present. Reports a history of hiatal hernia with frequent heartburn. She has been referred to gastroenterology in [place] but has been unable to schedule an appointment due to the current COVID-19 epidemic. Denies fever, chills, nasal congestion, ear pain, cough, shortness of breath, epigastric or substernal pain or fullness, abdominal pain, nausea, or vomiting. Afebrile. Vital signs stable. Patient had a normal pharynx, surgically absent tonsils, no cervical lymphadenopathy, clear bilateral breath sounds, soft, nondistended, nontender abdomen and otherwise unremarkable exam. Rapid strep test was negative. 1 view upright PA chest x-ray showed no identifiable large air-containing hiatal hernia. Reviewed results with the patient. Recommending that she continue with her omeprazole and follow up with gastroenterology as previously directed. Anticipatory guidance and warning symptoms were reviewed with the patient. Verbalizes understanding and agrees with plan of care. - Differential Dx/Diagnosis Differential Diagnosis/HQI/PQRI: Peritonsillar Abscess, Pharyngitis, Tonsillitis , Other - Hiatal hernia Provider Diagnosis: Dysphagia, Sore throat Discharge ED - Sign-Out/Discharge Documenting (check all that apply): Patient Departure All imaging exams completed and their final reports reviewed: Yes - Discharge Plan Condition: Stable Disposition: HOME Patient Education Materials: Dysphagia (ED) Referrals: Sade Oh [Primary Care Provider] - Shivam Frederick MD [Medical Doctor] - (Call for an appointment.) Additional Instructions: Your rapid strep test in the clinic today was negative. The chest x-ray also was normal without any evidence of a large hiatal hernia however this is not the most most sensitive test and you should have further evaluation as an outpatient. Continue taking your omeprazole as directed. Take over the counter acetaminophen (Tylenol) according to directions as needed for pain or fever. Follow up with gastroenterology either in [place] or you can call our gastroenterology department to schedule an appointment. Seek immediate medical attention in the emergency room if you are unable to swallow or develop drooling, are unable to eat or drink, have have any difficulty breathing, or any worsening of symptoms. - Billing Disposition and Condition Condition: STABLE Disposition: Home
== END 2020-03-09 17:58 | disposition home or self-care (01) ==
LOC: UCCORT 16:50
DX: R13.10 Dysphagia, unspecified (principal); J02.9 Acute pharyngitis, unspecified; J45.909 Unspecified asthma, uncomplicated; K21.9 Gastro-esophageal reflux disease without esophagitis; R56.9 Unspecified convulsions; F90.9 Attention-deficit hyperactivity disorder, unspecified type; F41.9 Anxiety disorder, unspecified; F32.9 Major depressive disorder, single episode, unspecified; Z79.899 Other long term (current) drug therapy; Z88.0 Allergy status to penicillin; Z88.8 Allergy status to other drugs, medicaments and biological substances; Z91.018 Allergy to other foods; Z91.048 Other nonmedicinal substance allergy status; Z87.891 Personal history of nicotine dependence
CPT/HCPCS: 71045; 87651; 99211; G0463